=== PATIENT | male | born 1965 | race Caucasian/White ===

== ENCOUNTER 2021-06-05 11:56 | Outpatient (CLI) | payer MEDICARE, SELFPAY | END 2021-06-05 11:57 | disposition home or self-care (01) | PROVIDERS: PCP Family Medicine; Visit Provider Family Medicine | DX: R30.0 Dysuria (principal); Z93.59 Other cystostomy status; Z86.69 Personal history of other diseases of the nervous system and sense organs; Z87.828 Personal history of other (healed) physical injury and trauma; I10 Essential (primary) hypertension | CPT/HCPCS: 80053; 80061; 81003; 84443; 85025; 87077; 87086; 87184 ==

== ENCOUNTER 2021-07-23 09:00 | Outpatient (CLI) | payer MEDICARE, SELFPAY ==
--- NOTE | 2021-07-23 08:45 | US_ITS ---
WS: [id number] ULTRASOUND RENAL TECHNIQUE: Ultrasound examination of both kidneys. CLINICAL INFORMATION: NEUROGENIC BLADDER COMPARISON: None. FINDINGS: RIGHT: Right simple upper pole renal cyst measuring 4.3 x 3.9 x 2.7 cm. Nonobstructing right mid jze l parenchymal calculus measuring 11 mm. Tiny right inferior pole renal cyst measuring 9 x 8 mm Right kidney is normal in size and appearance. Echogenicity: Normal. Cortical thickness: 0.8 cm; Normal. Hydronephrosis: None. Perinephric fluid: None. Right kidney measures: 13.0 cm x 5.2 cm x 5.0 cm. LEFT: Left kidney is normal in size and appearance. Echogenicity: Normal. Cortical thickness: 0.8 cm; Normal. Hydronephrosis: None. Perinephric fluid: None. Left kidney measures: 10.8 cm x 6.2 cm x 5.7 cm. Normal visualized aorta. Dejesus catheter. US/US renal BI* [id number] IMPRESSION: 1. No hydronephrosis in either kidney. 2. Dejesus catheter. 3. Right renal cysts described above. 4. Nonobstructing 11 mm right renal parenchymal calculus
--- NOTE | 2021-07-23 09:30 | XR_ITS ---
WS: [id number] KUB, AP view, 07/23/2021 Clinical Data: HISTORY OF KIDNEY STONES Comparison: None. Findings: No abnormal intraabdominal masses or calcifications are seen. There is no dilatated small bowel or ev idence of obstruction. The colon shows moderate fecal material and central dilatation There is a vena caval filter in good position. There are clips in the right upper quadrant from a cho lecystectomy. There is osteoarthritic change of the lumbar spine. There is a density overlying the le ft lateral ilium which may be an artifact. There is osteoarthritic change of both hips. XR/XR KUB [id number] Impression: Moderate colonic ileus.
== END 2021-07-23 09:01 | disposition home or self-care (01) ==
LOC: RAD 09:03
PROVIDERS: PCP Family Medicine; Visit Provider Nurse Practitioner Family
DX: Z87.442 Personal history of urinary calculi (principal); N31.9 Neuromuscular dysfunction of bladder, unspecified; Q61.02 Congenital multiple renal cysts; N20.0 Calculus of kidney
CPT/HCPCS: 74018; 76770

== ENCOUNTER 2021-09-18 09:13 | Outpatient (CLI) | payer MEDICARE, SELFPAY | END 2021-09-18 09:14 | disposition home or self-care (01) | LOC: WOUND 09:15 | PROVIDERS: PCP Family Medicine; Visit Provider Thoracic Surgery (Cardiothoracic Vascular Surgery) | DX: I96 Gangrene, not elsewhere classified (principal); L97.522 Non-pressure chronic ulcer of other part of left foot with fat layer exposed; L89.622 Pressure ulcer of left heel, stage 2 | CPT/HCPCS: 11042; 87070; 87176; 87205; 99212 ==

== ENCOUNTER 2021-09-25 09:36 | Outpatient (CLI) | payer MEDICARE, SELFPAY | END 2021-09-25 09:37 | disposition home or self-care (01) | LOC: WOUND 09:37 | PROVIDERS: PCP Family Medicine; Visit Provider Thoracic Surgery (Cardiothoracic Vascular Surgery) | DX: I96 Gangrene, not elsewhere classified (principal); S91.312A Laceration without foreign body, left foot, initial encounter; W45.8XXA Other foreign body or object entering through skin, initial encounter; W22.03XA Walked into furniture, initial encounter; L89.622 Pressure ulcer of left heel, stage 2 | CPT/HCPCS: 97597 ==

== ENCOUNTER 2021-10-02 09:23 | Outpatient (CLI) | payer MEDICARE, SELFPAY | END 2021-10-02 09:24 | disposition home or self-care (01) | LOC: WOUND 09:24 | PROVIDERS: PCP Family Medicine; Visit Provider Emergency Medicine | DX: L89.892 Pressure ulcer of other site, stage 2 (principal); L89.622 Pressure ulcer of left heel, stage 2 | CPT/HCPCS: 11042 ==

== ENCOUNTER 2021-10-08 11:18 | Outpatient (CLI) | payer MEDICARE, SELFPAY ==
--- NOTE | 2021-10-08 11:39 | USCV_ITS ---
Gian Silva Age: 56 Gender: M : 1965 Exam Date: 10/08/2021 11:53 Ordering Phys: Jailene Jordan DO Technologist: Maci Mendoza Exam Location: [facility] [place] Indication: HISTORY: Non healing wounds heals PROCEDURES: The venous duplex Doppler examination of both lower extremities was performed in the standard fashion. The following venous structures were evaluated: common femoral vein, superficial femoral vein, and the popliteal vein and the ptvs. Bilateral duplex Venous Insufficiency study of the Deep and Superficial systems was carried out according to normal protocol with the patient in supine positon for deep system and dependent position for the superficial system. FINDINGS: No evidence of DVT seen in any vessel visualized at this time. Examination was technically limited due to pt condition NO SIGNIFICANT REFLUX SEEN The veins were found to be easily compressible with spontaneous blood flow. Non pulsatile flow pattern. CONCLUSIONS No evidence of DVT in the above-mentioned identifiable veins. No significant venous reflux in the above-mentioned vein Dr Toro Douglas MD [facility] (Electronically Signed) Final Date: 12 October 2021 10:05 S
== END 2021-10-08 11:19 | disposition home or self-care (01) ==
PROVIDERS: PCP Family Medicine; Visit Provider Emergency Medicine
DX: L89.622 Pressure ulcer of left heel, stage 2 (principal)
CPT/HCPCS: 93970

== ENCOUNTER 2021-10-09 09:00 | Outpatient (CLI) | payer MEDICARE, SELFPAY | END 2021-10-09 09:01 | disposition home or self-care (01) | LOC: WOUND 11:51 | PROVIDERS: PCP Family Medicine; Visit Provider Emergency Medicine | DX: I96 Gangrene, not elsewhere classified (principal); L89.892 Pressure ulcer of other site, stage 2; L89.622 Pressure ulcer of left heel, stage 2; T23.252A Burn of second degree of left palm, initial encounter; X08.8XXA Exposure to other specified smoke, fire and flames, initial encounter | CPT/HCPCS: 16020; 11042; A6446 ==

== ENCOUNTER 2021-10-12 11:26 | Outpatient (CLI) | payer MEDICARE, SELFPAY ==
--- NOTE | 2021-10-12 11:44 | USCV_ITS ---
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
== END 2021-10-12 11:27 | disposition home or self-care (01) ==
LOC: RAD 11:28
PROVIDERS: PCP Family Medicine; Visit Provider Emergency Medicine
DX: L89.622 Pressure ulcer of left heel, stage 2 (principal)
CPT/HCPCS: 93923

== ENCOUNTER → 2021-10-30 10:25 | Outpatient (BNVA) | payer MEDICARE, SELFPAY | PROVIDERS: PCP Family Medicine; Visit Provider Emergency Medicine | DX: L98.491 Non-pressure chronic ulcer of skin of other sites limited to breakdown of skin (principal) | CPT/HCPCS: 16020; 97597 ==

== ENCOUNTER 2021-11-16 11:21 | Outpatient (CLI) | payer MEDICARE, SELFPAY ==
[2021-11-16 11:59] LABS: Urine Appearance Hazy (CLEAR); Urine Color Straw (Yellow); pH Urine 5 (5-7)
[2021-11-16 12:00] LABS: Protein Urine Neg (Negative)
[2021-11-16 12:01] LABS: Bilirubin Urine Neg (Negative); Blood Urine 3+ (Negative); Glucose Urine UA Norm (Normal); Ketones Urine Negative (Negative); Nitrate Urine Negative (Negative)
[2021-11-16 12:02] LABS: Add Urine Microscopic? YES; Leukocyte Esterase Urine 2+ (Negative); Urobilinogen Urine Norm (Negative)
[2021-11-16 12:23] LABS: Add Urine Culture? No; Amorphous Sediment Urine 2+ /hpf; Bacteria Urine 1+ /hpf; RBC Urine 0-4 /hpf (0-2); Squamous Epithelial Cell Urine 0-4 /hpf (0-5); WBC Urine 55-80 /hpf (0-5)
== END 2021-11-16 11:22 | disposition home or self-care (01) ==
LOC: LAB 11:24
PROVIDERS: PCP Family Medicine; Visit Provider Urology
DX: R82.90 Unspecified abnormal findings in urine (principal)
CPT/HCPCS: 81001; 87077; 87086; 87186

== ENCOUNTER 2022-01-22 10:18 | Emergency (ER) | payer MEDICARE, SELFPAY ==
[2022-01-22 10:40] VITALS: BP 99/66; PULSE 87; RESP 14; TEMP 36.5; O2SAT 99; BMI 24.4
--- NOTE | 2022-01-22 11:24 | CT_ITS ---
WS: [id number] CT ABDOMEN AND PELVIS WITH CONTRAST HISTORY: abd pain, suprapubic pain. TECHNIQUE: Imaging performed of the abdomen and pelvis with IV contrast. Single phase imaging of the abdomen. Coronal and sagittal reformats are submitted. All CT scans at [facility] use at [address] one of these dose optimization techniques: automated exposure control; mA and/or kV adjustment per patient size (includes targeted exams where dose is matched to clinical indication); or iterative re construction. IV CONTRAST: Omnipaque 300; 70 mL IV. Oral contrast: No DLP: 1700.7 mGy.cm COMPARISON: None available. Lower thorax: Mild dependent changes at the lung bases. Heart is normal size. Small hiatal hernia. Liver/biliary system: Mild hepatic steatosis. No mass or bile duct dilatation. Gallbladder: Status post cholecystectomy. Pancreas: Normal size pancreas and pancreatic duct. No adjacent inflammation. Spleen: Normal size spleen. No mass or infarct. Adrenal glands: Normal. Right kidney: Multiple renal cysts with the largest in the superior pole measuring 4.1 x 3.4 cm. Clus tered calcifications in the mid kidney with a maximum diameter 1.1 cm. Left kidney: Normal. Aorta: Mild atherosclerosis with no aneurysm. IVC filter. Lymphadenopathy: None. Free fluid: None. GI tract: Normally distended stomach. No small bowel obstruction. Small amount of increased fluid in the cecum. LEFT lower quadrant colostomy. There is increased density within the distal colon which ma y be the distal. Developing calcification in the distal colon at the rectum is not excluded. Abdominal wall: Unremarkable abdominal wall. No hernia. Pelvis: Suprapubic catheter present in the urinary bladder. No free fluid or adenopathy. No abscess i dentified. Bones: Degenerative joint space disease at the hips. Lumbar spondylosis. CT/CT abdomen pelvis w con* [id number] IMPRESSION: 1. No acute abdominal or pelvic abnormalities identified. 2. LEFT lower quadrant colostomy with no obstruction. 3. Suprapubic catheter. 4. High density material in the distal colon towards the rectum. May be medici nal or developing calcification from disuse. 5. IVC filter. 6. RIGHT renal cysts and RIGHT renal calcifications. 7. Prior cholecystectomy.
--- NOTE | 2022-01-22 11:25 | ED_ITS ---
HPI - Male Genitourinary General: Chief complaint: Urogenital-Male Stated complaint: UTI Time Seen by Provider: 01/22/22 11:18 History of Present Illness: 56-year-old who is quadriplegic and has a suprapubic catheter and ileostomy presents due to concern for dysuria lower abdominal pain and midline and foul-smelling urine. He also states he had a fever to 101 at home. Recently states he was treated for UTI and is concerned it has recurred. Was seen by primary care earlier today and sent to the ER due to concern for sepsis. Denies any nausea or vomiting. Reports normal stool output from ileostomy. Denies back pain. Review of Systems Narrative: - CONSTITUTIONAL: Denies weight loss, fever and chills. - HEENT: Denies changes in vision and hearing. - RESPIRATORY: Denies SOB and cough. - CV: Denies palpitations and CP. - GI: As above - : As above - MSK: Denies myalgia and joint pain. - SKIN: Denies rash and pruritus. - NEUROLOGICAL: Denies headache, weakness, numbness and syncope. - PSYCHIATRIC: Denies suicidal ideation [facility] ED PFSH: Medical History H/O spinal cord injury History of femur fracture History of kidney stones Neurogenic bladder Quadriplegia Recurrent UTI Suprapubic catheter Surgical History History of ankle surgery LEFT History of cholecystectomy History of fusion of cervical spine C4-6 Family History Father Healthy adult Mother Healthy adult Social History Smoking and tobacco status: never smoked Alcohol intake: current Alcohol intake frequency: few times a month Marital status: Current occupational status: disabled History of recent travel: No Physical Exam Narrative: EXAM NARRATIVE: - GENERAL: Alert and oriented x 3. No acute distress. Well-nourished. Sitting in wheelchair. - EYES: EOMI. Anicteric. - HENT: Atraumatic, no C-spine tenderness. Moist mucous membranes. No scleral icterus. No cervical lymphadenopathy. - LUNGS: Clear to auscultation bilaterally. No accessory muscle use. Equal lung sounds bilaterally. No respiratory distress. - CARDIOVASCULAR: Regular rate and rhythm. No murmur. No JVD. - ABDOMEN: Soft, mild suprapubic tenderness. Non-distended. Negative CVA tenderness bilaterally, no rebound or guarding, negative Gann sign. No palpable masses. There is ileostomy without hernia or tenderness around ileostomy site. There is also a suprapubic catheter without purulent drainage around catheter insertion site. No tenderness over catheter insertion site itself. - EXTREMITIES: No edema. Non-tender. - SKIN: No rashes or lesions. Warm. - NEUROLOGIC: Patient is quadriplegic, otherwise no meningismus or focal neurological deficits. CN II-XII grossly intact. - PSYCHIATRIC: Cooperative. Appropriate mood and affect. Course Vital Signs: Vital signs: Vital Signs Temperature 97.7 F 01/22/22 10:40 Pulse Rate 86 01/22/22 14:30 Respiratory Rate 16 01/22/22 14:30 Blood Pressure 128/85 01/22/22 14:30 Pulse Oximetry 97 01/22/22 14:30 MDM - Male Medical Decision Making 56-year-old presents with lower abdominal pain and fever. He does have an ind welling suprapubic catheter. Urinalysis concerning for UTI. Otherwise patient is hemodynamically stable afebrile in the emergency department and nontoxic- appearing. Patient states that his blood pressure normally runs borderline low in his current blood pressure readings over his baseline. Does have a white count of 16 however otherwise there are no other signs of sepsis. CT scan does reveal any other acute abnormality. Consulted with hospitalist, Dr. Walls, who came to the bedside and evaluated the patient and recommends home exchange of his suprapubic catheter which she knows how to do. She also reviewed previous cultures and sensitivities and recommends oral Bactrim and discharge and follow- up with urology. This was also reviewed with Dr. White with urology who concurs. At this time I believe patient would be safe for discharge and outpatient follow-up. Return precautions provided. Plan was reviewed with the patient who expressed understanding. Questions answered. Patient will follow up with urology and PCP. Patient discharged in stable condition. Lab Data : 01/22/22 11:45 01/22/22 11:45 Radiology Impressions Abdomen/Pelvis CT 01/22/22 11:24 IMPRESSION: 1. No acute abdominal or pelvic abnormalities identified. 2. LEFT lower quadrant colostomy with no obstruction. 3. Suprapubic catheter. 4. High density material in the distal colon towards the rectum. May be medicinal or developing calcification from disuse. 5. IVC filter. 6. RIGHT renal cysts and RIGHT renal calcifications. 7. Prior cholecystectomy. Laboratory Results WBC 16.0 10^3/uL (4.0-10.0) H 01/22/22 11:45 RBC 4.73 10^6/uL (4.1-5.3) 01/22/22 11:45 Hgb 13.4 g/dL (11.7-16.6) 01/22/22 11:45 Hct 39.6 % (42.0-52.0) L 01/22/22 11:45 MCV 83.7 fl (80-94) 01/22/22 11:45 MCH 28.3 pg (28.0-34.0) 01/22/22 11:45 MCHC 33.8 g/dL (30.0-36.0) 01/22/22 11:45 RDW 14.7 % (12.1-15.1) 01/22/22 11:45 Plt Count 255 10^3/cmm (130-400) 01/22/22 11:45 MPV 10.6 fL (7.4-10.4) H 01/22/22 11:45 Neut % (Auto) 75.5 % 01/22/22 11:45 Lymph % (Auto) 17.5 % 01/22/22 11:45 Eddy % (Auto) 5.3 % 01/22/22 11:45 Eos % (Auto) 1.0 % 01/22/22 11:45 Baso % (Auto) 0.3 % 01/22/22 11:45 Neut # (Auto) 12.05 10^3/uL (1.8-7.7) H 01/22/22 11:45 Lymph # (Auto) 2.8 10^3/uL (0.8-4.8) 01/22/22 11:45 Eddy # (Auto) 0.8 10^3/uL (0.2-0.9) 01/22/22 11:45 Eos # (Auto) 0.2 10^3/uL (0.0-0.8) 01/22/22 11:45 Baso # (Auto) 0.1 10^3/uL (0.0-0.1) 01/22/22 11:45 Nucleated RBC % (auto) 0 % 01/22/22 11:45 Nucleated RBCs # 0.0 /100WBC 01/22/22 11:45 Sodium 132 mmol/L (136-145) L 01/22/22 11:45 Potassium 3.6 mmol/L (3.5-5.1) 01/22/22 11:45 Chloride 96 mmol/L (98-107) L 01/22/22 11:45 Carbon Dioxide 24 mmol/L (22-29) 01/22/22 11:45 Anion Gap 15.6 (5-19) 01/22/22 11:45 BUN 9 mg/dL (6-20) 01/22/22 11:45 Creatinine 0.3 mg/dL (0.7-1.2) L 01/22/22 11:45 GFR Calculation 309.0 mL/min (90-130) H 01/22/22 11:45 Glucose 146 mg/dL (65-115) H 01/22/22 11:45 Calculated Osmolality 275 mOsm/kg (285-295) L 01/22/22 11:45 Lactate 1.8 mmol/L (0.5-2.2) 01/22/22 11:45 Calcium 8.4 mg/dL (8.5-10.5) L 01/22/22 11:45 Total Bilirubin 0.6 mg/dL (0.15-1.2) 01/22/22 11:45 AST 14 U/L (0-40) 01/22/22 11:45 ALT 17 U/L (0-41) 01/22/22 11:45 Alkaline Phosphatase 109 IU/L (40-130) 01/22/22 11:45 Total Protein 7.1 g/dL (6.6-8.7) 01/22/22 11:45 Albumin 3.8 g/dL (3.5-5.2) 01/22/22 11:45 Globulin 3.3 g/dL (1.3-4.6) 01/22/22 11:45 Lipase 21 U/L (13-60) 01/22/22 11:45 Urine Color Yellow (Yellow) 01/22/22 12:04 Urine Appearance Cloudy (CLEAR) 01/22/22 12:04 Urine pH 6.5 (5-7) 01/22/22 12:04 Ur Specific [place] 1.020 (1.005-1.030) 01/22/22 12:04 Urine Protein 1+ (Negative) H 01/22/22 12:04 Urine Glucose (UA) Norm (Normal) 01/22/22 12:04 Urine Ketones Negative (Negative) 01/22/22 12:04 Urine Blood 2+ (Negative) H 01/22/22 12:04 Urine Nitrate Positive (Negative) H 01/22/22 12:04 Urine Bilirubin Neg (Negative) 01/22/22 12:04 Urine Urobilinogen Norm mg/dL (Negative) 01/22/22 12:04 Ur Leukocyte Esterase 2+ (Negative) H 01/22/22 12:04 Urine RBC 0-4 /hpf (0-2) H 01/22/22 12:04 Urine WBC Too numerous to cnt /hpf (0-5) H 01/22/22 12:04 Ur Squamous Epith Cells 5-10 /hpf (0-5) H 01/22/22 12:04 Amorphous Sediment 3+ /hpf 01/22/22 12:04 Urine Bacteria 1+ /hpf (NONE) H 01/22/22 12:04 Discharge Plan Discharge Condition: Stable Prescriptions: No Action All Day Allergy (cetirizine) 10 mg capsule 10 mg PO DAILY PRN (Reason: Allergy Symptoms) 0RF cholecalciferol (vitamin D3) 125 mcg (5,000 unit) capsule 125 mcg PO DAILY 0RF zinc 50 mg tablet 50 mg PO DAILY 0RF multivitamin Tablet 1 tab PO DAILY 0RF ascorbic acid (vitamin C) 1,000 mg tablet 1 g PO BID 0RF Linzess 145 mcg capsule 145 mcg PO DAILY Qty: 90 1RF hydrochlorothiazide 12.5 mg tablet 12.5 mg PO DAILY Qty: 90 1RF midodrine 5 mg tablet 5 mg PO BID Qty: 180 2RF Rx Instructions: do not give last dose of day after 6PM or within 4 hrs of bedtime oxybutynin chloride 5 mg tablet 5 mg PO TID PRN (Reason: bladder spasms) Qty: 90 2RF metaxalone 800 mg tablet 800 mg PO TID Qty: 90 2RF baclofen 20 mg tablet 20 mg PO BID Qty: 180 2RF methenamine hippurate 1 gram tablet 1 g PO BID Qty: 180 3RF Rx Instructions: Take 1000 mg of vitamin C with each dose of methenamine Referrals: Sly Montejo DO [Primary Care Provider] - Coding Level of Care Code ED 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
[2022-01-22] MEDS: sodium chloride 0.9% 1,000 ML 999 ML IV (11:50)
[2022-01-22] MEDS: morphine 4 mg/mL SDV 1 mL IVP (11:50)
[2022-01-22] MEDS: ondansetron 2 mg/ML SDV 2 mL 4 MG IVP (11:50)
[2022-01-22 11:52] LABS: Basophils # 0.1 10^3/uL (0.0-0.1); Basophils % 0.3 %; Eosinophils # 0.2 10^3/uL (0.0-0.8); Hematocrit 39.6 % (42.0-52.0); Hemoglobin 13.4 g/dL (11.7-16.6); Lymphocytes # 2.8 10^3/uL (0.8-4.8); Lymphocytes % 17.5 %; Mean Corpuscular HGB Conc 33.8 g/dL (30.0-36.0); Mean Corpuscular Hemoglobin 28.3 pg (28.0-34.0); Mean Corpuscular Volume 83.7 fl (80-94); Mean Platelet Volume 10.6 fL (7.4-10.4); Monocytes # 0.8 10^3/uL (0.2-0.9); Monocytes % 5.3 %; Neutrophils # 12.05 10^3/uL (1.8-7.7); Neutrophils % 75.5 %; Nucleated Red Blood Cells % 0 %; Platelet Count 255 10^3/cmm (130-400); Red Blood Count 4.73 10^6/uL (4.1-5.3); Red Cell Distribution Width 14.7 % (12.1-15.1)
[2022-01-22 12:00] VITALS: BP 101/76; PULSE 88; RESP 16; O2SAT 99
[2022-01-22 12:17] LABS: Alanine Aminotransferase 17 U/L (0-41); Albumin Level 3.8 g/dL (3.5-5.2); Alkaline Phosphatase 109 IU/L (40-130); Blood Urea Nitrogen 9 mg/dL (6-20); Calcium 8.4 mg/dL (8.5-10.5); Carbon Dioxide 24 mmol/L (22-29); Chloride 96 mmol/L (98-107); Globulin 3.3 g/dL (1.3-4.6); Glucose 146 mg/dL (65-115); Lactate (Lactic Acid level) 1.8 mmol/L (0.5-2.2); Lipase 21 U/L (13-60); Osmolality Calculated 275 mOsm/kg (285-295); Sodium 132 mmol/L (136-145); Total Bilirubin 0.6 mg/dL (0.15-1.2); Total Protein 7.1 g/dL (6.6-8.7)
[2022-01-22 12:19] LABS: Anion Gap 15.6 (5-19); Potassium 3.6 mmol/L (3.5-5.1)
[2022-01-22 12:20] LABS: Aspartate Amino Transferase 14 U/L (0-40)
[2022-01-22 12:22] LABS: Bilirubin Urine Neg (Negative); Blood Urine 2+ (Negative); Glucose Urine UA Norm (Normal); Ketones Urine Negative (Negative); Leukocyte Esterase Urine 2+ (Negative); Nitrate Urine Positive (Negative); Protein Urine 1+ (Negative); RBC Urine 0-4 /hpf (0-2); Urine Appearance Cloudy (CLEAR); Urine Color Yellow (Yellow); Urobilinogen Urine Norm (Negative); pH Urine 6.5 (5-7)
[2022-01-22 12:23] LABS: Add Urine Culture? Yes; Amorphous Sediment Urine 3+ /hpf; Bacteria Urine 1+ /hpf; WBC Urine TOO NUMEROUS TO CNT /hpf (0-5)
[2022-01-22] MEDS: iohexol 300 mg/mL 100 mL Btl IV (12:58)
[2022-01-22] MEDS: cefTRIAXone 2,000 MG in sodium chloride 0.9% (plus) 50 ML 100 MG IV (14:26)
[2022-01-22 14:30] VITALS: BP 128/85; PULSE 86; RESP 16; O2SAT 97
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
[2022-01-22 18:04] LABS: Estmated Average Glucose 114; Hemoglobin A1C 5.6 % (4.0-6.0)
== END 2022-01-22 15:41 | disposition home or self-care (01) ==
PROVIDERS: Hospitalist; Emergency Provider Emergency Medicine; PCP Family Medicine
DX: R30.0 Dysuria (principal); G82.50 Quadriplegia, unspecified
CPT/HCPCS: 36415; 74177; 80053; 81001; 81003; 83036; 83605; 83690; 85025; 87040; 87077; 87086; 87186; 96365; 96375; 99284; J0696; J2270; J2405; J7030; Q9967

== ENCOUNTER → 2022-02-06 15:33 | Outpatient (BNVA) | payer MEDICARE, SELFPAY | PROVIDERS: PCP Family Medicine; Visit Provider Nurse Practitioner Family | DX: N31.9 Neuromuscular dysfunction of bladder, unspecified (principal); Z93.59 Other cystostomy status | CPT/HCPCS: 87077; 87086; 87186; 99213 ==

== ENCOUNTER → 2022-05-14 16:28 | Outpatient (BNVA) | payer MEDICARE, SELFPAY | PROVIDERS: PCP Family Medicine; Visit Provider Urology | DX: N31.9 Neuromuscular dysfunction of bladder, unspecified (principal); N39.0 Urinary tract infection, site not specified; Z93.59 Other cystostomy status | CPT/HCPCS: 99213 ==

== ENCOUNTER → 2022-05-28 11:39 | Outpatient (BNVA) | payer MEDICARE, SELFPAY | PROVIDERS: PCP Family Medicine; Visit Provider Family Medicine | DX: K58.9 Irritable bowel syndrome, unspecified (principal); G82.50 Quadriplegia, unspecified; I10 Essential (primary) hypertension; N31.9 Neuromuscular dysfunction of bladder, unspecified | CPT/HCPCS: 80053; 80061; 84443; 85025 ==

== ENCOUNTER → 2022-08-20 16:55 | Outpatient (BNVA) | payer MEDICARE, SELFPAY | PROVIDERS: PCP Family Medicine; Visit Provider Nurse Practitioner Family | DX: N39.0 Urinary tract infection, site not specified (principal); T83.510A Infection and inflammatory reaction due to cystostomy catheter, initial encounter; Y84.6 Urinary catheterization as the cause of abnormal reaction of the patient, or of later complication, without mention of misadventure at the time of the procedure | CPT/HCPCS: 87077; 87086; 87184 ==

== ENCOUNTER 2022-11-12 01:48 | Emergency (ER) | payer MEDICARE, SELFPAY ==
[2022-11-12 01:59] VITALS: BP 103/71; PULSE 120; RESP 18; O2SAT 94; BMI 25.1
[2022-11-12] MEDS: HYDROcodone-acetaminophen 5-325 mg Tablet 1 TAB PO (02:16)
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
--- NOTE | 2022-11-12 02:45 | CTR_ITS ---
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 BP 200 systolic on monitor. TECHNIQUE: Imaging protocol: Computed tomography of the head without contrast. Radiation optimization: All CT scans at this facility use at least one of these dose optimization techniques: automated exposure control; mA and/or kV adjustment per patient size (includes targeted exams where dose is matched to clinical indication); or iterative reconstruction. REPORTING DATA: Count of CT and Cardiac NM exams in prior 12 months: This patient has received [address] and 0 known cardiac nuclear medicine studies in the 12 months prior to the current study. COMPARISON: No relevant prior studies available. RADIATION DOSE METRICS: Total DLP (mGy-cm): 1145.08 FINDINGS: Brain: There is mild parenchymal atrophy and chronic small vessel disease. No cerebral/cerebellar infarct. No brain parenchymal or extra-axial hemorrhage. Cerebral ventricles: No ventriculomegaly. Paranasal sinuses: Paranasal sinuses are clear. No air-fluid level. Mastoid air cells: Visualized mastoid air cells are clear. Bones/joints: Unremarkable. No acute fracture. Soft tissues: Unremarkable. CT/CT head wo con* [id number] IMPRESSION: 1. No acute infarct or hemorrhage. 2. Mild parenchymal atrophy and chronic small vessel disease.
[2022-11-12 04:14] VITALS: BP 91/60; PULSE 94; RESP 16; O2SAT 94
== END 2022-11-12 04:15 | disposition home or self-care (01) ==
PROVIDERS: Emergency Provider Emergency Medicine; PCP Family Medicine
DX: R51.9 Headache, unspecified (principal); T83.098A Other mechanical complication of other urinary catheter, initial encounter; Y73.8 Miscellaneous gastroenterology and urology devices associated with adverse incidents, not elsewhere classified; I10 Essential (primary) hypertension; G82.50 Quadriplegia, unspecified
CPT/HCPCS: 51702; 70450; 99284

== ENCOUNTER 2022-11-19 13:46 | Outpatient (CLI) | payer MEDICARE, SELFPAY ==
--- NOTE | 2022-11-19 14:04 | XR_ITS ---
WS: [id number] Exam: XR KUB [id number] Date/Time of Exam: 11/19/2022 2:10 PM Reason For Exam: HISTORY OF KIDNEY STONES Comparison 07/23/2021. 12 mm calcification superimposes right kidney and may represent a renal stone. No bowel obstruction o r free air. Signs of prior cholecystectomy. IVC filter in place. No sign of organ enlargement. Advanc ed degenerative changes of the hips. Moderate DJD of the lower lumbar spine. Colostomy stoma in the l eft lower quadrant of the abdomen. XR/XR KUB [id number] IMPRESSION: 1. 12 mm calcification superimposes the right kidney and might represent a jez l stone or gallstone. 2. No acute abdominal process. Additional nonacute findings.
== END 2022-11-19 13:47 | disposition home or self-care (01) ==
PROVIDERS: PCP Family Medicine; Visit Provider Urology
DX: Z87.442 Personal history of urinary calculi (principal); Z87.440 Personal history of urinary (tract) infections; N20.0 Calculus of kidney
CPT/HCPCS: 74018

== ENCOUNTER → 2022-12-10 11:01 | Outpatient (BNVA) | payer MEDICARE, SELFPAY | PROVIDERS: PCP Family Medicine; Visit Provider Family Medicine | DX: G82.50 Quadriplegia, unspecified (principal); I10 Essential (primary) hypertension; K58.9 Irritable bowel syndrome, unspecified; Z12.5 Encounter for screening for malignant neoplasm of prostate; K58.2 Mixed irritable bowel syndrome; R73.9 Hyperglycemia, unspecified | CPT/HCPCS: 80053; 80061; 83036; 84443; 85025; G0103 ==

== ENCOUNTER → 2022-12-11 13:30 | Outpatient (BNVA) | payer MEDICARE, SELFPAY | PROVIDERS: PCP Family Medicine; Visit Provider Dermatology | DX: D22.5 Melanocytic nevi of trunk (principal); Z85.828 Personal history of other malignant neoplasm of skin; Z87.891 Personal history of nicotine dependence; L21.8 Other seborrheic dermatitis; L85.3 Xerosis cutis; D22.4 Melanocytic nevi of scalp and neck | CPT/HCPCS: 99214 ==

== ENCOUNTER → 2022-12-22 16:13 | Outpatient (BNVA) | payer MEDICARE, SELFPAY | PROVIDERS: PCP Family Medicine; Visit Provider Family Medicine | DX: R39.9 Unspecified symptoms and signs involving the genitourinary system (principal); N39.0 Urinary tract infection, site not specified; T83.510A Infection and inflammatory reaction due to cystostomy catheter, initial encounter | CPT/HCPCS: 81000; 87077; 87086; 87184 ==

== ENCOUNTER → 2023-02-07 16:55 | Outpatient (BNVA) | payer MEDICARE, SELFPAY | PROVIDERS: PCP Family Medicine; Visit Provider Nurse Practitioner Family | DX: R31.9 Hematuria, unspecified (principal); N39.0 Urinary tract infection, site not specified; T83.511A Infection and inflammatory reaction due to indwelling urethral catheter, initial encounter; Y99.9 Unspecified external cause status | CPT/HCPCS: 81000; 87077; 87086; 87184 ==

== ENCOUNTER → 2023-05-26 14:54 | Outpatient (BNVA) | payer MEDICARE, SELFPAY | PROVIDERS: PCP Family Medicine; Visit Provider Otolaryngology | DX: H65.33 Chronic mucoid otitis media, bilateral (principal); H69.93 Unspecified Eustachian tube disorder, bilateral | CPT/HCPCS: 99213 ==

== ENCOUNTER 2023-06-20 16:38 | Emergency (ER) | payer MEDICARE, SELFPAY ==
[2023-06-20 16:51] VITALS: BP 58/37; PULSE 75; RESP 18; TEMP 36.5; O2SAT 97
--- NOTE | 2023-06-20 17:19 | XRR_ITS ---
PROCEDURE INFORMATION: Exam: XR Chest Exam date and time: 06/20/2023 5:31 PM Age: 58 years old Clinical indication: Fever and other: Hypotension; Patient HX: Hypotension; Fever TECHNIQUE: Imaging protocol: Radiologic exam of the chest. Views: 1 view. COMPARISON: CR XR KUB [id number] 11/19/2022 2:32 PM FINDINGS: Lungs: Unremarkable. No consolidation. Pleural spaces: Unremarkable. No pleural effusion. No pneumothorax. Heart/Mediastinum: There appears to be mild nonspecific indeterminate mediastinal widening. Bones/joints: Unremarkable. XR/XR chest 1V portable [id number] IMPRESSION: There appears to be mild nonspecific indeterminate mediastinal widening. Clinical correlation is needed. Consider CT for further evaluation if clinically warranted. The chest x-ray is otherwise unremarkable.
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
[2023-06-20 17:38] LABS: Basophils % 0.2 %; Hematocrit 45.9 % (37-53); Lymphocytes # 1.1 10^3/uL (0.8-4.8); Lymphocytes % 16.6 %; Mean Corpuscular HGB Conc 32.7 g/dL (30-55); Mean Corpuscular Hemoglobin 28.1 pg (27-33); Mean Corpuscular Volume 86.1 fl (82-101); Mean Platelet Volume 10.8 fL (7.4-10.4); Monocytes # 1.1 10^3/uL (0.2-0.9); Monocytes % 16.5 %; Neutrophils # 4.18 10^3/uL (1.8-7.7); Neutrophils % 65.4 %; Nucleated Red Blood Cells % 0 %; Platelet Count 197 10^3/cmm (157-399); Red Blood Count 5.33 10^6/uL (3.85-5.65); Red Cell Distribution Width 15.7 % (12.1-15.1); White Blood Count 6.38 10^3/uL (3.29-11.43)
[2023-06-20] MEDS: sodium chloride 0.9% 1,000 ML 999 ML IV ×2 (17:38→18:56)
--- NOTE | 2023-06-20 17:44 | ECG_ITS ---
[facility] Test Date: 2023-06-20 Pat Name: Gian Silva Department: Room: Gender: Male Insurance Counselor: : 1965 Requested By: Tyshawn Harkins Order Number: [id number] Abe MD: Leila Galdamez M.D. Measurements Intervals [place] Rate: 54 P: 79 SD: 149 QRS: 57 QRSD: 85 T: 61 QT: 432 QTc: 410 Interpretive Statements SINUS BRADYCARDIA WITH SINUS ARRHYTHMIA Incomplete right bundle branch block Otherwise normal No previous EKG for comparison Electronically Signed On 06-21-2023 13:53:30 FLEET DISPATCH MANAGER by Leila Galdamez M.D. [id number]
[2023-06-20 17:51] LABS: Alanine Aminotransferase 44 U/L (0-41); Alkaline Phosphatase 134 U/L (40-130); Anion Gap 17.4 (5-19); Aspartate Amino Transferase 35 U/L (0-40); Blood Urea Nitrogen 26 mg/dL (6-20); Calcium 8.2 mg/dL (8.5-10.5); Carbon Dioxide 18 mmol/L (22-29); Chloride 97 mmol/L (98-107); Globulin 3.2 g/dL (1.3-4.6); Glucose 92 mg/dL (65-115); Osmolality Calculated 272 mOsm/kg (285-295); Potassium 3.4 mmol/L (3.5-5.1); Sodium 129 mmol/L (136-145); Total Bilirubin 0.3 mg/dL (0.15-1.2); Total Protein 7.2 g/dL (6.6-8.7)
[2023-06-20 17:52] LABS: Lactic Sepsis W/Reflex 1.3 mmol/L (0.5-2.2)
[2023-06-20 17:54] LABS: Troponin(5th) Baseline 39 ng/L (0-15)
--- NOTE | 2023-06-20 18:03 | CTR_ITS ---
PROCEDURE INFORMATION: Exam: CTA Chest With Contrast Exam date and time: 06/20/2023 6:09 PM Age: 58 years old Clinical indication: Fever; Abdominal pain; Generalized; Chest pressure; Prior surgery; Surgery date: 6+ months; Surgery type: Cervical fusion. Ileostomy. Ivc filter. Suprapubic cath. Patient HX: Cough with chest and abd pain. Hypotensive. ; Additional info: Cp/abd pain TECHNIQUE: Imaging protocol: Computed tomographic angiography of the chest with contrast. Exam focused on the arteries. 3D rendering (Not supervised by radiologist): MIP and/or 3D reconstructed images were created by the technologist. Radiation optimization: All CT scans at this facility use at least one of these dose optimization techniques: automated exposure control; mA and/or kV adjustment per patient size (includes targeted exams where dose is matched to clinical indication); or iterative reconstruction. Contrast material: OMNI 350; Contrast volume: 100 ml; Contrast route: INTRAVENOUS (IV); REPORTING DATA: Count of CT and Cardiac NM exams in prior 12 months: This patient has received [address] and 0 known cardiac nuclear medicine studies in the 12 months prior to the current study. COMPARISON: CR (CHEST, ) 06/20/2023 5:31 PM RADIATION DOSE METRICS: Total DLP (mGy-cm): 1384.53 FINDINGS: Pulmonary arteries: Few small bubbles in the main pulmonary artery. Correlation with recent vascular intervention. Aorta: Unremarkable. No aortic aneurysm. No aortic dissection. Lungs: Mild atelectasis at bilateral lung bases. Pleural spaces: Unremarkable. No pneumothorax. No pleural effusion. Heart: Unremarkable. No cardiomegaly. No pericardial effusion. Lymph nodes: Unremarkable. No enlarged lymph nodes. Bones/joints: Unremarkable. No acute fracture. Soft tissues: Unremarkable. PROCEDURE INFORMATION: Exam: CT Abdomen And Pelvis With Contrast Exam date and time: 06/20/2023 6:09 PM Age: 58 years old Clinical indication: Fever; Abdominal pain; Generalized; Chest pressure; Prior surgery; Surgery date: 6+ months; Surgery type: Cervical fusion. Ileostomy. Ivc filter. Suprapubic cath. Patient HX: Cough with chest and abd pain. Hypotensive. ; Additional info: Cp/abd pain TECHNIQUE: Imaging protocol: Computed tomography of the abdomen and pelvis with contrast. Radiation optimization: All CT scans at this facility use at least one of these dose optimization techniques: automated exposure control; mA and/or kV adjustment per patient size (includes targeted exams where dose is matched to clinical indication); or iterative reconstruction. Contrast material: OMNI 350; Contrast volume: 100 ml; Contrast route: INTRAVENOUS (IV); REPORTING DATA: Count of CT and Cardiac NM exams in prior 12 months: This patient has received [address] and 0 known cardiac nuclear medicine studies in the 12 months prior to the current study. COMPARISON: CT abdomen pelvis w con* [id number] 01/22/2022 12:57 PM RADIATION DOSE METRICS: Total DLP (mGy-cm): 1384.53 FINDINGS: Tubes, catheters and devices: Dejesus's catheter in the bladder. Liver: Liver is enlarged measuring 21 cm. Gallbladder and bile ducts: Normal. No calcified stones. No ductal dilation. Pancreas: Normal. No ductal dilation. Spleen: Normal. No splenomegaly. Adrenal glands: Normal. No mass. Kidneys and ureters: Multiple nonobstructing calculi in the right kidney with the largest measuring 1.3 cm in the midpole region. Multiple cysts in the right kidney with the largest measuring 4.6 cm in the upper pole. Infrarenal IVC filter. Stomach and bowel: Left lower abdominal ostomy. Appendix: No evidence of appendicitis. Intraperitoneal space: Unremarkable. No free air. No significant fluid collection. Vasculature: See Kidneys and ureters finding. Lymph nodes: Unremarkable. No enlarged lymph nodes. Urinary bladder: Unremarkable as visualized. Reproductive: Unremarkable as visualized. Bones/joints: Degenerative changes of the spine. Diffuse demineralization of the bones. Soft tissues: Unremarkable. CT/CT angio chest w abd pel w con IMPRESSION: 1. No pulmonary embolism. 2. Few small bubbles in the main pulmonary artery. Correlation with recent vascular intervention. 3. Mild atelectasis at bilateral lung bases. IMPRESSION: No acute abdominal or pelvic abnormality. COMMENTS: 1. For patients with an IVC filter, recommend assessment for a management plan for the patient's IVC filter. If there is no established management plan, recommend referral to an interventional clinician on a nonemergent basis for evaluation. 2. Consistent with the [employer]'s Incidental Findings Committee white paper (J Am Vincent Radiol 2018): Any incidental renal lesion less than 1 cm or classified as too small to characterize, or any incidental cystic renal lesion characterized as simple-appearing, is likely benign. No follow-up imaging is recommended for these lesions per consensus recommendations based on imaging criteria.
[2023-06-20] MEDS: iohexol 350 mg/mL 500 mL Btl (per mL) IV (18:18)
[2023-06-20 18:27] LABS: Influenza A by IFA negative (Negative); Influenza B by IFA negative (Negative)
[2023-06-20 19:01] LABS: Add Urine Microscopic? YES; Bilirubin Urine Neg (Negative); Blood Urine 3+ (Negative); Glucose Urine UA Norm (Normal); Ketones Urine Negative (Negative); Leukocyte Esterase Urine 2+ (Negative); Nitrate Urine Positive (Negative); Protein Urine 1+ (Negative); Urine Appearance Cloudy (CLEAR); Urine Color Yellow (Yellow); Urobilinogen Urine Neg (Negative); pH Urine 5 (5-7)
[2023-06-20 19:02] LABS: Add Urine Culture? Yes; Bacteria Urine 4+ /hpf; WBC Urine 55-80 /hpf (0-5)
[2023-06-20] MEDS: cefTRIAXone 1,000 MG in sodium chloride 0.9% (plus) 50 ML 100 MG IV (19:19)
[2023-06-20 19:28] VITALS: BP 90/62; PULSE 65; RESP 16; O2SAT 90
[2023-06-20 19:44] VITALS: BP 90/62; PULSE 65; RESP 16; TEMP 36.5; O2SAT 90
[2023-06-20 19:55] LABS: Adenovirus Not Detected (NOT DETECT); Chlamydia Pneumoniae Not Detected (NOT DETECT); Coronavirus 229E,HKU1,NL63,OC4 Not Detected (NOT DETECT); Human Metapneumovirus Not Detected (NOT DETECT); Human Rhinovirus/Enterovirus Not Detected (NOT DETECT); Influenza A Not Detected (NOT DETECT); Influenza A H1 Not Detected (NOT DETECT); Influenza A H1-2009 Not Detected (NOT DETECT); Influenza A H3 Not Detected (NOT DETECT); Influenza B Not Detected (NOT DETECT); Mycoplasma Pneumoniae Not Detected (NOT DETECT); Parainfluenza Virus Type 1 Not Detected (NOT DETECT); Parainfluenza Virus Type 2 Not Detected (NOT DETECT); Parainfluenza Virus Type 3 Not Detected (NOT DETECT); Parainfluenza Virus Type 4 Not Detected (NOT DETECT); Respiratory Syncytial Virus A Not Detected (NOT DETECT); Respiratory Syncytial Virus B Not Detected (NOT DETECT)
[2023-06-20 20:06] LABS: SARS-COV-2 Detected (NOT DETECT)
== END 2023-06-20 19:57 | disposition home or self-care (01) ==
PROVIDERS: Family Medicine; Emergency Provider Emergency Medicine; PCP Family Medicine
DX: N30.00 Acute cystitis without hematuria (principal); U07.1 COVID-19; I10 Essential (primary) hypertension; G82.50 Quadriplegia, unspecified
CPT/HCPCS: 71045; 71275; 74177; 80053; 81001; 83605; 84484; 85025; 87077; 87086; 87186; 87635; 87804; 93005; 93010; 96361; 96374; 99285; J0696; J7030; Q9967

== ENCOUNTER 2023-06-22 04:11 | Emergency (ER) | payer MEDICARE, SELFPAY ==
--- NOTE | 2023-06-22 04:12 | XRR_ITS ---
PROCEDURE INFORMATION: Exam: XR Chest Exam date and time: 06/22/2023 4:18 AM Age: 58 years old Clinical indication: Other: Weakness/hypotension; Prior surgery; Surgery date: 6+ months; Surgery type: Cervical fusion; Patient HX: Weakness with hypotension. Covid positive. TECHNIQUE: Imaging protocol: Radiologic exam of the chest. Views: 1 view. COMPARISON: CT angio chest w abd pel w con 06/20/2023 6:09 PM FINDINGS: Lungs: Unremarkable. No consolidation. Pleural spaces: Unremarkable. No pleural effusion. No pneumothorax. Heart/Mediastinum: Unremarkable. No cardiomegaly. Bones/joints: Unremarkable. XR/XR chest 1V portable [id number] IMPRESSION: No acute findings.
[2023-06-22 04:15] VITALS: BP 116/74; PULSE 66; RESP 18; TEMP 36.4; O2SAT 96
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
[2023-06-22] MEDS: sodium chloride 0.9% 1,000 ML 999 ML IV (04:53)
--- NOTE | 2023-06-22 04:55 | ECG_ITS ---
[facility] Test Date: 2023-06-22 Pat Name: Gian Silva Department: Room: Gender: Male Archeology Faculty Member: : 1965 Requested By: Gordon Zaldivar Order Number: [id number] Abe MD: Leila Galdamez M.D. Measurements Intervals [place] Rate: 68 P: 69 ID: [id number] QRS: 63 QRSD: 91 T: 36 QT: 404 QTc: 433 Interpretive Statements SINUS RHYTHM POSSIBLE LEFT ATRIAL ENLARGEMENT [-0.1mV P-WAVE IN V1/V2] MODERATE T-WAVE ABNORMALITY, CONSIDER ANTERIOR ISCHEMIA [-0.1+ mV T-WAVE IN V3/V4] Compared to ECG 06/20/2023 17:44:45 T-wave abnormality now present Electronically Signed On 06-22-2023 13:40:04 [employer] SALESPERSON by Leila Galdamez M.D. [id number]
[2023-06-22 04:59] LABS: Basophils % 0.3 %; Hematocrit 45.4 % (37-53); Mean Corpuscular Hemoglobin 28.2 pg (27-33); Mean Corpuscular Volume 85.5 fl (82-101); Mean Platelet Volume 10.8 fL (7.4-10.4); Monocytes # 0.8 10^3/uL (0.2-0.9); Monocytes % 11.1 %; Neutrophils # 4.19 10^3/uL (1.8-7.7); Neutrophils % 60.2 %; Nucleated Red Blood Cells % 0 %; Platelet Count 192 10^3/cmm (157-399); Red Blood Count 5.31 10^6/uL (3.85-5.65); Red Cell Distribution Width 15.5 % (12.1-15.1); White Blood Count 6.96 10^3/uL (3.29-11.43)
[2023-06-22 05:17] LABS: Lactic Sepsis W/Reflex 1.6 mmol/L (0.5-2.2)
[2023-06-22 05:27] LABS: Alanine Aminotransferase 48 U/L (0-41); Albumin Level 3.8 g/dL (3.5-5.2); Alkaline Phosphatase 139 U/L (40-130); Aspartate Amino Transferase 48 U/L (0-40); Blood Urea Nitrogen 13 mg/dL (6-20); Calcium 8.4 mg/dL (8.5-10.5); Carbon Dioxide 20 mmol/L (22-29); Chloride 96 mmol/L (98-107); Glomerular Filtration Rate 115.4 mL/min (90-130); Glucose 94 mg/dL (65-115); Osmolality Calculated 270 mOsm/kg (285-295); Sodium 130 mmol/L (136-145); Total Bilirubin 0.4 mg/dL (0.15-1.2); Total Protein 7.8 g/dL (6.6-8.7)
[2023-06-22 05:28] LABS: Anion Gap 17.2 (5-19); Potassium 3.2 mmol/L (3.5-5.1)
[2023-06-22] MEDS: lactated ringers 1,000 ML 999 ML IV (06:10)
[2023-06-22 06:58] VITALS: BP 92/62; PULSE 60; RESP 16; O2SAT 93
== END 2023-06-22 07:01 | disposition home or self-care (01) ==
PROVIDERS: Emergency Provider Emergency Medicine; PCP Family Medicine
DX: I95.9 Hypotension, unspecified (principal); I10 Essential (primary) hypertension; G82.50 Quadriplegia, unspecified
CPT/HCPCS: 71045; 80053; 83605; 85025; 93005; 93010; 96360; 96361; 99285; J7030; J7120

== ENCOUNTER 2023-06-25 06:26 | Emergency (ER) | payer MEDICARE, SELFPAY ==
[2023-06-25 06:30] VITALS: BP 92/60; PULSE 59; RESP 16; TEMP 36.1; O2SAT 95; BMI 24.4
--- NOTE | 2023-06-25 06:55 | XRR_ITS ---
PROCEDURE INFORMATION: Exam: XR Chest Exam date and time: 06/25/2023 6:58 AM Age: 58 years old Clinical indication: Cough and dyspnea; Prior surgery; Surgery date: 6+ months; Surgery type: C spine, ivc; Additional info: Dyspnea/cough TECHNIQUE: Imaging protocol: Radiologic exam of the chest. Views: 1 view. Total images: 1 COMPARISON: CR (CHEST, ) 06/22/2023 4:18 AM FINDINGS: Lungs: Left basilar opacity is again noted and appears unchanged from the prior exam. Pleural spaces: Unremarkable. No pleural effusion. No pneumothorax. Heart/Mediastinum: Unremarkable. No cardiomegaly. Bones/joints: Osseous structures are unchanged from the prior exam. XR/XR chest 1V portable [id number] IMPRESSION: Left basilar opacity is again noted and appears unchanged from the prior exam.
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
[2023-06-25] MEDS: sodium chloride 0.9% 500 ML 999 ML IV (07:24)
[2023-06-25 07:25] LABS: Basophils % 0.2 %; Hematocrit 41.4 % (37-53); Lymphocytes # 0.9 10^3/uL (0.8-4.8); Lymphocytes % 17.6 %; Mean Corpuscular HGB Conc 34.3 g/dL (30-55); Mean Corpuscular Hemoglobin 28.4 pg (27-33); Mean Corpuscular Volume 82.8 fl (82-101); Monocytes # 0.4 10^3/uL (0.2-0.9); Neutrophils # 3.94 10^3/uL (1.8-7.7); Neutrophils % 74.8 %; Nucleated Red Blood Cells % 0 %; Platelet Count 153 10^3/cmm (157-399); Red Cell Distribution Width 15.3 % (12.1-15.1); White Blood Count 5.27 10^3/uL (3.29-11.43)
[2023-06-25 07:32] VITALS: PULSE 68; RESP 18; O2SAT 94
--- NOTE | 2023-06-25 07:34 | PC.NURSE ---
THIS NURSE ASSUMED CARE AT 0700. PATIENT RESTING COMFORTABLY IN HIS CHAIR. PATIENT PLACED ON MONITORS AT BEDSIDE, NO FURTHER NEEDS AT THIS TIME.
[2023-06-25 07:42] LABS: Alanine Aminotransferase 39 U/L (0-41); Albumin Level 3.7 g/dL (3.5-5.2); Alkaline Phosphatase 106 U/L (40-130); Anion Gap 17.9 (5-19); Aspartate Amino Transferase 43 U/L (0-40); Blood Urea Nitrogen 12 mg/dL (6-20); Calcium 8.1 mg/dL (8.5-10.5); Carbon Dioxide 20 mmol/L (22-29); Chloride 92 mmol/L (98-107); Creatinine Clr Calc Pharmacy 144.2468; Globulin 3.3 g/dL (1.3-4.6); Glomerular Filtration Rate 137.9 mL/min (90-130); Glucose 134 mg/dL (65-115); Osmolality Calculated 266 mOsm/kg (285-295); Sodium 127 mmol/L (136-145); Total Bilirubin 0.5 mg/dL (0.15-1.2)
[2023-06-25 07:48] LABS: Potassium 2.9 mmol/L (3.5-5.1)
[2023-06-25] MEDS: potassium chloride oral liq 20 mEq/15 mL UDC 40 MEQ PO (08:15)
[2023-06-25 08:17] VITALS: BP 97/53; PULSE 64; RESP 18; O2SAT 93
[2023-06-25 09:43] LABS: Potassium 3.7 mmol/L (3.5-5.1)
[2023-06-25 09:48] VITALS: BP 106/74; PULSE 62; RESP 18; O2SAT 94
[2023-06-25 10:37] VITALS: BP 88/57; PULSE 58; RESP 18; O2SAT 94
== END 2023-06-25 10:40 | disposition home or self-care (01) ==
PROVIDERS: Emergency Provider Family Medicine; PCP Family Medicine
DX: I95.9 Hypotension, unspecified (principal); G82.50 Quadriplegia, unspecified; I10 Essential (primary) hypertension
CPT/HCPCS: 71045; 80053; 84132; 85025; 99284; J7040

== ENCOUNTER 2023-06-30 07:59 | Emergency (ER) | payer MEDICARE, SELFPAY ==
[2023-06-30 08:11] VITALS: BP 96/81; PULSE 76; RESP 18; TEMP 36.8; O2SAT 97; BMI 24.4
[2023-06-30 08:15] VITALS: BP 101/67; PULSE 65; O2SAT 97
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
[2023-06-30 08:27] LABS: Basophils % 0.1 %; Eosinophils % 0.6 %; Hematocrit 45.9 % (37-53); Lymphocytes # 1.5 10^3/uL (0.8-4.8); Mean Corpuscular HGB Conc 32.5 g/dL (30-55); Mean Corpuscular Hemoglobin 27.9 pg (27-33); Mean Platelet Volume 10.4 fL (7.4-10.4); Monocytes # 0.7 10^3/uL (0.2-0.9); Nucleated Red Blood Cells % 0 %; Platelet Count 218 10^3/cmm (157-399); Red Blood Count 5.34 10^6/uL (3.85-5.65); Red Cell Distribution Width 15.4 % (12.1-15.1); White Blood Count 7.01 10^3/uL (3.29-11.43)
[2023-06-30 08:43] LABS: Anion Gap 15.8 (5-19); Blood Urea Nitrogen 6 mg/dL (6-20); Calcium 8.8 mg/dL (8.5-10.5); Carbon Dioxide 20 mmol/L (22-29); Chloride 102 mmol/L (98-107); Glomerular Filtration Rate 170.2 mL/min (90-130); Glucose 112 mg/dL (65-115); Osmolality Calculated 278 mOsm/kg (285-295); Sodium 135 mmol/L (136-145)
[2023-06-30 08:46] LABS: Potassium 2.8 mmol/L (3.5-5.1)
[2023-06-30] MEDS: potassium chloride oral liq 20 mEq/15 mL UDC 40 MEQ PO (09:03)
[2023-06-30 09:05] LABS: Cortisol Random 23.47 ug/dL (2.47-19.5)
--- NOTE | 2023-06-30 09:36 | PC.PHAR ---
PT STATES HE TAKES CARE OF HIS OWN MEDICATIONS-PT STATES HE IS STILL TAKING METHENAMINE HIPPURATE 1G BID EXT SHOWS LAST FILLED 04/07/23 30D/S-PT STATES HE TAKES MIDODRINE 5MG BID AND TAKES ONE EXTRA TAB DAILY IF NEEDED-RX WRITTEN FOR 5MG TID ON 06/24/23-PT STATES THE HCTZ 12.5MG DAILY FILLED ON 04/07/23 90D/S WAS DCED
[2023-06-30 10:39] VITALS: BP 109/70; PULSE 63; O2SAT 98
== END 2023-06-30 10:30 | disposition home or self-care (01) ==
PROVIDERS: Emergency Provider Family Medicine; PCP Family Medicine
DX: I95.9 Hypotension, unspecified (principal); E87.6 Hypokalemia; G82.50 Quadriplegia, unspecified; I10 Essential (primary) hypertension
CPT/HCPCS: 36415; 80048; 82533; 85025; 99283

== ENCOUNTER → 2023-07-14 15:59 | Outpatient (BNVA) | payer MEDICARE, SELFPAY | PROVIDERS: PCP Family Medicine; Visit Provider Family Medicine | DX: N39.0 Urinary tract infection, site not specified (principal); E87.6 Hypokalemia | CPT/HCPCS: 80048; 81003; 83735; 87077; 87086; 87184 ==

== ENCOUNTER 2023-07-23 11:11 | Outpatient (CLI) | payer MEDICARE, SELFPAY ==
--- NOTE | 2023-07-23 11:16 | XR_ITS ---
WS: [id number] ANKLE RIGHT TECHNIQUE: 2 views of the right ankle CLINICAL INFORMATION: Right ankle swelling, injury COMPARISON: None. FINDINGS: Osteoporosis. Soft tissue edema about the ankle. Slightly displaced spiral type fracture involving th e mid to distal tibial shaft with widening measuring 5 mm. Slight posterior angulation of the fractur e apex. In addition spiral type fracture involving the fibula with posterior angulation of the proximal fragm ent. Fracture widening measures 3 mm. Normal medial and lateral malleolus. Ankle mortise appears intact. Advanced degenerative arthritis in volving the hindfoot. IMPRESSION: 1. Spiral type fractures of the mid tibial shaft and distal fibula with mild widening described abov e. 2. Osteoporosis. 3. Soft tissue edema about the lower leg and ankle. Notified Sly Montejo DO at 07/23/2023 11:50 AM. Arrangements are being made for orthopedic or ER consultation at this time. Patient instructed to rem ain on premises pending further instructions from Dr. Montejo's office
== END 2023-07-23 11:12 | disposition home or self-care (01) ==
LOC: RAD 11:13
PROVIDERS: PCP Family Medicine; Visit Provider Family Medicine
DX: S82.241A Displaced spiral fracture of shaft of right tibia, initial encounter for closed fracture (principal); S82.831A Other fracture of upper and lower end of right fibula, initial encounter for closed fracture; X58.XXXA Exposure to other specified factors, initial encounter; M25.471 Effusion, right ankle; M81.0 Age-related osteoporosis without current pathological fracture; R60.0 Localized edema
CPT/HCPCS: 73600

== ENCOUNTER 2023-07-23 12:05 | Observation (INO) | payer MEDICARE, SELFPAY ==
[2023-07-23] VITALS (15 sets, daily range): BP systolic 72–131; BP diastolic 47–93; PULSE 70–94; RESP 14–20; TEMP 36.1–36.8; O2SAT 93–98; BMI 24.4
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
[2023-07-23] MEDS: morphine 4 mg/mL SDV 1 mL IVP (12:58)
[2023-07-23] MEDS: sodium chloride 0.9% 1,000 ML 999 ML IV (12:58)
[2023-07-23] MEDS: ondansetron 2 mg/ML SDV 2 mL 4 MG IVP (12:58)
[2023-07-23 12:59] LABS: Basophils % 0.3 %; Eosinophils # 0.2 10^3/uL (0.0-0.8); Eosinophils % 2.1 %; Hematocrit 40.6 % (37-53); Lymphocytes # 1.8 10^3/uL (0.8-4.8); Lymphocytes % 23.9 %; Mean Corpuscular Hemoglobin 27.8 pg (27-33); Mean Corpuscular Volume 86.9 fl (82-101); Mean Platelet Volume 9.9 fL (7.4-10.4); Monocytes # 0.4 10^3/uL (0.2-0.9); Monocytes % 5.6 %; Neutrophils % 67.4 %; Nucleated Red Blood Cells % 0 %; Platelet Count 293 10^3/cmm (157-399); Red Blood Count 4.67 10^6/uL (3.85-5.65); Red Cell Distribution Width 15.5 % (12.1-15.1); White Blood Count 7.56 10^3/uL (3.29-11.43)
[2023-07-23] MEDS: midodrine 5 mg TABLET 10 MG PO (12:59)
[2023-07-23 13:20] LABS: Blood Urea Nitrogen 14 mg/dL (6-20); Calcium 8.9 mg/dL (8.5-10.5); Carbon Dioxide 20 mmol/L (22-29); Chloride 106 mmol/L (98-107); Glomerular Filtration Rate 220.2 mL/min (90-130); Glucose 120 mg/dL (65-115); Osmolality Calculated 286 mOsm/kg (285-295); Sodium 137 mmol/L (136-145)
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
--- NOTE | 2023-07-23 13:45 | ECG_ITS ---
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 Measurements Intervals [place] Rate: 54 P: 73 MD: 154 QRS: 55 QRSD: 82 T: 59 QT: 414 QTc: 395 Interpretive Statements SINUS BRADYCARDIA POSSIBLE LEFT ATRIAL ENLARGEMENT [-0.1mV P-WAVE IN V1/V2] Compared to ECG 06/22/2023 04:55:21 Sinus rhythm no longer present T-wave abnormality no longer present Possible ischemia no longer present Electronically Signed On 07-23-2023 13:56:49 PAINTER AND DECORATOR APPRENTICE by Kyle Messer M.D. [email or web address]
[2023-07-23 14:09] LABS: INR 0.99 (0.8-1.2)
[2023-07-23 14:10] LABS: Partial Thromboplastin Time 43.7 SECONDS (23.9-36.7)
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
[2023-07-23 14:43] LABS: Iron 67 ug/dL (59-158); Percent Saturation 27.8 % (20-50); Total Iron Binding Capacity 241 mcg/dl; Unsaturated Iron Binding 174 ug/dL (112-347)
[2023-07-23 14:59] LABS: Vitamin B12 288 pg/mL (232-1245)
[2023-07-23] MEDS: sodium chloride 0.9% 1,000 ML 30 ML IV (15:45)
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
[2023-07-23] MEDS: CELEcoxib 200 mg Capsule 400 MG PO (17:38)
[2023-07-23] MEDS: acetaminophen 1,000 MG/100 ML PIGGYBACK 400 MG IV (17:38)
[2023-07-23] MEDS: ceFAZolin 2,000 MG in sodium chloride 0.9% (plus) 50 ML 100 MG IV (17:52)
[2023-07-23] MEDS: BUPivacaine 0.5% INJ 30 mL XX (18:39)
[2023-07-23] MEDS: ceFAZolin 1,000 mg SDV 1000 MG IRRIGATION (18:39)
--- NOTE | 2023-07-23 20:14 | XRR_ITS ---
PROCEDURE INFORMATION: Exam: XR Right Tibia and Fibula Exam date and time: 07/23/2023 9:27 PM Age: 58 years old Clinical indication: Device placement; Other: RT tib fib nail; Additional info: Post nail insertion TECHNIQUE: Imaging protocol: Radiologic exam of the right tibia and fibula. Views: 2 views. COMPARISON: No relevant prior studies available. FINDINGS: Bones/joints: Post intramedullary nail insertion of the tibia traversing a spiral fracture of the distal tibia. Spiral fracture of the distal fibula noted. Soft tissues: Surgical summer and air noted around the knee consistent with recent surgical procedure. XR/XR tibia fibula RT 2V [id number] IMPRESSION: 1. Post intramedullary nail insertion of the tibia. 2. Spiral fractures of the distal tibia and fibula noted.
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
--- NOTE | 2023-07-23 20:45 | ANE.PACU2 ---
Inpatient post-anesthesia follow up: Airway intact: Yes Vital signs: Temperature 97.5 F Pulse Rate 92 Respiratory Rate 20 Blood Pressure 101/62 Pulse Oximetry 96 Oxygen Delivery Me thod Room Air Oxygen Flow Rate 6 Fraction of Inspir ed Oxygen Hydration adequate: Yes Nausea and vomiting: No Pain level: 1 Mental status: Baseline
[2023-07-23] MEDS: oxymetazoline 0.05% Nasal Spray 15 mL 2 SPRAY NOSTRIL-B (22:25)
[2023-07-23] MEDS: D5-NS 0.45% + KCL 20 mEq 20 MEQ/1,000 ML BAG 100 MEQ IV (22:30)
[2023-07-24] VITALS (7 sets, daily range): BP systolic 101–132; BP diastolic 62–80; PULSE 79–93; RESP 18–20; TEMP 36.4–37.7; O2SAT 96–98
[2023-07-24 00:12] LABS: Glucose Point of Care 193 mg/dL (70-110)
[2023-07-24] MEDS: midodrine 5 mg TABLET 10 MG PO ×2 (01:50→08:33)
[2023-07-24] MEDS: baclofen 10 mg Tablet 20 MG PO ×2 (01:50→08:32)
[2023-07-24] MEDS: acetaminophen 1,000 MG/100 ML PIGGYBACK 400 MG IV ×2 (03:59→11:06)
[2023-07-24] MEDS: HYDROcodone-acetaminophen 5-325 mg Tablet 1 TAB PO ×2 (04:55→08:43)
[2023-07-24 05:26] LABS: Magnesium 1.8 mg/dL (1.7-2.3); Phosphorus 1.6 mg/dL (2.5-4.5)
[2023-07-24 05:42] LABS: Folate Level 2.5 ng/mL (4.5-32.2)
--- NOTE | 2023-07-24 06:00 | XRR_ITS ---
PROCEDURE INFORMATION: Exam: XR Chest Exam date and time: 07/24/2023 8:34 AM Age: 58 years old Clinical indication: Pre-operative exam; Cardiovascular screening and respiratory screening exam; Additional info: Pre op TECHNIQUE: Imaging protocol: Radiologic exam of the chest. Views: 1 view. COMPARISON: CR XR chest 1V portable [id number] 06/25/2023 6:58 AM FINDINGS: Lungs: Unremarkable. No consolidation. Pleural spaces: Unremarkable. No pleural effusion. No pneumothorax. Heart/Mediastinum: Unremarkable. No cardiomegaly. Bones/joints: There is a levoconvex curvature of the thoracic spine. XR/XR chest 1V portable [id number] IMPRESSION: No acute cardiopulmonary disease.
[2023-07-24 08:06] LABS: Basophils % 0.1 %; Hematocrit 37.1 % (37-53); Lymphocytes # 0.7 10^3/uL (0.8-4.8); Lymphocytes % 7.4 %; Mean Corpuscular HGB Conc 32.1 g/dL (30-55); Mean Corpuscular Hemoglobin 28.4 pg (27-33); Mean Corpuscular Volume 88.5 fl (82-101); Mean Platelet Volume 10.3 fL (7.4-10.4); Monocytes # 0.3 10^3/uL (0.2-0.9); Monocytes % 3.2 %; Neutrophils # 7.76 10^3/uL (1.8-7.7); Neutrophils % 88.7 %; Nucleated Red Blood Cells % 0 %; Platelet Count 294 10^3/cmm (157-399); Red Blood Count 4.19 10^6/uL (3.85-5.65); Red Cell Distribution Width 15.4 % (12.1-15.1); White Blood Count 8.75 10^3/uL (3.29-11.43)
[2023-07-24 08:25] LABS: Alanine Aminotransferase 42 U/L (0-41); Albumin Level 3.4 g/dL (3.5-5.2); Alkaline Phosphatase 157 U/L (40-130); Anion Gap 18.5 (5-19); Aspartate Amino Transferase 33 U/L (0-40); Blood Urea Nitrogen 10 mg/dL (6-20); Calcium 8.1 mg/dL (8.5-10.5); Carbon Dioxide 18 mmol/L (22-29); Chloride 105 mmol/L (98-107); Globulin 2.5 g/dL (1.3-4.6); Glomerular Filtration Rate 170.2 mL/min (90-130); Glucose 196 mg/dL (65-115); Osmolality Calculated 288 mOsm/kg (285-295); Potassium 4.5 mmol/L (3.5-5.1); Sodium 137 mmol/L (136-145); Total Bilirubin 0.3 mg/dL (0.15-1.2); Total Protein 5.9 g/dL (6.6-8.7)
[2023-07-24] MEDS: ascorbic acid 500 mg Tablet PO (08:32)
[2023-07-24] MEDS: aspirin 325 mg EC Tablet PO (08:33)
[2023-07-24] MEDS: CELEcoxib 200 mg Capsule PO (08:33)
[2023-07-24] MEDS: potassium chloride ER 20 mEq Tablet PO (08:33)
[2023-07-24] MEDS: multivitamin therapeutic Tablet 1 TAB PO (08:33)
[2023-07-24] MEDS: zinc gluconate 50 mg Tablet PO (08:33)
[2023-07-24] MEDS: pantoprazole DR 40 mg Tablet PO (08:34)
[2023-07-24] MEDS: ceFAZolin 2,000 MG in sodium chloride 0.9% (plus) 50 ML 100 MG IV (08:35)
[2023-07-24] MEDS: D5-NS 0.45% + KCL 20 mEq 20 MEQ/1,000 ML BAG 100 MEQ IV (08:36)
[2023-07-24] MEDS: levoFLOXacin 500 mg Tablet PO (08:37)
[2023-07-24] MEDS: NON-FORMULARY MEDICATION (Linaclotide [Linzess] 145 MCG) 145 EACH PO (08:44)
--- NOTE | 2023-07-24 10:30 | PC.CHAP ---
Pastoral Care Encounter/Spiritual Assessment Type of Contact [] Declined frame expander visit [] Patient/Family/Request visit [] Outpatient visit [] Follow-up visit [] Physician referral [] Code/Alert [x] Routine visit [] Staff referral [] Actively dying [] Patient sleeping [] Family support [] [] Out of room [] Palliative care [] [x] Receiving care in room [] Pre-surgical visit [] Trauma [] Long length of stay [] ICU visit [] Other: Relational/Emotional Strength [x] Patient feels connected with others/family/visitors/staff [] Distress [] Loneliness/isolation [] Abandonment Spirituality of Patient [x] Person of [place] [] Attends Adventist of their [place] [x] Believes in Prayer [] Reads Bible or Mormon materials [] There are Spiritual issues to be addressed [employer]led [employer] Worker Interventions [x] Prayer [x] Active listening [x] Non-anxious presence [x] Spiritual/emotional support [] Crisis/trauma care [x] Spiritual counseling [] Bereavement support [] Provided bereavement packet [] Provided Bible/devotional materials [] Provided toy/stuffed animal, coloring book to patient or family member [] Provided Communion [] Anointing/[place] [] Salvation [x] Completed spiritual assessment [] Other: Impact on Illness or Injury [] Angry [] Fearful [] Anxious [] Often cries [] Exhaustion [] Unable to work [] Unable to attend shinto [] Unable to walk/stand [] Unable to read [] Unable to drive [] Unable to eat/drink [] Unable to sleep [] Unable to be with family [] Patient intubated [] Other: Summary surgery on knee in some pain well have rehab at home +1 has a good attitude Time spent with patient 10 mins
--- NOTE | 2023-07-24 11:43 | P.PN_ITS ---
Subjective 2 Subjective: No acute events overnight. Patient underwent ORIF yesterday. Tolerated procedure well. Patient has episodes of pain overnight. Today morning seen with spouse at bedside. Patient denies any nausea, pain, headache. Did have fever up to 19.9 earlier today morning. Patient himself denies any difficulty in breathing, cough. Vitals/I&O/Wt Last Vital Signs Temp 97.5 F L 07/24/23 11:18 Pulse 92 07/24/23 11:18 Resp 20 H 07/24/23 11:18 BP 101/62 07/24/23 11:18 Pulse Ox 96 07/24/23 11:18 O2 Del Method Room Air 07/24/23 07:30 O2 Flow Rate 6 07/23/23 20:13 07/23/23 07/24/23 07/24/23 22:59 06:59 14:59 Intake Total 2200 / 2200 1150 / 1150 Output Total 1320 / 1320 400 / 1720 Balance 880 / 880 -400 / 480 1150 / 1150 Weight last 48 hrs Weight 86.863 kg Weight 79.379 kg Weight 79.379 kg Weight 79.379 kg Physical Exam 2 Narrative: General: No acute distress, AO x3 HEENT: PERRLA, pupils bilaterally equal and reactive Chest: Normal vesicular breath sounds, no added sounds, equal good air entry bilaterally CVS: S1-S2 regular, no murmurs, no tachycardia, no gallops, no rubs Abdomen: Soft, nontender, no organomegaly, bowel sounds present, ileostomy and urostomy in place, skin around ostomy is healthy Neuro: No focal deficits, no facial deformity, AO x3, Data 07/24/23 04:43 07/24/23 04:43 Micro: Microbiology 07/24/23 10:48 Gram Stain - Final Buttock A&P Assessment and plan (1) Fracture tibia/fibula: Post-ORIF day 1. Patient tolerated procedure well. Hemoglobin stable postoperatively. Physical therapy, anticoagulation, perioperative antibiotics, pain medication as per primary team. Qualifiers: Encounter type: initial encounter Fracture type: closed Laterality: r ight Qualified Code(s): S82.201A - Unspecified fracture of shaft of right tibia, initial encounter for closed fracture; S82.401A - Unspecified fracture of shaft of right fibula, initial encounter for closed fracture (2) Hypotension: Chronic. Goal blood pressure less than 140/90 mmHg with mean over 65. Blood pressure is at baseline for now. Can be discharged on midodrine 10 mg twice daily. Blood pressure stable. Qualifiers: Hypotension type: hypotension due to drug Qualified Code(s): I95.2 - Hypotension due to drugs (3) Decubitus ulcer of left buttock: Wound culture sent. Continue outpatient wound care with Hydrofera Blue. Will arrange home health on discharge. Qualifiers: Pressure injury stage: stage 2 Qualified Code(s): L89.322 - Pressure ulcer of left buttock, stage 2 (4) Quadriplegia: (5) Neurogenic bladder: (6) Suprapubic catheter: Secondary to neurogenic bladder. History of recurrent UTIs with Pseudomonas and Staph aureus. Patient would benefit from ID referral as an outpatient for possible chronic suppression. Plan CODE STATUS: Discussed in detail with the patient. Full code. Regular diet Anticoagulation as per primary team Protonix for PUD prophylaxis. Patient can be discharged from medical standpoint on chronic oral medications. Patient would benefit with ID clinic follow-up for possible chronic suppression. He would benefit from home health for wound care of decub ulcers with Hydrofera Blue daily. Case management alerted for arranging home health. Medical reconciliation done from medical standpoint. Attestations 2 Medical Necessity Statement*: As per primary team. Diagnoses Closed fracture of right tibia and fibula, initial encounter S82.201A; S82.401A Encounter type: initial encounter Fracture type: closed Laterality: right Hypotension due to drugs I95.2 Hypotension type: hypotension due to drug Pressure injury of left buttock, stage 2 L89.322 Pressure injury stage: stage 2 Quadriplegia G82.50 Neurogenic bladder N31.9 Suprapubic catheter Z93.59
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
[2023-07-24 12:58] LABS: Adenovirus Not Detected (NOT DETECT); Chlamydia Pneumoniae Not Detected (NOT DETECT); Coronavirus 229E,HKU1,NL63,OC4 Not Detected (NOT DETECT); Human Metapneumovirus Not Detected (NOT DETECT); Human Rhinovirus/Enterovirus Not Detected (NOT DETECT); Influenza A Not Detected (NOT DETECT); Influenza A H1 Not Detected (NOT DETECT); Influenza A H1-2009 Not Detected (NOT DETECT); Influenza A H3 Not Detected (NOT DETECT); Influenza B Not Detected (NOT DETECT); Mycoplasma Pneumoniae Not Detected (NOT DETECT); Parainfluenza Virus Type 1 Not Detected (NOT DETECT); Parainfluenza Virus Type 2 Not Detected (NOT DETECT); Parainfluenza Virus Type 3 Not Detected (NOT DETECT); Parainfluenza Virus Type 4 Not Detected (NOT DETECT); Respiratory Syncytial Virus A Not Detected (NOT DETECT); Respiratory Syncytial Virus B Not Detected (NOT DETECT); SARS-COV-2 Not Detected (NOT DETECT)
--- NOTE | 2023-07-24 13:05 | PC.OT ---
OT orders received and chart reviewed. Patient is set to discharge with discharge packet and summary updated in EMR. OT discussed with PT about patient status. No OT indicated at this time per chart review and impending discharge. Baron Riggs, OTR/L
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
== END 2023-07-24 13:35 | disposition home health service (06) ==
LOC: ER 14:04 → OR 15:05 → MEDSURG 20:02
PROVIDERS: Student in an Organized Health Care Education/Training Program; Admitting Provider Specialist; Emergency Provider Family Medicine; PCP Family Medicine; Visit Provider Specialist
PROC: (CPT 27759; principal; 2023-07-23 17:10)
DX: S82.241A Displaced spiral fracture of shaft of right tibia, initial encounter for closed fracture (principal); S82.401A Unspecified fracture of shaft of right fibula, initial encounter for closed fracture; X50.1XXA Overexertion from prolonged static or awkward postures, initial encounter; I95.2 Hypotension due to drugs; L89.322 Pressure ulcer of left buttock, stage 2; S82.201A Unspecified fracture of shaft of right tibia, initial encounter for closed fracture; G82.50 Quadriplegia, unspecified; N31.9 Neuromuscular dysfunction of bladder, unspecified; Z93.59 Other cystostomy status; Z99.3 Dependence on wheelchair; Z86.16 Personal history of COVID-19; Z87.440 Personal history of urinary (tract) infections; I10 Essential (primary) hypertension; S82.831A Other fracture of upper and lower end of right fibula, initial encounter for closed fracture; X58.XXXA Exposure to other specified factors, initial encounter; M25.471 Effusion, right ankle; M81.0 Age-related osteoporosis without current pathological fracture; R60.0 Localized edema
CPT/HCPCS: 27759; 29505; 36415; 36416; 71045; 73590; 73600; 76000; 80048; 80053; 82607; 82746; 82962; 83540; 83550; 83735; 84100; 85025; 85610; 85730; 87070; 87075; 87205; 87486; 87581; 87633; 93005; 96374; 96375; 97161; 97530; 99285; C1713; G0378; J0131; J0690; J1100; J2270; J2405; J2704; J3010; J3490; J7030

== ENCOUNTER → 2023-07-29 14:14 | Outpatient (BNVA) | payer MEDICARE, SELFPAY | PROVIDERS: PCP Family Medicine; Visit Provider Nurse Practitioner | DX: S82.201D Unspecified fracture of shaft of right tibia, subsequent encounter for closed fracture with routine healing; S82.401D Unspecified fracture of shaft of right fibula, subsequent encounter for closed fracture with routine healing; M25.471 Effusion, right ankle; Z98.890 Other specified postprocedural states; G82.50 Quadriplegia, unspecified; X58.XXXD Exposure to other specified factors, subsequent encounter | CPT/HCPCS: 73590; 99024 ==

== ENCOUNTER 2023-08-26 15:32 | Outpatient (CLI) | payer MEDICARE, SELFPAY ==
[2023-08-26 16:50] LABS: Basophils % 0.3 %; Eosinophils # 0.1 10^3/uL (0.0-0.8); Hematocrit 41.9 % (37-53); Lymphocytes # 2.2 10^3/uL (0.8-4.8); Mean Corpuscular HGB Conc 31.7 g/dL (30-55); Mean Corpuscular Hemoglobin 27.4 pg (27-33); Mean Corpuscular Volume 86.2 fl (82-101); Monocytes # 1.2 10^3/uL (0.2-0.9); Monocytes % 9.8 %; Neutrophils # 8.59 10^3/uL (1.8-7.7); Neutrophils % 70.5 %; Nucleated Red Blood Cells % 0 %; Platelet Count 306 10^3/cmm (157-399); Red Blood Count 4.86 10^6/uL (3.85-5.65); Red Cell Distribution Width 15.2 % (12.1-15.1); White Blood Count 12.19 10^3/uL (3.29-11.43)
[2023-08-26 17:13] LABS: Bilirubin Urine Neg (Negative); Blood Urine Neg (Negative); Glucose Urine UA Norm (Normal); Ketones Urine Negative (Negative); Leukocyte Esterase Urine 2+ (Negative); Nitrate Urine Positive (Negative); Protein Urine Neg (Negative); Urine Appearance Cloudy (CLEAR); Urine Color Yellow (Yellow); Urobilinogen Urine Norm (Negative); pH Urine 6 (5-7)
[2023-08-26 17:16] LABS: Add Urine Culture? Yes; Bacteria Urine 3+ /hpf; Mucus Urine 1+ /hpf; RBC Urine 0-4 /hpf (0-2); Squamous Epithelial Cell Urine 0-4 /hpf (0-5); WBC Urine 40-55 /hpf (0-5)
[2023-08-26 17:46] LABS: Alanine Aminotransferase 18 U/L (0-41); Albumin Level 3.8 g/dL (3.5-5.2); Alkaline Phosphatase 152 U/L (40-130); Anion Gap 17.1 (5-19); Aspartate Amino Transferase 14 U/L (0-40); Blood Urea Nitrogen 9 mg/dL (6-20); C Reactive Protein 62.8 mg/L (0.0-4.9); Calcium 8.8 mg/dL (8.5-10.5); Carbon Dioxide 20 mmol/L (22-29); Chloride 105 mmol/L (98-107); Globulin 3.8 g/dL (1.3-4.6); Glomerular Filtration Rate 220.2 mL/min (90-130); Glucose 105 mg/dL (65-115); Osmolality Calculated 285 mOsm/kg (285-295); Potassium 4.1 mmol/L (3.5-5.1); Sodium 138 mmol/L (136-145); Total Bilirubin 0.4 mg/dL (0.15-1.2); Total Protein 7.6 g/dL (6.6-8.7)
== END 2023-08-26 15:33 | disposition home or self-care (01) ==
LOC: LAB 15:33
PROVIDERS: PCP Family Medicine; Visit Provider Family Medicine
DX: I95.2 Hypotension due to drugs (principal); T50.905A Adverse effect of unspecified drugs, medicaments and biological substances, initial encounter; N39.0 Urinary tract infection, site not specified; I96 Gangrene, not elsewhere classified; L89.323 Pressure ulcer of left buttock, stage 3
CPT/HCPCS: 11044; 36415; 80053; 81001; 85025; 86140; 87077; 87086; 87186; 99213; A6446

== ENCOUNTER → 2023-09-01 12:58 | Outpatient (BNVA) | payer MEDICARE, SELFPAY | PROVIDERS: PCP Family Medicine; Visit Provider Nurse Practitioner Family | DX: I96 Gangrene, not elsewhere classified (principal); L89.324 Pressure ulcer of left buttock, stage 4 | CPT/HCPCS: 11044; 99212; A6446 ==

== ENCOUNTER 2023-09-04 16:39 | Outpatient (CLI) | payer MEDICARE, SELFPAY ==
--- NOTE | 2023-09-04 17:00 | CT_ITS ---
WS: [id number] CT ABDOMEN AND PELVIS WITH CONTRAST HISTORY: L89.324 - Pressure ulcer of left buttock, stage 4 TECHNIQUE: Imaging performed of the abdomen and pelvis with IV contrast. Single phase imaging of the abdomen. Coronal and sagittal reformats are submitted. All CT scans at [facility] use at [facility] one of these dose optimization techniques: automated exposure control; mA and/or kV adjustment per patient size (includes targeted exams where dose is matched to clinical indication); or iterative re construction. IV CONTRAST: Omnipaque 350; 100 mL IV. Oral contrast: Yes. DLP: 610.68 mGy.cm COMPARISON: 06/20/2023 Lower thorax: Dependent changes at the lung bases. No mass or pneumonia. Heart is normal size. No hia qu[place] hernia. Liver/biliary system: Normal size liver with mild diffuse hepatic steatosis. No mass or bile duct dil atation. Gallbladder: Status post cholecystectomy. Pancreas: Normal size pancreas and pancreatic duct. No adjacent inflammation. Spleen: Normal size spleen. No mass or infarct. Adrenal glands: Normal. Right kidney: Numerous acquired renal cyst. Nonobstructing calcifications in the central pelvis. The largest cluster of calcifications measures 11 mm. There is no obstruction. Left kidney: Normal size kidney with a few very small and too small to characterize hypodensities in the cortex. No obstruction. Aorta: Mild atherosclerosis with no aneurysm. IVC filter is reidentified at the level of the renal vein. Lymphadenopathy: None. Free fluid: None. GI tract: There is mild fluid distention of the GI tract but no obstruction. No colitis. LEFT lower a bdominal colostomy. Abdominal wall: LEFT lower quadrant colostomy site. No obstruction. Pelvis: Suprapubic catheter present in the urinary bladder. There is no free fluid in the pelvis. Toya ient has a known decubitus ulcer involving the posterior LEFT pelvis. Partially visualized ulcer is i dentified just to the LEFT of midline. There is a soft tissue track with peripheral enhancement and n umerous air pockets. The entire ulcerated tract is not included on this examination. The ulcer measur es 5.3 x 6.3 cm as identified and does extend towards the ischial tuberosity. There is destruction a nd loss of the normal cortex of the ischial tuberosity with adjacent air. There has been a progressio n in the soft tissue thickening and enhancement and air since 06/20/2023. There does also appear to b e loss of bone which has progressed. Bones: Osteomyelitis involving the LEFT ischial tuberosity has a progressed since the prior study of 06/20/2023. Minimal progression. IMPRESSION: 1. Moderate-sized decubitus ulcer in the soft tissues of the posterior LEFT pelvis with extension in to the ischial tuberosity. Soft tissue ulceration has progressed since the prior study of 06/20/2023. There is increasing air and enhancement and extension to the ischial tuberosity. Some of the changes may be related to a recent debridement if that is part of the history. Otherwise progression of the decubitus ulcer infection. 2. New, progression of osteolytic change in the LEFT issue tuberosity consistent with progression of osteomyelitis. 3. Prior cholecystectomy. 4. Hepatic steatosis. 5. LEFT lower quadrant colostomy. No obstruction.
[2023-09-04] MEDS: iohexol 350 mg/mL 500 mL Btl (per mL) IV (18:07)
== END 2023-09-04 16:40 | disposition home or self-care (01) ==
LOC: RAD 16:39
PROVIDERS: PCP Family Medicine; Visit Provider Nurse Practitioner Family
DX: L89.324 Pressure ulcer of left buttock, stage 4 (principal)
CPT/HCPCS: 74177; Q9967

== ENCOUNTER → 2023-09-08 12:48 | Outpatient (BNVA) | payer MEDICARE, SELFPAY | PROVIDERS: PCP Family Medicine; Visit Provider Nurse Practitioner Family | DX: I96 Gangrene, not elsewhere classified (principal); L89.324 Pressure ulcer of left buttock, stage 4; L97.521 Non-pressure chronic ulcer of other part of left foot limited to breakdown of skin | CPT/HCPCS: 11044; A6446 ==

== ENCOUNTER → 2023-09-09 11:03 | Outpatient (BNVA) | payer MEDICARE, SELFPAY | PROVIDERS: PCP Family Medicine; Visit Provider Student in an Organized Health Care Education/Training Program | DX: M86.68 Other chronic osteomyelitis, other site; N39.0 Urinary tract infection, site not specified | CPT/HCPCS: 87070; 87075; 87077; 87186; 87205; 99215 ==

== ENCOUNTER → 2023-09-10 12:51 | Day surgery (SDC) | payer MEDICARE, SELFPAY ==
--- NOTE | 2023-09-10 11:39 | XR_ITS ---
WS: [id number] Portable AP semiupright chest, 09/10/2023 Clinical Data: Post PICC insertion Comparison: Portable chest, 07/24/2023 Findings: The right PICC line appears to curl in the right subclavian vein. No pneumothorax is seen. Impression: Right PICC line curls in right subclavian vein.
[2023-09-10 13:00] VITALS: BP 116/84; PULSE 97; RESP 18; TEMP 36.7; O2SAT 98
[2023-09-10] MEDS: meropenem 1,000 MG in sodium chloride 0.9% (plus) 50 ML 100 MG IV (14:28)
--- NOTE | 2023-09-10 14:30 | PC.NURSE ---
Pt to OPS for PICC placement for IV antibiotics. Right arm assessed with right basilic vein measuring 3.9 mm, straight, and apparent best choice for placement. Risks and benefits discussed with patient and spouse and informed consent obtained from spouse. Using sterile technique and MST, right basilic vein accessed x 1 stick. Unable to pass catheter to SVC. CXR shows tip curling in right subclavian vein. Line cut at 15 cm and converted to midline. Secured with stat-lock. Insertion site covered with Biopatch and TSM. First dose of meropenem given as ordered without reaction. First dose of Vancomycin 2 gm infusing without difficulty. No reaction noted. Dr. Izquierdo notified of inability to place PICC and line converted to midline. Dr. Izquierdo stated to leave midline in place and will address after cultures return. Wound care nurse, Joya, updated as well. [facility] to visit home on Friday for midline dressing change. [facility] notified that first doses of antibiotics were given without reaction.
[2023-09-10 14:44] LABS: Blood Urea Nitrogen 10 mg/dL (6-20); Calcium 8.7 mg/dL (8.5-10.5); Carbon Dioxide 24 mmol/L (22-29); Chloride 99 mmol/L (98-107); Glomerular Filtration Rate 137.9 mL/min (90-130); Glucose 116 mg/dL (65-115); Osmolality Calculated 282 mOsm/kg (285-295); Sodium 136 mmol/L (136-145)
[2023-09-10] MEDS: vancomycin 2,000 MG/400 ML PIGGYBACK 200 MG IV (14:45)
[2023-09-10 14:50] LABS: Basophils # 0.1 10^3/uL (0.0-0.1); Basophils % 0.5 %; Eosinophils # 0.2 10^3/uL (0.0-0.8); Eosinophils % 1.6 %; Hematocrit 42.6 % (37-53); Lymphocytes % 26.8 %; Mean Corpuscular HGB Conc 31.9 g/dL (30-55); Mean Corpuscular Hemoglobin 26.8 pg (27-33); Mean Corpuscular Volume 83.9 fl (82-101); Monocytes # 0.9 10^3/uL (0.2-0.9); Monocytes % 7.7 %; Neutrophils # 7.09 10^3/uL (1.8-7.7); Neutrophils % 62.9 %; Nucleated Red Blood Cells % 0 %; Platelet Count 425 10^3/cmm (157-399); Red Blood Count 5.08 10^6/uL (3.85-5.65); Red Cell Distribution Width 14.5 % (12.1-15.1); White Blood Count 11.28 10^3/uL (3.29-11.43)
[2023-09-10 14:52] LABS: Anion Gap 17.1 (5-19); Potassium 4.1 mmol/L (3.5-5.1)
[2023-09-10 14:53] LABS: Erythrocyte Sedimentation Rate 60 mm/hr (0-10)
--- NOTE | 2023-09-10 15:35 | PC.NURSE ---
Pt c/o severe itching to top of head. Red rash noted at temples. Vancomycin stopped. Dr. Izquierdo notified. Orders received to give PO Benadryl 25 mg now and go to ER if symptoms persist or worsen. [facility] notified.
[2023-09-10] MEDS: diphenhydrAMINE 25 mg Capsule PO (15:44)
--- NOTE | 2023-09-10 16:00 | PC.NURSE ---
Pt states itching has subsided after stopping Vanc and PO Benadryl. Red rash at temples resolving. No shortness of breath or difficulty breathing noted. Pt off unit in wheelchair with spouse. Instructed pt to return to ER if symptoms return or worsen.
== END ==
LOC: GILAB 12:52
PROVIDERS: PCP Family Medicine; Visit Provider Nurse Practitioner Family
DX: S82.201D Unspecified fracture of shaft of right tibia, subsequent encounter for closed fracture with routine healing (principal); S82.401D Unspecified fracture of shaft of right fibula, subsequent encounter for closed fracture with routine healing; M25.471 Effusion, right ankle; Z98.890 Other specified postprocedural states; G82.50 Quadriplegia, unspecified; X58.XXXD Exposure to other specified factors, subsequent encounter; M86.9 Osteomyelitis, unspecified
CPT/HCPCS: 36573; 36592; 71045; 73590; 80048; 85025; 85651; 86140; 96365; 99024; J2185; J3372

== ENCOUNTER → 2023-09-15 14:21 | Day surgery (SDC) | payer MEDICARE, SELFPAY ==
[2023-09-15 14:30] VITALS: BP 119/87; PULSE 99; RESP 18; TEMP 36.3; O2SAT 95
--- NOTE | 2023-09-15 15:00 | PC.NURSE ---
Pt to vascular access nurse for midline dressing change and lab draw. Midline to right upper arm flushes without difficulty. Site clear. Unable to get blood return at this time. Labs drawn peripherally. Pt and family education given on how to administer home antibiotic. Medication infusing without difficulty. Pt states he can feel it in his armpit. Explained that the tip of the midline ends in the axilla. Dr. Izquierdo notified of inability to draw blood through midline. Offered to attempt PICC in left arm. Orders received to keep midline in place and continue to monitor.
[2023-09-15 15:21] LABS: Basophils % 0.3 %; Eosinophils # 0.2 10^3/uL (0.0-0.8); Eosinophils % 2.3 %; Hematocrit 44.1 % (37-53); Lymphocytes # 2.7 10^3/uL (0.8-4.8); Lymphocytes % 25.4 %; Mean Corpuscular Hemoglobin 26.9 pg (27-33); Mean Corpuscular Volume 84.2 fl (82-101); Mean Platelet Volume 9.6 fL (7.4-10.4); Monocytes # 0.9 10^3/uL (0.2-0.9); Monocytes % 8.3 %; Neutrophils # 6.63 10^3/uL (1.8-7.7); Neutrophils % 63.1 %; Nucleated Red Blood Cells % 0 %; Platelet Count 416 10^3/cmm (157-399); Red Blood Count 5.24 10^6/uL (3.85-5.65); Red Cell Distribution Width 14.7 % (12.1-15.1)
[2023-09-15 15:45] LABS: Alanine Aminotransferase 14 U/L (0-41); Albumin Level 3.9 g/dL (3.5-5.2); Alkaline Phosphatase 160 U/L (40-130); Aspartate Amino Transferase 16 U/L (0-40); C Reactive Protein 18.6 mg/L (0.0-4.9); Globulin 3.9 g/dL (1.3-4.6); Glomerular Filtration Rate 220.2 mL/min (90-130); Total Bilirubin 0.3 mg/dL (0.15-1.2); Total Protein 7.8 g/dL (6.6-8.7)
== END ==
LOC: GILAB 14:22
PROVIDERS: Student in an Organized Health Care Education/Training Program; PCP Family Medicine; Visit Provider Nurse Practitioner Family
DX: M86.68 Other chronic osteomyelitis, other site (principal); I96 Gangrene, not elsewhere classified; L89.324 Pressure ulcer of left buttock, stage 4; L97.522 Non-pressure chronic ulcer of other part of left foot with fat layer exposed
CPT/HCPCS: 11042; 36592; 80076; 82565; 85025; 86140; 97605; A6237; A6250

== ENCOUNTER → 2023-09-18 07:52 | Outpatient (BNVA) | payer MEDICARE, SELFPAY | PROVIDERS: PCP Family Medicine; Visit Provider Thoracic Surgery (Cardiothoracic Vascular Surgery) | DX: I96 Gangrene, not elsewhere classified (principal); L89.324 Pressure ulcer of left buttock, stage 4; L97.422 Non-pressure chronic ulcer of left heel and midfoot with fat layer exposed; G82.50 Quadriplegia, unspecified | CPT/HCPCS: 97605; A6237; A6250 ==

== ENCOUNTER 2023-09-22 14:23 | Oncology outpatient (recurring) (ONCR) | payer MEDICARE, SELFPAY ==
[2023-09-22 15:59] LABS: Basophils % 0.4 %; Eosinophils # 0.2 10^3/uL (0.0-0.8); Eosinophils % 2.5 %; Hematocrit 47.4 % (37-53); Lymphocytes # 2.8 10^3/uL (0.8-4.8); Lymphocytes % 29.1 %; Mean Corpuscular HGB Conc 32.3 g/dL (30-55); Mean Corpuscular Hemoglobin 26.7 pg (27-33); Mean Corpuscular Volume 82.9 fl (82-101); Mean Platelet Volume 9.8 fL (7.4-10.4); Monocytes # 0.9 10^3/uL (0.2-0.9); Monocytes % 8.9 %; Neutrophils % 58.9 %; Nucleated Red Blood Cells % 0 %; Platelet Count 355 10^3/cmm (157-399); Red Blood Count 5.72 10^6/uL (3.85-5.65); Red Cell Distribution Width 14.8 % (12.1-15.1); White Blood Count 9.52 10^3/uL (3.29-11.43)
[2023-09-22 16:17] LABS: Alanine Aminotransferase 28 U/L (0-41); Alkaline Phosphatase 158 U/L (40-130); Aspartate Amino Transferase 25 U/L (0-40); C Reactive Protein 5.8 mg/L (0.0-4.9); Globulin 3.9 g/dL (1.3-4.6); Glomerular Filtration Rate 220.2 mL/min (90-130); Total Bilirubin 0.3 mg/dL (0.15-1.2); Total Protein 7.9 g/dL (6.6-8.7)
== END 2023-09-25 23:59 | disposition home or self-care (01) ==
PROVIDERS: Student in an Organized Health Care Education/Training Program; PCP Family Medicine; Visit Provider Family Medicine
DX: L89.324 Pressure ulcer of left buttock, stage 4 (principal); S91.302A Unspecified open wound, left foot, initial encounter; X58.XXXA Exposure to other specified factors, initial encounter; Z98.890 Other specified postprocedural states; Z87.81 Personal history of (healed) traumatic fracture
CPT/HCPCS: 11044; 36415; 80076; 82565; 85025; 86140; 97597; A6219; A6237; A6250; J1642

== ENCOUNTER → 2023-09-25 15:28 | Outpatient (BNVA) | payer MEDICARE, SELFPAY | PROVIDERS: PCP Family Medicine; Visit Provider Thoracic Surgery (Cardiothoracic Vascular Surgery) | DX: L89.324 Pressure ulcer of left buttock, stage 4 (principal); G82.50 Quadriplegia, unspecified; M86.9 Osteomyelitis, unspecified | CPT/HCPCS: 97605; A6237; A6250 ==

== ENCOUNTER 2023-10-04 17:03 | Emergency (ER) | payer MEDICARE, SELFPAY ==
[2023-10-04 17:08] VITALS: BP 86/50; PULSE 87; RESP 17; TEMP 36.4; O2SAT 96
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
[2023-10-04 17:45] VITALS: BP 92/56; PULSE 86; RESP 17; O2SAT 97
[2023-10-04] MEDS: lidocaine 1% INJ 10 mL (per mL) 2 ML INJECTION (17:45)
== END 2023-10-04 17:54 | disposition home or self-care (01) ==
PROVIDERS: Emergency Provider Emergency Medicine; PCP Family Medicine
DX: T82.594A Other mechanical complication of infusion catheter, initial encounter (principal); Y71.1 Therapeutic (nonsurgical) and rehabilitative cardiovascular devices associated with adverse incidents; G82.50 Quadriplegia, unspecified; I10 Essential (primary) hypertension
CPT/HCPCS: 99283

== ENCOUNTER → 2023-10-08 10:04 | Outpatient (BNVA) | payer MEDICARE, SELFPAY | PROVIDERS: PCP Family Medicine; Visit Provider Specialist | DX: S82.201D Unspecified fracture of shaft of right tibia, subsequent encounter for closed fracture with routine healing; S82.401D Unspecified fracture of shaft of right fibula, subsequent encounter for closed fracture with routine healing; X58.XXXD Exposure to other specified factors, subsequent encounter; Z98.890 Other specified postprocedural states | CPT/HCPCS: 73590; 99213 ==

== ENCOUNTER → 2023-10-13 12:56 | Outpatient (BNVA) | payer MEDICARE, SELFPAY | PROVIDERS: PCP Family Medicine; Visit Provider Nurse Practitioner Family | DX: L89.324 Pressure ulcer of left buttock, stage 4 (principal); I96 Gangrene, not elsewhere classified; L97.522 Non-pressure chronic ulcer of other part of left foot with fat layer exposed | CPT/HCPCS: 11042; A6237; A6250 ==

== ENCOUNTER → 2023-10-20 13:07 | Outpatient (BNVA) | payer MEDICARE, SELFPAY | PROVIDERS: PCP Family Medicine; Visit Provider Nurse Practitioner Family | DX: I96 Gangrene, not elsewhere classified (principal); L97.521 Non-pressure chronic ulcer of other part of left foot limited to breakdown of skin; L89.324 Pressure ulcer of left buttock, stage 4 | CPT/HCPCS: 11042; 97597; A6237; A6250 ==

== ENCOUNTER 2023-10-20 14:45 | Oncology outpatient (recurring) (ONCR) | payer MEDICARE, SELFPAY ==
[2023-09-29 15:10] LABS: Basophils % 0.3 %; Eosinophils # 0.2 10^3/uL (0.0-0.8); Eosinophils % 1.8 %; Hematocrit 44.7 % (37-53); Lymphocytes # 2.2 10^3/uL (0.8-4.8); Lymphocytes % 25.2 %; Mean Corpuscular Hemoglobin 26.8 pg (27-33); Mean Corpuscular Volume 83.7 fl (82-101); Mean Platelet Volume 10.3 fL (7.4-10.4); Monocytes # 0.7 10^3/uL (0.2-0.9); Neutrophils # 5.66 10^3/uL (1.8-7.7); Neutrophils % 64.5 %; Nucleated Red Blood Cells % 0 %; Platelet Count 280 10^3/cmm (157-399); Red Blood Count 5.34 10^6/uL (3.85-5.65); Red Cell Distribution Width 14.7 % (12.1-15.1); White Blood Count 8.78 10^3/uL (3.29-11.43)
[2023-09-29 15:33] LABS: Albumin Level 3.9 g/dL (3.5-5.2)
[2023-09-29 15:53] LABS: Alanine Aminotransferase 21 U/L (0-41); Alkaline Phosphatase 144 U/L (40-130); Aspartate Amino Transferase 18 U/L (0-40); C Reactive Protein 17.1 mg/L (0.0-4.9); Globulin 3.7 g/dL (1.3-4.6); Total Bilirubin 0.5 mg/dL (0.15-1.2); Total Protein 7.5 g/dL (6.6-8.7)
[2023-09-29 16:26] LABS: Glomerular Filtration Rate 220.2 mL/min (90-130)
[2023-10-06 15:57] LABS: Basophils # 0.1 10^3/uL (0.0-0.1); Basophils % 0.6 %; Eosinophils # 0.2 10^3/uL (0.0-0.8); Eosinophils % 2.2 %; Lymphocytes # 2.4 10^3/uL (0.8-4.8); Lymphocytes % 28.8 %; Mean Corpuscular Hemoglobin 26.7 pg (27-33); Mean Corpuscular Volume 83.5 fl (82-101); Mean Platelet Volume 10.3 fL (7.4-10.4); Monocytes # 0.5 10^3/uL (0.2-0.9); Monocytes % 6.5 %; Neutrophils # 5.16 10^3/uL (1.8-7.7); Neutrophils % 61.8 %; Nucleated Red Blood Cells % 0 %; Platelet Count 280 10^3/cmm (157-399); Red Blood Count 5.39 10^6/uL (3.85-5.65); Red Cell Distribution Width 14.6 % (12.1-15.1); White Blood Count 8.34 10^3/uL (3.29-11.43)
[2023-10-06 16:30] LABS: Alanine Aminotransferase 24 U/L (0-41); Albumin Level 3.8 g/dL (3.5-5.2); Alkaline Phosphatase 146 U/L (40-130); Aspartate Amino Transferase 20 U/L (0-40); C Reactive Protein 11.9 mg/L (0.0-4.9); Globulin 3.7 g/dL (1.3-4.6); Glomerular Filtration Rate 220.2 mL/min (90-130); Total Bilirubin 0.4 mg/dL (0.15-1.2); Total Protein 7.5 g/dL (6.6-8.7)
== END 2023-10-26 23:59 | disposition home or self-care (01) ==
PROVIDERS: Student in an Organized Health Care Education/Training Program; PCP Family Medicine; Visit Provider Family Medicine
DX: Z53.9 Procedure and treatment not carried out, unspecified reason
CPT/HCPCS: 11042; 11044; 36415; 80076; 82565; 85025; 86140; A6237; A6250

== ENCOUNTER → 2023-11-03 08:19 | Outpatient (BNVA) | payer MEDICARE, SELFPAY | PROVIDERS: PCP Family Medicine; Visit Provider Nurse Practitioner Family | DX: I96 Gangrene, not elsewhere classified (principal); L89.324 Pressure ulcer of left buttock, stage 4; L97.522 Non-pressure chronic ulcer of other part of left foot with fat layer exposed | CPT/HCPCS: 11042; 97605; A6237; A6250 ==

== ENCOUNTER → 2023-11-10 11:00 | Outpatient (BNVA) | payer MEDICARE, SELFPAY | PROVIDERS: PCP Family Medicine; Visit Provider Nurse Practitioner Family | DX: I96 Gangrene, not elsewhere classified (principal); L89.324 Pressure ulcer of left buttock, stage 4; L97.521 Non-pressure chronic ulcer of other part of left foot limited to breakdown of skin; S60.522A Blister (nonthermal) of left hand, initial encounter; X58.XXXA Exposure to other specified factors, initial encounter | CPT/HCPCS: 11042; 97597; 97605; A6237; A6250 ==

== ENCOUNTER → 2023-11-17 10:48 | Outpatient (BNVA) | payer MEDICARE, SELFPAY | PROVIDERS: PCP Family Medicine; Visit Provider Nurse Practitioner Family | DX: L89.324 Pressure ulcer of left buttock, stage 4 (principal); L97.521 Non-pressure chronic ulcer of other part of left foot limited to breakdown of skin; Z09 Encounter for follow-up examination after completed treatment for conditions other than malignant neoplasm | CPT/HCPCS: 11042; 97597; A6237; A6250 ==

== ENCOUNTER → 2023-11-24 15:26 | Outpatient (BNVA) | payer MEDICARE, SELFPAY | PROVIDERS: PCP Family Medicine; Visit Provider Nurse Practitioner Family | DX: L89.324 Pressure ulcer of left buttock, stage 4 (principal); L97.522 Non-pressure chronic ulcer of other part of left foot with fat layer exposed | CPT/HCPCS: 11042; 97597; 97605; A6237; A6250 ==

== ENCOUNTER → 2023-12-01 15:26 | Outpatient (BNVA) | payer MEDICARE, SELFPAY | PROVIDERS: PCP Family Medicine; Visit Provider Nurse Practitioner Family | DX: I96 Gangrene, not elsewhere classified (principal); L89.324 Pressure ulcer of left buttock, stage 4; L97.521 Non-pressure chronic ulcer of other part of left foot limited to breakdown of skin | CPT/HCPCS: 11042; 97597; A6237; A6250 ==

== ENCOUNTER → 2023-12-08 14:58 | Outpatient (BNVA) | payer MEDICARE, SELFPAY | PROVIDERS: PCP Family Medicine; Visit Provider Nurse Practitioner Family | DX: I96 Gangrene, not elsewhere classified (principal); L89.324 Pressure ulcer of left buttock, stage 4; L97.521 Non-pressure chronic ulcer of other part of left foot limited to breakdown of skin | CPT/HCPCS: 11042; 97597; 97605; A6237; A6250 ==

== ENCOUNTER → 2023-12-15 15:19 | Outpatient (BNVA) | payer MEDICARE, SELFPAY | PROVIDERS: PCP Family Medicine; Visit Provider Nurse Practitioner Family | DX: I96 Gangrene, not elsewhere classified (principal); L89.324 Pressure ulcer of left buttock, stage 4; L97.521 Non-pressure chronic ulcer of other part of left foot limited to breakdown of skin | CPT/HCPCS: 11042; 97597; 97605; A6212; A6237; A6250 ==

== ENCOUNTER 2023-12-24 10:58 | Emergency (ER) | payer MEDICARE, SELFPAY ==
[2023-12-24 11:20] VITALS: BP 138/91; PULSE 78; RESP 18; TEMP 36.4; O2SAT 99
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
[2023-12-24 12:32] LABS: Basophils # 0.1 10^3/uL (0.0-0.1); Basophils % 0.5 %; Eosinophils # 0.1 10^3/uL (0.0-0.8); Eosinophils % 1.4 %; Hematocrit 48.1 % (37-53); Lymphocytes # 2.4 10^3/uL (0.8-4.8); Lymphocytes % 25.1 %; Mean Corpuscular HGB Conc 29.5 g/dL (30-55); Mean Corpuscular Hemoglobin 26.3 pg (27-33); Mean Corpuscular Volume 89.2 fl (82-101); Mean Platelet Volume 10.2 fL (7.4-10.4); Monocytes # 0.6 10^3/uL (0.2-0.9); Monocytes % 6.6 %; Neutrophils # 6.31 10^3/uL (1.8-7.7); Neutrophils % 66.1 %; Nucleated Red Blood Cells % 0 %; Platelet Count 394 10^3/cmm (157-399); Red Blood Count 5.39 10^6/uL (3.85-5.65); Red Cell Distribution Width 15.8 % (12.1-15.1); White Blood Count 9.55 10^3/uL (3.29-11.43)
[2023-12-24 13:07] LABS: Alanine Aminotransferase 14 U/L (0-41); Albumin Level 3.8 g/dL (3.5-5.2); Alkaline Phosphatase 117 U/L (40-130); Aspartate Amino Transferase 14 U/L (0-40); Blood Urea Nitrogen 12 mg/dL (6-20); Calcium 8.8 mg/dL (8.5-10.5); Carbon Dioxide 22 mmol/L (22-29); Chloride 103 mmol/L (98-107); Globulin 4.7 g/dL (1.3-4.6); Glomerular Filtration Rate 220.2 mL/min (90-130); Glucose 124 mg/dL (65-115); Osmolality Calculated 287 mOsm/kg (285-295); Sodium 138 mmol/L (136-145); Thyroid Stimulating Hormone 0.99 uIU/mL (0.27-4.20); Total Bilirubin 0.4 mg/dL (0.15-1.2); Total Protein 8.5 g/dL (6.6-8.7)
[2023-12-24 13:10] LABS: Anion Gap 16.7 (5-19); Potassium 3.7 mmol/L (3.5-5.1)
--- NOTE | 2023-12-24 13:28 | PC.PHAR ---
TONY AGUIRRE FAXING MED LIST
[2023-12-24 14:20] VITALS: RESP 15
[2023-12-24 14:26] VITALS: RESP 15
== END 2023-12-24 14:47 | disposition home or self-care (01) ==
PROVIDERS: Emergency Provider Emergency Medicine; PCP Family Medicine
DX: R61 Generalized hyperhidrosis (principal); G82.50 Quadriplegia, unspecified; I10 Essential (primary) hypertension
CPT/HCPCS: 36415; 80053; 84443; 85025; 99283

== ENCOUNTER → 2023-12-29 15:51 | Outpatient (BNVA) | payer MEDICARE, SELFPAY | PROVIDERS: PCP Family Medicine; Visit Provider Nurse Practitioner Family | DX: I96 Gangrene, not elsewhere classified (principal); L89.324 Pressure ulcer of left buttock, stage 4; L97.521 Non-pressure chronic ulcer of other part of left foot limited to breakdown of skin; G82.50 Quadriplegia, unspecified | CPT/HCPCS: 11042; 97597; 97605; A6237; A6250 ==

== ENCOUNTER 2023-12-30 11:47 | Outpatient (CLI) | payer MEDICARE, SELFPAY ==
[2023-12-30 13:33] LABS: Alanine Aminotransferase 13 U/L (0-41); Albumin Level 3.7 g/dL (3.5-5.2); Alkaline Phosphatase 109 U/L (40-130); Anion Gap 15.7 (5-19); Aspartate Amino Transferase 12 U/L (0-40); Blood Urea Nitrogen 11 mg/dL (6-20); Calcium 8.4 mg/dL (8.5-10.5); Carbon Dioxide 24 mmol/L (22-29); Chloride 103 mmol/L (98-107); Glomerular Filtration Rate 220.2 mL/min (90-130); Glucose 102 mg/dL (65-115); Osmolality Calculated 288 mOsm/kg (285-295); Potassium 3.7 mmol/L (3.5-5.1); Prealbumin 23.2 mg/dL (20-40); Sodium 139 mmol/L (136-145); Total Bilirubin 0.3 mg/dL (0.15-1.2); Total Protein 7.7 g/dL (6.6-8.7)
[2023-12-30 16:20] LABS: C Reactive Protein 25.3 mg/L (0.0-4.9)
== END 2023-12-30 11:48 | disposition home or self-care (01) ==
LOC: LAB 11:49
PROVIDERS: Student in an Organized Health Care Education/Training Program; PCP Family Medicine; Visit Provider Nurse Practitioner Family
DX: L89.314 Pressure ulcer of right buttock, stage 4 (principal)
CPT/HCPCS: 36415; 80053; 84134; 86140; 99213

== ENCOUNTER → 2024-01-06 15:40 | Outpatient (BNVA) | payer MEDICARE, SELFPAY | PROVIDERS: PCP Family Medicine; Visit Provider Nurse Practitioner Family | DX: R39.9 Unspecified symptoms and signs involving the genitourinary system (principal); N39.0 Urinary tract infection, site not specified | CPT/HCPCS: 81000; 87086 ==

== ENCOUNTER 2024-01-07 11:27 | Inpatient (IN) | payer MEDICARE, SELFPAY ==
[2024-01-07] VITALS (17 sets, daily range): BP systolic 64–132; BP diastolic 34–122; PULSE 71–93; RESP 17–18; TEMP 36.7–36.8; O2SAT 96–99; BMI 25.1
--- NOTE | 2024-01-07 12:54 | PC.NURSE ---
Charge nurse notified of pt's vital signs, pt taken to room 5 for evaluation.
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
[2024-01-07 13:59] LABS: Basophils % 0.3 %; Eosinophils # 0.1 10^3/uL (0.0-0.8); Eosinophils % 0.9 %; Hematocrit 42.7 % (37-53); Lymphocytes # 2.2 10^3/uL (0.8-4.8); Mean Corpuscular HGB Conc 31.1 g/dL (30-55); Mean Corpuscular Hemoglobin 26.1 pg (27-33); Mean Corpuscular Volume 83.9 fl (82-101); Mean Platelet Volume 9.5 fL (7.4-10.4); Monocytes # 0.8 10^3/uL (0.2-0.9); Monocytes % 6.9 %; Neutrophils # 8.95 10^3/uL (1.8-7.7); Neutrophils % 73.3 %; Nucleated Red Blood Cells % 0 %; Platelet Count 391 10^3/cmm (157-399); Red Blood Count 5.09 10^6/uL (3.85-5.65); Red Cell Distribution Width 14.7 % (12.1-15.1); White Blood Count 12.21 10^3/uL (3.29-11.43)
[2024-01-07] MEDS: sodium chloride 0.9% 1,000 ML 999 ML IV ×2 (14:14→18:39)
[2024-01-07 14:21] LABS: Alanine Aminotransferase 10 U/L (0-41); Albumin Level 3.4 g/dL (3.5-5.2); Alkaline Phosphatase 110 U/L (40-130); Anion Gap 20.5 (5-19); Aspartate Amino Transferase 10 U/L (0-40); Blood Urea Nitrogen 8 mg/dL (6-20); C Reactive Protein 75.4 mg/L (0.0-4.9); Calcium 9.1 mg/dL (8.5-10.5); Carbon Dioxide 21 mmol/L (22-29); Chloride 96 mmol/L (98-107); Creatinine Clr Calc Pharmacy 221.4731; Globulin 4.7 g/dL (1.3-4.6); Glomerular Filtration Rate 220.2 mL/min (90-130); Glucose 103 mg/dL (65-115); Osmolality Calculated 277 mOsm/kg (285-295); Potassium 3.5 mmol/L (3.5-5.1); Sodium 134 mmol/L (136-145); Total Bilirubin 0.4 mg/dL (0.15-1.2); Total Protein 8.1 g/dL (6.6-8.7)
[2024-01-07 14:22] LABS: Lactic Sepsis W/Reflex 1.1 mmol/L (0.5-2.2)
[2024-01-07] MEDS: sodium chloride 0.9% 500 ML 999 ML IV (14:36)
--- NOTE | 2024-01-07 14:38 | ECG_ITS ---
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 Measurements Intervals [place] Rate: 78 P: 75 NE: 150 QRS: 62 QRSD: 86 T: 54 QT: 397 QTc: 454 Interpretive Statements SINUS RHYTHM POSSIBLE LEFT ATRIAL ENLARGEMENT [-0.1mV P-WAVE IN V1/V2] MINIMAL ST DEPRESSION [0.025+ mV ST DEPRESSION] Compared to ECG 07/23/2023 13:52:42 ST (T wave) deviation now present Sinus bradycardia no longer present Electronically Signed On 01-07-2024 17:03:12 CDT by Kyle Messer M.D. [id number]
[2024-01-07 15:06] LABS: Protein Urine 2+ (Negative); Specific Gravity, Urine 1.015 (1.005-1.030); Urine Appearance Cloudy (CLEAR); Urine Color Yellow (Yellow); pH Urine 5 (5-7)
[2024-01-07 15:08] LABS: Bilirubin Urine Neg (Negative); Blood Urine 3+ (Negative); Glucose Urine UA Norm (Normal); Ketones Urine Negative (Negative); Leukocyte Esterase Urine 2+ (Negative); Nitrate Urine Positive (Negative); Urobilinogen Urine Norm (Negative); WBC Urine >100 /hpf (0-5)
[2024-01-07 15:09] LABS: Add Urine Culture? Yes; Bacteria Urine 3+ /hpf
[2024-01-07 15:24] LABS: Troponin(5th) Baseline 15 ng/L (0-15)
--- NOTE | 2024-01-07 15:31 | CTR_ITS ---
PROCEDURE INFORMATION: Exam: CT Abdomen And Pelvis With Contrast Exam date and time: 01/07/2024 4:00 PM Age: 58 years old Clinical indication: Abdominal pain; Generalized; Prior surgery; Surgery date: 6+ months; Surgery type: Gb, ileostomy, lithro, TECHNIQUE: Imaging protocol: Computed tomography of the abdomen and pelvis with contrast. Radiation optimization: All CT scans at this facility use at least one of these dose optimization techniques: automated exposure control; mA and/or kV adjustment per patient size (includes targeted exams where dose is matched to clinical indication); or iterative reconstruction. Contrast material: OMNI 350; Contrast volume: 100 ml; Contrast route: INTRAVENOUS (IV); COMPARISON: CT abdomen pelvis w con* [id number] 09/04/2023 5:32 PM RADIATION DOSE METRICS: Total DLP (mGy-cm): 827.78 FINDINGS: Tubes, catheters and devices: A suprapubic catheter is in good position within the bladder. Lungs: Linear scarring involves both lung bases. Liver: Normal. No mass. Gallbladder and bile ducts: The gallbladder has been resected. Pancreas: Normal. No ductal dilation. Spleen: Normal. No splenomegaly. Adrenal glands: Normal. No mass. Kidneys and ureters: A 4.6 cm simple cyst involves the right kidney. 1.5 cm right renal stone also noted. Stomach and bowel: A left-sided colostomy is noted. Appendix: No evidence of appendicitis. Intraperitoneal space: Unremarkable. No free air. No significant fluid collection. Vasculature: An IVC filter is noted in good position. Lymph nodes: Unremarkable. No enlarged lymph nodes. Urinary bladder: Unremarkable as visualized. Reproductive: Unremarkable as visualized. Bones/joints: See Soft tissues finding. Soft tissues: There is a large decubitus ulcer overlying the left ischium. There is prominent subcutaneous inflammation along with a small collection of fluid and air. There is bony erosion and bony sclerosis involving the left inferior pubic ramus posteriorly. CT/CT abdomen pelvis w con* [id number] IMPRESSION: 1. Decubitus ulcer with subcutaneous abscess and osteomyelitis involving the left pelvis. Findings have not changed over the past 4 months. 2. A benign renal cyst or cysts have been detected. No further follow-up imaging is required. 3. Suprapubic catheter in good position 4. Surgical changes noted COMMENTS: 1. For patients with an IVC filter, recommend assessment for a management plan for the patient's IVC filter. If there is no established management plan, recommend referral to an interventional clinician on a nonemergent basis for evaluation. 2. Consistent with the [place] [employer]'s Incidental Findings Committee white paper (J Am Vincent Radiol 2018): Any incidental renal lesion less than 1 cm or classified as too small to characterize, or any incidental cystic renal lesion characterized as simple-appearing, is likely benign. No follow-up imaging is recommended for these lesions per consensus recommendations based on imaging criteria.
[2024-01-07] MEDS: cefepime 2,000 MG in sodium chloride 0.9% (plus) 50 ML 100 MG IV (15:47)
[2024-01-07] MEDS: iohexol 350 mg/mL 500 mL Btl (per mL) IV (16:01)
[2024-01-07 16:10] LABS: Troponin 5 2HR 13.35 ng/L (0-15)
[2024-01-07 16:12] LABS: Troponin 5 2HR Delta -1.65 ABS# (0-10)
--- NOTE | 2024-01-07 16:36 | ECG_ITS ---
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 Measurements Intervals [place] Rate: 85 P: 80 DC: 153 QRS: 78 QRSD: 89 T: 81 QT: 406 QTc: 483 Interpretive Statements SINUS RHYTHM POSSIBLE RIGHT VENTRICULAR CONDUCTION DELAY [RSR (QR) IN V1/V2] MODERATE ST DEPRESSION [0.05+ mV ST DEPRESSION] Compared to ECG 01/07/2024 14:54:20 No significant changes Electronically Signed On 01-07-2024 17:06:24 CDT by Kyle Messer M.D. [id number]
[2024-01-07 18:05] LABS: Troponin 5 6HR 12.31 ng/L (0-15); Troponin 5 6HR Delta -2.69 ng/L (0-12)
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
[2024-01-07 18:54] LABS: Procalcitonin 0.12 ng/mL (0-0.5)
--- NOTE | 2024-01-07 19:33 | PC.NURSE ---
REPORT CALLED TO CHEN AT 1930.
--- NOTE | 2024-01-07 20:38 | ECG_ITS ---
[facility] Test Date: 2024-01-07 Pat Name: Gian Silva Department: Room: 104 Gender: Male Appraiser: : 1965 Requested By: Jaja Harkins Order Number: [id number] Fish MD: Kyle Messer M.D. Measurements Intervals [place] Rate: 82 P: 76 MI: 157 QRS: 49 QRSD: 83 T: 47 QT: 389 QTc: 455 Interpretive Statements SINUS RHYTHM POSSIBLE RIGHT VENTRICULAR CONDUCTION DELAY [RSR (QR) IN V1/V2] Compared to ECG 01/07/2024 16:36:58 ST (T wave) deviation no longer present Electronically Signed On 01-08-2024 0:04:44 CDT by Kyle Messer M.D. [email or web address]
[2024-01-07] MEDS: meropenem 500 MG in sodium chloride 0.9% (plus) 50 ML 100 MG IV (21:23)
[2024-01-07] MEDS: heparin 5,000 unit/mL INJ 1 mL 5000 UNIT SUBCUT (21:24)
[2024-01-07] MEDS: sodium chloride 0.9% 1,000 ML 75 ML IV (21:25)
[2024-01-07] MEDS: clindamycin 900 MG/50 ML PREMIX 100 MG IV (22:15)
[2024-01-07] MEDS: midodrine 5 mg TABLET 10 MG PO (22:38)
[2024-01-07] MEDS: baclofen 10 mg Tablet 20 MG PO (22:38)
[2024-01-08] VITALS (8 sets, daily range): BP systolic 97–134; BP diastolic 61–75; PULSE 69–90; RESP 16–22; TEMP 36.6–36.9; O2SAT 96–99; BMI 24.7
[2024-01-08 03:54] LABS: Basophils # 0.1 10^3/uL (0.0-0.1); Basophils % 0.4 %; Eosinophils # 0.2 10^3/uL (0.0-0.8); Eosinophils % 1.2 %; Hematocrit 38.9 % (37-53); Lymphocytes # 2.3 10^3/uL (0.8-4.8); Lymphocytes % 18.1 %; Mean Corpuscular HGB Conc 30.8 g/dL (30-55); Mean Corpuscular Hemoglobin 25.8 pg (27-33); Mean Corpuscular Volume 83.7 fl (82-101); Mean Platelet Volume 9.7 fL (7.4-10.4); Monocytes # 1.2 10^3/uL (0.2-0.9); Monocytes % 9.6 %; Neutrophils # 8.88 10^3/uL (1.8-7.7); Neutrophils % 70.3 %; Nucleated Red Blood Cells % 0 %; Platelet Count 399 10^3/cmm (157-399); Red Blood Count 4.65 10^6/uL (3.85-5.65); Red Cell Distribution Width 14.9 % (12.1-15.1); White Blood Count 12.63 10^3/uL (3.29-11.43)
[2024-01-08 04:17] LABS: Anion Gap 15.3 (5-19); Blood Urea Nitrogen 7 mg/dL (6-20); C Reactive Protein 62.3 mg/L (0.0-4.9); Calcium 8.4 mg/dL (8.5-10.5); Carbon Dioxide 21 mmol/L (22-29); Chloride 104 mmol/L (98-107); Glomerular Filtration Rate 220.2 mL/min (90-130); Glucose 126 mg/dL (65-115); Osmolality Calculated 284 mOsm/kg (285-295); Phosphorus 2.9 mg/dL (2.5-4.5); Potassium 3.3 mmol/L (3.5-5.1); Sodium 137 mmol/L (136-145)
[2024-01-08 04:18] LABS: Creatinine Clr Calc Pharmacy 218.9846
[2024-01-08] MEDS: meropenem 500 MG in sodium chloride 0.9% (plus) 50 ML 100 MG IV ×3 (04:40→20:19)
[2024-01-08] MEDS: clindamycin 900 MG/50 ML PREMIX 100 MG IV (05:15)
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
--- NOTE | 2024-01-08 09:33 | P.PN_ITS ---
Subjective 2 Subjective: Patient is doing well, asking for air mattress I have conveyed request to the nurse Will arrange air mattress today Leukocytosis has not worsened No fever Patient is stating that he had a peaceful night Suprapubic catheter draining urine No active complaints Vitals/I&O/Wt Last Vital Signs Temp 98.0 F 01/08/24 07:57 Pulse 76 01/08/24 07:57 Resp 22 H 01/08/24 07:57 BP 102/66 01/08/24 07:57 Pulse Ox 96 01/08/24 05:34 O2 Del Method Room Air 01/07/24 23:52 01/07/24 01/08/24 01/08/24 22:59 06:59 14:59 Intake Total 3200 / 3200 750 / 3950 Output Total 200 / 200 Balance 3000 / 3000 750 / 3750 Weight last 48 hrs Weight 80.541 kg Weight 81.703 kg Weight 83.915 kg Physical Exam 2 Narrative: Scapular area stage I superficial skin sloughing noted Stage IV sacral ulcer Suprapubic catheter in place Extremity contractures Patient is covered with multiple layers of blankets Awake and alert able to answer all my questions S1, S2 Currently he is on room air Data 01/08/24 03:19 01/08/24 03:19 Micro: Microbiology 01/07/24 14:37 Urine Culture - Preliminary Urine,Clean Catch Gram Negative Rods 01/07/24 13:51 Blood Culture - Preliminary Blood SPECIMEN COLLECTED 01/07/24 13:30 Blood Culture - Preliminary Blood SPECIMEN COLLECTED A&P Assessment and plan (1) Peripheral artery disease: (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: (3) IBS (irritable bowel syndrome): Qualifiers: Irritable bowel syndrome type: with both diarrhea and constipation Qualified Code(s): K58.2 - Mixed irritable bowel syndrome (4) Recurrent UTI: (5) Suprapubic catheter: (6) Hypokalemia: (7) Cellulitis: Qualifiers: Site of cellulitis: trunk Site of cellulitis of trunk: groin Qualified Code(s): L03.314 - Cellulitis of groin (8) Osteomyelitis: Qualifiers: Osteomyelitis type: other chronic Osteomyelitis location: other site Qualified Code(s): M86.68 - Other chronic osteomyelitis, other site (9) Quadriplegia: (10) H/O spinal cord injury: Plan Chronic osteomyelitis with underlying stage IV sacral ulcer Subcutaneous abscess Which has not progressed Wound VAC in place Stage I pressure ulcer on scapular area is noted as well OptiForm offloading and nursing care with frequent positioning Will request air mattress Appreciate ID recommendations of treating antibiotics We are continuing meropenem and linezolid at this point Cultures are pending Continue IV fluids DVT prophylaxis heparin Plan to discharge after reviewing culture report Will decide after urine culture report whether we need PICC line placement long- term antibiotic or chronic p.o. suppressive therapy Attestations 2 Medical Necessity Statement*: Continue medical management Diagnoses Peripheral artery disease I73.9 Presence of inferior vena cava filter Z95.828 Irritable bowel syndrome with both constipation and diarrhea K58.2 Irritable bowel syndrome type: with both diarrhea and constipation Recurrent UTI N39.0 Suprapubic catheter Z93.59 Hypokalemia E87.6 Cellulitis of groin L03.314 Site of cellulitis: trunk Site of cellulitis of trunk: groin Other chronic osteomyelitis, other site M86.68 Osteomyelitis type: other chronic Osteomyelitis location: other site Quadriplegia G82.50 H/O spinal cord injury Z87.828
[2024-01-08] MEDS: heparin 5,000 unit/mL INJ 1 mL 5000 UNIT SUBCUT ×2 (09:58→20:20)
[2024-01-08] MEDS: linezolid 600 mg Tablet PO (09:59)
[2024-01-08] MEDS: sennosides-docusate Tablet 1 TAB PO (09:59)
[2024-01-08] MEDS: baclofen 10 mg Tablet 20 MG PO ×2 (10:04→21:52)
[2024-01-08] MEDS: midodrine 5 mg TABLET 10 MG PO ×2 (10:04→21:52)
[2024-01-08 10:10] LABS: Erythrocyte Sedimentation Rate 76 mm/hr (0-10)
[2024-01-08] MEDS: sodium chloride 0.9% 1,000 ML 75 ML IV (10:58)
--- NOTE | 2024-01-08 11:03 | PC.NURSE ---
Addendum entered by Kwan Lee RN 01/08/24 11:42: Informed by the Director that the pt's does not wish to have me as their nurse. Report given to Divina Leone RN Process Checker and she will assume care of the pt. Pt apologized to me about his 's behavior and I told him that I understood her concerns but that my hands are tied and that we are in a waiting mode for things to happen that the doctor should come see you again and has been notified and that we are still waiting on an ICU air bed and that when it arrives that we will place him on it. Original Note: Pt is becoming very demanding and wants to see the doctor and stated that she has a right to see the doctor as she is his . We had already voalted a message Dr. Dodge about 10 minutes earlier that they wanted to see him again and we are still waiting for him to come. I informed them that the doctor has been notified but for some reason that was not good enough to the and now she is demanding to see the phosphoric acid supervisor. They also requested earlier an air mattress and I was informed that the phosphoric acid supervisor has been notified of the request and that we still do not have the bed here. I informed them that we are still waiting and that one should be coming. Will call my Director and notify her of the issue.
--- NOTE | 2024-01-08 16:24 | PC.NURSE ---
Myself and critical transition of care specialist Patricia changed patient's wound vac. We followed the instructions listed by wound care to change white and black foam. Patient's also assisted us in changing the wound vac dressing the way she was taught to change it. The depth of the wound was 4cm. With tunneling at 2, 7, and 9 oclock. The depth of the 9 oclock tunneling was 1.5 cm. There was undermining at 7oclock and tunneling at 2oclock wss 6cm deep. Canister replaced on wound vac device. Optifoam pads were changed on patient bilateral scalpula. There is also a wound on the patient's left foot which was rederessed with hydrofera blue and optifoam.
[2024-01-08] MEDS: HYDROcodone-acetaminophen 5-325 mg Tablet 1 TAB PO (16:55)
[2024-01-08] MEDS: morphine IR 15 mg Tablet PO (21:56)
[2024-01-09] VITALS (10 sets, daily range): BP systolic 86–150; BP diastolic 65–86; PULSE 74–95; RESP 16–21; TEMP 36.7; O2SAT 96–98
[2024-01-09] MEDS: HYDROcodone-acetaminophen 5-325 mg Tablet 1 TAB PO ×3 (00:24→19:56)
[2024-01-09] MEDS: sodium chloride 0.9% 1,000 ML 75 ML IV (00:32)
[2024-01-09] MEDS: meropenem 500 MG in sodium chloride 0.9% (plus) 50 ML 100 MG IV ×3 (04:23→20:19)
[2024-01-09 04:28] LABS: C.Diff PCR (Lab) NEGATIVE (Negative)
[2024-01-09 05:07] LABS: Basophils % 0.2 %; Eosinophils # 0.3 10^3/uL (0.0-0.8); Eosinophils % 2.7 %; Hematocrit 38.2 % (37-53); Lymphocytes # 1.7 10^3/uL (0.8-4.8); Lymphocytes % 14.6 %; Mean Corpuscular HGB Conc 31.2 g/dL (30-55); Mean Corpuscular Hemoglobin 25.9 pg (27-33); Mean Corpuscular Volume 83.2 fl (82-101); Mean Platelet Volume 9.5 fL (7.4-10.4); Monocytes % 8.7 %; Neutrophils # 8.39 10^3/uL (1.8-7.7); Neutrophils % 73.2 %; Nucleated Red Blood Cells % 0 %; Platelet Count 356 10^3/cmm (157-399); Red Blood Count 4.59 10^6/uL (3.85-5.65); Red Cell Distribution Width 14.9 % (12.1-15.1); White Blood Count 11.47 10^3/uL (3.29-11.43)
[2024-01-09 05:23] LABS: Blood Urea Nitrogen 5 mg/dL (6-20); C Reactive Protein 51.8 mg/L (0.0-4.9); Calcium 7.9 mg/dL (8.5-10.5); Carbon Dioxide 21 mmol/L (22-29); Chloride 107 mmol/L (98-107); Glomerular Filtration Rate 306.9 mL/min (90-130); Glucose 96 mg/dL (65-115); Osmolality Calculated 285 mOsm/kg (285-295); Sodium 139 mmol/L (136-145)
[2024-01-09 05:31] LABS: Creatinine Clr Calc Pharmacy 290.2365
[2024-01-09] MEDS: linezolid 600 mg Tablet PO (06:15)
--- NOTE | 2024-01-09 08:38 | PC.SOCIAL ---
IMM Update Pg. 2 of IMM updated and reviewed with patient, who verbalized understanding. Copy provided.
--- NOTE | 2024-01-09 08:51 | PC.CHAP ---
Pastoral Care Encounter/Spiritual Assessment Type of Contact [] Declined manager regional visit [] Patient/Family/Request visit [] Outpatient visit [] Follow-up visit [] Physician referral [] Code/Alert [x] Routine visit [] Staff referral [] Actively dying [] Patient sleeping [] Family support [] [] Out of room [] Palliative care [] [] Receiving care in room [] Pre-surgical visit [] Trauma [] Long length of stay [] ICU visit [] Other: Relational/Emotional Strength [x] Patient feels connected with others/family/visitors/staff [] Distress [] Loneliness/isolation [] Abandonment Spirituality of Patient [] Person of Patrica [] Attends Buddhist of their Patrica [x] Believes in Prayer [] Reads Bible or Orthodox materials [] There are Spiritual issues to be addressed Pier Worker Interventions [x] Prayer [x] Active listening [] Non-anxious presence [x] Spiritual/emotional support [] Crisis/trauma care [] Spiritual counseling [] Bereavement support [] Provided bereavement packet [] Provided Bible/devotional materials [] Provided toy/stuffed animal, coloring book to patient or family member [] Provided Communion [] Anointing/[place] [] Salvation [x] Completed spiritual assessment [] Other: Impact on Illness or Injury [] Angry [] Fearful [] Anxious [] Often cries [] Exhaustion [] Unable to work [] Unable to attend catholic [] Unable to walk/stand [] Unable to read [] Unable to drive [] Unable to eat/drink [] Unable to sleep [] Unable to be with family [] Patient intubated [] Other: Summary Time spent with patient 5 min
--- NOTE | 2024-01-09 08:56 | PC.CHAP ---
Pastoral Care Encounter/Spiritual Assessment Type of Contact [] Declined crude tester visit [] Patient/Family/Request visit [] Outpatient visit [] Follow-up visit [] Physician referral [] Code/Alert [] Routine visit [] Staff referral [] Actively dying [x] Patient sleeping [] Family support [] [] Out of room [] Palliative care [] [] Receiving care in room [] Pre-surgical visit [] Trauma [] Long length of stay [] ICU visit [] Other: Relational/Emotional Strength [] Patient feels connected with others/family/visitors/staff [] Distress [] Loneliness/isolation [] Abandonment Spirituality of Patient [] Person of Patrica [] Attends Moravian of their Patrica [] Believes in Prayer [] Reads Bible or Denominational materials [] There are Spiritual issues to be addressed [facility] Teacher Interventions [] Prayer [] Active listening [] Non-anxious presence [] Spiritual/emotional support [] Crisis/trauma care [] Spiritual counseling [] Bereavement support [] Provided bereavement packet [] Provided Bible/devotional materials [] Provided toy/stuffed animal, coloring book to patient or family member [] Provided Communion [] Anointing/Harmony [] Salvation [] Completed spiritual assessment [] Other: Impact on Illness or Injury [] Angry [] Fearful [] Anxious [] Often cries [] Exhaustion [] Unable to work [] Unable to attend church [] Unable to walk/stand [] Unable to read [] Unable to drive [] Unable to eat/drink [] Unable to sleep [] Unable to be with family [] Patient intubated [] Other: Summary Time spent with patient
[2024-01-09] MEDS: heparin 5,000 unit/mL INJ 1 mL 5000 UNIT SUBCUT ×2 (10:03→20:19)
[2024-01-09] MEDS: midodrine 5 mg TABLET 10 MG PO ×3 (10:48→19:57)
[2024-01-09] MEDS: baclofen 10 mg Tablet 20 MG PO ×2 (10:48→22:41)
--- NOTE | 2024-01-09 10:51 | P.PN_ITS ---
Subjective 2 Subjective: Leukocytosis improving No fever Patient stays covered with multiple layers No active need for surgical debridement of wound Appreciate ID recommendations We are waiting on final blood and urine culture report Urine culture showing gram-negative heather previous urine culture had showed Pseudomonas Serratia Staph aureus Patient was told that he will stay until we know final results to learn more about gram-negative heather culture and sensitivity report He may be able to go home over the weekend if oral antibiotics would cover microorganisms He is okay with the plan and very receptive of the information Vitals/I&O/Wt Last Vital Signs Temp 98.0 F 01/09/24 08:00 Pulse 83 01/09/24 08:20 Resp 16 01/09/24 08:20 BP 86/65 01/09/24 08:00 Pulse Ox 97 01/09/24 08:20 O2 Del Method Room Air 01/09/24 08:20 01/08/24 01/09/24 01/09/24 22:59 06:59 14:59 Intake Total 1072 / 2722 3050 / 5772 Output Total 200 / 750 400 / 1150 Balance 872 / 1972 2650 / 4622 Weight last 48 hrs Weight 80.541 kg Weight 80.541 kg Weight 81.703 kg Weight 83.915 kg Physical Exam 2 Narrative: Patient is laying supine with multiple layers Wound VAC dressing has been changed Superficial stage I scapular area ulcer Good granulation tissue noted on sacral area and buttocks Patient is quadriplegic Pleasant and cooperative Covered with multiple layers S1, S2 Hemodynamic stable Currently on room air Data 01/09/24 04:39 01/09/24 04:39 Micro: Microbiology 01/07/24 13:51 Blood Culture - Preliminary Blood NEGATIVE TO DATE 01/07/24 13:30 Blood Culture - Preliminary Blood NEGATIVE TO DATE 01/07/24 14:37 Urine Culture - Preliminary Urine,Clean Catch Gram Negative Rods A&P Assessment and plan (1) Hypotension: Qualifiers: Hypotension type: hypotension due to drug Qualified Code(s): I95.2 - Hypotension due to drugs (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: (3) IBS (irritable bowel syndrome): Qualifiers: Irritable bowel syndrome type: with both diarrhea and constipation Qualified Code(s): K58.2 - Mixed irritable bowel syndrome (4) History of kidney stones: (5) Neurogenic bladder: (6) Suprapubic catheter: (7) Catheter-associated urinary tract infection: Qualifiers: Encounter type: initial encounter Indwelling urinary catheter type: c ystostomy catheter Qualified Code(s): T83.510A - Infection and inflammatory reaction due to cystostomy catheter, initial encounter; N39.0 - Urinary tract infection, site not specified (8) Recurrent UTI: (9) Cellulitis: Qualifiers: Site of cellulitis: trunk Site of cellulitis of trunk: groin Qualified Code(s): L03.314 - Cellulitis of groin (10) Osteomyelitis: Qualifiers: Osteomyelitis type: other chronic Osteomyelitis location: other site Qualified Code(s): M86.68 - Other chronic osteomyelitis, other site (11) Quadriplegia: (12) H/O spinal cord injury: Plan Chronic osteomyelitis stage IV sacral ulcer Stage I pressure ulcer around scapular area Offloading dressing with Optifoam daily dressing change Topical bacitracin application Patient has a wound VAC around sacral ulcer which is showing good granulation tissue no active need for debridement Chronic subcutaneous abscess which is being drained with wound VAC No fever, leukocytosis trending down Blood cultures negative Frequent change of position every 3 hours by nursing staff Patient follows up with drawer hardware worker Jazmine MAC Suprapubic catheter has been exchanged by his in the ER History shivering and rigors seems related to dysregulated autonomic system UTI showing gram-negative heather on culture report, wait until we see final sensitivity and culture report If he is only needing oral antibiotics we will be able to discharge him over the weekend Appreciate ID recommendations Dr. Izquierdo following along: Appreciate recommendations Rigors and chills: Patient is stating that his autonomic system is dysregulated which she is well aware of and takes Dilaudid before any procedure but this time he was not able to do so because his blood pressure was low Hypotension: Supine: Increase midodrine dose to 3 times a day Patient has received IV fluids for last 3 days, Please note patient is stating that his blood pressure drops with use of Dilaudid Will use 1 bag of albumin Full code Cardiac diet is very involved with his care Suprapubic catheter gets exchanged every 3 weeks by the Patient follows up with urology at [facility] Dr. Matthews Position: Home if urine culture sensitivity comes back to oral antibiotics over the weekend Attestations 2 Medical Necessity Statement*: Continue medical management Diagnoses Hypotension due to drugs I95.2 Hypotension type: hypotension due to drug Presence of inferior vena cava filter Z95.828 Irritable bowel syndrome with both constipation and diarrhea K58.2 Irritable bowel syndrome type: with both diarrhea and constipation History of kidney stones Z87.442 Neurogenic bladder N31.9 Suprapubic catheter Z93.59 Urinary tract infection associated with cystostomy catheter, initial encounter T83.510A; N39.0 Encounter type: initial encounter Indwelling urinary catheter type: cystostomy catheter Recurrent UTI N39.0 Cellulitis of groin L03.314 Site of cellulitis: trunk Site of cellulitis of trunk: groin Other chronic osteomyelitis, other site M86.68 Osteomyelitis type: other chronic Osteomyelitis location: other site Quadriplegia G82.50 H/O spinal cord injury Z87.828
[2024-01-09] MEDS: morphine IR 15 mg Tablet PO (22:41)
[2024-01-09] MEDS: ondansetron 2 mg/ML SDV 2 mL 4 MG IVP (23:26)
[2024-01-10] VITALS (13 sets, daily range): BP systolic 94–138; BP diastolic 51–102; PULSE 73–96; RESP 18–27; TEMP 36.5–36.8; O2SAT 92–99
[2024-01-10 04:44] LABS: Basophils % 0.3 %; Eosinophils # 0.5 10^3/uL (0.0-0.8); Eosinophils % 4.3 %; Hematocrit 39.2 % (37-53); Lymphocytes # 2.6 10^3/uL (0.8-4.8); Lymphocytes % 24.1 %; Mean Corpuscular HGB Conc 31.6 g/dL (30-55); Mean Corpuscular Hemoglobin 26.3 pg (27-33); Mean Corpuscular Volume 83.2 fl (82-101); Mean Platelet Volume 9.4 fL (7.4-10.4); Monocytes # 0.9 10^3/uL (0.2-0.9); Monocytes % 8.2 %; Neutrophils # 6.68 10^3/uL (1.8-7.7); Neutrophils % 62.6 %; Nucleated Red Blood Cells % 0 %; Platelet Count 360 10^3/cmm (157-399); Red Blood Count 4.71 10^6/uL (3.85-5.65); Red Cell Distribution Width 14.9 % (12.1-15.1); White Blood Count 10.66 10^3/uL (3.29-11.43)
[2024-01-10] MEDS: meropenem 500 MG in sodium chloride 0.9% (plus) 50 ML 100 MG IV (04:45)
[2024-01-10 05:08] LABS: Anion Gap 11.2 (5-19); Blood Urea Nitrogen 5 mg/dL (6-20); Calcium 8.2 mg/dL (8.5-10.5); Carbon Dioxide 25 mmol/L (22-29); Chloride 108 mmol/L (98-107); Creatinine Clr Calc Pharmacy 290.2365; Glomerular Filtration Rate 306.9 mL/min (90-130); Glucose 132 mg/dL (65-115); Osmolality Calculated 291 mOsm/kg (285-295); Potassium 3.2 mmol/L (3.5-5.1); Sodium 141 mmol/L (136-145)
--- NOTE | 2024-01-10 05:11 | P.PN_ITS ---
Subjective 2 Subjective: Infectious disease progress note. No new complaints. continues to have intermittent chills diaphoresis. Prefers to be wrapped up in several blankets. Urine culture was showing and gram- negative rods now identified as E. coli. Medications: Reviewed: Yes Vitals/I&O/Wt Last Vital Signs Temp 98.0 F 01/09/24 16:00 Pulse 73 01/10/24 04:00 Resp 18 01/10/24 04:00 BP 94/51 01/10/24 04:00 Pulse Ox 93 01/10/24 04:00 O2 Del Method Room Air 01/10/24 04:00 01/09/24 01/09/24 01/10/24 14:59 22:59 06:59 Intake Total 1356.25 / 1356.25 50 / 1406.25 Output Total 450 / 450 450 / 900 Balance 906.25 / 906.25 -400 / 506.25 Weight last 48 hrs Weight 80.541 kg Weight 80.541 kg Physical Exam 2 Narrative: General: No acute distress, AO x3 HEENT: PERRLA, pupils bilaterally equal and reactive, pallors not present Chest: Normal vesicular breath sounds, no added sounds, equal good air entry bilaterally CVS: S1-S2 regular, no murmurs, no tachycardia, no gallops, no rubs Abdomen: Soft, nontender, no organomegaly, bowel sounds present Neuro: Quadriplegia at baseline Extremities: Wound VAC in place over left upper thigh and buttocks. No puslike discharge noted in the vac collection chamber. Data 01/10/24 04:25 01/10/24 04:25 Micro: Microbiology 01/07/24 14:37 Urine Culture - Preliminary Urine,Clean Catch Escherichia coli NAME: Gian Silva LOC: [facility] U #: [id number] AGE/SX: 58/M ROOM: 104 R E01/07/[address]: Seamus Dodge MD : 1965 BED: 1 D IS: FAX #: STATUS: ADM IN TLOC: Spec #: [id number] Vincent: 01/07/24-1437 Status: RES Req #: [id number] Recd: 01/07/24-[address]: Jaja Winslow MD Src: Urine CC SpDesc: Ordered: UC Procedure Result Verified Site Urine Culture Preliminary 01/09/24-1534 Organism 1 Escherichia coli Butler Count >100,000 CFU/ml DAY 2 E coli M.I.C. RX --------- ------ * Amikacin <=16 S * Amoxicillin/Clavulanate 16/8 I * Ampicillin >16 R * Ampicillin/Sulbactam >16/8 R * Aztreonam <=4 S * Cefepime <=8 S * Ceftriaxone <=1 S * Cefuroxime 8 S * Ciprofloxacin >2 R * Gentamicin >8 R * Imipenem <=1 S * Levofloxacin >4 R * Nitrofurantoin <=32 S * Tetracycline >8 R * Tobramycin 8 I * Trimethoprim/Sulfamethoxazole >2/38 R * Piperacillin/Tazobactam <=16 S Urine Culture Preliminary (changed) 01/08/24-0857 Organism 1 Gram Negative Rods Butler Count >100,000 CFU/ml DAY 1, RESULTS TO FOLLOW NOTICE OF CONFIDENTIALITY The recipient of this confidential patient information is prohibited from disclosing the information to any other alliance party and is required to destroy the information after the stated need has been fulfilled. Anyone receiving this data in error should notify the [facility] immediately by telephone: . Thank you for your cooperation. END OF REPORT A&P Assessment and plan (1) Osteomyelitis: Chronic sacral osteomyelitis. No recent changes or regression in wound. CT of the abdomen and pelvis shows decubitus ulcer with subcutaneous abscess and osteomyelitis involving the left pelvis. Findings are unchanged over the past 4 months. Per recent discussion with wound care clinic and review of their notes, his hip wound has shown signs of improvement. no signs of cellulitis surrounding wound VAC insertion site. CRP uptrending, however cannot necessarily attribute to worsening osteomyelitis in the presence of another current source of infection. Status post treatment with IV meropenem earlier this year for this above problem. The treatment of osteomyelitis in patients with stage IV sacral pressure ulcers is controversial. Many patients with chronically exposed bone do not have evidence of osteomyelitis when biopsied, and CT or MR imaging may not accurately distinguish osteomyelitis from bone remodeling. The goal of therapy should be local wound care and assessment for the potential of wound closure. There is insufficient data to support antibiotic durations of >6 weeks in this setting. If the wound will not be closed, there is no clear evidence supporting a role for prolonged antibiotic therapy. (Osteomyelitis Complicating Sacral Pressure Ulcers: Whether or Not to Treat With Antibiotic Therapy. Clinical Infectious Diseases, Volume 68, Issue 2, 11 August 2018) No indication for prolonged antibiotics with regards to osteomyelitis currently. Qualifiers: Osteomyelitis type: other chronic Osteomyelitis location: other site Qualified Code(s): M86.68 - Other chronic osteomyelitis, other site (2) Recurrent UTI: Recurrent UTI which she is on chronic methenamine suppression. Follows with urology in [place]. He usually has suprapubic Dejesus catheter that is changed every 3 weeks. There is noted to be some excoriation around the suprapubic site, patient states that recently his suprapubic site was soiled with fecal contents due to an ilL fitting ileostomy bag. He has been applying antibiotic ointment prescribed by primary care physician around the catheter insertion site and feels that this has helped tremendously. Urine culture showing E. coli, susceptible to ceftriaxone. Discontinue meropenem and linezolid. Changed to ceftriaxone 1 g IV daily. Currently patient is on day 4 of therapy with antibiotics. Can transition to oral cefuroxime at discharge to complete total 7 days of treatment. In reviewing past cultures patient's previous UTIs have involved Pseudomonas aeruginosa, Serratia marcescens, Staph aureus and E. coli. Variable susceptibilities to past isolates. Would be difficult to come up with an antibiotic agent for chronic suppression Cover all potential culprits. Additionally patient is likely to have long-term chronic suprapubic catheter which puts him at anatomical risk to get recurrent UTIs.. Potentially fosfomycin could be considered if continues to have more than 2-3 severe urinary infections over the course of next year. However we will be unable to obtain susceptibilities to fosfomycin due to lack of capability at the micro lab. Previous attempts to send this to reference lab has been unsuccessful. (3) Diaphoresis: Overall this appears to be a nonspecific symptom. Suspect this may be more likely related to patient's known autonomic neuropathy. He has noticed a trigger for the symptoms during wound care debridement, suspect may be his pain response. Overall symptom is very nonspecific and may not necessarily be associated with underlying infection. (4) Chills (without fever): (5) Catheter-associated urinary tract infection: Qualifiers: Encounter type: initial encounter Indwelling urinary catheter type: c ystostomy catheter Qualified Code(s): T83.510A - Infection and inflammatory reaction due to cystostomy catheter, initial encounter; N39.0 - Urinary tract infection, site not specified (6) Neurogenic bladder: Follows with urology at [facility] Thank you for this consult. Please call with any further questions or concerns. Attestations 2 Medical Necessity Statement*: Per admitting attending Coding Level of Care Code Acute Code for Chg Fwd High MDM includes number and complexity of problems actively addressed during encounter, amount and/or complexity of data reviewed/ordered and described risk of complication, morbidity or mortality of management as documented Diagnoses Other chronic osteomyelitis, other site M86.68 Osteomyelitis type: other chronic Osteomyelitis location: other site Recurrent UTI N39.0 Diaphoresis R61 Chills (without fever) R68.83 Urinary tract infection associated with cystostomy catheter, initial encounter T83.510A; N39.0 Encounter type: initial encounter Indwelling urinary catheter type: cystostomy catheter Neurogenic bladder N31.9
[2024-01-10] MEDS: sennosides-docusate Tablet 1 TAB PO (08:38)
[2024-01-10] MEDS: midodrine 5 mg TABLET 10 MG PO ×3 (08:38→20:35)
[2024-01-10] MEDS: polyethylene glycol 3350 Pkt 17 gm PO (08:39)
[2024-01-10] MEDS: heparin 5,000 unit/mL INJ 1 mL 5000 UNIT SUBCUT ×2 (08:39→20:35)
[2024-01-10] MEDS: morphine IR 15 mg Tablet PO ×3 (08:39→23:16)
[2024-01-10] MEDS: cefTRIAXone 1,000 MG in sodium chloride 0.9% (plus) 50 ML 100 MG IV (08:47)
[2024-01-10] MEDS: mupirocin oint 22 gm 1 APPLIC TOPICAL ×2 (08:47→17:58)
[2024-01-10] MEDS: ondansetron 2 mg/ML SDV 2 mL 4 MG IVP ×2 (09:56→17:58)
[2024-01-10] MEDS: baclofen 10 mg Tablet 20 MG PO ×2 (09:56→23:16)
[2024-01-10] MEDS: potassium chloride ER 20 mEq Tablet 40 MEQ PO (12:47)
--- NOTE | 2024-01-10 13:03 | PC.OT ---
Pt is requesting tenodesis splint; none are available in inpatient closet. Referred pt to discussing hand OT referral with rick Carrera and have alerted hand OT to pt's request.
--- NOTE | 2024-01-10 15:53 | PC.NURSE ---
Pt is complaining of blacking out . All vitals are WNL and patient never looses consciousness. Dr. garg.
--- NOTE | 2024-01-10 16:25 | P.PN_ITS ---
Subjective 2 Subjective: Patient reports chills. Discussed his urine culture results revealing E. coli. He expresses frustration with recurrent bowel contents getting close to his suprapubic site which she attributes to his recurrent UTIs. We did discuss that a trial of a larger ostomy bag may help improve this. He is also to follow-up with usual urologist regarding further preventative actions. Patient endorses constipation. Request Dulcolax. Spouse present later during the evaluation. She reports have a hospital bed but the offloading mattress is no longer working. She also reports that she has not seen case management or Friday. She states her needing extra help in the home. The current home health they have is not enough. She also complains that she did not get a phone call when the patient was in the emergency department. Patient is unable to call himself. Medications: Reviewed: Yes Vitals/I&O/Wt Last Vital Signs Temp 97.7 F 01/10/24 15:56 Pulse 91 01/10/24 15:56 Resp 27 H 01/10/24 15:56 BP 104/71 01/10/24 15:56 Pulse Ox 98 01/10/24 15:56 O2 Del Method Room Air 01/10/24 15:56 01/10/24 01/10/24 01/10/24 06:59 14:59 22:59 Intake Total 50 / 1456.25 120 / 120 Output Total 400 / 1300 Balance -350 / 156.25 120 / 120 Weight last 48 hrs Weight 80.541 kg Physical Exam 2 Narrative: General: Patient is awake and alert. Head: Normocephalic. Atraumatic. EOM intact. Neck: No JVD. Cardiovascular: RRR. No gallops. No murmurs. Lungs: Clear to auscultation, no use of accessory muscles, no crackles or wheezes. Skin: Wound VAC in place. Abdomen: Normal bowel sounds, abdomen soft and nontender. Genito Urinary: Suprapubic catheter. Extremities: No cyanosis or clubbing. Neurological: Quadriplegic. Data 01/10/24 04:25 01/10/24 04:25 Micro: Microbiology 01/07/24 14:37 Urine Culture - Preliminary Urine,Clean Catch Escherichia coli A&P Assessment and plan (1) Recurrent UTI: Suprapubic catheter exchanged in the emergency department Infectious disease as evaluated Patient is transition to ceftriaxone based on urine culture results, he can rotate to oral third-generation cephalosporin at discharge to complete 7 days He needs to follow-up with his outpatient urologist (2) Osteomyelitis: Chronic stage IV sacral osteomyelitis Infectious disease following Continue wound VAC Spouse reporting home offloading mattress has malfunction, may benefit from an additional 1 No case management/social work present this weekend, will plan to discuss what needs to be done on Friday Qualifiers: Osteomyelitis type: other chronic Osteomyelitis location: other site Qualified Code(s): M86.68 - Other chronic osteomyelitis, other site (3) Hypotension: Continue home midodrine He also has hydrochlorothiazide 1.25 mg on his home list -this dosing is likely wrong, also unclear why he would be on thiazide rather than the loop diuretic Qualifiers: Hypotension type: hypotension due to drug Qualified Code(s): I95.2 - Hypotension due to drugs (4) Chills (without fever): Likely multifactorial including infection autonomic dysfunction (5) Catheter-associated urinary tract infection: As above Qualifiers: Encounter type: initial encounter Indwelling urinary catheter type: c ystostomy catheter Qualified Code(s): T83.510A - Infection and inflammatory reaction due to cystostomy catheter, initial encounter; N39.0 - Urinary tract infection, site not specified (6) Neurogenic bladder: Continue oxybutynin (7) Quadriplegia: Continue home muscle relaxers (8) IBS (irritable bowel syndrome): Continue bowel regiment Dulcolax times once Qualifiers: Irritable bowel syndrome type: with both diarrhea and constipation Qualified Code(s): K58.2 - Mixed irritable bowel syndrome Plan DVT prophylaxis: Heparin CODE STATUS: Full code Attestations 2 Medical Necessity Statement*: Patient requires ongoing hospitalization for IV antibiotics, case management evaluation, and supportive care. Coding Level of Care Code Acute Code for Chg Fwd Diagnoses Recurrent UTI N39.0 Other chronic osteomyelitis, other site M86.68 Osteomyelitis type: other chronic Osteomyelitis location: other site Hypotension due to drugs I95.2 Hypotension type: hypotension due to drug Chills (without fever) R68.83 Urinary tract infection associated with cystostomy catheter, initial encounter T83.510A; N39.0 Encounter type: initial encounter Indwelling urinary catheter type: cystostomy catheter Neurogenic bladder N31.9 Quadriplegia G82.50 Irritable bowel syndrome with both constipation and diarrhea K58.2 Irritable bowel syndrome type: with both diarrhea and constipation
[2024-01-10 19:59] LABS: Potassium 4.1 mmol/L (3.5-5.1)
[2024-01-10] MEDS: magnesium hydroxide 30 mL UDC PO (20:35)
[2024-01-10] MEDS: HYDROcodone-acetaminophen 5-325 mg Tablet 1 TAB PO (21:37)
[2024-01-11] VITALS (12 sets, daily range): BP systolic 80–159; BP diastolic 52–99; PULSE 62–107; RESP 16–23; TEMP 36.5–36.8; O2SAT 94–100
[2024-01-11] MEDS: morphine IR 15 mg Tablet PO ×2 (05:46→15:10)
[2024-01-11] MEDS: heparin 5,000 unit/mL INJ 1 mL 5000 UNIT SUBCUT ×2 (07:54→20:22)
[2024-01-11] MEDS: polyethylene glycol 3350 Pkt 17 gm PO (07:54)
[2024-01-11] MEDS: cefTRIAXone 1,000 MG in sodium chloride 0.9% (plus) 50 ML 100 MG IV (09:04)
[2024-01-11] MEDS: baclofen 10 mg Tablet 20 MG PO ×2 (09:05→22:05)
[2024-01-11] MEDS: sennosides-docusate Tablet 1 TAB PO (09:05)
[2024-01-11] MEDS: mupirocin oint 22 gm 1 APPLIC TOPICAL (09:05)
[2024-01-11] MEDS: hydroCHLOROthiazide 25 mg Tablet 12.5 MG PO (09:05)
[2024-01-11] MEDS: midodrine 5 mg TABLET 10 MG PO ×3 (09:05→20:20)
[2024-01-11] MEDS: potassium chloride ER 20 mEq Tablet PO ×2 (09:05→20:21)
[2024-01-11 11:47] LABS: Albumin Level 3.1 g/dL (3.5-5.2); Anion Gap 15.9 (5-19); Blood Urea Nitrogen 6 mg/dL (6-20); Calcium 8.5 mg/dL (8.5-10.5); Carbon Dioxide 26 mmol/L (22-29); Chloride 99 mmol/L (98-107); Creatinine Clr Calc Pharmacy 290.2365; Glomerular Filtration Rate 306.9 mL/min (90-130); Glucose 148 mg/dL (65-115); Phosphorus 2.4 mg/dL (2.5-4.5); Potassium 3.9 mmol/L (3.5-5.1); Sodium 137 mmol/L (136-145)
--- NOTE | 2024-01-11 13:12 | PC.NURSE ---
Patient states he is passing out. His blood pressure when taken while sitting up in his bed was 106/64. Patient reports his heart feels like it stops and starts again when this happens. Telemetry does not capture any arrythmias this shift so far. Patient currently sinus tach HR of 103. Afebrile and oxygen saturation of 98% on RA. Patients catheter inspected to be kink free and draining appropriately. Patient states his potassium is getting low and he had a bowel movement in his colostomy so the potassium must have been excreted. Educated patient that his potassium was 4.1 yesterday and 3.9 today remaining WNL. The potassium here was dissolvable and would have been absorbed by the body before being excreted. Physician notified.
--- NOTE | 2024-01-11 13:20 | PC.NURSE ---
came to the desk after getting off the elevator and demanded to know why her had to call her in the middle of sabianist to tell her he was not getting his medications and that he was passing out. Informed that all prescribed medications were administered as well as physician notified of all symptoms. She demanded to talk to the charge nurse and physician as soon as possible.
--- NOTE | 2024-01-11 16:42 | P.PN_ITS ---
Subjective 2 Subjective: She reports patient was having recurrent syncopal episodes. His telemetry was reviewed. There were no significant ventricular arrhythmias noted explain his symptomatology. There was further concern about potassium this morning which labs revealed a normal potassium level. He reports he only takes potassium once daily at night due to prior problems with absorption. On evaluation, he describes the syncopal episodes as brief transient loss of consciousness. He says he had multiple of them. He reports he is gotten similar symptoms before when his potassium was low. We discussed potassium is currently normal. Blood pressure is normal as well. I did describe that this may be associated with autonomic dysfunction. He does take midodrine. He is also on hydrochlorothiazide. I discussed my recommendation that I would advise him to discuss this midodrine/hydrochlorothiazide combination with his primary care provider. It seems he is on the hydrochlorothiazide for peripheral edema; I advised that a loop diuretic would likely be better. Given this is a chronic issue, I will defer to his PCP at follow-up to determine appropriate long-term diuretic therapy. He denies any seizure history. No inpatient neurology available today. Will see if the teleneurology service will help us evaluate patient for further workup. Patient had developed some constipation yesterday. States that this is now improved. The volume of bowel movements seems to be close to baseline however the color still off. Spouse is bedside. Medications: Reviewed: Yes Vitals/I&O/Wt Last Vital Signs Temp 97.8 F 01/11/24 16:07 Pulse 101 H 01/11/24 16:07 Resp 18 01/11/24 16:07 BP 113/83 01/11/24 16:07 Pulse Ox 94 01/11/24 16:07 O2 Del Method Room Air 01/11/24 16:07 01/11/24 01/11/24 01/11/24 06:59 14:59 22:59 Intake Total 200 / 1320 1060 / 1060 Output Total 350 / 1200 Balance -150 / 120 1060 / 1060 Physical Exam 2 Narrative: General: Patient is awake and alert. In bed. Head: Normocephalic. Atraumatic. EOM intact. Neck: No JVD. Cardiovascular: RRR. No gallops. Faint systolic murmur. Lungs: Clear to auscultation, no use of accessory muscles, no crackles or wheezes. Skin: Wound VAC in place. Abdomen: Normal bowel sounds, abdomen soft and nontender. Ostomy. Genito Urinary: Suprapubic catheter. Extremities: No cyanosis or clubbing. Neurological: Quadriplegic. Data 01/10/24 04:25 01/11/24 11:11 A&P Assessment and plan (1) Recurrent UTI: Suprapubic catheter exchanged in the emergency department Infectious disease has evaluated Continue Rocephin, plan to rotate to oral third-generation cephalosporin at discharge to complete 7 days He needs to follow-up with his outpatient urologist (2) Syncope: Patient describes recurrent syncopal episodes today and yesterday He initially attributed to low potassium, however potassium is normal, continue to monitor potassium level He reports taking potassium only in the evening, his home med list is twice daily which apparently was an error Will adjust medications to nighttime dosing Telemetry reviewed, there is no ventricular arrhythmias that would explain his symptoms Blood pressure is normal and he is nonambulatory Symptoms may be neurogenic in nature, high suspicion of possible autonomic dysfunction Patient neurology currently available for consult, will see if telemetry services available (3) Osteomyelitis: Chronic stage IV sacral osteomyelitis Continue wound VAC Spouse reporting home offloading mattress has malfunction, may benefit from an additional mattress No case management/social work present this , will plan to discuss what needs to be done on Friday Spouse reports her needing additional help in the home to take care of him, would like to discuss with social work case management on Friday with her options may be Hopefully if outpatient services can be established, he can discharge on Friday Qualifiers: Osteomyelitis type: other chronic Osteomyelitis location: other site Qualified Code(s): M86.68 - Other chronic osteomyelitis, other site (4) Hypotension: Continue home midodrine He is also chronically on hydrochlorothiazide for management of peripheral edema, my recommendation would be to rotate to the loop diuretic Given has been on these medications for years through his PCP, I will defer to them to make this determination Qualifiers: Hypotension type: hypotension due to drug Qualified Code(s): I95.2 - Hypotension due to drugs (5) Chills (without fever): No complaints today (6) Catheter-associated urinary tract infection: As above Qualifiers: Encounter type: initial encounter Indwelling urinary catheter type: c ystostomy catheter Qualified Code(s): T83.510A - Infection and inflammatory reaction due to cystostomy catheter, initial encounter; N39.0 - Urinary tract infection, site not specified (7) Neurogenic bladder: Continue oxybutynin (8) Quadriplegia: Continue home muscle relaxers (9) IBS (irritable bowel syndrome): His Linzess if NF Continue bowel regiment Qualifiers: Irritable bowel syndrome type: with both diarrhea and constipation Qualified Code(s): K58.2 - Mixed irritable bowel syndrome Plan DVT prophylaxis: Heparin CODE STATUS: Full code Attestations 2 Medical Necessity Statement*: Patient requires ongoing hospitalization for IV antibiotics, case management evaluation, and supportive care. Coding Level of Care Code Acute Code for g Fwd Diagnoses Recurrent UTI N39.0 Syncope R55 Other chronic osteomyelitis, other site M86.68 Osteomyelitis type: other chronic Osteomyelitis location: other site Hypotension due to drugs I95.2 Hypotension type: hypotension due to drug Chills (without fever) R68.83 Urinary tract infection associated with cystostomy catheter, initial encounter T83.510A; N39.0 Encounter type: initial encounter Indwelling urinary catheter type: cystostomy catheter Neurogenic bladder N31.9 Quadriplegia G82.50 Irritable bowel syndrome with both constipation and diarrhea K58.2 Irritable bowel syndrome type: with both diarrhea and constipation
[2024-01-11] MEDS: HYDROcodone-acetaminophen 5-325 mg Tablet 1 TAB PO (19:39)
[2024-01-12] VITALS (11 sets, daily range): BP systolic 80–148; BP diastolic 52–89; PULSE 64–99; RESP 16–18; TEMP 36.3–36.7; O2SAT 96–99
[2024-01-12] MEDS: morphine IR 15 mg Tablet PO ×2 (00:03→08:24)
[2024-01-12 03:49] LABS: Basophils % 0.3 %; Eosinophils # 0.5 10^3/uL (0.0-0.8); Eosinophils % 4.7 %; Hematocrit 38.8 % (37-53); Lymphocytes # 2.8 10^3/uL (0.8-4.8); Lymphocytes % 26.8 %; Mean Corpuscular HGB Conc 30.9 g/dL (30-55); Mean Corpuscular Hemoglobin 25.7 pg (27-33); Mean Corpuscular Volume 83.1 fl (82-101); Mean Platelet Volume 9.8 fL (7.4-10.4); Monocytes # 0.9 10^3/uL (0.2-0.9); Monocytes % 8.3 %; Neutrophils # 6.15 10^3/uL (1.8-7.7); Neutrophils % 59.4 %; Nucleated Red Blood Cells % 0 %; Platelet Count 406 10^3/cmm (157-399); Red Blood Count 4.67 10^6/uL (3.85-5.65); Red Cell Distribution Width 15.2 % (12.1-15.1); White Blood Count 10.35 10^3/uL (3.29-11.43)
[2024-01-12 04:42] LABS: Albumin Level 3.3 g/dL (3.5-5.2); Anion Gap 14.3 (5-19); Blood Urea Nitrogen 11 mg/dL (6-20); Calcium 8.7 mg/dL (8.5-10.5); Carbon Dioxide 26 mmol/L (22-29); Chloride 106 mmol/L (98-107); Creatinine Clr Calc Pharmacy 217.6774; Glomerular Filtration Rate 220.2 mL/min (90-130); Glucose 143 mg/dL (65-115); Magnesium 2.2 mg/dL (1.7-2.3); Phosphorus 3.9 mg/dL (2.5-4.5); Potassium 4.3 mmol/L (3.5-5.1); Sodium 142 mmol/L (136-145)
[2024-01-12] MEDS: polyethylene glycol 3350 Pkt 17 gm PO (08:01)
[2024-01-12] MEDS: cefTRIAXone 1,000 MG in sodium chloride 0.9% (plus) 50 ML 100 MG IV (08:01)
[2024-01-12] MEDS: midodrine 5 mg TABLET 10 MG PO (08:02)
[2024-01-12] MEDS: hydroCHLOROthiazide 25 mg Tablet 12.5 MG PO (08:02)
[2024-01-12] MEDS: sennosides-docusate Tablet 1 TAB PO (08:02)
[2024-01-12] MEDS: heparin 5,000 unit/mL INJ 1 mL 5000 UNIT SUBCUT (08:02)
[2024-01-12] MEDS: mupirocin oint 22 gm 1 APPLIC TOPICAL (08:03)
[2024-01-12] MEDS: NON-FORMULARY MEDICATION (Linaclotide [Linzess] 145 mcg capsule) 145 EACH PO (08:14)
[2024-01-12] MEDS: HYDROcodone-acetaminophen 5-325 mg Tablet 1 TAB PO (09:16)
[2024-01-12] MEDS: baclofen 10 mg Tablet 20 MG PO (11:02)
--- NOTE | 2024-01-12 11:56 | PC.SOCIAL ---
IMM Update pg 2 of IMM updated and reviewed w/ patient. Copy provided and copy dated, initialed and placed in chart.
--- NOTE | 2024-01-12 12:54 | PM.DCS ---
Discharge Providers Date of Admission: 01/07/24 18:33 Date of Discharge: January 12, 2024 Attending Provider at Admission: Seamus Dodge MD Attending Provider at Discharge: Seamus Dodge MD Primary Care Provider: Sly Montejo DO Diagnoses at Discharge Discharge Diagnosis (1) Recurrent UTI: Status: Chronic Permanent problem details: (2) Syncope: Status: Acute (3) Osteomyelitis: Status: Acute Qualifiers: Osteomyelitis location: other site Osteomyelitis type: other chronic Qualified Code(s): M86.68 - Other chronic osteomyelitis, other site (4) Hypotension: Status: Chronic Qualifiers: Hypotension type: hypotension due to drug Qualified Code(s): I95.2 - Hypotension due to drugs (5) Chills (without fever): Status: Acute (6) Catheter-associated urinary tract infection: Status: Resolved Qualifiers: Encounter type: initial encounter Indwelling urinary catheter type: cystostomy catheter Qualified Code(s): T83.510A - Infection and inflammatory reaction due to cystostomy catheter, initial encounter; N39.0 - Urinary tract infection, site not specified (7) Neurogenic bladder: Status: Chronic (8) Quadriplegia: Status: Chronic (9) IBS (irritable bowel syndrome): Status: Acute Qualifiers: Irritable bowel syndrome type: with both diarrhea and constipation Qualified Code(s): K58.2 - Mixed irritable bowel syndrome Reason for Visit Reason for Visit: sweating, pain around ileostomy Hospital Course Hospital Course 58-year male who is quadriplegic, uses electric scooter, lives with his , has chronic indwelling catheter for neurogenic bladder, gets exchanged every 3 weeks, is well trying to change his suprapubic catheter, follows up with Dr. Matthews at [facility], has chronic osteomyelitis stage IV ulcer with subcutaneous abscess, it has a wound VAC in place, has home health as well, it has been treated with IV antibiotics in the past, followed with Dr. Izquierdo, presented to the hospital for rigors and chills. He was diagnosed with CAUTI, suprapubic catheter was exchanged in the ER by the , he did not spike fever, remain hemodynamically stable, no significant leukocytosis, white count of 12,000 on admission which improved with IV fluid hydration. patient was kept on IV antibiotics broad-spectrum until we saw urine culture which were pansensitive, E. coli at the time of discharge she will get p.o. antibiotics for 7 days in the hospital he received 5 days of IV antibiotics meropenem and linezolid that was changed to ceftriaxone after reviewing urine cultures. Patient has long-term chronic suprapubic catheter which puts him at high medical risk to get more UTIs potentially patient may benefit from fosfomycin please review ID note for further details. His diaphoresis rigors and chills all like related to autonomic dysregulation. There was some concern for syncope however it was unwitnessed telemetry did not show any changes, electrolytes were normal echo unremarkable no changes on EKG. Patient is full code At the time of discharge patient was admitted to hospital bed, application for Medicaid, he is also requesting a splint for his contracture of left wrist however Dr. Koenig is not on-call and we do not have a hand surgeon occupation therapist recommended talking with a hand surgeon Physical Exam Narrative: Quadriplegic Contracture of extremities Wound VAC in place dysuria with good granulation tissue no active drainage Suprapubic catheter in place Pleasant cooperative He covers himself with multiple layers Discharge Data Studies Completed and Pending Completed Studies During Hospitalization Category Date Time Status CT abdomen pelvis w con* [id number] Stat Cat Scan 01/07/24 15:31 Completed Pending at discharge Category Date Time Status Blood Culture Stat Lab 01/07/24 13:51 Results Urine Culture Stat Lab 01/07/24 14:37 Results Radiology Impressions Abdomen/Pelvis CT 01/07/24 15:31 IMPRESSION: 1. Decubitus ulcer with subcutaneous abscess and osteomyelitis involving the left pelvis. Findings have not changed over the past 4 months. 2. A benign renal cyst or cysts have been detected. No further follow-up imaging is required. 3. Suprapubic catheter in good position 4. Surgical changes noted COMMENTS: 1. For patients with an IVC filter, recommend assessment for a management plan for the patient's IVC filter. If there is no established management plan, recommend referral to an interventional clinician on a nonemergent basis for evaluation. 2. Consistent with the [place] [employer]'s Incidental Findings Committee white paper (J Am Vincent Radiol 2018): Any incidental renal lesion less than 1 cm or classified as too small to characterize, or any incidental cystic renal lesion characterized as simple-appearing, is likely benign. No follow-up imaging is recommended for these lesions per consensus recommendations based on imaging criteria. Laboratory Results WBC 10.35 10^3/uL (3.29-11.43) 01/12/24 03:19 RBC 4.67 10^6/uL (3.85-5.65) 01/12/24 03:19 Hgb 12.00 g/dL (11.27-16.99) 01/12/24 03:19 Hct 38.8 % (37-53) 01/12/24 03:19 MCV 83.1 fl (82-101) 01/12/24 03:19 MCH 25.7 pg (27-33) L 01/12/24 03:19 MCHC 30.9 g/dL (30-55) 01/12/24 03:19 RDW 15.2 % (12.1-15.1) H 01/12/24 03:19 Plt Count 406 10^3/cmm (157-399) H 01/12/24 03:19 MPV 9.8 fL (7.4-10.4) 01/12/24 03:19 Neut % (Auto) 59.4 % 01/12/24 03:19 Lymph % (Auto) 26.8 % 01/12/24 03:19 [place] % (Auto) 8.3 % 01/12/24 03:19 Eos % (Auto) 4.7 % 01/12/24 03:19 Baso % (Auto) 0.3 % 01/12/24 03:19 Neut # (Auto) 6.15 10^3/uL (1.8-7.7) 01/12/24 03:19 Lymph # (Auto) 2.8 10^3/uL (0.8-4.8) 01/12/24 03:19 [place] # (Auto) 0.9 10^3/uL (0.2-0.9) 01/12/24 03:19 Eos # (Auto) 0.5 10^3/uL (0.0-0.8) 01/12/24 03:19 Baso # (Auto) 0.0 10^3/uL (0.0-0.1) 01/12/24 03:19 Nucleated RBC % (auto) 0 % 01/12/24 03:19 Nucleated RBCs # 0.0 /100WBC 01/12/24 03:19 ESR 76 mm/hr (0-10) H 01/08/24 03:19 Sodium 142 mmol/L (136-145) 01/12/24 03:19 Potassium 4.3 mmol/L (3.5-5.1) 01/12/24 03:19 Chloride 106 mmol/L (98-107) 01/12/24 03:19 Carbon Dioxide 26 mmol/L (22-29) 01/12/24 03:19 Anion Gap 14.3 (5-19) 01/12/24 03:19 BUN 11 mg/dL (6-20) 01/12/24 03:19 Creatinine 0.4 mg/dL (0.7-1.2) L 01/12/24 03:19 GFR Calculation 220.2 mL/min (90-130) H 01/12/24 03:19 Glucose 143 mg/dL (65-115) H 01/12/24 03:19 Calculated Osmolality 291 mOsm/kg (285-295) 01/10/24 04:25 Lactic Acid 1.1 mmol/L (0.5-2.2) 01/07/24 13:51 Calcium 8.7 mg/dL (8.5-10.5) 01/12/24 03:19 Phosphorus 3.9 mg/dL (2.5-4.5) D 01/12/24 03:19 Magnesium 2.2 mg/dL (1.7-2.3) 01/12/24 03:19 Total Bilirubin 0.4 mg/dL (0.15-1.2) 01/07/24 13:51 AST 10 U/L (0-40) 01/07/24 13:51 ALT 10 U/L (0-41) 01/07/24 13:51 Alkaline Phosphatase 110 U/L (40-130) 01/07/24 13:51 Troponin T Baseline 15 ng/L (0-15) 01/07/24 13:57 Troponin T 120 Minute 13.35 ng/L (0-15) 01/07/24 15:45 Delta Troponin T -1.65 ABS# (0-10) L 01/07/24 15:45 Troponin T Hi Sens 6Hr 12.31 ng/L (0-15) 01/07/24 17:36 Troponin T Hi Sens 6Hr Delta -2.69 ng/L (0-12) L 01/07/24 17:36 C-Reactive Protein 55.0 mg/L (0.0-4.9) H 01/10/24 04:25 Total Protein 8.1 g/dL (6.6-8.7) 01/07/24 13:51 Albumin 3.3 g/dL (3.5-5.2) L 01/12/24 03:19 Globulin 4.7 g/dL (1.3-4.6) H 01/07/24 13:51 Procalcitonin 0.12 ng/mL (0-0.5) 01/07/24 17:36 Urine Color Yellow (Yellow) 01/07/24 14:37 Urine Appearance Cloudy (CLEAR) A 01/07/24 14:37 Urine pH 5 (5-7) 01/07/24 14:37 Ur Specific [place] 1.015 (1.005-1.030) 01/07/24 14:37 Urine Protein 2+ (Negative) H 01/07/24 14:37 Urine Glucose (UA) Norm (Normal) 01/07/24 14:37 Urine Ketones Negative (Negative) 01/07/24 14:37 Urine Blood 3+ (Negative) H 01/07/24 14:37 Urine Nitrate Positive (Negative) H 01/07/24 14:37 Urine Bilirubin Neg (Negative) 01/07/24 14:37 Urine Urobilinogen Norm mg/dL (Negative) 01/07/24 14:37 Ur Leukocyte Esterase 2+ (Negative) H 01/07/24 14:37 Urine RBC 10-15 /hpf (0-2) H 01/07/24 14:37 Urine WBC >100 /hpf (0-5) H 01/07/24 14:37 Ur Squamous Epith Cells 10-15 /hpf (0-5) H 01/07/24 14:37 Amorphous Sediment Not Reportable 01/07/24 14:37 Urine Bacteria 3+ /hpf (NONE) H 01/07/24 14:37 C. difficile (PCR) Negative (Negative) 01/09/24 03:06 Vitals Last Vital Signs Temp 97.8 F 01/12/24 11:35 Pulse 73 01/12/24 11:35 Resp 16 01/12/24 11:35 BP 90/78 01/12/24 12:39 Pulse Ox 99 01/12/24 11:35 O2 Del Method Room Air 01/12/24 11:35 Discharge Plan Discharge Patient Disposition: Home Health Service Condition: Stable Prescriptions: New cefuroxime axetil 500 mg tablet 500 mg PO BID 7 Days Qty: 14 0RF Continued cholecalciferol (vitamin D3) 125 mcg (5,000 unit) capsule 125 mcg PO QAM potassium chloride 20 mEq tablet extended release 20 meq PO BID Qty: 60 5RF ascorbic acid (vitamin C) 1,000 mg tablet 1 g PO BID baclofen 20 mg tablet 20 mg PO BID Qty: 180 2RF ibuprofen 800 mg tablet 800 mg PO BID PRN (Reason: pain) Qty: 60 2RF sodium chloride 0.9 % solution 1 irrig irrigation DAILY Qty: 500 2RF Rx Instructions: dampen gauze twice daily for wet to dry dressing changes. Linzess 145 mcg capsule 145 mcg PO QAM Qty: 90 0RF hydrocodone-acetaminophen 5-325 mg tablet 1 tab PO Q8H PRN (Reason: pain) 30 Days Qty: 60 0RF oxybutynin chloride 5 mg tablet 5 mg PO TID PRN (Reason: bladder spasms) Qty: 90 2RF cetirizine [Zyrtec] 10 mg Tablet 10 mg PO DAILY PRN (Reason: Allergy Symptoms) oxymetazoline [Afrin (oxymetazoline)] 0.05 % [place],Non-Aerosol 2 spray INTRANASAL Q12H PRN (Reason: Nasal Congestion) diphenhydramine HCl [Benadryl] 25 mg Capsule 25 mg PO TID PRN (Reason: Allergy Symptoms) metaxalone 800 mg tablet 800 mg PO TID midodrine 10 mg tablet 10 mg PO BID Discontinued levofloxacin 500 mg tablet 500 mg PO DAILY 10 Days Qty: 10 0RF hydrochlorothiazide 12.5 mg tablet 1.25 mg PO DAILY Discharge Orders: Discharge Order (Routine); Ordered 01/12/24 Ordered By: Seamus Dodge Referrals: [facility] ([facility]) [Outside] ([facility] will be notified when you are discharged from the Hospital so they can begin your home care as soon as possible. Thank you.) Letty Muñoz MD [Physician] - 02/12/24 10:00 am Sly Montejo DO [Primary Care Provider] - (Please call Dr. Montejo's Office on Friday at [phone] to schedule a follow up appointment. Thank you.) Chay Crews MD [Referring] - 2 weeks Patient Instructions: Osteomyelitis (DC), Catheter-associated Urinary Tract Infection (DC), Opioid Safety Discharge Attestations Time Spent in Discharge Care*: greater than 30 min Quality Metrics Clinical Quality Measures [ No reported AMI, CVA or VTE this stay] Coding Level of Care Code Acute Code for Chg Fwd Diagnoses Recurrent UTI N39.0 Syncope R55 Other chronic osteomyelitis, other site M86.68 Osteomyelitis location: other site Osteomyelitis type: other chronic Hypotension due to drugs I95.2 Hypotension type: hypotension due to drug Chills (without fever) R68.83 Urinary tract infection associated with cystostomy catheter, initial encounter T83.510A; N39.0 Encounter type: initial encounter Indwelling urinary catheter type: cystostomy catheter Neurogenic bladder N31.9 Quadriplegia G82.50 Irritable bowel syndrome with both constipation and diarrhea K58.2 Irritable bowel syndrome type: with both diarrhea and constipation
== END 2024-01-12 15:18 | disposition home health service (06) | DRG 698 ==
LOC: ER 16:57 → ER IP 18:34 → CSU 18:45 → MEDSURG 01-11 08:27
PROVIDERS: Internal Medicine; Student in an Organized Health Care Education/Training Program; Admitting Provider Internal Medicine; Emergency Provider Emergency Medicine; PCP Family Medicine; Visit Provider Internal Medicine
DX: T83.518A Infection and inflammatory reaction due to other urinary catheter, initial encounter (principal); G82.50 Quadriplegia, unspecified; L89.154 Pressure ulcer of sacral region, stage 4; M86.68 Other chronic osteomyelitis, other site; N39.0 Urinary tract infection, site not specified; B96.20 Unspecified Escherichia coli [E. coli] as the cause of diseases classified elsewhere; Y99.9 Unspecified external cause status; Z96.0 Presence of urogenital implants; Z95.828 Presence of other vascular implants and grafts; Z93.2 Ileostomy status; N31.9 Neuromuscular dysfunction of bladder, unspecified; I95.2 Hypotension due to drugs; S14.104S Unspecified injury at C4 level of cervical spinal cord, sequela; V86.95XS Unspecified occupant of 3- or 4- wheeled all-terrain vehicle (ATV) injured in nontraffic accident, sequela; K58.9 Irritable bowel syndrome, unspecified; K59.00 Constipation, unspecified; M24.532 Contracture, left wrist; L89.121 Pressure ulcer of left upper back, stage 1; L89.111 Pressure ulcer of right upper back, stage 1; G90.4 Autonomic dysreflexia
CPT/HCPCS: 36415; 74177; 80048; 80053; 80069; 81000; 81001; 81015; 83605; 83735; 84100; 84132; 84145; 84484; 85025; 85651; 86140; 87040; 87077; 87086; 87184; 87186; 87493; 93005; 96365; 96372; 96376; 99285; J0692; J0696; J1644; J2185; J2405; J3490; J7030; J7040; Q9967

== ENCOUNTER → 2024-01-20 07:48 | Outpatient (BNVA) | payer MEDICARE, SELFPAY | PROVIDERS: PCP Family Medicine; Visit Provider Thoracic Surgery (Cardiothoracic Vascular Surgery) | DX: I96 Gangrene, not elsewhere classified (principal); L89.324 Pressure ulcer of left buttock, stage 4; L89.152 Pressure ulcer of sacral region, stage 2; L89.102 Pressure ulcer of unspecified part of back, stage 2; L97.521 Non-pressure chronic ulcer of other part of left foot limited to breakdown of skin | CPT/HCPCS: 97597; A6237; A6250 ==

== ENCOUNTER → 2024-01-26 14:43 | Outpatient (BNVA) | payer MEDICARE, SELFPAY | PROVIDERS: PCP Family Medicine; Visit Provider Thoracic Surgery (Cardiothoracic Vascular Surgery) | DX: I96 Gangrene, not elsewhere classified (principal); L97.521 Non-pressure chronic ulcer of other part of left foot limited to breakdown of skin; L89.324 Pressure ulcer of left buttock, stage 4; L89.892 Pressure ulcer of other site, stage 2; L89.102 Pressure ulcer of unspecified part of back, stage 2 | CPT/HCPCS: 97597 ==

== ENCOUNTER → 2024-02-02 15:28 | Outpatient (BNVA) | payer MEDICARE, SELFPAY | PROVIDERS: PCP Family Medicine; Visit Provider Nurse Practitioner Family | DX: I96 Gangrene, not elsewhere classified (principal); L89.892 Pressure ulcer of other site, stage 2; L89.102 Pressure ulcer of unspecified part of back, stage 2; L89.324 Pressure ulcer of left buttock, stage 4; L97.521 Non-pressure chronic ulcer of other part of left foot limited to breakdown of skin | CPT/HCPCS: 11042; 11044; 97597; A6446 ==

== ENCOUNTER 2024-02-05 06:00 | Outpatient (RCR) | payer MEDICARE, SELFPAY | END 2024-02-25 23:59 | disposition home or self-care (01) | LOC: SOT 06:00 | PROVIDERS: PCP Family Medicine; Visit Provider Family Medicine | DX: Z47.89 Encounter for other orthopedic aftercare (principal) | CPT/HCPCS: 97167 ==

== ENCOUNTER 2024-02-11 18:17 | Emergency (ER) | payer MEDICARE, SELFPAY ==
[2024-02-11 18:26] VITALS: BP 118/68; PULSE 102; RESP 18; TEMP 36.8; O2SAT 98
[2024-02-11 18:54] LABS: Basophils % 0.3 %; Eosinophils # 0.2 10^3/uL (0.0-0.8); Eosinophils % 1.3 %; Lymphocytes # 1.9 10^3/uL (0.8-4.8); Lymphocytes % 16.5 %; Mean Corpuscular HGB Conc 31.5 g/dL (30-55); Mean Corpuscular Hemoglobin 25.4 pg (27-33); Mean Corpuscular Volume 80.4 fl (82-101); Mean Platelet Volume 9.4 fL (7.4-10.4); Monocytes # 0.8 10^3/uL (0.2-0.9); Monocytes % 6.7 %; Neutrophils # 8.62 10^3/uL (1.8-7.7); Neutrophils % 74.9 %; Nucleated Red Blood Cells % 0 %; Platelet Count 411 10^3/cmm (157-399); Red Blood Count 4.85 10^6/uL (3.85-5.65); Red Cell Distribution Width 15.2 % (12.1-15.1); White Blood Count 11.51 10^3/uL (3.29-11.43)
[2024-02-11 19:24] LABS: Alanine Aminotransferase 14 U/L (0-41); Albumin Level 3.3 g/dL (3.5-5.2); Alkaline Phosphatase 89 U/L (40-130); Anion Gap 16.3 (5-19); Aspartate Amino Transferase 14 U/L (0-40); Blood Urea Nitrogen 16 mg/dL (6-20); C Reactive Protein 78.1 mg/L (0.0-4.9); Calcium 8.6 mg/dL (8.5-10.5); Carbon Dioxide 19 mmol/L (22-29); Chloride 102 mmol/L (98-107); Creatinine Clr Calc Pharmacy 291.8955; Globulin 4.8 g/dL (1.3-4.6); Glomerular Filtration Rate 306.9 mL/min (90-130); Glucose 121 mg/dL (65-115); Lipase 47 U/L (13-60); Osmolality Calculated 278 mOsm/kg (285-295); Potassium 4.3 mmol/L (3.5-5.1); Sodium 133 mmol/L (136-145); Total Bilirubin 0.2 mg/dL (0.15-1.2); Total Protein 8.1 g/dL (6.6-8.7)
[2024-02-11 19:50] LABS: Erythrocyte Sedimentation Rate 102 mm/hr (0-10)
--- NOTE | 2024-02-11 20:24 | XRR_ITS ---
PROCEDURE INFORMATION: Exam: XR Right Tibia and Fibula Exam date and time: 02/11/2024 8:36 PM Age: 58 years old Clinical indication: Injury or trauma; Other: Infection; Wound; Lower leg; Right; Foreign body involvement not specified; Prior surgery; Surgery date: 6+ months; Surgery type: Tib-fib; Additional info: Trauma, prior surgery TECHNIQUE: Imaging protocol: Radiologic exam of the right tibia and fibula. Views: 2 views. COMPARISON: CR XR tibia fibula RT 2V [id number] 10/08/2023 10:10 AM FINDINGS: Bones/joints: Post intramedullary heather fixation of the tibia with 2 interlocking screws. Healed fracture deformity of the mid tibia with mature callus formation. Healed fracture deformity of the distal fibular shaft. No evidence of hardware complication. No acute fracture or malalignment. Soft tissues: Mild ankle soft tissue swelling.. XR/XR tibia fibula RT 2V [id number] IMPRESSION: 1. Healed fracture deformities of the distal tibia and fibula post tibial ORIF. No evidence of hardware complication. 2. No osteolytic change or suspicious periosteal reaction suggest acute osteomyelitis.
[2024-02-11 21:17] VITALS: BP 133/102; PULSE 90; O2SAT 96
[2024-02-11 21:39] LABS: Bilirubin Urine Neg (Negative); Blood Urine 2+ (Negative); Glucose Urine UA Norm (Normal); Ketones Urine Negative (Negative); Protein Urine Neg (Negative); Specific Gravity, Urine 1.015 (1.005-1.030); Urine Appearance Slightly Cloudy (CLEAR); Urine Color Yellow (Yellow); Urobilinogen Urine Norm (Negative); pH Urine 5 (5-7)
[2024-02-11 21:40] LABS: Add Urine Microscopic? YES; Bacteria Urine 3+ /hpf; Leukocyte Esterase Urine 2+ (Negative); Nitrate Urine Positive (Negative); WBC Urine 55-80 /hpf (0-5)
[2024-02-11 21:41] LABS: Mucus Urine 1+ /hpf
[2024-02-11 21:42] LABS: Add Urine Culture? Yes
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
[2024-02-11 22:06] VITALS: BP 113/76; PULSE 71; O2SAT 96
[2024-02-11] MEDS: nitrofurantoin SR (BID) 100 mg Capsule PO (22:24)
== END 2024-02-11 22:11 | disposition home or self-care (01) ==
PROVIDERS: Emergency Medicine; Emergency Provider Emergency Medicine; PCP Family Medicine
DX: T83.510A Infection and inflammatory reaction due to cystostomy catheter, initial encounter (principal); L89.129 Pressure ulcer of left upper back, unspecified stage; L89.119 Pressure ulcer of right upper back, unspecified stage; L89.329 Pressure ulcer of left buttock, unspecified stage; L89.891 Pressure ulcer of other site, stage 1; I10 Essential (primary) hypertension; Z79.899 Other long term (current) drug therapy; Z86.16 Personal history of COVID-19; Y84.6 Urinary catheterization as the cause of abnormal reaction of the patient, or of later complication, without mention of misadventure at the time of the procedure
CPT/HCPCS: 36415; 73590; 80053; 81001; 83690; 85025; 85651; 86140; 87077; 87086; 87186; 99284

== ENCOUNTER → 2024-02-16 15:11 | Outpatient (BNVA) | payer MEDICARE, SELFPAY | PROVIDERS: PCP Family Medicine; Visit Provider Thoracic Surgery (Cardiothoracic Vascular Surgery) | DX: L89.314 Pressure ulcer of right buttock, stage 4 (principal); I96 Gangrene, not elsewhere classified; L89.892 Pressure ulcer of other site, stage 2; L89.102 Pressure ulcer of unspecified part of back, stage 2; L97.521 Non-pressure chronic ulcer of other part of left foot limited to breakdown of skin | CPT/HCPCS: 97597; A6248 ==

== ENCOUNTER 2024-02-20 19:51 | Inpatient (IN) | payer MEDICARE, SELFPAY ==
[2024-02-20 19:57] VITALS: BP 153/81; PULSE 65; RESP 18; TEMP 36.4; O2SAT 98; BMI 25.1
[2024-02-20 20:31] VITALS: BP 153/81; PULSE 80; O2SAT 99
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
[2024-02-20 20:37] LABS: Basophils # 0.1 10^3/uL (0.0-0.1); Basophils % 0.3 %; Eosinophils # 0.1 10^3/uL (0.0-0.8); Eosinophils % 0.9 %; Hematocrit 41.1 % (37-53); Lymphocytes % 20.9 %; Mean Corpuscular HGB Conc 31.4 g/dL (30-55); Mean Corpuscular Volume 79.8 fl (82-101); Mean Platelet Volume 9.3 fL (7.4-10.4); Monocytes # 1.1 10^3/uL (0.2-0.9); Monocytes % 7.9 %; Neutrophils # 10.01 10^3/uL (1.8-7.7); Neutrophils % 69.5 %; Nucleated Red Blood Cells % 0 %; Platelet Count 482 10^3/cmm (157-399); Red Blood Count 5.15 10^6/uL (3.85-5.65); Red Cell Distribution Width 15.7 % (12.1-15.1); White Blood Count 14.42 10^3/uL (3.29-11.43)
[2024-02-20 20:48] LABS: Erythrocyte Sedimentation Rate 15 mm/hr (0-10)
[2024-02-20 20:55] LABS: Alanine Aminotransferase 14 U/L (0-41); Albumin Level 3.7 g/dL (3.5-5.2); Alkaline Phosphatase 99 U/L (40-130); Anion Gap 19.3 (5-19); Aspartate Amino Transferase 14 U/L (0-40); Blood Urea Nitrogen 16 mg/dL (6-20); C Reactive Protein 63.7 mg/L (0.0-4.9); Calcium 8.9 mg/dL (8.5-10.5); Carbon Dioxide 22 mmol/L (22-29); Chloride 100 mmol/L (98-107); Creatinine Clr Calc Pharmacy 218.9216; Globulin 5.4 g/dL (1.3-4.6); Glomerular Filtration Rate 220.2 mL/min (90-130); Glucose 97 mg/dL (65-115); Osmolality Calculated 285 mOsm/kg (285-295); Potassium 4.3 mmol/L (3.5-5.1); Sodium 137 mmol/L (136-145); Total Bilirubin 0.4 mg/dL (0.15-1.2); Total Protein 9.1 g/dL (6.6-8.7)
[2024-02-20 21:02] LABS: Procalcitonin 0.13 ng/mL (0-0.5)
--- NOTE | 2024-02-20 21:12 | CTR_ITS ---
PROCEDURE INFORMATION: Exam: CT Abdomen And Pelvis With Contrast Exam date and time: 02/20/2024 9:25 PM Age: 58 years old Clinical indication: Prior surgery; Surgery date: 6+ months; Surgery type: Gb. Suprapubic cath. Left femur. Patient HX: Deep ulceration to left buttocks. ; Additional info: Left buttocks wound TECHNIQUE: Imaging protocol: Computed tomography of the abdomen and pelvis with contrast. Radiation optimization: All CT scans at this facility use at least one of these dose optimization techniques: automated exposure control; mA and/or kV adjustment per patient size (includes targeted exams where dose is matched to clinical indication); or iterative reconstruction. Contrast material: OMNI 350; Contrast volume: 100 ml; Contrast route: INTRAVENOUS (IV); COMPARISON: CT abdomen pelvis w con* [id number] 01/07/2024 4:00 PM RADIATION DOSE METRICS: Total DLP (mGy-cm): 1474.41 FINDINGS: Tubes, catheters and devices: Suprapubic catheter in place. Lungs: Linear atelectasis versus scarring of the lung bases. Liver: Hepatomegaly measuring up to 20 cm. Gallbladder and biliary ducts: Status post cholecystectomy. Pancreas: Normal. No ductal dilation. Spleen: Normal. No splenomegaly. Adrenal glands: Normal. No mass. Kidneys and ureters: Simple cysts in the bilateral kidneys, no follow-up needed. There is an group of small nonobstructing calculi within the upper pole of the left kidney. Stomach and bowel: Left lower quadrant ostomy. Appendix: No evidence of appendicitis. Intraperitoneal space: Unremarkable. No free air. No significant fluid collection. Vasculature: IVC filter in place. Mild atherosclerotic calcifications. Lymph nodes: Unremarkable. No enlarged lymph nodes. Urinary bladder: Unremarkable as visualized. Reproductive: Unremarkable as visualized. Bones/joints: Partially visualized hardware within the left femur. Soft tissues: Largely decubitus ulcer overlying the left ischium with prominent subcutaneous inflammation. There is a 2 cm peripherally enhancing collection inferiorly adjacent to the ulcer which may represent a small abscess. There is bony erosion and sclerosis involving the left ischial tuberosity concerning for osteomyelitis. CT/CT abdomen pelvis w con* [id number] IMPRESSION: 1. Largely decubitus ulcer overlying the left ischium with prominent subcutaneous inflammation. There is a 2 cm peripherally enhancing collection inferiorly adjacent to the ulcer which may represent a small abscess. There is bony erosion and sclerosis involving the left ischial tuberosity concerning for osteomyelitis. 2. There is an group of small nonobstructing calculi within the upper pole of the left kidney. 3. Suprapubic catheter in place. COMMENTS: 1. For patients with an IVC filter, recommend assessment for a management plan for the patient's IVC filter. If there is no established management plan, recommend referral to an interventional clinician on a nonemergent basis for evaluation. 2. Consistent with the [employer]'s Incidental Findings Committee white paper (J Am Vincent Radiol 2018): Any incidental renal lesion less than 1 cm or classified as too small to characterize, or any incidental cystic renal lesion characterized as simple-appearing, is likely benign. No follow-up imaging is recommended for these lesions per consensus recommendations based on imaging criteria.
[2024-02-20] MEDS: iohexol 350 mg/mL 500 mL Btl (per mL) IV (21:27)
[2024-02-20] MEDS: cefepime 2,000 MG in sodium chloride 0.9% (plus) 50 ML 100 MG IV (21:47)
[2024-02-20 21:48] VITALS: BP 102/66; PULSE 96; RESP 16; O2SAT 96
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
[2024-02-20] MEDS: linezolid premix 600 MG/300 ML PREMIX 300 MG IV (22:18)
[2024-02-20 22:30] VITALS: BP 126/89; PULSE 58; RESP 16; O2SAT 98
[2024-02-20 23:01] VITALS: BP 168/93; PULSE 58; RESP 16; O2SAT 97
[2024-02-21] VITALS (18 sets, daily range): BP systolic 91–133; BP diastolic 62–84; PULSE 59–95; RESP 15–18; TEMP 36.1–37; O2SAT 95–100; BMI 22.8
[2024-02-21] MEDS: sodium chloride 0.9% 1,000 ML 75 ML IV ×2 (00:47→12:56)
[2024-02-21] MEDS: piperacillin-tazobactam 3.375 GM in sodium chloride 0.9% (plus) 50 ML IV ×3 (00:47→17:22)
[2024-02-21] MEDS: fludrocortisone 0.1 mg Tablet PO ×2 (01:01→12:51)
[2024-02-21] MEDS: midodrine 5 mg TABLET 10 MG PO ×3 (01:01→17:24)
[2024-02-21] MEDS: HYDROcodone-acetaminophen 5-325 mg Tablet 1 TAB PO ×3 (04:44→23:59)
[2024-02-21 05:23] LABS: Basophils % 0.3 %; Eosinophils # 0.1 10^3/uL (0.0-0.8); Eosinophils % 1.2 %; Hematocrit 40.8 % (37-53); Lymphocytes # 2.7 10^3/uL (0.8-4.8); Lymphocytes % 22.7 %; Mean Corpuscular HGB Conc 30.6 g/dL (30-55); Mean Corpuscular Hemoglobin 24.8 pg (27-33); Mean Corpuscular Volume 80.8 fl (82-101); Mean Platelet Volume 9.9 fL (7.4-10.4); Monocytes # 0.9 10^3/uL (0.2-0.9); Monocytes % 7.5 %; Neutrophils # 8.11 10^3/uL (1.8-7.7); Neutrophils % 67.9 %; Nucleated Red Blood Cells % 0 %; Platelet Count 485 10^3/cmm (157-399); Red Blood Count 5.05 10^6/uL (3.85-5.65); Red Cell Distribution Width 15.7 % (12.1-15.1); White Blood Count 11.96 10^3/uL (3.29-11.43)
[2024-02-21 05:46] LABS: Blood Urea Nitrogen 13 mg/dL (6-20); Carbon Dioxide 22 mmol/L (22-29); Chloride 100 mmol/L (98-107); Creatinine Clr Calc Pharmacy 210.8205; Glomerular Filtration Rate 220.2 mL/min (90-130); Glucose 110 mg/dL (65-115); Magnesium 2.4 mg/dL (1.7-2.3); Osmolality Calculated 281 mOsm/kg (285-295); Sodium 135 mmol/L (136-145)
[2024-02-21] MEDS: sodium chloride 0.9% 1,000 ML 30 ML IV (09:00)
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
--- NOTE | 2024-02-21 11:12 | PM.OP ---
Operative Report Date of procedure: February 21, 2024 Pre-op diagnosis: Stage IV left ischial decubitus ulcer Post-op diagnosis: same Procedure done: Sharp excisional debridement of stage IV left ischial decubitus ulcer Ischial bone biopsy Implants: Half-inch iodoform packing gauze Specimens removed/disposition: Ischial bone biopsy Surgeon: Andriy Monroy DO Anesthesia: General Estimated blood loss (mL): 5 Complications: None apparent Brief History: This is a very pleasant 58-year-old gentleman who is a quadriplegic and has a known stage IV left ischial decubitus ulcer. He had some worsening, with increased inflammation, of the ulcer and presented to the hospital. Sharp excisional debridement with bone biopsy was indicated. The risk and benefits were explained and documented. Procedure: Patient was wheeled operative room placed on the OR table in the supine position. General endotracheal ovation was achieved by department anesthesia. Patient was then put into the sloppy right lateral decubitus position. Left buttock was inspected prepped and draped in usual sterile fashion. A timeout was performed. All present were in agreement. There was relatively small opening for the ulcer but it tunneled back 10 cm in multiple directions. I made the decision to open up the wound a distance of 5 cm cephalad. Ulcer went down to fascia and bone. There was minimal to purulent tissue. The entire wound was debrided sharply with curettes. There was a small area of ischium exposed with overlying bruising. I used a rongeur is to take a bone biopsy. Some was sent for culture and some was sent for permanents. Debridement was performed down to healthy bleeding tissue. Electrocautery was used for hemostasis. Final wound measured 7 cm x 4 cm x 10 cm deep. Half-inch iodoform packing gauze was packed into the wound sterile gauze and ABD were placed over the wound and taped in place. Patient tolerated procedure well.
--- NOTE | 2024-02-21 11:55 | ANE.PACU2 ---
Inpatient post-anesthesia follow up: Airway intact: Yes Vital signs: Temperature 97.3 F Pulse Rate 74 Respiratory Rate 18 Blood Pressure 115/76 Pulse Oximetry 97 Oxygen Delivery Me thod Room Air Oxygen Flow Rate 6 Fraction of Inspir ed Oxygen Hydration adequate: Yes Nausea and vomiting: No Pain level: 1 Mental status: Baseline
[2024-02-21] MEDS: baclofen 10 mg Tablet 20 MG PO ×2 (12:52→17:24)
[2024-02-21] MEDS: linezolid premix 600 MG/300 ML PREMIX 300 MG IV ×2 (12:52→23:30)
[2024-02-21] MEDS: bisacodyl 5 mg Tablet 10 MG PO (14:51)
--- NOTE | 2024-02-21 16:07 | P.PN_ITS ---
Subjective 2 Subjective: Patient was seen this morning, patient's is at bedside, he is alert to person, to place, not to time, he has returned from surgery, has no complaints, no fevers, no chills, Vitals/I&O/Wt Last Vital Signs Temp 97.3 F L 02/21/24 12:10 Pulse 83 02/21/24 13:10 Resp 18 02/21/24 12:10 BP 100/65 02/21/24 13:10 Pulse Ox 98 02/21/24 13:10 O2 Del Method Room Air 02/21/24 13:10 O2 Flow Rate 6 02/21/24 11:27 02/21/24 02/21/24 02/21/24 06:59 14:59 22:59 Intake Total 350 / 400 1011.25 / 1011.25 Output Total 450 / 450 2 / 2 Balance -100 / -50 1009.25 / 1009.25 Weight last 48 hrs Weight 74.446 kg Weight 74.389 kg Weight 81.647 kg Physical Exam 2 Const: COMMON NORMALS: no acute distress ORIENTATION/CONSCIOUSNESS: Yes awake, Yes oriented to person and Yes oriented to place Resp: COMMON NORMALS: normal respiratory effort, No retractions, No use of accessory muscles and clear to auscultation bilaterally AUSCULTATION: clear to auscultation bilaterally Cardio: COMMON NORMALS: regular rate, regular rhythm, S1 normal heart sound present and S2 normal heart sound present RATE: regular rate RHYTHM: r egular rhythm HEART SOUNDS: S1 normal heart sound present and S2 normal heart sound present GI: COMMON NORMALS: Normal to inspection, nondistended, normoactive bowel sounds present and non-tender Extremity: COMMON NORMALS: no pedal edema Neuro: SENSORIUM/ORIENTATION: Yes oriented to person and Yes oriented to place Psych: COMMON NORMALS: mental status grossly normal Data 02/21/24 04:47 02/21/24 04:47 Micro: Microbiology 02/21/24 11:06 Gram Stain - Final Bone 02/20/24 20:50 Blood Culture - Preliminary Blood SPECIMEN COLLECTED 02/20/24 20:40 Blood Culture - Preliminary Blood SPECIMEN COLLECTED A&P Assessment and plan (1) Pressure ulcer of scapular region: (2) Decubitus ulcer: (3) Spastic quadriplegia: (4) Quadriplegia: (5) 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 Monroy consulted for I&D which is evident on CT abdomen pelvis Wound care clinic has removed his wound VAC Patient does not mount fever has autonomic dysfunction gets rigors chills and multiple syncopal events Patient requires multiple doses of opioids, Suprapubic catheter gets exchanged every month by his Patient has not noticed increased output from his colostomy bag Continue antispasmodic, muscle relaxant and opioids Continue broad-spectrum antibiotics At baseline patient remains hypotensive and requires midodrine secondary to autonomic dysfunction Full code N.p.o. after midnight DVT prophylaxis on SCDs, start Lovenox for DVT prophylaxis Patient has an IVC filter, Resume patient's home Linzess, will discuss with infectious disease, will likely need IV antibiotics Attestations 2 Medical Necessity Statement*: Patient requires hospitalization for osteomyelitis, requiring IV antibiotics Diagnoses Pressure ulcer of scapular region L89.109 Decubitus ulcer L89.90 Spastic quadriplegia G82.50 Quadriplegia G82.50 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
[2024-02-21] MEDS: enoxaparin 40 mg/0.4 mL Syringe SUBCUT (17:23)
[2024-02-22] VITALS (8 sets, daily range): BP systolic 82–140; BP diastolic 56–79; PULSE 60–85; RESP 16–19; TEMP 36.4–37; O2SAT 97–99
[2024-02-22] MEDS: piperacillin-tazobactam 3.375 GM in sodium chloride 0.9% (plus) 50 ML IV ×3 (00:29→17:00)
[2024-02-22 03:59] LABS: Basophils % 0.1 %; Hematocrit 39.2 % (37-53); Lymphocytes # 1.8 10^3/uL (0.8-4.8); Lymphocytes % 13.5 %; Mean Corpuscular HGB Conc 30.6 g/dL (30-55); Mean Corpuscular Hemoglobin 24.9 pg (27-33); Mean Corpuscular Volume 81.3 fl (82-101); Mean Platelet Volume 10.1 fL (7.4-10.4); Monocytes # 0.9 10^3/uL (0.2-0.9); Monocytes % 6.9 %; Neutrophils # 10.55 10^3/uL (1.8-7.7); Neutrophils % 79.1 %; Nucleated Red Blood Cells % 0 %; Platelet Count 477 10^3/cmm (157-399); Red Blood Count 4.82 10^6/uL (3.85-5.65); Red Cell Distribution Width 15.5 % (12.1-15.1); White Blood Count 13.35 10^3/uL (3.29-11.43)
[2024-02-22 04:24] LABS: Procalcitonin 0.14 ng/mL (0-0.5)
[2024-02-22 04:25] LABS: Anion Gap 16.9 (5-19); Blood Urea Nitrogen 10 mg/dL (6-20); C Reactive Protein 32.1 mg/L (0.0-4.9); Calcium 8.3 mg/dL (8.5-10.5); Carbon Dioxide 21 mmol/L (22-29); Chloride 104 mmol/L (98-107); Creatinine Clr Calc Pharmacy 210.8205; Glomerular Filtration Rate 220.2 mL/min (90-130); Glucose 81 mg/dL (65-115); Osmolality Calculated 284 mOsm/kg (285-295); Potassium 3.9 mmol/L (3.5-5.1); Sodium 138 mmol/L (136-145)
[2024-02-22] MEDS: NON-FORMULARY MEDICATION (Linaclotide [Linzess] 145 mcg capsule) 145 EACH PO (07:07)
[2024-02-22] MEDS: polyethylene glycol 3350 Pkt 17 gm PO (07:07)
[2024-02-22] MEDS: midodrine 5 mg TABLET 10 MG PO ×2 (08:14→18:42)
[2024-02-22] MEDS: fludrocortisone 0.1 mg Tablet PO (08:14)
[2024-02-22] MEDS: baclofen 10 mg Tablet 20 MG PO ×2 (08:15→18:42)
[2024-02-22] MEDS: morphine IR 15 mg Tablet PO (09:33)
[2024-02-22] MEDS: linezolid premix 600 MG/300 ML PREMIX 300 MG IV ×2 (09:36→23:33)
[2024-02-22] MEDS: sodium hypochlorite 0.25% Btl 473 mL 1 APPLIC TOPICAL ×2 (15:19→22:41)
--- NOTE | 2024-02-22 15:28 | PC.NURSE ---
Notified Dr. Monroy about patients dressing change. Dr. Monroy gave orders to go ahead and change it. He will be in later to see patient. Wound dressing will be changed to 2000 this evening. Once per shift.
--- NOTE | 2024-02-22 15:30 | P.PN_ITS ---
Subjective 2 Subjective: Patient was seen this morning, no acute events overnight, denies any fevers, no chills, Vitals/I&O/Wt Last Vital Signs Temp 97.7 F 02/22/24 11:38 Pulse 60 02/22/24 11:38 Resp 16 02/22/24 11:38 BP 104/63 02/22/24 11:38 Pulse Ox 98 02/22/24 11:38 O2 Del Method Room Air 02/22/24 07:43 O2 Flow Rate 6 02/21/24 11:27 02/22/24 02/22/24 02/22/24 06:59 14:59 22:59 Intake Total 950 / 2431.25 600 / 600 Output Total 1100 / 1752 Balance -150 / 679.25 600 / 600 Weight last 48 hrs Weight 74.446 kg Weight 74.446 kg Weight 74.389 kg Weight 81.647 kg Physical Exam 2 Const: COMMON NORMALS: no acute distress and patient oriented x3 Resp: COMMON NORMALS: normal respiratory effort, No retractions, No use of accessory muscles and clear to auscultation bilaterally AUSCULTATION: clear to auscultation bilaterally Cardio: COMMON NORMALS: regular rate, regular rhythm, S1 normal heart sound present and S2 normal heart sound present RATE: regular rate RHYTHM: r egular rhythm HEART SOUNDS: S1 normal heart sound present and S2 normal heart sound present GI: COMMON NORMALS: Normal to inspection, nondistended, normoactive bowel sounds present and non-tender Extremity: COMMON NORMALS: no pedal edema Neuro: COMMON NORMALS: patient oriented x3 Psych: COMMON NORMALS: mental status grossly normal Data 02/22/24 02:46 02/22/24 02:46 Micro: Microbiology 02/22/24 13:46 Blood Culture - Preliminary Blood SPECIMEN COLLECTED 02/22/24 13:45 Blood Culture - Preliminary Blood SPECIMEN COLLECTED 02/20/24 20:40 Blood Culture - Preliminary Blood Staphylococcus epidermidis 02/20/24 20:50 Blood Culture - Preliminary Blood NEGATIVE TO DATE 02/21/24 11:06 Gram Stain - Final Bone A&P Assessment and plan (1) Pressure ulcer of scapular region: (2) Decubitus ulcer: (3) Spastic quadriplegia: (4) Quadriplegia: (5) 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 Monroy consulted for I&D which is evident on CT abdomen pelvis, status post Sharp excisional debridement of stage IV left ischial decubitus ulcer Ischial bone biopsy Will follow biopsy results Continue Zyvox, continue meropenem Patient does not mount fever has autonomic dysfunction gets rigors chills and multiple syncopal events Patient requires multiple doses of opioids, Suprapubic catheter gets exchanged every month by his Patient has not noticed increased output from his colostomy bag Continue antispasmodic, muscle relaxant and opioids Continue broad-spectrum antibiotics At baseline patient remains hypotensive and requires midodrine secondary to autonomic dysfunction Full code N.p.o. 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
[2024-02-22] MEDS: enoxaparin 40 mg/0.4 mL Syringe SUBCUT (17:00)
[2024-02-22] MEDS: sodium chloride 0.9% 1,000 ML 999 ML IV (17:01)
--- NOTE | 2024-02-22 17:02 | P.PN_ITS ---
Subjective 2 Subjective: Patient seen and examined. Blood pressure is currently low. Last reading 70/50. Dressing was changed and there is healthy granulation tissue at the base of the wound Vitals/I&O/Wt Last Vital Signs Temp 97.7 F 02/22/24 11:38 Pulse 60 02/22/24 11:38 Resp 16 02/22/24 11:38 BP 82/56 02/22/24 16:53 Pulse Ox 98 02/22/24 11:38 O2 Del Method Room Air 02/22/24 07:43 O2 Flow Rate 6 02/21/24 11:27 02/22/24 02/22/24 02/22/24 06:59 14:59 22:59 Intake Total 950 / 2431.25 600 / 600 Output Total 1100 / 1752 Balance -150 / 679.25 600 / 600 Weight last 48 hrs Weight 164 lb 2 oz Weight 164 lb 2 oz Weight 164 lb Weight 180 lb Physical Exam 2 Narrative: General: No acute distress, awake alert and oriented x 3 Skin: Stage IV left ischial decubitus ulcer without exudate and minimal erythema Data 02/22/24 02:46 02/22/24 02:46 Micro: Microbiology 02/21/24 11:06 Gram Stain - Final Bone Tissue Culture - Preliminary Coag positive Staphylococcus 02/22/24 13:46 Blood Culture - Preliminary Blood SPECIMEN COLLECTED 02/22/24 13:45 Blood Culture - Preliminary Blood SPECIMEN COLLECTED 02/20/24 20:40 Blood Culture - Preliminary Blood Staphylococcus epidermidis 02/20/24 20:50 Blood Culture - Preliminary Blood NEGATIVE TO DATE A&P Assessment and plan (1) Decubitus ulcer of ischial area, stage 4: Plan Postoperative day #1 status post Sharp excisional debridement of left ischial decubitus ulcer with bone biopsy Bolus 1 L normal saline for hypotension Await bone biopsy results Plan to place wound VAC tomorrow Medical management per hospitalist Attestations 2 Medical Necessity Statement*: Per primary Coding Level of Care Code 78908 Diagnoses Decubitus ulcer of ischial area, stage 4 L89.304
[2024-02-22] MEDS: HYDROcodone-acetaminophen 5-325 mg Tablet 1 TAB PO (23:37)
[2024-02-23] VITALS (9 sets, daily range): BP systolic 91–153; BP diastolic 55–95; PULSE 55–80; RESP 16–17; TEMP 36.4–37.3; O2SAT 95–99
[2024-02-23] MEDS: piperacillin-tazobactam 3.375 GM in sodium chloride 0.9% (plus) 50 ML IV ×3 (00:45→16:42)
[2024-02-23] MEDS: midodrine 5 mg TABLET 10 MG PO ×3 (00:45→17:37)
[2024-02-23 05:12] LABS: Basophils % 0.3 %; Eosinophils # 0.2 10^3/uL (0.0-0.8); Eosinophils % 1.3 %; Hematocrit 35.6 % (37-53); Lymphocytes # 2.8 10^3/uL (0.8-4.8); Lymphocytes % 25.4 %; Mean Corpuscular HGB Conc 30.3 g/dL (30-55); Mean Corpuscular Hemoglobin 24.7 pg (27-33); Mean Corpuscular Volume 81.3 fl (82-101); Mean Platelet Volume 9.6 fL (7.4-10.4); Monocytes # 0.8 10^3/uL (0.2-0.9); Monocytes % 7.1 %; Neutrophils # 7.28 10^3/uL (1.8-7.7); Neutrophils % 65.5 %; Nucleated Red Blood Cells % 0 %; Platelet Count 404 10^3/cmm (157-399); Red Blood Count 4.38 10^6/uL (3.85-5.65); Red Cell Distribution Width 15.8 % (12.1-15.1); White Blood Count 11.12 10^3/uL (3.29-11.43)
[2024-02-23 05:39] LABS: Anion Gap 13.8 (5-19); Blood Urea Nitrogen 7 mg/dL (6-20); C Reactive Protein 31.3 mg/L (0.0-4.9); Calcium 8.1 mg/dL (8.5-10.5); Carbon Dioxide 22 mmol/L (22-29); Chloride 105 mmol/L (98-107); Creatinine Clr Calc Pharmacy 168.6564; Glomerular Filtration Rate 170.2 mL/min (90-130); Glucose 79 mg/dL (65-115); Osmolality Calculated 281 mOsm/kg (285-295); Potassium 3.8 mmol/L (3.5-5.1); Sodium 137 mmol/L (136-145)
[2024-02-23 05:43] LABS: Procalcitonin 0.45 ng/mL (0-0.5)
[2024-02-23] MEDS: polyethylene glycol 3350 Pkt 17 gm PO (07:00)
[2024-02-23] MEDS: NON-FORMULARY MEDICATION (Linaclotide [Linzess] 145 mcg capsule) 145 EACH PO (07:01)
[2024-02-23] MEDS: baclofen 10 mg Tablet 20 MG PO ×2 (09:09→17:37)
[2024-02-23] MEDS: fludrocortisone 0.1 mg Tablet PO (09:14)
[2024-02-23] MEDS: sodium hypochlorite 0.25% Btl 473 mL 1 APPLIC TOPICAL (11:00)
[2024-02-23] MEDS: linezolid premix 600 MG/300 ML PREMIX 300 MG IV ×2 (12:44→23:43)
--- NOTE | 2024-02-23 13:42 | P.PN_ITS ---
Subjective 2 Subjective: Patient was seen this morning, afebrile overnight, did have episodes of hypotension, likely autonomic dysfunction is on room air, Vitals/I&O/Wt Last Vital Signs Temp 97.9 F 02/23/24 12:00 Pulse 56 L 02/23/24 12:00 Resp 17 02/23/24 12:00 BP 153/95 02/23/24 12:00 Pulse Ox 98 02/23/24 12:00 O2 Del Method Room Air 02/23/24 08:54 O2 Flow Rate 6 02/21/24 11:27 02/22/24 02/23/24 02/23/24 22:59 06:59 14:59 Intake Total 1350 / 2000 350 / 2350 360 / 360 Output Total 650 / 650 650 / 1300 Balance 700 / 1350 -300 / 1050 360 / 360 Weight last 48 hrs Weight 74.588 kg Weight 74.446 kg Physical Exam 2 Const: COMMON NORMALS: no acute distress and patient oriented x3 Resp: COMMON NORMALS: normal respiratory effort, No retractions, No use of accessory muscles and clear to auscultation bilaterally AUSCULTATION: clear to auscultation bilaterally Cardio: COMMON NORMALS: regular rate, regular rhythm, S1 normal heart sound present and S2 normal heart sound present RATE: regular rate RHYTHM: r egular rhythm HEART SOUNDS: S1 normal heart sound present and S2 normal heart sound present GI: COMMON NORMALS: Normal to inspection, nondistended, normoactive bowel sounds present and non-tender Extremity: COMMON NORMALS: no pedal edema Neuro: COMMON NORMALS: patient oriented x3 Psych: COMMON NORMALS: mental status grossly normal Data 02/23/24 05:01 02/23/24 05:01 Micro: Microbiology 02/21/24 11:06 Gram Stain - Final Bone Tissue Culture - Preliminary Coag positive Staphylococcus 02/22/24 13:46 Blood Culture - Preliminary Blood SPECIMEN COLLECTED 02/22/24 13:45 Blood Culture - Preliminary Blood SPECIMEN COLLECTED 02/20/24 20:40 Blood Culture - Preliminary Blood Staphylococcus epidermidis A&P Assessment and plan (1) Pressure ulcer of scapular region: (2) Decubitus ulcer: (3) Spastic quadriplegia: (4) Quadriplegia: (5) 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 Monroy consulted for I&D which is evident on CT abdomen pelvis, status post Sharp excisional debridement of stage IV left ischial decubitus ulcer, Ischial bone biopsy Will follow biopsy results Continue Zyvox, continue meropenem, Has chronic osteomyelitis, will likely only need p.o. antibiotics on discharge, pending blood culture results 1/2 blood cultures positive for Staph epidermidis likely contamination repeat blood cultures Staph epidermidis bacteremia 1 out of 2 blood cultures positive, likely contamination nonetheless Continue IV antibiotics ?repeat blood cultures, if negative, will likely not require IV antibiotics on discharge Shoulder wound, chronic, DTI, continue wound care Chronic pain, continue opioids Suprapubic catheter gets exchanged every month by his Colostomy bag in place Autonomic dysfunction, with episodes of hypotension, continue midodrine Continue antispasmodic, muscle relaxant and opioids Constipation continue Linzess, Regular diet Full code DVT prophylaxis on SCDs, Lovenox for DVT prophylaxis Patient has an IVC filter, Attestations 2 Medical Necessity Statement*: Patient requires hospitalization, for sacral wound, requiring wound VAC, IV antibiotics, Staph epidermidis bacteremia requiring IV antibiotics Diagnoses Pressure ulcer of scapular region L89.109 Decubitus ulcer L89.90 Spastic quadriplegia G82.50 Quadriplegia G82.50 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
[2024-02-23] MEDS: HYDROcodone-acetaminophen 5-325 mg Tablet 1 TAB PO (14:12)
[2024-02-23] MEDS: enoxaparin 40 mg/0.4 mL Syringe SUBCUT (16:42)
--- NOTE | 2024-02-23 17:12 | P.PN_ITS ---
Subjective 2 Subjective: Patient seen and examined. No acute events. We do not have the wound VAC yet Vitals/I&O/Wt Last Vital Signs Temp 97.5 F L 02/23/24 16:00 Pulse 73 02/23/24 16:00 Resp 17 02/23/24 16:00 BP 102/61 02/23/24 16:00 Pulse Ox 95 02/23/24 16:00 O2 Del Method Room Air 02/23/24 08:54 O2 Flow Rate 6 02/21/24 11:27 02/23/24 02/23/24 02/23/24 06:59 14:59 22:59 Intake Total 350 / 2350 950 / 950 Output Total 650 / 1300 850 / 850 Balance -300 / 1050 100 / 100 Weight last 48 hrs Weight 164 lb 7 oz Weight 164 lb 2 oz Physical Exam 2 Narrative: General: No acute distress, awake alert and oriented x 3 Skin: Stage IV left ischial decubitus ulcer without exudate and minimal erythema Data 02/23/24 05:01 02/23/24 05:01 Micro: Microbiology 02/21/24 11:06 Gram Stain - Final Bone Tissue Culture - Final Methicillin Resis Staph Aureus 02/22/24 13:45 Blood Culture - Preliminary Blood NEGATIVE TO DATE 02/22/24 13:46 Blood Culture - Preliminary Blood NEGATIVE TO DATE 02/20/24 20:40 Blood Culture - Preliminary Blood Staphylococcus epidermidis A&P Assessment and plan (1) Decubitus ulcer of ischial area, stage 4: (2) Osteomyelitis: Qualifiers: Osteomyelitis type: other chronic Osteomyelitis location: other site Qualified Code(s): M86.68 - Other chronic osteomyelitis, other site Plan Postoperative day #2 status post Sharp excisional debridement of left ischial decubitus ulcer with bone biopsy Bone biopsy is growing MRSA Daily dressing changes Medical management per hospitalist Attestations 2 Medical Necessity Statement*: Per primary Coding Level of Care Code 61628 Diagnoses Decubitus ulcer of ischial area, stage 4 L89.304 Other chronic osteomyelitis, other site M86.68 Osteomyelitis type: other chronic Osteomyelitis location: other site
[2024-02-23] MEDS: morphine IR 15 mg Tablet PO (22:03)
[2024-02-24] VITALS (7 sets, daily range): BP systolic 126–153; BP diastolic 80–86; PULSE 51–82; RESP 16–18; TEMP 36.3–36.9; O2SAT 98–100
[2024-02-24] MEDS: piperacillin-tazobactam 3.375 GM in sodium chloride 0.9% (plus) 50 ML IV ×3 (00:50→15:36)
[2024-02-24] MEDS: midodrine 5 mg TABLET 10 MG PO ×3 (00:51→17:08)
[2024-02-24] MEDS: HYDROcodone-acetaminophen 5-325 mg Tablet 1 TAB PO ×2 (01:57→17:08)
[2024-02-24 04:55] LABS: Basophils % 0.3 %; Eosinophils # 0.2 10^3/uL (0.0-0.8); Eosinophils % 1.9 %; Hematocrit 35.8 % (37-53); Lymphocytes # 3.9 10^3/uL (0.8-4.8); Lymphocytes % 36.4 %; Mean Corpuscular HGB Conc 31.3 g/dL (30-55); Mean Corpuscular Hemoglobin 25.1 pg (27-33); Mean Corpuscular Volume 80.1 fl (82-101); Monocytes # 0.9 10^3/uL (0.2-0.9); Monocytes % 8.4 %; Neutrophils # 5.69 10^3/uL (1.8-7.7); Neutrophils % 52.7 %; Nucleated Red Blood Cells % 0 %; Platelet Count 344 10^3/cmm (157-399); Red Blood Count 4.47 10^6/uL (3.85-5.65); Red Cell Distribution Width 15.9 % (12.1-15.1)
[2024-02-24 05:15] LABS: Anion Gap 15.6 (5-19); Blood Urea Nitrogen 10 mg/dL (6-20); C Reactive Protein 29.3 mg/L (0.0-4.9); Carbon Dioxide 22 mmol/L (22-29); Chloride 104 mmol/L (98-107); Creatinine Clr Calc Pharmacy 211.3628; Glomerular Filtration Rate 220.2 mL/min (90-130); Glucose 92 mg/dL (65-115); Osmolality Calculated 285 mOsm/kg (285-295); Potassium 3.6 mmol/L (3.5-5.1); Sodium 138 mmol/L (136-145)
[2024-02-24 05:24] LABS: Procalcitonin 0.25 ng/mL (0-0.5)
[2024-02-24] MEDS: polyethylene glycol 3350 Pkt 17 gm PO (07:24)
[2024-02-24] MEDS: NON-FORMULARY MEDICATION (Linaclotide [Linzess] 145 mcg capsule) 145 EACH PO (07:24)
[2024-02-24] MEDS: morphine IR 15 mg Tablet PO ×2 (09:20→21:32)
[2024-02-24] MEDS: baclofen 10 mg Tablet 20 MG PO ×2 (09:20→17:07)
[2024-02-24] MEDS: fludrocortisone 0.1 mg Tablet PO (09:36)
[2024-02-24] MEDS: sodium hypochlorite 0.25% Btl 473 mL 1 APPLIC TOPICAL (09:37)
--- NOTE | 2024-02-24 13:49 | P.PN_ITS ---
Subjective 2 Subjective: Patient was seen this morning, he is alert to person, to place, not to time he follows commands, no fevers, no chills, no cough, we discussed his MRSA positive bone biopsy cultures, will discuss with infectious disease Vitals/I&O/Wt Last Vital Signs Temp 97.4 F L 02/24/24 11:56 Pulse 52 L 02/24/24 11:56 Resp 17 02/24/24 11:56 BP 132/85 02/24/24 11:56 Pulse Ox 100 02/24/24 11:56 O2 Del Method Room Air 02/24/24 11:56 O2 Flow Rate 6 02/21/24 11:27 02/23/24 02/24/24 02/24/24 22:59 06:59 14:59 Intake Total 936 / 1886 1150 / 3036 530 / 530 Output Total 1000 / 1850 650 / 2500 Balance -64 / 36 500 / 536 530 / 530 Weight last 48 hrs Weight 74.928 kg Weight 74.588 kg Physical Exam 2 Const: COMMON NORMALS: no acute distress HENMT: COMMON NORMALS: normocephalic HEAD & SCALP: normocephalic Resp: COMMON NORMALS: normal respiratory effort, No retractions, No use of accessory muscles and clear to auscultation bilaterally AUSCULTATION: clear to auscultation bilaterally Cardio: COMMON NORMALS: regular rate, regular rhythm, S1 normal heart sound present and S2 normal heart sound present RATE: regular rate RHYTHM: r egular rhythm HEART SOUNDS: S1 normal heart sound present and S2 normal heart sound present GI: COMMON NORMALS: Normal to inspection, nondistended, normoactive bowel sounds present Extremity: COMMON NORMALS: no pedal edema Data 02/24/24 04:15 02/24/24 04:15 Micro: Microbiology 02/21/24 11:06 Gram Stain - Final Bone Tissue Culture - Final Methicillin Resis Staph Aureus 02/22/24 13:45 Blood Culture - Preliminary Blood NEGATIVE TO DATE 02/22/24 13:46 Blood Culture - Preliminary Blood NEGATIVE TO DATE A&P Assessment and plan (1) Pressure ulcer of scapular region: (2) Decubitus ulcer: (3) Spastic quadriplegia: (4) Quadriplegia: (5) 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 Monroy consulted for I&D which is evident on CT abdomen pelvis, status post Sharp excisional debridement of stage IV left ischial decubitus ulcer, Ischial bone biopsy Bone biopsy results showing MRSA Continue Zyvox, continue meropenem, Has chronic osteomyelitis, will discuss with infectious disease about IV versus p.o. antibiotics, likely discharge on p.o. Zyvox but will discuss and consult infectious disease 1/2 blood cultures positive for Staph epidermidis likely contamination repeat blood cultures so far negative Staph epidermidis bacteremia 1 out of 2 blood cultures positive, likely contamination nonetheless Continue IV antibiotics ?repeat blood cultures, if negative, will likely not require IV antibiotics on discharge Shoulder wound, chronic, DTI, continue wound care Chronic pain, continue opioids Suprapubic catheter gets exchanged every month by his Colostomy bag in place Autonomic dysfunction, with episodes of hypotension, continue midodrine Continue antispasmodic, muscle relaxant and opioids Constipation continue Linzess, Regular diet Full code DVT prophylaxis on SCDs, Lovenox for DVT prophylaxis Patient has an IVC filter, Attestations 2 Medical Necessity Statement*: Patient requires hospitalization for MRSA positive bone biopsy, osteomyelitis, staph epidermis bacteremia Diagnoses Pressure ulcer of scapular region L89.109 Decubitus ulcer L89.90 Spastic quadriplegia G82.50 Quadriplegia G82.50 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
[2024-02-24] MEDS: linezolid premix 600 MG/300 ML PREMIX 300 MG IV (14:01)
[2024-02-24] MEDS: enoxaparin 40 mg/0.4 mL Syringe SUBCUT (15:36)
--- NOTE | 2024-02-24 15:49 | PC.NURSE ---
pts visitor was pushing iv pump buttons, educ pt and visitor of risks involved in them pushing the iv pump buttons. they agreed to refrain.
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
--- NOTE | 2024-02-24 16:58 | P.PN_ITS ---
Subjective 2 Subjective: Patient seen and examined. Denies any pain or other symptoms. Vitals/I&O/Wt Last Vital Signs Temp 97.2 F L 02/25/24 16:00 Pulse 62 02/25/24 16:00 Resp 16 02/25/24 16:00 BP 124/76 02/25/24 16:00 Pulse Ox 98 02/25/24 16:00 O2 Del Method Room Air 02/25/24 16:00 O2 Flow Rate 6 02/21/24 11:27 02/25/24 02/25/24 02/25/24 06:59 14:59 22:59 Intake Total 500 / 1880 530 / 530 300 / 830 Output Total 650 / 2850 300 / 300 600 / 900 Balance -150 / -970 230 / 230 -300 / -70 Weight last 48 hrs Weight 165 lb 4.8 oz Weight 165 lb 3 oz Physical Exam 2 Narrative: General: No acute distress, awake alert and oriented x 3 Skin: Stage IV left ischial decubitus ulcer without exudate and minimal erythema Data 02/25/24 05:13 02/25/24 05:13 A&P Assessment and plan (1) Decubitus ulcer of ischial area, stage 4: (2) Osteomyelitis: Qualifiers: Osteomyelitis type: other chronic Osteomyelitis location: other site Qualified Code(s): M86.68 - Other chronic osteomyelitis, other site Plan Postoperative day #3 status post Sharp excisional debridement of left ischial decubitus ulcer with bone biopsy Bone biopsy is growing MRSA Wound VAC applied today Medical management per hospitalist Attestations 2 Medical Necessity Statement*: Per primary Coding Level of Care Code 50187 Diagnoses Decubitus ulcer of ischial area, stage 4 L89.304 Other chronic osteomyelitis, other site M86.68 Osteomyelitis type: other chronic Osteomyelitis location: other site
--- NOTE | 2024-02-24 17:00 | PM.ACPR ---
Procedure/Consent Procedure Narrative: Preoperative diagnosis: Stage IV left ischial decubitus ulcer Postoperative diagnosis: Same Procedure performed: Wound VAC applied to stage IV left ischial decubitus ulcer measuring 7 cm x 4 cm x 10 cm deep Details of procedure: Dressing was removed. There is good granulation tissue at the base without any evidence of exudate or overt infection. Wound measured 7 cm x 4 cm x 10 cm deep. Black foam placed into the wound and then bridged up to left hip. Suction applied to 125 mmHg. No air leak
--- NOTE | 2024-02-24 19:56 | PC.NURSE ---
This nurse walked into the patient's room to check on the patient. Upon entry, the pt's was in the process of changing the pt's suprapubic catheter. When this nurse asked why it was being changed, the pt stated his dad emptied his colostomy earlier today and the stool got into the catheter. Pt's stated it gets changed every 3 weeks. This nurse offered to take over, but the pt and his both refused and stated the knows what she's doing.
[2024-02-25] VITALS (9 sets, daily range): BP systolic 109–148; BP diastolic 76–95; PULSE 57–80; RESP 16–20; TEMP 36.2–36.7; O2SAT 96–99
[2024-02-25] MEDS: linezolid premix 600 MG/300 ML PREMIX 300 MG IV ×2 (00:38→14:18)
[2024-02-25] MEDS: piperacillin-tazobactam 3.375 GM in sodium chloride 0.9% (plus) 50 ML IV ×3 (00:38→17:33)
[2024-02-25] MEDS: midodrine 5 mg TABLET 10 MG PO ×3 (00:39→17:32)
[2024-02-25 05:21] LABS: Basophils % 0.4 %; Eosinophils # 0.2 10^3/uL (0.0-0.8); Eosinophils % 2.2 %; Hematocrit 41.9 % (37-53); Lymphocytes # 3.4 10^3/uL (0.8-4.8); Lymphocytes % 34.2 %; Mean Corpuscular HGB Conc 28.4 g/dL (30-55); Mean Corpuscular Hemoglobin 25.1 pg (27-33); Mean Corpuscular Volume 88.2 fl (82-101); Mean Platelet Volume 9.9 fL (7.4-10.4); Monocytes # 0.6 10^3/uL (0.2-0.9); Monocytes % 6.5 %; Neutrophils # 5.53 10^3/uL (1.8-7.7); Neutrophils % 56.4 %; Nucleated Red Blood Cells % 0 %; Platelet Count 289 10^3/cmm (157-399); Red Blood Count 4.75 10^6/uL (3.85-5.65); Red Cell Distribution Width 16.1 % (12.1-15.1); White Blood Count 9.82 10^3/uL (3.29-11.43)
[2024-02-25 05:48] LABS: Blood Urea Nitrogen 7 mg/dL (6-20); Calcium 8.3 mg/dL (8.5-10.5); Carbon Dioxide 19 mmol/L (22-29); Chloride 106 mmol/L (98-107); Creatinine Clr Calc Pharmacy 211.4201; Glomerular Filtration Rate 220.2 mL/min (90-130); Glucose 88 mg/dL (65-115); Osmolality Calculated 283 mOsm/kg (285-295); Sodium 138 mmol/L (136-145)
[2024-02-25 06:03] LABS: Anion Gap 16.5 (5-19); Potassium 3.5 mmol/L (3.5-5.1)
[2024-02-25] MEDS: NON-FORMULARY MEDICATION (Linaclotide [Linzess] 145 mcg capsule) 145 EACH PO (06:46)
[2024-02-25] MEDS: polyethylene glycol 3350 Pkt 17 gm PO (06:46)
[2024-02-25] MEDS: baclofen 10 mg Tablet 20 MG PO ×2 (08:29→17:32)
[2024-02-25] MEDS: HYDROcodone-acetaminophen 5-325 mg Tablet 1 TAB PO ×2 (08:29→17:42)
[2024-02-25] MEDS: fludrocortisone 0.1 mg Tablet PO (08:40)
--- NOTE | 2024-02-25 14:19 | P.PN_ITS ---
Subjective 2 Subjective: Patient was seen this morning, alert oriented x 3, following all commands, has no complaints Vitals/I&O/Wt Last Vital Signs Temp 97.5 F L 02/25/24 11:18 Pulse 78 02/25/24 11:18 Resp 18 02/25/24 07:50 BP 137/93 02/25/24 11:18 Pulse Ox 99 02/25/24 11:18 O2 Del Method Room Air 02/25/24 11:18 O2 Flow Rate 6 02/21/24 11:27 02/24/24 02/25/24 02/25/24 22:59 06:59 14:59 Intake Total 850 / 1380 500 / 1880 410 / 410 Output Total 2200 / 2200 650 / 2850 Balance -1350 / -820 -150 / -970 410 / 410 Weight last 48 hrs Weight 74.979 kg Weight 74.928 kg Physical Exam 2 Const: COMMON NORMALS: no acute distress and patient oriented x3 Resp: COMMON NORMALS: normal respiratory effort, No retractions, No use of accessory muscles and clear to auscultation bilaterally AUSCULTATION: clear to auscultation bilaterally Cardio: COMMON NORMALS: regular rate, regular rhythm, S1 normal heart sound present and S2 normal heart sound present RATE: regular rate RHYTHM: r egular rhythm HEART SOUNDS: S1 normal heart sound present and S2 normal heart sound present GI: COMMON NORMALS: Normal to inspection, nondistended, normoactive bowel sounds present and non-tender Extremity: COMMON NORMALS: no pedal edema Neuro: COMMON NORMALS: patient oriented x3 Psych: COMMON NORMALS: mental status grossly normal Data 02/25/24 05:13 02/25/24 05:13 A&P Assessment and plan (1) Pressure ulcer of scapular region: (2) Decubitus ulcer: (3) Spastic quadriplegia: (4) Quadriplegia: (5) 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 Monroy consulted for I&D which is evident on CT abdomen pelvis, status post Sharp excisional debridement of stage IV left ischial decubitus ulcer, Ischial bone biopsy Bone biopsy results showing MRSA Continue Zyvox, continue meropenem, Has chronic osteomyelitis, discharged on p.o. Zyvox for 4 weeks 1/2 blood cultures positive for Staph epidermidis likely contamination repeat blood cultures so far negative Staph epidermidis bacteremia 1 out of 2 blood cultures positive, likely contamination nonetheless Continue IV antibiotics ?repeat blood cultures, negative so far, will discharge on p.o. Zyvox for 4 weeks Shoulder wound, chronic, DTI, continue wound care Chronic pain, continue opioids Suprapubic catheter gets exchanged every month by his Colostomy bag in place Autonomic dysfunction, with episodes of hypotension, continue midodrine Continue antispasmodic, muscle relaxant and opioids Constipation continue Linzess, Regular diet Full code DVT prophylaxis on SCDs, Lovenox for DVT prophylaxis Patient has an IVC filter, Attestations 2 Medical Necessity Statement*: Patient requires hospitalization for osteomyelitis of sacrum, requiring inpatient monitoring Diagnoses Pressure ulcer of scapular region L89.109 Decubitus ulcer L89.90 Spastic quadriplegia G82.50 Quadriplegia G82.50 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
--- NOTE | 2024-02-25 16:59 | P.PN_ITS ---
Subjective 2 Subjective: Patient seen and examined. Denies any complaints. Wound VAC held suction overnight Vitals/I&O/Wt Last Vital Signs Temp 97.2 F L 02/25/24 16:00 Pulse 62 02/25/24 16:00 Resp 16 02/25/24 16:00 BP 124/76 02/25/24 16:00 Pulse Ox 98 02/25/24 16:00 O2 Del Method Room Air 02/25/24 16:00 O2 Flow Rate 6 02/21/24 11:27 02/25/24 02/25/24 02/25/24 06:59 14:59 22:59 Intake Total 500 / 1880 530 / 530 300 / 830 Output Total 650 / 2850 300 / 300 600 / 900 Balance -150 / -970 230 / 230 -300 / -70 Weight last 48 hrs Weight 165 lb 4.8 oz Weight 165 lb 3 oz Physical Exam 2 Narrative: General: No acute distress, awake alert and oriented x 3 Skin: Stage IV left ischial decubitus ulcer with wound VAC in place on suction Data 02/25/24 05:13 02/25/24 05:13 A&P Assessment and plan (1) Decubitus ulcer of ischial area, stage 4: (2) Osteomyelitis: Qualifiers: Osteomyelitis type: other chronic Osteomyelitis location: other site Qualified Code(s): M86.68 - Other chronic osteomyelitis, other site Plan Postoperative day #4 status post Sharp excisional debridement of left ischial decubitus ulcer with bone biopsy Bone biopsy is growing MRSA Wound VAC on suction Medical management per hospitalist Attestations 2 Medical Necessity Statement*: Per primary Coding Level of Care Code 58334 Diagnoses Decubitus ulcer of ischial area, stage 4 L89.304 Other chronic osteomyelitis, other site M86.68 Osteomyelitis type: other chronic Osteomyelitis location: other site
[2024-02-25] MEDS: enoxaparin 40 mg/0.4 mL Syringe SUBCUT (17:33)
[2024-02-25] MEDS: morphine IR 15 mg Tablet PO (22:21)
[2024-02-26] VITALS (8 sets, daily range): BP systolic 137–151; BP diastolic 82–99; PULSE 57–80; RESP 16–20; TEMP 36.4–36.8; O2SAT 96–98
[2024-02-26] MEDS: piperacillin-tazobactam 3.375 GM in sodium chloride 0.9% (plus) 50 ML IV ×2 (00:58→08:59)
[2024-02-26] MEDS: midodrine 5 mg TABLET 10 MG PO ×3 (00:58→16:55)
[2024-02-26] MEDS: linezolid premix 600 MG/300 ML PREMIX 300 MG IV ×2 (00:58→13:27)
[2024-02-26 06:40] LABS: Basophils % 0.4 %; Eosinophils # 0.3 10^3/uL (0.0-0.8); Eosinophils % 3.4 %; Hematocrit 38.8 % (37-53); Lymphocytes # 3.8 10^3/uL (0.8-4.8); Lymphocytes % 38.3 %; Mean Corpuscular HGB Conc 30.7 g/dL (30-55); Mean Corpuscular Hemoglobin 24.7 pg (27-33); Mean Corpuscular Volume 80.7 fl (82-101); Mean Platelet Volume 9.6 fL (7.4-10.4); Monocytes # 0.6 10^3/uL (0.2-0.9); Monocytes % 5.6 %; Neutrophils # 5.17 10^3/uL (1.8-7.7); Neutrophils % 52.1 %; Nucleated Red Blood Cells % 0 %; Platelet Count 389 10^3/cmm (157-399); Red Blood Count 4.81 10^6/uL (3.85-5.65); Red Cell Distribution Width 16.1 % (12.1-15.1); White Blood Count 9.93 10^3/uL (3.29-11.43)
[2024-02-26 06:59] LABS: Anion Gap 13.6 (5-19); Blood Urea Nitrogen 9 mg/dL (6-20); Calcium 8.3 mg/dL (8.5-10.5); Carbon Dioxide 23 mmol/L (22-29); Chloride 106 mmol/L (98-107); Creatinine Clr Calc Pharmacy 170.0748; Glomerular Filtration Rate 170.2 mL/min (90-130); Glucose 83 mg/dL (65-115); Osmolality Calculated 286 mOsm/kg (285-295); Potassium 3.6 mmol/L (3.5-5.1); Sodium 139 mmol/L (136-145)
[2024-02-26] MEDS: NON-FORMULARY MEDICATION (Linaclotide [Linzess] 145 mcg capsule) 145 EACH PO (06:59)
[2024-02-26] MEDS: polyethylene glycol 3350 Pkt 17 gm PO (06:59)
[2024-02-26] MEDS: baclofen 10 mg Tablet 20 MG PO ×2 (09:01→16:55)
[2024-02-26] MEDS: fludrocortisone 0.1 mg Tablet PO (09:01)
[2024-02-26] MEDS: morphine IR 15 mg Tablet PO ×2 (10:47→22:15)
[2024-02-26] MEDS: oxymetazoline 0.05% Nasal Spray 15 mL 2 SPRAY NASAL (11:40)
--- NOTE | 2024-02-26 15:15 | P.PN_ITS ---
Subjective 2 Subjective: Patient was seen this morning, denies any fevers, chills, no cough, no weakness Vitals/I&O/Wt Last Vital Signs Temp 97.5 F L 02/26/24 11:19 Pulse 57 L 02/26/24 11:19 Resp 16 02/26/24 10:47 BP 145/88 02/26/24 11:19 Pulse Ox 98 02/26/24 11:19 O2 Del Method Room Air 02/26/24 11:19 O2 Flow Rate 6 02/21/24 11:27 02/26/24 02/26/24 02/26/24 06:59 14:59 22:59 Intake Total 350 / 1470 530 / 530 Output Total 450 / 1400 Balance -100 / 70 530 / 530 Weight last 48 hrs Weight 76.022 kg Weight 74.979 kg Physical Exam 2 Const: COMMON NORMALS: no acute distress and patient oriented x3 Resp: COMMON NORMALS: normal respiratory effort, No retractions, No use of accessory muscles and clear to auscultation bilaterally AUSCULTATION: clear to auscultation bilaterally Cardio: COMMON NORMALS: regular rate, regular rhythm, S1 normal heart sound present and S2 normal heart sound present RATE: regular rate RHYTHM: r egular rhythm HEART SOUNDS: S1 normal heart sound present and S2 normal heart sound present GI: COMMON NORMALS: Normal to inspection, nondistended, normoactive bowel sounds present and non-tender Extremity: COMMON NORMALS: no pedal edema Neuro: COMMON NORMALS: patient oriented x3 Psych: COMMON NORMALS: mental status grossly normal Data 02/26/24 06:25 02/26/24 06:25 Micro: Microbiology 02/20/24 20:40 Blood Culture - Final Blood Staphylococcus epidermidis 02/20/24 20:50 Blood Culture - Final Blood NO GROWTH AFTER 5 DAYS A&P Assessment and plan (1) Pressure ulcer of scapular region: (2) Decubitus ulcer: (3) Spastic quadriplegia: (4) Quadriplegia: (5) 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 Monroy consulted for I&D which is evident on CT abdomen pelvis, status post Sharp excisional debridement of stage IV left ischial decubitus ulcer, Ischial bone biopsy Bone biopsy results showing MRSA Continue Zyvox, discontinue meropenem, Has chronic osteomyelitis, discharged on p.o. Zyvox for 4 weeks 1/2 blood cultures positive for Staph epidermidis likely contamination repeat blood cultures so far negative Staph epidermidis bacteremia 1 out of 2 blood cultures positive, likely contamination nonetheless Continue IV antibiotics ?repeat blood cultures, negative so far, will discharge on p.o. Zyvox for 4 weeks Shoulder wound, chronic, DTI, continue wound care Chronic pain, continue opioids Suprapubic catheter gets exchanged every month by his Colostomy bag in place Autonomic dysfunction, with episodes of hypotension, continue midodrine Continue antispasmodic, muscle relaxant and opioids Constipation continue Linzess, Regular diet Full code DVT prophylaxis on SCDs, Lovenox for DVT prophylaxis Patient has an IVC filter, Patient requires hospitalization for IV antibiotics, chronic osteomyelitis Attestations 2 Medical Necessity Statement*: Patient requires hospitalization for osteomyelitis, requiring IV antibiotics Diagnoses Pressure ulcer of scapular region L89.109 Decubitus ulcer L89.90 Spastic quadriplegia G82.50 Quadriplegia G82.50 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
[2024-02-26] MEDS: enoxaparin 40 mg/0.4 mL Syringe SUBCUT (16:55)
[2024-02-26] MEDS: HYDROcodone-acetaminophen 5-325 mg Tablet 1 TAB PO (16:56)
--- NOTE | 2024-02-26 19:56 | PC.NURSE ---
at bedside. Patient turned on his right side with day shift nurse, Luz Elena. Patient then asked to be put back on his back. Patient was repositioned back to how he was initially. placed what appears to be neck pillows under bilateral buttocks. Patient is currently in bed that belongs to the ICU department and bed has been tilted to attempt to get some pressure off of his side. Patient educated that laying on his back with the bed tilted will not help hea/prevent pressure injuries as well as turning completely on his side will. Patient verbalized understanding and states he cannot tolerate laying completely on his side like we had him because it hurts his shoulders. Approximately 30 minutes was spent in patient's room adjusting and repositioning pillows per patient's request.
--- NOTE | 2024-02-26 22:21 | PC.NURSE ---
Patient refusing SCDs. Patient educated on what they are for. Patient states I can't stand those things.
[2024-02-27] VITALS (8 sets, daily range): BP systolic 119–171; BP diastolic 78–96; PULSE 62–84; RESP 16–19; TEMP 36.3–36.8; O2SAT 95–99
[2024-02-27] MEDS: linezolid premix 600 MG/300 ML PREMIX 300 MG IV (00:39)
[2024-02-27] MEDS: midodrine 5 mg TABLET 10 MG PO ×3 (00:39→18:18)
[2024-02-27 05:14] LABS: Basophils % 0.4 %; Eosinophils # 0.3 10^3/uL (0.0-0.8); Eosinophils % 3.7 %; Hematocrit 39.8 % (37-53); Lymphocytes # 3.6 10^3/uL (0.8-4.8); Lymphocytes % 40.6 %; Mean Corpuscular HGB Conc 30.7 g/dL (30-55); Mean Corpuscular Hemoglobin 25.2 pg (27-33); Mean Corpuscular Volume 82.2 fl (82-101); Mean Platelet Volume 9.3 fL (7.4-10.4); Monocytes # 0.7 10^3/uL (0.2-0.9); Neutrophils # 4.19 10^3/uL (1.8-7.7); Neutrophils % 47.1 %; Nucleated Red Blood Cells % 0 %; Platelet Count 360 10^3/cmm (157-399); Red Blood Count 4.84 10^6/uL (3.85-5.65); Red Cell Distribution Width 16.4 % (12.1-15.1); White Blood Count 8.91 10^3/uL (3.29-11.43)
[2024-02-27 05:36] LABS: Anion Gap 16.4 (5-19); Blood Urea Nitrogen 7 mg/dL (6-20); Calcium 8.7 mg/dL (8.5-10.5); Carbon Dioxide 20 mmol/L (22-29); Chloride 106 mmol/L (98-107); Creatinine Clr Calc Pharmacy 212.5935; Glomerular Filtration Rate 220.2 mL/min (90-130); Glucose 77 mg/dL (65-115); Osmolality Calculated 285 mOsm/kg (285-295); Potassium 3.4 mmol/L (3.5-5.1); Sodium 139 mmol/L (136-145)
[2024-02-27] MEDS: baclofen 10 mg Tablet 20 MG PO ×2 (10:14→18:18)
[2024-02-27] MEDS: fludrocortisone 0.1 mg Tablet PO (10:14)
[2024-02-27] MEDS: polyethylene glycol 3350 Pkt 17 gm PO (10:14)
[2024-02-27] MEDS: NON-FORMULARY MEDICATION (Linaclotide [Linzess] 145 mcg capsule) 145 EACH PO (10:15)
[2024-02-27] MEDS: HYDROcodone-acetaminophen 5-325 mg Tablet 1 TAB PO ×2 (10:23→18:20)
[2024-02-27] MEDS: linezolid 600 mg Tablet PO (12:57)
[2024-02-27] MEDS: hydrocortisone 1% cream 28 gm 1 APPLIC TOPICAL ×2 (12:58→18:23)
[2024-02-27] MEDS: morphine IR 15 mg Tablet PO (13:05)
--- NOTE | 2024-02-27 15:35 | P.PN_ITS ---
Subjective 2 Subjective: Patient was seen this morning, denies any fevers, no chills, no cough, he has developed a rash are along the right wrist area, where he had a dressing on, it is nearing his IV site, we recommended taking out his IV, replacing it due to concerns for spreading infection, and looks like contact dermatitis, will try topical steroids Vitals/I&O/Wt Last Vital Signs Temp 97.5 F L 02/27/24 12:00 Pulse 75 02/27/24 12:00 Resp 16 02/27/24 13:05 BP 171/96 02/27/24 12:00 Pulse Ox 99 02/27/24 12:00 O2 Del Method Room Air 02/27/24 12:00 O2 Flow Rate 6 02/21/24 11:27 02/27/24 02/27/24 02/27/24 06:59 14:59 22:59 Intake Total 420 / 2090 240 / 240 Output Total 1500 / 2800 Balance -1080 / -710 240 / 240 Weight last 48 hrs Weight 75.977 kg Weight 76.022 kg Physical Exam 2 Const: COMMON NORMALS: no acute distress and patient oriented x3 Resp: COMMON NORMALS: normal respiratory effort, No retractions, No use of accessory muscles and clear to auscultation bilaterally AUSCULTATION: clear to auscultation bilaterally Cardio: COMMON NORMALS: regular rate, regular rhythm, S1 normal heart sound present and S2 normal heart sound present RATE: regular rate RHYTHM: r egular rhythm HEART SOUNDS: S1 normal heart sound present and S2 normal heart sound present GI: COMMON NORMALS: Normal to inspection, nondistended, normoactive bowel sounds present and non-tender Extremity: COMMON NORMALS: no pedal edema Neuro: COMMON NORMALS: patient oriented x3 Psych: COMMON NORMALS: mental status grossly normal Data 02/27/24 05:06 02/27/24 05:06 Micro: Microbiology 02/22/24 13:46 Blood Culture - Final Blood NO GROWTH AFTER 5 DAYS 02/22/24 13:45 Blood Culture - Final Blood NO GROWTH AFTER 5 DAYS 02/20/24 20:40 Blood Culture - Final Blood Staphylococcus epidermidis A&P Assessment and plan (1) Pressure ulcer of scapular region: (2) Decubitus ulcer: (3) Spastic quadriplegia: (4) Quadriplegia: (5) 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 Monroy consulted for I&D which is evident on CT abdomen pelvis, status post Sharp excisional debridement of stage IV left ischial decubitus ulcer, Ischial bone biopsy Bone biopsy results showing MRSA Continue Zyvox, Wound VAC in place Has chronic osteomyelitis, discharged on p.o. Zyvox for 4 weeks 1/2 blood cultures positive for Staph epidermidis likely contamination repeat blood cultures so far negative Staph epidermidis bacteremia 1 out of 2 blood cultures positive, likely contamination nonetheless Continue IV antibiotics ?repeat blood cultures, negative so far, will discharge on p.o. Zyvox for 4 weeks Contact dermatitis, right wrist, topical steroids Shoulder wound, chronic, DTI, continue wound care Chronic pain, continue opioids Suprapubic catheter gets exchanged every month by his Colostomy bag in place Autonomic dysfunction, with episodes of hypotension, continue midodrine Continue antispasmodic, muscle relaxant and opioids Constipation continue Linzess, Regular diet Full code DVT prophylaxis on SCDs, Lovenox for DVT prophylaxis Patient has an IVC filter, Attestations 2 Medical Necessity Statement*: Patient requires hospitalization for chronic nonhealing wound of the sacrum, chronic osteo-, requiring wound VAC, Diagnoses Pressure ulcer of scapular region L89.109 Decubitus ulcer L89.90 Spastic quadriplegia G82.50 Quadriplegia G82.50 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
--- NOTE | 2024-02-27 15:38 | P.PN_ITS ---
Subjective 2 Subjective: No complaints Vitals/I&O/Wt Last Vital Signs Temp 98.2 F 02/27/24 15:36 Pulse 84 02/27/24 15:36 Resp 18 02/27/24 15:36 BP 120/78 02/27/24 15:36 Pulse Ox 97 02/27/24 15:36 O2 Del Method Room Air 02/27/24 15:36 O2 Flow Rate 6 02/21/24 11:27 02/27/24 02/27/24 02/27/24 06:59 14:59 22:59 Intake Total 420 / 2090 240 / 240 Output Total 1500 / 2800 600 / 600 Balance -1080 / -710 240 / 240 -600 / -360 Weight last 48 hrs Weight 167 lb 8 oz Weight 167 lb 9.6 oz Physical Exam 2 Narrative: Patient is a well developed well nourished and in NAD and is afebrile with vitals stable and is answering questions appropriately with a normal affect and is alert and oriented x3 HEENT: normocephalic with normal external ears and nonicteric, oral mucosa moist and dentition normal for age, trachea midline with no large masses visualized Heart: RRR, no gallops murmurs or rubs, normal PMI with no thrills Lungs: normal excursions, no loud audible wheezing, no subcutaneous emphysema Abdomen: nondistended, no gross hepatosplenomegaly, no masses, no rigidity or rebound, no loud borborygmi Neuro: quadriplegic Musculoskeletal: spastic tone and atrophy extremities Skin: pink warm and dry with no rashes or ecchymosis Vascular: good radial pulses, no ulceration, less than 2 second capillary refill in hand : deferred left ischial tuberositiy pressure sore 5cm x3cm by 3 cm deep. Data 02/27/24 05:06 02/27/24 05:06 Micro: Microbiology 02/22/24 13:46 Blood Culture - Final Blood NO GROWTH AFTER 5 DAYS 02/22/24 13:45 Blood Culture - Final Blood NO GROWTH AFTER 5 DAYS 02/20/24 20:40 Blood Culture - Final Blood Staphylococcus epidermidis A&P Assessment and plan (1) Decubitus ulcer of ischial area, stage 4: Plan Patient had wound vac changed with good granulation tissue noted. He has been having changes every 3 day. Attestations 2 Medical Necessity Statement*: See attending note by hospitalist. He is getting wound care and wound vac changes. Coding Level of Care Code 46547 Diagnoses Decubitus ulcer of ischial area, stage 4 L89.304
[2024-02-27] MEDS: enoxaparin 40 mg/0.4 mL Syringe SUBCUT (18:17)
[2024-02-27] MEDS: ibuprofen 800 mg tablet PO (22:56)
[2024-02-28] VITALS (8 sets, daily range): BP systolic 110–171; BP diastolic 74–95; PULSE 59–90; RESP 16–18; TEMP 36.3–36.5; O2SAT 94–99
[2024-02-28] MEDS: HYDROcodone-acetaminophen 5-325 mg Tablet 1 TAB PO ×3 (00:40→23:45)
[2024-02-28] MEDS: midodrine 5 mg TABLET 10 MG PO ×4 (00:40→23:45)
[2024-02-28] MEDS: linezolid 600 mg Tablet PO ×3 (00:40→23:45)
[2024-02-28] MEDS: hydrocortisone 1% cream 28 gm 1 APPLIC TOPICAL ×5 (00:41→20:39)
[2024-02-28] MEDS: NON-FORMULARY MEDICATION (Linaclotide [Linzess] 145 mcg capsule) 145 EACH PO (06:12)
[2024-02-28] MEDS: polyethylene glycol 3350 Pkt 17 gm PO (08:57)
[2024-02-28] MEDS: baclofen 10 mg Tablet 20 MG PO ×2 (08:57→18:09)
[2024-02-28] MEDS: fludrocortisone 0.1 mg Tablet PO (08:57)
--- NOTE | 2024-02-28 13:59 | P.PN_ITS ---
Subjective 2 Subjective: Patient was seen this morning, denies any fevers, no chills, no cough Vitals/I&O/Wt Last Vital Signs Temp 97.4 F L 02/28/24 08:00 Pulse 71 02/28/24 08:00 Resp 17 02/28/24 08:00 BP 117/78 02/28/24 08:00 Pulse Ox 94 02/28/24 08:00 O2 Del Method Room Air 02/28/24 08:00 O2 Flow Rate 6 02/21/24 11:27 02/27/24 02/28/24 02/28/24 22:59 06:59 14:59 Intake Total 590 / 830 900 / 1730 360 / 360 Output Total 1100 / 1100 450 / 1550 Balance -510 / -270 450 / 180 360 / 360 Weight last 48 hrs Weight 74.979 kg Weight 75.977 kg Physical Exam 2 Const: COMMON NORMALS: no acute distress and patient oriented x3 Resp: COMMON NORMALS: normal respiratory effort, No retractions, No use of accessory muscles and clear to auscultation bilaterally AUSCULTATION: clear to auscultation bilaterally Cardio: COMMON NORMALS: regular rate, regular rhythm, S1 normal heart sound present and S2 normal heart sound present RATE: regular rate RHYTHM: r egular rhythm HEART SOUNDS: S1 normal heart sound present and S2 normal heart sound present GI: COMMON NORMALS: Normal to inspection, nondistended, normoactive bowel sounds present and non-tender Extremity: COMMON NORMALS: no pedal edema Neuro: COMMON NORMALS: patient oriented x3 Psych: COMMON NORMALS: mental status grossly normal Skin: NARRATIVE SKIN EXAM: Wound VAC in place Data 02/27/24 05:06 02/27/24 05:06 Micro: Microbiology 02/22/24 13:46 Blood Culture - Final Blood NO GROWTH AFTER 5 DAYS 02/22/24 13:45 Blood Culture - Final Blood NO GROWTH AFTER 5 DAYS A&P Assessment and plan (1) Pressure ulcer of scapular region: (2) Decubitus ulcer: (3) Spastic quadriplegia: (4) Quadriplegia: (5) 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 Monroy consulted for I&D which is evident on CT abdomen pelvis, status post Sharp excisional debridement of stage IV left ischial decubitus ulcer, Ischial bone biopsy Bone biopsy results showing MRSA Continue Zyvox, Wound VAC in place Has chronic osteomyelitis, discharged on p.o. Zyvox for 4 weeks 1/2 blood cultures positive for Staph epidermidis likely contamination repeat blood cultures so far negative Staph epidermidis bacteremia 1 out of 2 blood cultures positive, likely contamination Repeat blood cultures negative ? will discharge on p.o. Zyvox for 4 weeks Contact dermatitis, right wrist, topical steroids Shoulder wound, chronic, DTI, continue wound care Chronic pain, continue opioids Suprapubic catheter gets exchanged every month by his Colostomy bag in place Autonomic dysfunction, with episodes of hypotension, continue midodrine Continue antispasmodic, muscle relaxant and opioids Constipation continue Linzess, Regular diet Full code DVT prophylaxis on SCDs, Lovenox for DVT prophylaxis Patient has an IVC filter, Attestations 2 Medical Necessity Statement*: Patient requires hospitalization for sacral wound Diagnoses Pressure ulcer of scapular region L89.109 Decubitus ulcer L89.90 Spastic quadriplegia G82.50 Quadriplegia G82.50 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
[2024-02-28] MEDS: enoxaparin 40 mg/0.4 mL Syringe SUBCUT (18:10)
[2024-02-28] MEDS: morphine IR 15 mg Tablet PO (18:27)
--- NOTE | 2024-02-28 19:26 | PC.NURSE ---
Dr. Mott stated patient could have 10 mg dulcolax PRN daily
--- NOTE | 2024-02-28 20:11 | P.PN_ITS ---
Subjective 2 Subjective: No complaints Vitals/I&O/Wt Last Vital Signs Temp 97.4 F L 02/28/24 16:00 Pulse 79 02/28/24 16:00 Resp 17 02/28/24 18:27 BP 110/74 02/28/24 16:00 Pulse Ox 96 02/28/24 18:27 O2 Del Method Room Air 02/28/24 16:00 O2 Flow Rate 6 02/21/24 11:27 02/28/24 02/28/24 02/28/24 06:59 14:59 22:59 Intake Total 900 / 1730 720 / 720 240 / 960 Output Total 450 / 1550 750 / 750 Balance 450 / 180 720 / 720 -510 / 210 Weight last 48 hrs Weight 165 lb 4.8 oz Weight 167 lb 8 oz Physical Exam 2 Narrative: Patient is a well developed well nourished and in NAD and is afebrile with vitals stable and is answering questions appropriately with a normal affect and is alert and oriented x3 HEENT: normocephalic with normal external ears and nonicteric, oral mucosa moist and dentition normal for age, trachea midline with no large masses visualized Heart: RRR, no gallops murmurs or rubs, normal PMI with no thrills Lungs: normal excursions, no loud audible wheezing, no subcutaneous emphysema Abdomen: nondistended, no gross hepatosplenomegaly, no masses, no rigidity or rebound, no loud borborygmi Neuro: quadriplegic Musculoskeletal: spastic tone and atrophy extremities Skin: pink warm and dry with no rashes or ecchymosis Vascular: good radial pulses, no ulceration, less than 2 second capillary refill in hand : deferred left ischial tuberositiy pressure sore 5cm x3cm by 3 cm deep. Data 02/27/24 05:06 02/27/24 05:06 A&P Assessment and plan (1) Decubitus ulcer of ischial area, stage 4: Plan Patient had wound vac changed with good granulation tissue noted. He has been having changes every 3 day. Attestations 2 Medical Necessity Statement*: See attendings note Coding Level of Care Code 90747 Diagnoses Decubitus ulcer of ischial area, stage 4 L89.304
[2024-02-28] MEDS: bisacodyl 5 mg Tablet 10 MG PO (21:47)
[2024-02-28] MEDS: ondansetron 4 MG Tablet PO (23:45)
[2024-02-29] VITALS: BP 103/70; PULSE 58; RESP 20; TEMP 36.7; O2SAT 99
--- NOTE | 2024-02-29 00:56 | PC.NURSE ---
Patient's states that she does not want the patient to go to the residential. She states she wants the patient to go home on discharge.
[2024-02-29 04:00] VITALS: BP 127/89; PULSE 89; RESP 20; TEMP 36.7; O2SAT 97
[2024-02-29] MEDS: polyethylene glycol 3350 Pkt 17 gm PO (06:03)
[2024-02-29] MEDS: NON-FORMULARY MEDICATION (Linaclotide [Linzess] 145 mcg capsule) 145 EACH PO (06:03)
--- NOTE | 2024-02-29 07:10 | PC.NURSE ---
Dressing removed from right wrist at approximately 0000 per patient request.
[2024-02-29 08:00] VITALS: BP 108/79; PULSE 91; RESP 17; TEMP 36.7; O2SAT 97
[2024-02-29 08:30] VITALS: PULSE 83; RESP 16; O2SAT 98
[2024-02-29] MEDS: hydrocortisone 1% cream 28 gm 1 APPLIC TOPICAL ×4 (09:27→19:49)
[2024-02-29] MEDS: midodrine 5 mg TABLET 10 MG PO ×2 (09:27→18:33)
[2024-02-29] MEDS: baclofen 10 mg Tablet 20 MG PO ×2 (09:27→18:33)
[2024-02-29] MEDS: fludrocortisone 0.1 mg Tablet PO (09:29)
[2024-02-29] MEDS: linezolid 600 mg Tablet PO (12:49)
--- NOTE | 2024-02-29 14:39 | PM.PN ---
Subjective Subjective: Patient was seen this morning, denies any fevers, no chills, no cough, no nausea, no vomiting, Vitals/I&O/Wt Last Vital Signs Temp 98.1 F 02/29/24 08:00 Pulse 83 02/29/24 08:30 Resp 16 02/29/24 08:30 BP 108/79 02/29/24 08:00 Pulse Ox 98 02/29/24 08:30 O2 Del Method Room Air 02/29/24 08:30 O2 Flow Rate 6 02/21/24 11:27 02/28/24 02/29/24 02/29/24 22:59 06:59 14:59 Intake Total 240 / 960 240 / 240 Output Total 1150 / 1150 400 / 1550 Balance -910 / -190 -400 / -590 240 / 240 Weight last 48 hrs Weight 74.48 kg Weight 74.979 kg Physical Exam Const: COMMON NORMALS: no acute distress and patient oriented x3 Resp: COMMON NORMALS: normal respiratory effort, No retractions, No use of accessory muscles and clear to auscultation bilaterally AUSCULTATION: clear to auscultation bilaterally Cardio: COMMON NORMALS: regular rate, regular rhythm, S1 normal heart sound present and S2 normal heart sound present RATE: regular rate RHYTHM: regular rhythm HEART SOUNDS: S1 normal heart sound present and S2 normal heart sound present GI: COMMON NORMALS: Normal to inspection, nondistended, normoactive bowel sounds present and non-tender Extremity: COMMON NORMALS: no pedal edema Neuro: COMMON NORMALS: patient oriented x3 Psych: COMMON NORMALS: mental status grossly normal Data 02/27/24 05:06 02/27/24 05:06 A&P Assessment and plan (1) Pressure ulcer of scapular region: (2) Decubitus ulcer: (3) Spastic quadriplegia: (4) Quadriplegia: (5) 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 Monroy consulted for I&D which is evident on CT abdomen pelvis, status post Sharp excisional debridement of stage IV left ischial decubitus ulcer, Ischial bone biopsy Bone biopsy results showing MRSA Continue Zyvox, Wound VAC in place Has chronic osteomyelitis, discharged on p.o. Zyvox for 4 weeks 1/2 blood cultures positive for Staph epidermidis likely contamination repeat blood cultures so far negative Staph epidermidis bacteremia 1 out of 2 blood cultures positive, likely contamination Repeat blood cultures negative ? will discharge on p.o. Zyvox for 4 weeks Contact dermatitis, right wrist, topical steroids Shoulder wound, chronic, DTI, continue wound care Chronic pain, continue opioids Suprapubic catheter gets exchanged every month by his Colostomy bag in place Autonomic dysfunction, with episodes of hypotension, continue midodrine Continue antispasmodic, muscle relaxant and opioids Constipation continue Linzess, Regular diet Full code DVT prophylaxis on SCDs, Lovenox for DVT prophylaxis Patient has an IVC filter, Attestations Medical Necessity Statement*: Patient requires hospitalization for sacral DTI Diagnoses Pressure ulcer of scapular region L89.109 Decubitus ulcer L89.90 Spastic quadriplegia G82.50 Quadriplegia G82.50 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
[2024-02-29 15:31] VITALS: BP 129/82; PULSE 66; TEMP 36.6; O2SAT 98
[2024-02-29] MEDS: enoxaparin 40 mg/0.4 mL Syringe SUBCUT (16:39)
--- NOTE | 2024-02-29 17:01 | P.PN_ITS ---
Subjective 2 Subjective: No complaints Vitals/I&O/Wt Last Vital Signs Temp 97.9 F 02/29/24 15:31 Pulse 66 02/29/24 15:31 Resp 16 02/29/24 08:30 BP 129/82 02/29/24 15:31 Pulse Ox 98 02/29/24 15:31 O2 Del Method Room Air 02/29/24 15:31 O2 Flow Rate 6 02/21/24 11:27 02/29/24 02/29/24 02/29/24 06:59 14:59 22:59 Intake Total 480 / 480 Output Total 400 / 1550 Balance -400 / -590 480 / 480 Weight last 48 hrs Weight 164 lb 3.2 oz Weight 165 lb 4.8 oz Physical Exam 2 Narrative: Patient is a well developed well nourished and in NAD and is afebrile with vitals stable and is answering questions appropriately with a normal affect and is alert and oriented x3 HEENT: normocephalic with normal external ears and nonicteric, oral mucosa moist and dentition normal for age, trachea midline with no large masses visualized Heart: RRR, no gallops murmurs or rubs, normal PMI with no thrills Lungs: normal excursions, no loud audible wheezing, no subcutaneous emphysema Abdomen: nondistended, no gross hepatosplenomegaly, no masses, no rigidity or rebound, no loud borborygmi Neuro: quadriplegic Musculoskeletal: spastic tone and atrophy extremities Skin: pink warm and dry with no rashes or ecchymosis Vascular: good radial pulses, no ulceration, less than 2 second capillary refill in hand : deferred left ischial tuberositiy pressure sore 5cm x3cm by 3 cm deep. Data 02/27/24 05:06 02/27/24 05:06 A&P Assessment and plan (1) Decubitus ulcer of ischial area, stage 4: Plan Nurse called to state that bridging foam was irritating skin so I asked her to place new wound vac dressing on. He had planned wound vac dressing change tomorrow on Friday so this will not be done if the wound vac was changed Friday today Attestations 2 Medical Necessity Statement*: see attending's note Coding Level of Care Code 18455 Diagnoses Decubitus ulcer of ischial area, stage 4 L89.304
[2024-02-29 20:00] VITALS: BP 165/98; PULSE 74; RESP 17; TEMP 36.7; O2SAT 94
[2024-03-01] VITALS: BP 152/90; PULSE 76; RESP 16; TEMP 36.4; O2SAT 100
[2024-03-01] MEDS: HYDROcodone-acetaminophen 5-325 mg Tablet 1 TAB PO ×2 (00:09→08:58)
[2024-03-01] MEDS: linezolid 600 mg Tablet PO ×2 (00:09→13:08)
[2024-03-01] MEDS: midodrine 5 mg TABLET 10 MG PO ×2 (00:09→08:57)
--- NOTE | 2024-03-01 01:00 | PC.NURSE ---
Patient asking for his Miralax dose to be doubled, 2 Claritin pills every morning, and 2 Benadryl pills every night. Patient states he does all of these things at home. Patient educated to bring these concerns/requests up with the primary physician when they round in the morning.
[2024-03-01 04:00] VITALS: BP 150/99; PULSE 64; RESP 18; TEMP 36.5; O2SAT 95
[2024-03-01] MEDS: NON-FORMULARY MEDICATION (Linaclotide [Linzess] 145 mcg capsule) 145 EACH PO (06:16)
[2024-03-01] MEDS: polyethylene glycol 3350 Pkt 17 gm PO (06:16)
[2024-03-01 08:00] VITALS: BP 130/77; PULSE 84; O2SAT 97
[2024-03-01 08:03] VITALS: PULSE 84; RESP 18; O2SAT 97
[2024-03-01] MEDS: baclofen 10 mg Tablet 20 MG PO (08:57)
[2024-03-01] MEDS: fludrocortisone 0.1 mg Tablet PO (08:58)
[2024-03-01] MEDS: hydrocortisone 1% cream 28 gm 1 APPLIC TOPICAL (08:59)
[2024-03-01 11:20] VITALS: BP 101/75; PULSE 85; RESP 17; TEMP 36.3; O2SAT 98
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
--- NOTE | 2024-03-01 11:36 | PC.SOCIAL ---
IMM Updated Updated pt on IMM. No questions voiced. Provided pt a copy. Initialed, dated, & timed copy in chart.
--- NOTE | 2024-03-01 13:31 | PM.PN ---
Subjective Subjective: Is a 58-year-old male who is status post debridement of left ischial decubitus ulcer. Currently has a wound VAC in place. No clinical complaints. Vitals/I&O/Wt Last Vital Signs Temp 97.3 F L 03/01/24 11:20 Pulse 85 03/01/24 11:20 Resp 17 03/01/24 11:20 BP 101/75 03/01/24 11:20 Pulse Ox 98 03/01/24 11:20 O2 Del Method Room Air 03/01/24 08:03 O2 Flow Rate 6 02/21/24 11:27 02/29/24 03/01/24 03/01/24 22:59 06:59 14:59 Intake Total 480 / 480 Output Total 300 / 300 100 / 400 Balance -300 / 180 -100 / 80 480 / 480 Weight last 48 hrs Weight 165 lb 3 oz Weight 164 lb 3.2 oz Physical Exam Extremity: NARRATIVE EXTREMITY EXAM: On the left hip there is a wound VAC in place, wound VAC effluent appears to be serosanguineous. Data 02/27/24 05:06 02/27/24 05:06 A&P Assessment and plan (1) Decubitus ulcer of left buttock: Qualifiers: Pressure injury stage: stage 2 Qualified Code(s): L89.322 - Pressure ulcer of left buttock, stage 2 Plan I will be evaluating this patient starting today; Dr. Rhodes has leave [facility]. Patient is status post debridement of the left ischial decubitus ulcer, wound VAC is in place and patient is doing well no significant issues. Patient wants to go home and is only waiting for wound VAC authorization in order to transition out of the hospital. From the surgical standpoint once wound VAC is ready and can be replaced and patient can be discharged no additional intervention is indicated. Attestations Medical Necessity Statement*: Per medical team Coding Level of Care Code Acute Code for [facility] Fwd Diagnoses Pressure injury of left buttock, stage 2 L89.322 Pressure injury stage: stage 2
[2024-03-01] MEDS: acetaminophen 500 mg Tablet PO (15:33)
[2024-03-01] MEDS: ibuprofen 800 mg tablet PO (15:33)
== END 2024-03-01 15:45 | disposition home health service (06) | DRG 987 ==
LOC: ER 22:03 → MEDSURG 22:07
PROVIDERS: Surgery; Admitting Provider Internal Medicine; Emergency Provider Emergency Medicine; PCP Family Medicine; Visit Provider Family Medicine
PROC: 0QB30ZX Excision of Left Pelvic Bone, Open Approach, Diagnostic (ICD-10-PCS; principal; 2024-02-21 09:40)
DX: L89.224 Pressure ulcer of left hip, stage 4 (principal); G82.50 Quadriplegia, unspecified; L02.31 Cutaneous abscess of buttock; M86.652 Other chronic osteomyelitis, left thigh; R78.81 Bacteremia; L89.899 Pressure ulcer of other site, unspecified stage; B95.62 Methicillin resistant Staphylococcus aureus infection as the cause of diseases classified elsewhere; N31.9 Neuromuscular dysfunction of bladder, unspecified; G90.9 Disorder of the autonomic nervous system, unspecified; I95.89 Other hypotension; B95.8 Unspecified staphylococcus as the cause of diseases classified elsewhere; G89.29 Other chronic pain; L89.129 Pressure ulcer of left upper back, unspecified stage; K58.2 Mixed irritable bowel syndrome; L25.9 Unspecified contact dermatitis, unspecified cause; Z96.0 Presence of urogenital implants; S14.104S Unspecified injury at C4 level of cervical spinal cord, sequela; Z87.440 Personal history of urinary (tract) infections; Z93.3 Colostomy status; Z95.828 Presence of other vascular implants and grafts; Z87.891 Personal history of nicotine dependence; V86.95XS Unspecified occupant of 3- or 4- wheeled all-terrain vehicle (ATV) injured in nontraffic accident, sequela
CPT/HCPCS: 36415; 74177; 80048; 80053; 83605; 83735; 84145; 85025; 85651; 86140; 87040; 87070; 87077; 87150; 87176; 87186; 87205; 88307; 88311; 96365; 96367; 96372; 99285; J0692; J1100; J1650; J2020; J2405; J2543; J2704; J3010; J7030; Q0162; Q9967

== ENCOUNTER → 2024-03-04 15:17 | Outpatient (BNVA) | payer MEDICARE, SELFPAY | PROVIDERS: PCP Family Medicine; Visit Provider Thoracic Surgery (Cardiothoracic Vascular Surgery) | DX: I96 Gangrene, not elsewhere classified (principal); L89.324 Pressure ulcer of left buttock, stage 4; L89.892 Pressure ulcer of other site, stage 2; L89.102 Pressure ulcer of unspecified part of back, stage 2; L97.521 Non-pressure chronic ulcer of other part of left foot limited to breakdown of skin | CPT/HCPCS: 97597; 97605; A6237 ==

== ENCOUNTER → 2024-03-08 15:24 | Outpatient (BNVA) | payer MEDICARE, SELFPAY | PROVIDERS: PCP Family Medicine; Visit Provider Thoracic Surgery (Cardiothoracic Vascular Surgery) | DX: I96 Gangrene, not elsewhere classified (principal); L89.324 Pressure ulcer of left buttock, stage 4; L89.892 Pressure ulcer of other site, stage 2; L89.102 Pressure ulcer of unspecified part of back, stage 2; L97.521 Non-pressure chronic ulcer of other part of left foot limited to breakdown of skin | CPT/HCPCS: 81000; 87086; 97597; 97605; A6212; A6237; A6250 ==

== ENCOUNTER → 2024-03-09 12:00 | Outpatient (BNVA) | payer MEDICARE, SELFPAY | PROVIDERS: PCP Family Medicine; Visit Provider Student in an Organized Health Care Education/Training Program | DX: M86.68 Other chronic osteomyelitis, other site (principal); N39.0 Urinary tract infection, site not specified | CPT/HCPCS: 99214 ==

== ENCOUNTER → 2024-03-15 15:06 | Outpatient (BNVA) | payer MEDICARE, SELFPAY | PROVIDERS: PCP Family Medicine; Visit Provider Thoracic Surgery (Cardiothoracic Vascular Surgery) | DX: L89.892 Pressure ulcer of other site, stage 2 (principal); L89.322 Pressure ulcer of left buttock, stage 2; L89.102 Pressure ulcer of unspecified part of back, stage 2; L97.521 Non-pressure chronic ulcer of other part of left foot limited to breakdown of skin | CPT/HCPCS: 97597; A6237; A6250 ==

== ENCOUNTER → 2024-03-22 14:07 | Outpatient (BNVA) | payer MEDICARE, SELFPAY | PROVIDERS: PCP Family Medicine; Visit Provider Thoracic Surgery (Cardiothoracic Vascular Surgery) | DX: I96 Gangrene, not elsewhere classified (principal); L89.324 Pressure ulcer of left buttock, stage 4; L89.892 Pressure ulcer of other site, stage 2; L89.102 Pressure ulcer of unspecified part of back, stage 2; G82.50 Quadriplegia, unspecified; Z09 Encounter for follow-up examination after completed treatment for conditions other than malignant neoplasm | CPT/HCPCS: 97597; 97605; A6212; A6237; A6250 ==

== ENCOUNTER → 2024-03-26 11:02 | Outpatient (BNVA) | payer MEDICARE, SELFPAY | PROVIDERS: PCP Family Medicine; Visit Provider Surgery | DX: L89.324 Pressure ulcer of left buttock, stage 4 (principal) | CPT/HCPCS: 99204 ==

== ENCOUNTER → 2024-04-05 13:58 | Outpatient (BNVA) | payer MEDICARE, SELFPAY | PROVIDERS: PCP Family Medicine; Visit Provider Thoracic Surgery (Cardiothoracic Vascular Surgery) | DX: I96 Gangrene, not elsewhere classified (principal); L89.324 Pressure ulcer of left buttock, stage 4; L89.892 Pressure ulcer of other site, stage 2; L89.102 Pressure ulcer of unspecified part of back, stage 2; Z09 Encounter for follow-up examination after completed treatment for conditions other than malignant neoplasm | CPT/HCPCS: 97597; A6212; A6237; A6250 ==

== ENCOUNTER → 2024-04-12 12:56 | Outpatient (BNVA) | payer MEDICARE, SELFPAY | PROVIDERS: PCP Family Medicine; Visit Provider Thoracic Surgery (Cardiothoracic Vascular Surgery) | DX: I96 Gangrene, not elsewhere classified (principal); L89.324 Pressure ulcer of left buttock, stage 4; L89.892 Pressure ulcer of other site, stage 2; L89.102 Pressure ulcer of unspecified part of back, stage 2 | CPT/HCPCS: 97597; A6237; A6250 ==

== ENCOUNTER → 2024-04-26 14:33 | Outpatient (BNVA) | payer MEDICARE, SELFPAY | PROVIDERS: PCP Family Medicine; Visit Provider Thoracic Surgery (Cardiothoracic Vascular Surgery) | DX: I96 Gangrene, not elsewhere classified (principal); L89.324 Pressure ulcer of left buttock, stage 4; L89.893 Pressure ulcer of other site, stage 3; L89.892 Pressure ulcer of other site, stage 2; L89.102 Pressure ulcer of unspecified part of back, stage 2 | CPT/HCPCS: 97597; A6237; A6250 ==

== ENCOUNTER → 2024-04-28 14:44 | Outpatient (BNVA) | payer MEDICARE, SELFPAY | PROVIDERS: PCP Family Medicine; Visit Provider Registered Nurse Neonatal Intensive Care | DX: T83.510A Infection and inflammatory reaction due to cystostomy catheter, initial encounter (principal); N39.0 Urinary tract infection, site not specified | CPT/HCPCS: 81000; 87086 ==

== ENCOUNTER → 2024-05-03 15:01 | Outpatient (BNVA) | payer MEDICARE, SELFPAY | PROVIDERS: PCP Family Medicine; Visit Provider Thoracic Surgery (Cardiothoracic Vascular Surgery) | DX: I96 Gangrene, not elsewhere classified (principal); L89.324 Pressure ulcer of left buttock, stage 4; L89.893 Pressure ulcer of other site, stage 3; L89.102 Pressure ulcer of unspecified part of back, stage 2; L89.892 Pressure ulcer of other site, stage 2 | CPT/HCPCS: 97597; A6237; A6250 ==

== ENCOUNTER → 2024-05-10 13:43 | Outpatient (BNVA) | payer MEDICARE, SELFPAY | PROVIDERS: PCP Family Medicine; Visit Provider Thoracic Surgery (Cardiothoracic Vascular Surgery) | DX: I96 Gangrene, not elsewhere classified (principal); L89.324 Pressure ulcer of left buttock, stage 4; L89.892 Pressure ulcer of other site, stage 2; L89.102 Pressure ulcer of unspecified part of back, stage 2 | CPT/HCPCS: 97597; 97605; A6237; A6250 ==

== ENCOUNTER → 2024-05-17 14:31 | Outpatient (BNVA) | payer MEDICARE, SELFPAY | PROVIDERS: PCP Family Medicine; Visit Provider Thoracic Surgery (Cardiothoracic Vascular Surgery) | DX: I96 Gangrene, not elsewhere classified (principal); L89.324 Pressure ulcer of left buttock, stage 4; L89.102 Pressure ulcer of unspecified part of back, stage 2; L89.892 Pressure ulcer of other site, stage 2 | CPT/HCPCS: 87086; 97597; 97605; A6237; A6250 ==

== ENCOUNTER → 2024-05-24 14:32 | Outpatient (BNVA) | payer MEDICARE, SELFPAY | PROVIDERS: PCP Family Medicine; Visit Provider Thoracic Surgery (Cardiothoracic Vascular Surgery) | DX: I96 Gangrene, not elsewhere classified (principal); L89.324 Pressure ulcer of left buttock, stage 4; L89.102 Pressure ulcer of unspecified part of back, stage 2; Z09 Encounter for follow-up examination after completed treatment for conditions other than malignant neoplasm | CPT/HCPCS: 97597; 97605; A6237 ==

== ENCOUNTER → 2024-05-27 14:53 | Outpatient (BNVA) | payer MEDICARE, SELFPAY | PROVIDERS: PCP Family Medicine | DX: R39.9 Unspecified symptoms and signs involving the genitourinary system (principal) | CPT/HCPCS: 81000; 87077; 87086; 87184 ==

== ENCOUNTER → 2024-05-31 14:37 | Outpatient (BNVA) | payer MEDICARE, SELFPAY | PROVIDERS: PCP Family Medicine; Visit Provider Thoracic Surgery (Cardiothoracic Vascular Surgery) | DX: I96 Gangrene, not elsewhere classified (principal); L89.324 Pressure ulcer of left buttock, stage 4; Z09 Encounter for follow-up examination after completed treatment for conditions other than malignant neoplasm | CPT/HCPCS: 97597; 97605; A6237; A6250 ==

== ENCOUNTER → 2024-06-07 14:57 | Outpatient (BNVA) | payer MEDICARE, SELFPAY | PROVIDERS: PCP Family Medicine; Visit Provider Thoracic Surgery (Cardiothoracic Vascular Surgery) | DX: I96 Gangrene, not elsewhere classified (principal); L89.324 Pressure ulcer of left buttock, stage 4 | CPT/HCPCS: 97597; 97605; A6237; A6250 ==

== ENCOUNTER → 2024-06-14 14:58 | Outpatient (BNVA) | payer MEDICARE, OTHER, SELFPAY | PROVIDERS: PCP Family Medicine; Visit Provider Thoracic Surgery (Cardiothoracic Vascular Surgery) | DX: I96 Gangrene, not elsewhere classified (principal); L89.324 Pressure ulcer of left buttock, stage 4 | CPT/HCPCS: 97597; 97605; A6237; A6250 ==

== ENCOUNTER → 2024-06-21 14:08 | Outpatient (BNVA) | payer MEDICARE, OTHER, SELFPAY | PROVIDERS: PCP Family Medicine; Visit Provider Thoracic Surgery (Cardiothoracic Vascular Surgery) | DX: L89.324 Pressure ulcer of left buttock, stage 4 (principal) | CPT/HCPCS: 97597; 97605; A6237; A6250 ==

== ENCOUNTER → 2024-06-28 15:03 | Outpatient (BNVA) | payer MEDICARE, SELFPAY | PROVIDERS: PCP Family Medicine; Visit Provider Thoracic Surgery (Cardiothoracic Vascular Surgery) | DX: I96 Gangrene, not elsewhere classified (principal); L89.324 Pressure ulcer of left buttock, stage 4 | CPT/HCPCS: 97597; 97605; A6237; A6250 ==

== ENCOUNTER → 2024-07-05 14:30 | Outpatient (BNVA) | payer MEDICARE, SELFPAY | PROVIDERS: PCP Family Medicine; Visit Provider Thoracic Surgery (Cardiothoracic Vascular Surgery) | DX: L89.154 Pressure ulcer of sacral region, stage 4 (principal) | CPT/HCPCS: 11042; 97605; A6237; A6250 ==

== ENCOUNTER → 2024-07-12 14:37 | Outpatient (BNVA) | payer MEDICARE, SELFPAY | PROVIDERS: PCP Family Medicine; Visit Provider Thoracic Surgery (Cardiothoracic Vascular Surgery) | DX: L89.324 Pressure ulcer of left buttock, stage 4 (principal) | CPT/HCPCS: 97597 ==

== ENCOUNTER → 2024-07-19 14:41 | Outpatient (BNVA) | payer MEDICARE, SELFPAY | PROVIDERS: PCP Family Medicine; Visit Provider Thoracic Surgery (Cardiothoracic Vascular Surgery) | DX: I96 Gangrene, not elsewhere classified (principal); L89.324 Pressure ulcer of left buttock, stage 4; L89.311 Pressure ulcer of right buttock, stage 1 | CPT/HCPCS: 11042 ==

== ENCOUNTER → 2024-07-26 14:36 | Outpatient (BNVA) | payer MEDICARE, SELFPAY | PROVIDERS: PCP Family Medicine; Visit Provider Thoracic Surgery (Cardiothoracic Vascular Surgery) | DX: L89.324 Pressure ulcer of left buttock, stage 4 (principal) | CPT/HCPCS: 97597; A6210 ==

== ENCOUNTER → 2024-07-30 18:30 | Outpatient (BNVA) | payer MEDICARE, SELFPAY | PROVIDERS: PCP Family Medicine; Visit Provider Nurse Practitioner Family | DX: N30.01 Acute cystitis with hematuria (principal) | CPT/HCPCS: 81000 ==

== ENCOUNTER → 2024-08-02 14:46 | Outpatient (BNVA) | payer MEDICARE, SELFPAY | PROVIDERS: PCP Family Medicine; Visit Provider Thoracic Surgery (Cardiothoracic Vascular Surgery) | DX: L89.324 Pressure ulcer of left buttock, stage 4 (principal); S70.322D Blister (nonthermal), left thigh, subsequent encounter; X58.XXXD Exposure to other specified factors, subsequent encounter; Z09 Encounter for follow-up examination after completed treatment for conditions other than malignant neoplasm | CPT/HCPCS: 97597; A6212 ==

== ENCOUNTER → 2024-08-09 14:15 | Outpatient (BNVA) | payer MEDICARE, SELFPAY | PROVIDERS: PCP Family Medicine; Visit Provider Thoracic Surgery (Cardiothoracic Vascular Surgery) | DX: I96 Gangrene, not elsewhere classified (principal); L89.324 Pressure ulcer of left buttock, stage 4; S70.322D Blister (nonthermal), left thigh, subsequent encounter; X58.XXXD Exposure to other specified factors, subsequent encounter | CPT/HCPCS: 11042; 97597; A6210; A6219 ==

== ENCOUNTER → 2024-08-12 16:50 | Outpatient (BNVA) | payer MEDICARE, SELFPAY | PROVIDERS: PCP Family Medicine; Visit Provider Registered Nurse Neonatal Intensive Care | DX: R39.9 Unspecified symptoms and signs involving the genitourinary system (principal) | CPT/HCPCS: 81000; 87077; 87086; 87184 ==

== ENCOUNTER → 2024-08-16 14:32 | Outpatient (BNVA) | payer MEDICARE, SELFPAY | PROVIDERS: PCP Family Medicine; Visit Provider Thoracic Surgery (Cardiothoracic Vascular Surgery) | DX: I96 Gangrene, not elsewhere classified (principal); L89.324 Pressure ulcer of left buttock, stage 4; S70.322D Blister (nonthermal), left thigh, subsequent encounter; X58.XXXD Exposure to other specified factors, subsequent encounter; T23.121D Burn of first degree of single right finger (nail) except thumb, subsequent encounter; X10.1XXD Contact with hot food, subsequent encounter | CPT/HCPCS: 97597; A6210 ==

== ENCOUNTER → 2024-08-23 14:56 | Outpatient (BNVA) | payer MEDICARE, SELFPAY | PROVIDERS: PCP Family Medicine; Visit Provider Thoracic Surgery (Cardiothoracic Vascular Surgery) | DX: I96 Gangrene, not elsewhere classified (principal); L89.324 Pressure ulcer of left buttock, stage 4; S70.322D Blister (nonthermal), left thigh, subsequent encounter; X58.XXXD Exposure to other specified factors, subsequent encounter; T23.121D Burn of first degree of single right finger (nail) except thumb, subsequent encounter; X10.1XXD Contact with hot food, subsequent encounter | CPT/HCPCS: 11042; 97597; A6219 ==

== ENCOUNTER → 2024-08-24 14:30 | Outpatient (BNVA) | payer MEDICARE, SELFPAY | PROVIDERS: PCP Family Medicine; Visit Provider Student in an Organized Health Care Education/Training Program | DX: M86.68 Other chronic osteomyelitis, other site (principal); N39.0 Urinary tract infection, site not specified | CPT/HCPCS: 99213 ==

== ENCOUNTER → 2024-09-13 15:04 | Outpatient (BNVA) | payer MEDICARE, SELFPAY | PROVIDERS: PCP Family Medicine; Visit Provider Thoracic Surgery (Cardiothoracic Vascular Surgery) | DX: I96 Gangrene, not elsewhere classified (principal); L89.622 Pressure ulcer of left heel, stage 2; L89.893 Pressure ulcer of other site, stage 3; Z09 Encounter for follow-up examination after completed treatment for conditions other than malignant neoplasm | CPT/HCPCS: 97597 ==

== ENCOUNTER → 2024-09-24 11:00 | Outpatient (BNVA) | payer MEDICARE, SELFPAY | PROVIDERS: PCP Family Medicine; Visit Provider Thoracic Surgery (Cardiothoracic Vascular Surgery) | DX: I96 Gangrene, not elsewhere classified (principal); L89.893 Pressure ulcer of other site, stage 3; L89.622 Pressure ulcer of left heel, stage 2 | CPT/HCPCS: 97597; A6220 ==

== ENCOUNTER 2024-09-26 12:07 | Emergency (ER) | payer MEDICARE, OTHER, SELFPAY ==
[2024-09-26 12:20] VITALS: BP 110/65; PULSE 70; RESP 18; TEMP 36.8; O2SAT 95
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
[2024-09-26] MEDS: HYDROcodone-acetaminophen 7.5-325 mg Tablet 1 TAB PO (12:40)
[2024-09-26 12:50] VITALS: BP 110/63; PULSE 82; O2SAT 96
--- NOTE | 2024-09-29 16:39 | DCPLANNER ---
faxed referral packet to dr alves
== END 2024-09-26 12:50 | disposition home or self-care (01) ==
PROVIDERS: Emergency Provider Emergency Medicine; PCP Family Medicine
DX: K13.0 Diseases of lips (principal); Z87.891 Personal history of nicotine dependence
CPT/HCPCS: 10060; 99283

== ENCOUNTER 2024-09-27 05:36 | Observation (INO) | payer MEDICARE, OTHER, SELFPAY ==
[2024-09-27] VITALS (12 sets, daily range): BP systolic 76–154; BP diastolic 44–89; PULSE 60–88; RESP 16–20; TEMP 36.4–37.1; O2SAT 91–97; BMI 27.8
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
[2024-09-27] MEDS: sodium chloride 0.9% 1,000 ML 999 ML IV (06:17)
[2024-09-27 06:38] LABS: Basophils % 0.2 %; Eosinophils # 0.2 10^3/uL (0.0-0.8); Eosinophils % 1.3 %; Hematocrit 38.2 % (37-53); Lymphocytes # 2.2 10^3/uL (0.8-4.8); Lymphocytes % 13.4 %; Mean Corpuscular HGB Conc 31.7 g/dL (30-55); Mean Corpuscular Hemoglobin 26.4 pg (27-33); Mean Corpuscular Volume 83.4 fl (82-101); Mean Platelet Volume 10.4 fL (7.4-10.4); Monocytes # 1.3 10^3/uL (0.2-0.9); Monocytes % 8.1 %; Neutrophils % 76.6 %; Nucleated Red Blood Cells % 0 %; Platelet Count 232 10^3/cmm (157-399); Red Blood Count 4.58 10^6/uL (3.85-5.65); Red Cell Distribution Width 16.9 % (12.1-15.1); White Blood Count 16.47 10^3/uL (3.29-11.43)
[2024-09-27 06:40] LABS: Bilirubin Urine Negative (Negative); Blood Urine Negative (Negative); Glucose Urine UA Negative (Normal); Ketones Urine Trace (Negative); Leukocyte Esterase Urine 2+ (Negative); Nitrate Urine Positive (Negative); Protein Urine Negative (Negative); Specific Gravity, Urine 1.015 (1.005-1.030); Urine Appearance Clear (CLEAR); Urine Color Yellow (Yellow); Urobilinogen Urine 0.2 mg/dL (Negative); pH Urine 5.5 (5-7)
[2024-09-27 06:58] LABS: UA Manual Slide Review YES
[2024-09-27 06:59] LABS: Add Urine Microscopic? YES; Bacteria Urine 2+ /hpf; RBC Urine 0-4 /hpf (0-2); Squamous Epithelial Cell Urine 0-4 /hpf (0-5); WBC Urine 40-55 /hpf (0-5)
[2024-09-27 07:00] LABS: Alanine Aminotransferase 18 U/L (0-41); Albumin Level 3.5 g/dL (3.5-5.2); Alkaline Phosphatase 123 U/L (40-130); Anion Gap 13.2 (5-19); Aspartate Amino Transferase 12 U/L (0-40); Blood Urea Nitrogen 15 mg/dL (8-23); C Reactive Protein 101.6 mg/L (0.0-4.9); Calcium 8.5 mg/dL (8.5-10.5); Carbon Dioxide 22 mmol/L (22-29); Chloride 101 mmol/L (98-107); Creatinine Clr Calc Pharmacy 181.0382; Globulin 3.1 g/dL (1.3-4.6); Glomerular Filtration Rate 169.6 mL/min (90-130); Glucose 100 mg/dL (65-115); Lactic Sepsis W/Reflex 1.3 mmol/L (0.5-2.2); Mucus Urine TRACE /hpf; Osmolality Calculated 275 mOsm/kg (285-295); Potassium 4.2 mmol/L (3.5-5.1); Sodium 132 mmol/L (136-145); Total Bilirubin 0.4 mg/dL (0.15-1.2); Total Protein 6.6 g/dL (6.6-8.7)
[2024-09-27 07:01] LABS: Add Urine Culture? Yes; Coarse Granular Casts Urine 0-4 /lpf; Fine Granular Casts Urine 0-4 /lpf; Other Casts Urine WBC CAST /lpf
--- NOTE | 2024-09-27 07:16 | CT_ITS ---
WS: [id number] CT ABDOMEN AND PELVIS NONCONTRAST HISTORY: flank pain TECHNIQUE: Imaging performed through the abdomen and pelvis. Coronal and sagittal reformats are submitted. All CT scans at [facility] use at least one of these dose optimization techniques: automated exposure control; mA and/or kV adjustment per patient size (includes targeted exams where dose is matched to clinical indication); or iterative reconstruction. DLP: 767.17 mGy.cm COMPARISON: 02/20/2024 Lower thorax: Dependent changes at the lung bases with motion artifact. No pneumonia. Normal size heart with a small hiatal hernia. Liver: Normal size liver. No mass or bile duct dilatation. Gallbladder: Prior cholecystectomy. Pancreas: Normal size and attenuation. Normal pancreatic duct. No pancreatitis or mass. Spleen: Normal. Adrenal glands: Normal. No mass. Right kidney: Renal cysts have been previously described. There are multiple low-attenuation masses. Central nonobstructing 8 mm calcification. No ureteral dilatation. Left kidney: No obstruction. No renal or ureteral calcifications. Aorta: Mild atherosclerosis abdominal aorta with no aneurysm. No free fluid, intraperitoneal air or significant lymphadenopathy. GI tract: No GI tract obstruction. High density material in the stomach may be medicinal. There is no small bowel obstruction. The appendix is normal. There is a small amount of mesenteric stranding within the abdomen extending into the RIGHT lower quadrant but it is not focal to the appendix. LEFT lower quadrant ostomy site. Abdominal wall: Thinning of the abdominal wall musculature. LEFT lower quadrant ostomy. Pelvis: Suprapubic Dejesus catheter. Urinary bladder is minimally distended. Reidentified is the LEFT decubitus ulcer extending to the ischial tuberosity. The ulcer appears improved since 02/20/2024. The tract is smaller with less air. No focal fluid collection or abscess identified on this unenhanced exam. There is less and soft tissue inflammation. Deformity of the LEFT issue tuberosity from prior infection. No obvious lytic area or bone destruction. Most likely healed osteomyelitis. CT/CT kidney stone [id number] IMPRESSION: 1. No renal obstruction. Nonobstructing calcification RIGHT kidney. 2. Prior cholecystectomy. 3. IVC filter in good position. 4. Normal appendix. There is a small amount of mesenteric stranding in the RIG HT lower quadrant but not focal to the appendix and the appendix is normal size . 5. Improved LEFT pelvis decubitus ulcer extending to the LEFT ischial tuberosi ty. Significant improvement since 02/20/2024. There is a soft tissue tract but n o definite abscess. The subcutaneous inflammatory process described on 4 has markedly improved. Chronic changes of osteomyelitis at the LEFT ischial t uberosity. 6. LEFT lower quadrant ostomy.
[2024-09-27] MEDS: piperacillin-tazobactam 3.375 GM in sodium chloride 0.9% (plus) 50 ML IV ×3 (08:00→22:10)
--- NOTE | 2024-09-27 08:58 | US_ITS ---
WS: [id number] ULTRASOUND SOFT TISSUES LEFT lower lip HISTORY: Lower lip COMPARISON: None available. TECHNIQUE: 2-D and color Doppler imaging is submitted. Inflammatory collection centered in the lower LEFT lip. There is a complex collection with edema. The entire collection measures 3.8 x 2.3 cm. There is an central area of complex cystic echogenicity which is probably a phlegmon and early developing abscess. This focal central collection measures 0.9 x 0.6 cm. US/US soft tissue head neck [id number] IMPRESSION: 1. Predominately phlegmonous collection involving the LEFT lower lip. Central developing abscess is likely measuring 0.9 x 0.6 cm.
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
[2024-09-27 11:32] LABS: Influenza A NEGATIVE (Negative); Influenza B NEGATIVE (Negative); Respiratory Syncytial Virus Ce NEGATIVE (Negative); SARS-CoV-2 PCR NEGATIVE (Negative)
[2024-09-27] MEDS: morphine IR 15 mg Tablet PO (13:02)
[2024-09-27] MEDS: enoxaparin 40 mg/0.4 mL Syringe SUBCUT (13:03)
[2024-09-27] MEDS: ibuprofen 800 mg tablet PO ×2 (14:11→22:16)
[2024-09-27] MEDS: midodrine 5 mg TABLET 10 MG PO ×2 (14:14→19:34)
[2024-09-27] MEDS: SODIUM CHLORIDE 0.9% IV (14:48)
[2024-09-27] MEDS: DAPTOMYCIN IV (14:48)
[2024-09-27] MEDS: NON-FORMULARY MEDICATION (Linaclotide [Linzess] 145 mcg capsule) 145 EACH PO (16:15)
[2024-09-27] MEDS: baclofen 10 mg Tablet 20 MG PO (17:43)
[2024-09-27] MEDS: potassium chloride ER 20 mEq Tablet PO (19:34)
[2024-09-27 20:31] LABS: MRSA PCR OZH (swab) MRSA Detected (Negative)
[2024-09-27] MEDS: diphenhydrAMINE 50 mg Capsule PO (22:50)
[2024-09-27] MEDS: oxybutynin 5 mg Tablet PO (22:50)
[2024-09-28] VITALS (9 sets, daily range): BP systolic 91–152; BP diastolic 60–85; PULSE 61–86; RESP 16–18; TEMP 36.6–36.9; O2SAT 95–98
[2024-09-28] MEDS: acetaminophen 325 mg Tablet 650 MG PO (02:30)
--- NOTE | 2024-09-28 03:16 | PC.NURSE ---
Unable to give PRN Morphine due to patient having low blood pressures. PRN Tylenol and Ibuprofen being utilized instead.
[2024-09-28] MEDS: midodrine 5 mg TABLET 10 MG PO ×3 (06:14→20:08)
[2024-09-28] MEDS: piperacillin-tazobactam 3.375 GM in sodium chloride 0.9% (plus) 50 ML IV ×3 (06:14→22:48)
[2024-09-28 06:26] LABS: Basophils % 0.3 %; Eosinophils # 0.1 10^3/uL (0.0-0.8); Eosinophils % 1.1 %; Hematocrit 39.2 % (37-53); Lymphocytes # 2.7 10^3/uL (0.8-4.8); Lymphocytes % 24.7 %; Mean Corpuscular HGB Conc 30.9 g/dL (30-55); Mean Corpuscular Hemoglobin 26.1 pg (27-33); Mean Corpuscular Volume 84.7 fl (82-101); Mean Platelet Volume 11.1 fL (7.4-10.4); Neutrophils # 7.02 10^3/uL (1.8-7.7); Neutrophils % 64.6 %; Nucleated Red Blood Cells % 0 %; Platelet Count 244 10^3/cmm (157-399); Red Blood Count 4.63 10^6/uL (3.85-5.65); Red Cell Distribution Width 16.8 % (12.1-15.1); White Blood Count 10.87 10^3/uL (3.29-11.43)
[2024-09-28 06:52] LABS: Anion Gap 14.6 (5-19); Blood Urea Nitrogen 12 mg/dL (8-23); Calcium 8.6 mg/dL (8.5-10.5); Carbon Dioxide 21 mmol/L (22-29); Chloride 102 mmol/L (98-107); Creatinine Clr Calc Pharmacy 212.2878; Glomerular Filtration Rate 219.4 mL/min (90-130); Glucose 93 mg/dL (65-115); Osmolality Calculated 275 mOsm/kg (285-295); Potassium 4.6 mmol/L (3.5-5.1); Sodium 133 mmol/L (136-145)
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
--- NOTE | 2024-09-28 08:50 | PM.PN ---
Subjective Subjective: He is overall doing better. There is some reduction in output from his colostomy today. Vitals/I&O/Wt Last Vital Signs Temp 98.3 F 09/28/24 07:55 Pulse 86 09/28/24 07:55 Resp 16 09/28/24 07:55 BP 116/71 09/28/24 07:55 Pulse Ox 98 09/28/24 07:55 O2 Del Method Room Air 09/28/24 07:55 09/27/24 09/28/24 09/28/24 22:59 06:59 14:59 Intake Total 1480 / 2530 550 / 3080 Output Total 700 / 700 Balance 1480 / 2530 -150 / 2380 Weight last 48 hrs Weight 78.109 kg Weight 78.925 kg Weight 90.718 kg Physical Exam Const: COMMON NORMALS: patient oriented x3 and alert GENERAL APPEARANCE: cooperative ORIENTATION/CONSCIOUSNESS: Yes awake HENMT: COMMON NORMALS: oropharynx normal OTHER: Swelling, mild erythema of the lower lip. Wound after I&D to the left of the midline with small amount of serosanguineous discharge. No purulence noted at this time. Neck/C-Spine: COMMON NORMALS: no JVD Resp: COMMON NORMALS: normal respiratory effort and clear to auscultation bilaterally AUSCULTATION: clear to auscultation bilaterally Cardio: COMMON NORMALS: no JVD, regular rhythm, S1 normal heart sound present, S2 normal heart sound present and No murmurs present (Cardio) RHYTHM: regular rhythm HEART SOUNDS: S1 normal heart sound present and S2 normal heart sound present GI: COMMON NORMALS: Normal to inspection, nondistended, normoactive bowel sounds present, Soft to palpation and non-tender PALPATION: Yes Soft to palpation OTHER: Left lower quadrant ostomy. : OTHER: Suprapubic catheter without any surrounding erythema or swelling. Without any urine leakage noted. Extremity: COMMON NORMALS: no joint enlargement and no pedal edema NARRATIVE EXTREMITY EXAM: Left heel chronic pressure wound with small ulceration about 7 mm in size with tiny amount of slough on the dressing. Neuro: COMMON NORMALS: patient oriented x3 SENSORIUM/ORIENTATION: Yes alert Skin: COMMON NORMALS: no rashes or lesions noted GENERAL SKIN EXAM: no rashes or lesions noted Urinary Catheter Management: Suprapubic: Cath Placed During This Visit: yes Reason for Continuing Indwelling Catheter: Chronic Indwelling Urinary Catheter on Admission Urinary Catheter Date of Insertion: 09/27/24 Urinary Catheter Time of Insertion: 13:50 Data 09/28/24 05:36 09/28/24 05:36 Micro: Microbiology 09/27/24 07:20 Blood Culture - Preliminary Blood NEGATIVE TO DATE 09/27/24 07:16 Blood Culture - Preliminary Blood NEGATIVE TO DATE A&P Assessment and plan (1) Complicated UTI (urinary tract infection): Reviewed urine culture, so far pending, but is noted to be growing gram-negative rods. Follow-up ID and sensitivity. Continue empiric antibiotic coverage. Suprapubic catheter has been exchanged. Reviewed vitals, CBC, BMP. Continue IV antibiotic coverage with Zosyn, daptomycin. Monitor for risk of C. difficile, cytopenia. Suspected complicated urinary tract infection and gentleman with quadriplegia with chronic indwelling suprapubic catheter with recurrent urinary tract infections in the past, including MDRO on review of prior culture results. Most recently E. coli with resistance to Unasyn, quinolones, gentamicin, tetracycline, Bactrim, although not ESBL. Number of cultures going back have been showing organisms sensitive to Zosyn. He has received the first dose Zosyn in ER will continue at this time. Follow-up urine culture. Reviewed vitals, CBC, CMP, UA, CT abdomen pelvis, ER provider note, discussed with ER provider. No sign of obstructive uropathy on CT at current time. At this time no sign of presence of nephrolithiasis. Noted with leukocytosis 16.5, will repeat CBC. Monitor vitals for any signs of change/progression to sepsis. Consider follow-up with infectious disease after discharge. Reviewed infectious disease note regarding recurrent urinary tract infections, unfortunately breakthrough breakthrough UTIs despite methenamine suppression. Appears may have contamination occurring from intermittent leakage of colostomy. Recommendation was to continue methenamine, as well as trial Macrobid 100 mg twice daily for UTI prevention to be started on the day of fecal soiling regardless of symptoms and continue for 3 days, in case of becoming symptomatic still needing urine culture and direct antibiotics. (2) Cellulitis of lip: Reviewed vitals, CBC, head and neck soft tissue ultrasound. Discussed with the surgeon, appreciate consultation with consideration of abscess. Appreciate consultation. Continue IV antibiotics. Mupirocin. Reviewed MRSA PCR, positive. Continue daptomycin, monitor for risk of rhabdomyolysis. Check CK. Swelling of the lower lip status post I&D on 09/26, with persistent swelling/worsening, although currently without purulent discharge, some diffuse swelling of the lower lip, possible cellulitis versus purulent cellulitis. Does have history of soft tissue staphylococcal infection, I do not see history of MRSA. I do not see tissue culture from 09/26, blood culture has been obtained, follow-up. For now empiric coverage including Zosyn as above. As well as will give MRSA coverage, obtain MRSA PCR. Follow-up CBC reassess leukocytosis. Monitor vitals for any signs symptom of development of SIRS/sepsis. Monitor for any progression to more complicated local infection. At this time without signs of more proximal infection, without any chin swelling tenderness, erythema, no difficulty swallowing or other complaints. Plan Pressure ulcers: Add protein shakes to diet. Chronic sacral pressure ulcer stage IV, as well as chronic osteomyelitis, although the wound has been improving. Reviewed infectious disease note regarding osteomyelitis of ischial tuberosity, also noted improvement, he is not on chronic antibiotics. Continue wound care, frequent repositioning. Continue follow-up with wound care clinic, infectious disease. Constipation: Some decrease in output of colostomy. He takes MiraLAX at home which is being prepared for him by his . Additionally as per discussion he requested a dose of Dulcolax. PAD IVC filter Other medical problems Discussed with him and his at bedside. 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 PDMP PDMP Reviewed: Not Reviewed Attestations Medical Necessity Statement*: Continue hospitalization for assessment management of complicated urinary tract infection as well as purulent cellulitis, phlegmon, lower lip abscess. and High MDM includes amount and/or complexity of data reviewed/ordered [ previous or external records, resulted lab(s)/test(s), ordered lab(s)/test(s) and other healthcare professional discussion] and described risk of complication, morbidity or mortality of management as documented Diagnoses Complicated UTI (urinary tract infection) N39.0 Cellulitis of lip K13.0
[2024-09-28] MEDS: baclofen 10 mg Tablet 20 MG PO ×2 (09:41→17:09)
[2024-09-28] MEDS: mupirocin oint 22 gm 1 APPLIC TOPICAL ×3 (09:42→20:08)
[2024-09-28] MEDS: potassium chloride ER 20 mEq Tablet 10 MEQ PO (09:42)
--- NOTE | 2024-09-28 09:55 | PC.CHAP ---
Pastoral Care Encounter/Spiritual Assessment Type of Contact [] Declined technical communicator visit [] Patient/Family/Request visit [] Outpatient visit [] Follow-up visit [] Physician referral [] Code/Alert [] Routine visit [] Staff referral [] Actively dying [] Patient sleeping [] Family support [] [] Out of room [] Palliative care [] [] Receiving care in room [] Pre-surgical visit [] Trauma [] Long length of stay [] ICU visit [x] Other:Contact precautions. No visit. Relational/Emotional Strength [] Patient feels connected with others/family/visitors/staff [] Distress [] Loneliness/isolation [] Abandonment Spirituality of Patient [] Person of Patrica [] Attends Uatsdin of their Patrica [] Believes in Prayer [] Reads Bible or Cheondoism materials [] There are Spiritual issues to be addressed Senior Functional Analyst Interventions [] Prayer [] Active listening [] Non-anxious presence [] Spiritual/emotional support [] Crisis/trauma care [] Spiritual counseling [] Bereavement support [] Provided bereavement packet [] Provided Bible/devotional materials [] Provided toy/stuffed animal, coloring book to patient or family member [] Provided Communion [] Anointing/[place] [] Salvation [] Completed spiritual assessment [] Other: Impact on Illness or Injury [] Angry [] Fearful [] Anxious [] Often cries [] Exhaustion [] Unable to work [] Unable to attend hinduism [] Unable to walk/stand [] Unable to read [] Unable to drive [] Unable to eat/drink [] Unable to sleep [] Unable to be with family [] Patient intubated [] Other: Summary Time spent with patient
[2024-09-28] MEDS: enoxaparin 40 mg/0.4 mL Syringe SUBCUT (12:01)
[2024-09-28] MEDS: NON-FORMULARY MEDICATION (Linaclotide [Linzess] 145 mcg capsule) 145 EACH PO (12:03)
[2024-09-28] MEDS: ibuprofen 800 mg tablet PO ×2 (13:17→21:21)
[2024-09-28] MEDS: bisacodyl 5 mg Tablet 10 MG PO (14:52)
[2024-09-28] MEDS: SODIUM CHLORIDE 0.9% IV (17:01)
[2024-09-28] MEDS: DAPTOMYCIN IV (17:01)
[2024-09-28] MEDS: oxybutynin 5 mg Tablet PO (20:08)
[2024-09-29 03:42] VITALS: BP 124/78; PULSE 62; RESP 16; TEMP 36.7; O2SAT 96
[2024-09-29 06:05] LABS: Basophils % 0.4 %; Eosinophils # 0.3 10^3/uL (0.0-0.8); Eosinophils % 2.7 %; Hematocrit 39.1 % (37-53); Lymphocytes # 2.8 10^3/uL (0.8-4.8); Lymphocytes % 29.6 %; Mean Corpuscular HGB Conc 31.2 g/dL (30-55); Mean Corpuscular Hemoglobin 26.6 pg (27-33); Mean Corpuscular Volume 85.2 fl (82-101); Mean Platelet Volume 10.4 fL (7.4-10.4); Monocytes # 0.8 10^3/uL (0.2-0.9); Monocytes % 7.9 %; Neutrophils # 5.62 10^3/uL (1.8-7.7); Neutrophils % 59.2 %; Nucleated Red Blood Cells % 0 %; Platelet Count 252 10^3/cmm (157-399); Red Blood Count 4.59 10^6/uL (3.85-5.65); Red Cell Distribution Width 16.5 % (12.1-15.1)
[2024-09-29 06:30] LABS: Blood Urea Nitrogen 12 mg/dL (8-23); Calcium 8.5 mg/dL (8.5-10.5); Carbon Dioxide 20 mmol/L (22-29); Chloride 105 mmol/L (98-107); Creatinine Clr Calc Pharmacy 212.4889; Glomerular Filtration Rate 219.4 mL/min (90-130); Glucose 126 mg/dL (65-115); Osmolality Calculated 287 mOsm/kg (285-295); Sodium 138 mmol/L (136-145)
[2024-09-29 06:47] LABS: Creatine Phosphokinase 80 U/L (39-308)
[2024-09-29] MEDS: piperacillin-tazobactam 3.375 GM in sodium chloride 0.9% (plus) 50 ML IV ×2 (06:58→16:19)
[2024-09-29 07:51] VITALS: BP 116/82; PULSE 64; RESP 18; TEMP 36.6; O2SAT 96
[2024-09-29] MEDS: mupirocin oint 22 gm 1 APPLIC TOPICAL ×2 (08:46→16:18)
[2024-09-29] MEDS: baclofen 10 mg Tablet 20 MG PO (08:46)
[2024-09-29] MEDS: potassium chloride ER 20 mEq Tablet 10 MEQ PO (08:46)
[2024-09-29] MEDS: midodrine 5 mg TABLET 10 MG PO ×2 (08:46→16:18)
[2024-09-29 12:03] VITALS: BP 142/88; PULSE 59; RESP 18; TEMP 36.1; O2SAT 97
[2024-09-29] MEDS: enoxaparin 40 mg/0.4 mL Syringe SUBCUT (12:42)
[2024-09-29] MEDS: ibuprofen 800 mg tablet PO (12:45)
[2024-09-29] MEDS: DAPTOMYCIN IV (15:10)
[2024-09-29] MEDS: SODIUM CHLORIDE 0.9% IV (15:10)
[2024-09-29 15:57] VITALS: BP 149/99; PULSE 59; RESP 16; TEMP 36.7; O2SAT 98
[2024-09-29 18:06] VITALS: BP 149/99; PULSE 59; RESP 16; TEMP 36.7; O2SAT 98
--- NOTE | 2024-09-29 18:29 | PM.DCS ---
Discharge Providers Date of Admission: 09/27/24 11:57 Date of Discharge: September 29, 2024 Attending Provider at Admission: Yaniv Harkins Attending Provider at Discharge: Yaniv Harkins Primary Care Provider: Preeti Barksdale MD Diagnoses at Discharge Discharge Diagnosis (1) Complicated UTI (urinary tract infection): Status: Resolved (2) Cellulitis of lip: Status: Acute Reason for Visit Reason for Visit: HYPERTENSION Brief History: Pleasant 59-year-old gentleman with history of spastic quadriplegia, urinary retention, status post suprapubic catheter, history of recurrent urinary tract infection with multidrug-resistant organisms, history of nephrolithiasis, PAD, IVC filter, complicated pressure wound of sacrum which recently has been healed up, chronic wound of the left heel which also has been improving with wound care, following at the wound care clinic. He was in the ER on 09/26 with lower lip swelling, pain, redness, underwent I&D of lower lip abscess, given prescription for Bactrim. He returns to the hospital generally weak, had an episode of nausea and vomiting and route to the hospital. Swelling persists with some worsening in the lower lip. Denies any worsening of sacral or left heel wounds. In ER with finding of leukocytosis 16.5, afebrile, with urinalysis with 40-55 WBC, 0-4 RBC, positive nitrate, 2+ bacteria, fine granular casts, coarse current. WBC casts, urine mucus. CT abdomen pelvis was obtained which showed no renal obstruction, IVC filter in good position, normal appendix. Incidentally noted to small-moderate mesenteric stranding in the right lower quadrant but not focal to the appendix. Improved left pelvis decubitus ulcer extending to the left ischial tuberosity. Significant purulent compared to January 2024. Soft tissue tract is present without definite abscess. Additionally subcutaneous inflammatory process described in January 2024 has shown marked improvement. Chronic changes of osteomyelitis at the left ischial tuberosity. Left lower quadrant ostomy. Hospital Course Hospital Course He was admitted and started on treatment for complicated urinary tract infection, with multidrug-resistant organisms in the past empirically covered with Zosyn. Additionally assessed with regards to purulent cellulitis, status post drainage of abscess of lower lip, soft tissue ultrasound was obtained, with finding of phlegmon, and appearance of possible additional residual abscess 0.9 x 0.6 cm. Surgery consultation was obtained, surgery additionally probed the wound, with further recommendation for additional 48 hours of IV antibiotics prior to discharge which he received as well as referral for follow-up with ENT which is requested. MRSA PCR was obtained, and he is found to be colonized with MRSA. Coverage continues with inclusion of MRSA. His suprapubic catheter was replaced while in the hospital. Urine cultures are showing gram-negative rods 40/50,000, appears to have 2 separate organisms. Culture still pending, however, he request to return home today. Understands as discussed with him potential resistant organism, potential need for PICC line and IV antibiotics with risk of failure of treatment in case of resistant organism. He still requested return home, and although there is difficulty, states will return to get a PICC line and start IV antibiotics in case of need based on final culture results. He is for now discharging empirically with cefdinir based on prior sensitivities of urine culture, as well as continued Bactrim to complete the course for MRSA coverage for lower purulent cellulitis. During his position had slowdown of output from colostomy, but did produce stool with continued bowel regimen. Please reassess. Continue to minimize contamination of suprapubic catheter from colostomy. Physical Exam Const: COMMON NORMALS: patient oriented x3 and alert GENERAL APPEARANCE: cooperative ORIENTATION/CONSCIOUSNESS: Yes awake HENMT: COMMON NORMALS: oropharynx normal OTHER: Swelling, mild erythema of the lower lip. Wound after I&D to the left of the midline with small amount of serosanguineous discharge. No purulence noted at this time. Neck/C-Spine: COMMON NORMALS: no JVD Resp: COMMON NORMALS: normal respiratory effort and clear to auscultation bilaterally AUSCULTATION: clear to auscultation bilaterally Cardio: COMMON NORMALS: no JVD, regular rhythm, S1 normal heart sound present, S2 normal heart sound present and No murmurs present (Cardio) RHYTHM: regular rhythm HEART SOUNDS: S1 normal heart sound present and S2 normal heart sound present GI: COMMON NORMALS: Normal to inspection, nondistended, normoactive bowel sounds present, Soft to palpation and non-tender PALPATION: Yes Soft to palpation OTHER: Left lower quadrant ostomy. : OTHER: Suprapubic catheter without any surrounding erythema or swelling. Without any urine leakage noted. Extremity: COMMON NORMALS: no joint enlargement and no pedal edema NARRATIVE EXTREMITY EXAM: Left heel chronic pressure wound with small ulceration about 7 mm in size with tiny amount of slough on the dressing. Neuro: COMMON NORMALS: patient oriented x3 SENSORIUM/ORIENTATION: Yes alert Skin: COMMON NORMALS: no rashes or lesions noted GENERAL SKIN EXAM: no rashes or lesions noted Urinary Catheter Management: Suprapubic: Cath Placed During This Visit: no Discharge Data Studies Completed and Pending Completed Studies During Hospitalization Category Date Time Status CT kidney stone [id number] Stat Cat Scan 09/27/24 07:16 Completed US soft tissue head neck [id number] Stat Ultrasound 09/27/24 08:58 Completed Pending at discharge Category Date Time Status Blood Culture Stat Lab 09/27/24 07:20 Results Urine Culture Stat Lab 09/27/24 06:25 Results Radiology Impressions Abdomen/Pelvis CT 09/27/24 07:16 IMPRESSION: 1. No renal obstruction. Nonobstructing calcification RIGHT kidney. 2. Prior cholecystectomy. 3. IVC filter in good position. 4. Normal appendix. There is a small amount of mesenteric stranding in the RIGHT lower quadrant but not focal to the appendix and the appendix is normal size. 5. Improved LEFT pelvis decubitus ulcer extending to the LEFT ischial tuberosity. Significant improvement since 02/20/2024. There is a soft tissue tract but no definite abscess. The subcutaneous inflammatory process described on 02/20/2024 has markedly improved. Chronic changes of osteomyelitis at the LEFT ischial tuberosity. 6. LEFT lower quadrant ostomy. Head/Neck Ultrasound 09/27/24 08:58 IMPRESSION: 1. Predominately phlegmonous collection involving the LEFT lower lip. Central developing abscess is likely measuring 0.9 x 0.6 cm. Laboratory Results WBC 9.50 10^3/uL (3.29-11.43) 09/29/24 05:45 RBC 4.59 10^6/uL (3.85-5.65) 09/29/24 05:45 Hgb 12.20 g/dL (11.27-16.99) 09/29/24 05:45 Hct 39.1 % (37-53) 09/29/24 05:45 MCV 85.2 fl (82-101) 09/29/24 05:45 MCH 26.6 pg (27-33) L 09/29/24 05:45 MCHC 31.2 g/dL (30-55) 09/29/24 05:45 RDW 16.5 % (12.1-15.1) H 09/29/24 05:45 Plt Count 252 10^3/cmm (157-399) 09/29/24 05:45 MPV 10.4 fL (7.4-10.4) 09/29/24 05:45 Neut % (Auto) 59.2 % 09/29/24 05:45 Lymph % (Auto) 29.6 % 09/29/24 05:45 [place] % (Auto) 7.9 % 09/29/24 05:45 Eos % (Auto) 2.7 % 09/29/24 05:45 Baso % (Auto) 0.4 % 09/29/24 05:45 Neut # (Auto) 5.62 10^3/uL (1.8-7.7) 09/29/24 05:45 Lymph # (Auto) 2.8 10^3/uL (0.8-4.8) 09/29/24 05:45 [place] # (Auto) 0.8 10^3/uL (0.2-0.9) 09/29/24 05:45 Eos # (Auto) 0.3 10^3/uL (0.0-0.8) 09/29/24 05:45 Baso # (Auto) 0.0 10^3/uL (0.0-0.1) 09/29/24 05:45 Nucleated RBC % (auto) 0 % 09/29/24 05:45 Nucleated RBCs # 0.0 /100WBC 09/29/24 05:45 Sodium 138 mmol/L (136-145) 09/29/24 05:45 Potassium 4.0 mmol/L (3.5-5.1) 09/29/24 05:45 Chloride 105 mmol/L (98-107) 09/29/24 05:45 Carbon Dioxide 20 mmol/L (22-29) L 09/29/24 05:45 Anion Gap 17.0 (5-19) 09/29/24 05:45 BUN 12 mg/dL (8-23) 09/29/24 05:45 Creatinine 0.4 mg/dL (0.7-1.2) L 09/29/24 05:45 GFR Calculation 219.4 mL/min (90-130) H 09/29/24 05:45 Glucose 126 mg/dL (65-115) H 09/29/24 05:45 Calculated Osmolality 287 mOsm/kg (285-295) 09/29/24 05:45 Lactic Acid 1.3 mmol/L (0.5-2.2) 09/27/24 06:25 Calcium 8.5 mg/dL (8.5-10.5) 09/29/24 05:45 Magnesium 2.0 mg/dL (1.7-2.3) 09/27/24 06:25 Total Bilirubin 0.4 mg/dL (0.15-1.2) 09/27/24 06:25 AST 12 U/L (0-40) 09/27/24 06:25 ALT 18 U/L (0-41) 09/27/24 06:25 Alkaline Phosphatase 123 U/L (40-130) 09/27/24 06:25 Creatine Kinase 80 U/L (39-308) 09/29/24 05:45 C-Reactive Protein 101.6 mg/L (0.0-4.9) H 09/27/24 06:25 Total Protein 6.6 g/dL (6.6-8.7) 09/27/24 06:25 Albumin 3.5 g/dL (3.5-5.2) 09/27/24 06:25 Globulin 3.1 g/dL (1.3-4.6) 09/27/24 06:25 Urine Color Yellow (Yellow) 09/27/24 06:25 Urine Appearance Clear (CLEAR) 09/27/24 06:25 Urine pH 5.5 (5-7) 09/27/24 06:25 Ur Specific [place] 1.015 (1.005-1.030) 09/27/24 06:25 Urine Protein Negative (Negative) 09/27/24 06:25 Urine Glucose (UA) Negative (Normal) 09/27/24 06:25 Urine Ketones Trace (Negative) 09/27/24 06:25 Urine Blood Negative (Negative) 09/27/24 06:25 Urine Nitrate Positive (Negative) A 09/27/24 06:25 Urine Bilirubin Negative (Negative) 09/27/24 06:25 Urine Urobilinogen 0.2 mg/dL (Negative) 09/27/24 06:25 Ur Leukocyte Esterase 2+ (Negative) A 09/27/24 06:25 Urine RBC 0-4 /hpf (0-2) H 09/27/24 06:25 Urine WBC 40-55 /hpf (0-5) H 09/27/24 06:25 Ur Squamous Epith Cells 0-4 /hpf (0-5) H 09/27/24 06:25 Amorphous Sediment Not Reportable 09/27/24 06:25 Urine Bacteria 2+ /hpf (NONE) H 09/27/24 06:25 Fine Granular Casts 0-4 /lpf H 09/27/24 06:25 Coarse Granular Casts 0-4 /lpf H 09/27/24 06:25 Other Casts Wbc cast /lpf 09/27/24 06:25 Urine Mucus Trace /hpf 09/27/24 06:25 Nasal MRSA (PCR) Mrsa detected (Negative) A 09/27/24 18:35 Influenza A (PCR) Negative (Negative) 09/27/24 09:23 Influenza Type B (PCR) Negative (Negative) 09/27/24 09:23 RSV (PCR) Negative (Negative) 09/27/24 09:23 SARS-CoV-2 (PCR) Negative (Negative) 09/27/24 09:23 Vitals Last Vital Signs Temp 98.1 F 09/29/24 18:06 Pulse 59 L 09/29/24 18:06 Resp 16 09/29/24 18:06 BP 149/99 09/29/24 18:06 Pulse Ox 98 09/29/24 18:06 O2 Del Method Room Air 09/29/24 15:57 Discharge Plan Discharge Patient Disposition: Home Health Service Condition: Stable Prescriptions: New cefdinir 300 mg capsule 300 mg PO BID 7 Days Qty: 14 0RF Continued sulfamethoxazole-trimethoprim [Bactrim DS] 800-160 mg tablet 1 tab PO BID 7 Days Qty: 14 0RF midodrine 10 mg tablet 10 mg PO TID Qty: 90 6RF morphine 15 mg tablet 15 mg PO BID PRN (Reason: pain) 30 Days Qty: 60 0RF Linzess 145 mcg capsule 145 mcg PO QAM Qty: 90 3RF ibuprofen 800 mg tablet 800 mg PO BID PRN (Reason: pain) Qty: 60 3RF baclofen 20 mg tablet 20 mg PO BID metaxalone 800 mg tablet 800 mg PO DAILY PRN (Reason: Muscle Spasm) potassium chloride 20 mEq tablet extended release 20 meq PO DAILY PRN (Reason: Edema) oxybutynin chloride 5 mg tablet 5 mg PO TID PRN (Reason: Bladder Spasms) diphenhydramine HCl [Benadryl Allergy] 25 mg Tablet See Rx Instructions .ROUTE .COMPLEX Rx Instructions: patient states he takes four over the counter tablets at bedtime. He was unsure if the tablets were 25 mg or 50 mg. He states they are the equate brand Discharge Orders: Discharge Order (Routine); Ordered 09/29/24 Ordered By: Yaniv Harkins Referrals: [facility] [Outside] Cali Prasad MD [Physician] - 09/30/24 1:30 pm (lower lip phlegmon, abscess) Preeti Barksdale MD [Primary Care Provider] - 10/25/24 10:00 am Discharge Diet: Usual diet Discharge Activity: Resume usual activity Patient Instructions: Cefdinir (By mouth), Urinary Tract Infection in Men (GEN), Opioid Safety Activity Restrictions/Additional Instructions: Continue to protect suprapubic urinary catheter whenever possible from any leakage from colostomy bag. Continue antibiotic course for now with cefdinir, but please remember as discussed the final culture results are not yet available, and there may be an organism resistant to the current antibiotic which may require a change of antibiotic and/or change to IV antibiotic with PICC line placement. In addition to cefdinir continue Bactrim as well as previously prescribed for the lower lip cellulitis and abscess with finding of colonization with MRSA. Please follow-up with ear nose throat doctor for reassessment and consideration of any additional drainage as per recommendation by surgery. Continue usual diet and bowel regimen, seek medical attention in case of stoppage of output from colostomy. Seek medical attention in case of any worsening or new concerning symptoms Discharge Attestations Time Spent in Discharge Care*: greater than 30 min Quality Metrics Clinical Quality Measures [ No reported AMI, CVA or VTE this stay] Coding Level of Care Code 02115 Total time (in minutes) for Discharge: 50 Diagnoses Complicated UTI (urinary tract infection) N39.0 Cellulitis of lip K13.0
== END 2024-09-29 17:30 | disposition home health service (06) ==
LOC: ER 10:01 → MEDSURG 11:57
PROVIDERS: Emergency Medicine; Admitting Provider Internal Medicine; Emergency Provider Family Medicine; PCP Family Medicine; Visit Provider Internal Medicine
DX: N39.0 Urinary tract infection, site not specified (principal); G82.50 Quadriplegia, unspecified; N31.9 Neuromuscular dysfunction of bladder, unspecified; I73.9 Peripheral vascular disease, unspecified; S14.104S Unspecified injury at C4 level of cervical spinal cord, sequela; Z90.49 Acquired absence of other specified parts of digestive tract; K13.0 Diseases of lips; L89.154 Pressure ulcer of sacral region, stage 4; M86.68 Other chronic osteomyelitis, other site; Z98.1 Arthrodesis status; K94.00 Colostomy complication, unspecified; Z22.322 Carrier or suspected carrier of Methicillin resistant Staphylococcus aureus; B96.89 Other specified bacterial agents as the cause of diseases classified elsewhere; Z11.52 Encounter for screening for COVID-19; Z79.899 Other long term (current) drug therapy; Z88.0 Allergy status to penicillin; Z91.09 Other allergy status, other than to drugs and biological substances; Z87.440 Personal history of urinary (tract) infections; Z86.16 Personal history of COVID-19; Z85.820 Personal history of malignant melanoma of skin; Z87.442 Personal history of urinary calculi; Z87.891 Personal history of nicotine dependence
CPT/HCPCS: 36415; 51702; 74176; 76536; 80048; 80053; 81001; 82550; 83605; 83735; 85025; 86140; 87040; 87077; 87086; 87186; 87637; 96365; 96367; 96372; 99285; G0378; J0878; J1650; J2543; J7030; Q0163

== ENCOUNTER → 2024-10-01 11:03 | Outpatient (BNVA) | payer MEDICARE, OTHER, SELFPAY | PROVIDERS: PCP Family Medicine; Visit Provider Thoracic Surgery (Cardiothoracic Vascular Surgery) | DX: I96 Gangrene, not elsewhere classified (principal); L89.622 Pressure ulcer of left heel, stage 2; L89.893 Pressure ulcer of other site, stage 3 | CPT/HCPCS: 97597; A6210; A6220 ==

== ENCOUNTER → 2024-10-15 11:06 | Outpatient (BNVA) | payer MEDICARE, OTHER, SELFPAY | PROVIDERS: PCP Family Medicine; Visit Provider Thoracic Surgery (Cardiothoracic Vascular Surgery) | DX: I96 Gangrene, not elsewhere classified (principal); L89.893 Pressure ulcer of other site, stage 3; L89.622 Pressure ulcer of left heel, stage 2 | CPT/HCPCS: 97597; A6021 ==

== ENCOUNTER 2024-10-27 10:08 | Inpatient (IN) | payer OTHER, MEDICARE, SELFPAY ==
[2024-10-27] VITALS (59 sets, daily range): BP systolic 76–168; BP diastolic 54–94; PULSE 52–126; RESP 14–18; TEMP 36.4–36.8; O2SAT 90–100; BMI 24.4
--- NOTE | 2024-10-27 11:15 | ECG_ITS ---
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 Measurements Intervals [place] Rate: 97 P: 79 ME: 140 QRS: 61 QRSD: 74 T: 72 QT: 316 QTc: 401 Interpretive Statements SINUS RHYTHM POSSIBLE RIGHT ATRIAL ENLARGEMENT [0.25mV P-WAVE] POSSIBLE LEFT ATRIAL ENLARGEMENT [-0.1mV P-WAVE IN V1/V2] MODERATE ST DEPRESSION [0.05+ mV ST DEPRESSION] Compared to ECG 01/07/2024 22:35:26 ST (T wave) deviation now present Electronically Signed On 10-30-2024 18:21:29 CDT by Kyle Messer M.D. [email or web address]
--- NOTE | 2024-10-27 11:25 | CT_ITS ---
WS: [id number] CT ABDOMEN AND PELVIS WITH CONTRAST HISTORY: Perirectal/scrotal abscess TECHNIQUE: Imaging performed of the abdomen and pelvis with IV contrast. Single phase imaging of the abdomen. Coronal and sagittal reformats are submitted. All CT scans at [facility] use at least one of these dose optimization techniques: automated exposure control; mA and/or kV adjustment per patient size (includes targeted exams where dose is matched to clinical indication); or iterative reconstruction. IV CONTRAST: Omnipaque 350; 100 mL IV. Oral contrast: No DLP: 738.83 mGy.cm COMPARISON: 09/27/2024 Lower thorax: Dependent changes at the lung bases. Normal size heart. Small hiatal hernia. Liver/biliary system: Normal liver. Small amount of perihepatic fluid. No intrahepatic duct dilatation. Gallbladder: Prior cholecystectomy. Pancreas: Normal size pancreas and pancreatic duct. No adjacent inflammation. Spleen: Normal size spleen. No mass or infarct. Adrenal glands: Normal. Right kidney: Renal cysts, nonobstructing calcifications. Left kidney: Renal cysts, no obstruction. Aorta: Mild atherosclerosis with no aneurysm. IVC filter. Lymphadenopathy: None. Free fluid: Small amount of fluid adjacent to the liver. GI tract: No obstructive pattern. LEFT lower quadrant ostomy. Abdominal wall: Ventral abdominal wall is intact. LEFT lower quadrant ostomy. Suprapubic catheter. Pelvis: No free fluid or adenopathy within the pelvis. Suprapubic catheter in the urinary bladder. Significant interval change in the previously described improving ischial tuberosity decubitus ulcer tract as seen on 09/27/2024. There is now an open tract containing air. There is soft tissue inflammation extending medially to involve the perineum and the posterior scrotal wall. Scrotal wall involvement measures at least 6.3 x 4.4 cm. Air infiltrating through the perineum with wall thickening. There is an additional open tract now extending along the posterior LEFT pelvis to the ischial tuberosity which had previously resolved. Prior healed osteomyelitis of the LEFT ischial tuberosity. Additional new inflammatory changes with a small focus of air extending along the medial LEFT groin. Bones: Prior osteomyelitis involving the LEFT ischium. No definite new lucency but there is new acute decubitus ulcer changes contacting the residual tuberosity. CT/CT abdomen pelvis w con* [id number] IMPRESSION: 1. Large area of new abscess involving the perineum and LEFT scrotum since 09/27. Abscess/necrotizing fasciitis measures 6.3 x 4.4 cm. 2. LEFT decubitus ulcer has reopened as compared to the prior study and there is now a large open air-containing tract with wall enhancement extending to the LEFT ischial tuberosity and into the medial LEFT groin. 3. LEFT lower quadrant ostomy. 4. IVC filter.
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
[2024-10-27 12:13] LABS: Basophils # 0.1 10^3/uL (0.0-0.1); Basophils % 0.4 %; Eosinophils # 0.3 10^3/uL (0.0-0.8); Eosinophils % 1.9 %; Hematocrit 47.8 % (37-53); Lymphocytes # 2.9 10^3/uL (0.8-4.8); Lymphocytes % 20.2 %; Mean Corpuscular HGB Conc 31.2 g/dL (30-55); Mean Corpuscular Hemoglobin 26.5 pg (27-33); Mean Corpuscular Volume 84.9 fl (82-101); Mean Platelet Volume 10.3 fL (7.4-10.4); Monocytes # 0.6 10^3/uL (0.2-0.9); Monocytes % 4.4 %; Neutrophils # 10.07 10^3/uL (1.8-7.7); Neutrophils % 71.3 %; Nucleated Red Blood Cells % 0 %; Platelet Count 393 10^3/cmm (157-399); Red Blood Count 5.63 10^6/uL (3.85-5.65); Red Cell Distribution Width 15.8 % (12.1-15.1); White Blood Count 14.14 10^3/uL (3.29-11.43)
[2024-10-27 12:30] LABS: Lactic Sepsis W/Reflex 1.9 mmol/L (0.5-2.2)
[2024-10-27 12:32] LABS: Alanine Aminotransferase 38 U/L (0-41); Albumin Level 3.3 g/dL (3.5-5.2); Alkaline Phosphatase 141 U/L (40-130); Anion Gap 18.4 (5-19); Aspartate Amino Transferase 26 U/L (0-40); Blood Urea Nitrogen 19 mg/dL (8-23); Calcium 8.9 mg/dL (8.5-10.5); Carbon Dioxide 22 mmol/L (22-29); Chloride 96 mmol/L (98-107); Creatinine Clr Calc Pharmacy 213.6989; Globulin 4.7 g/dL (1.3-4.6); Glomerular Filtration Rate 219.4 mL/min (90-130); Glucose 113 mg/dL (65-115); Magnesium 1.9 mg/dL (1.7-2.3); Osmolality Calculated 277 mOsm/kg (285-295); Potassium 4.4 mmol/L (3.5-5.1); Sodium 132 mmol/L (136-145); Total Bilirubin 0.5 mg/dL (0.15-1.2)
[2024-10-27 12:38] LABS: Procalcitonin 0.23 ng/mL (0-0.5)
[2024-10-27] MEDS: iohexol 350 mg/mL 500 mL Btl (per mL) IV (13:29)
[2024-10-27 15:40] LABS: C Reactive Protein 98.2 mg/L (0.0-4.9)
[2024-10-27] MEDS: clindamycin 600 MG/50 ML PREMIX 100 MG IV (15:47)
[2024-10-27] MEDS: sodium chloride 0.9% 1,000 ML 999 ML IV ×2 (15:56→19:21)
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
--- NOTE | 2024-10-27 17:23 | XRR_ITS ---
PROCEDURE INFORMATION: Exam: XR Chest Exam date and time: 10/27/2024 4:24 PM Age: 59 years old Clinical indication: Other vascular access device placement or adjustment; Central line, non-tunnelled; Additional info: Central line placement TECHNIQUE: Imaging protocol: Radiologic exam of the chest. Views: 1 view. COMPARISON: CR XR chest 1V portable [id number] 09/10/2023 1:46 PM FINDINGS: Tubes, catheters and devices: Endotracheal tube is present with its distal tip 5.5 cm from the paulette. Right-sided central venous catheter is present with its distal tip in the SVC. Lungs: Unremarkable. No consolidation. Pleural spaces: Unremarkable. No pleural effusion. No pneumothorax. Heart/Mediastinum: Unremarkable. No cardiomegaly. Bones/joints: Unremarkable. XR/XR chest 1V portable [id number] IMPRESSION: As above.
[2024-10-27] MEDS: piperacillin-tazobactam 3.375 GM in sodium chloride 0.9% (plus) 50 ML IV (17:42)
[2024-10-27] MEDS: linezolid premix 600 MG/300 ML PREMIX 300 MG IV (17:54)
--- NOTE | 2024-10-27 18:12 | PM.OP ---
Operative Report Date of procedure: October 27, 2024 Pre-op diagnosis: Ha's Gangrene Post-op diagnosis: Necrotizing soft tissue infection of the perineum and scrotum Post-op findings: There was significant induration and skin changes at the level of the scrotum especially on the left side and in the peritoneum. There was a previous surgical wound measuring about 1.5 to 2 cm. The wound tracked upwards up to the level of the scrotum but no exposed testicles, it drug deep into the perineum up to the level of the ischial tuberosity which was exposed. Procedure done: Excisional debridement of necrotizing soft tissue infection of the perineumTo the level of the bone Specimens removed/disposition: Skin and tissue for culture Surgeon: Chay Stinson MD Mobile Crane Operator: ALHAJI OR STaff Estimated blood loss: 10 Brief History: 59-year-old male quadriplegic with multiple medical comorbidities who presented with a possible perineal abscess to the wound care center, the abscess was drained he was transferred to the ER for further debridement. Imaging on the ER was concerning for the possibility of a necrotizing soft tissue infection of the perineum and possible ha's gangrene. Procedure: Patient was brought into the OR, placed in a supine position, general anesthesia was given. Central and arterial line was placed by anesthesia. The patient was switched to lithotomy position.The perineum and scrotum was prepped and draped in usual sterile fashion. There was a previous 1.5 cm surgical incision from which the abscess was drained in the wound care clinic. I proceeded to explore the wound with my finger finding and upper tracking of the wound into the scrotum superiorly for about 4 to 6 cm. The skin overlying the lower aspect of the scrotum appear edematous and erythematous with some areas of mottling, I decided to proceed with opening the wound In the direction of this superior tracking cavity, I did a 4 cm incision and then proceeded to excise the portion of the skin that appeared to be Unviable.Once the cavity was exposed I was able to verify that there was no deep involvement at the level of the scrotum, the scrotal sac appeared to be intact. I bluntly debrided the surrounding subcutaneous tissue where some devitalized fat was noted. No additional residual Abscess was able to be identified at this level.I did not explained or the perineal portion of this wound and notices it tracked down all the way down to the ischial tuberosity, which was exposed, Small amount of residual purulence was tracking down from this level but no drainable abscess noted.At this point I felt comfortable been that we have obtain adequate source control as the surrounding tissue well indurated did not appear to be necrotic or unhealthy. I washed out the wound with a liter of saline using a Pulsavac. Hemostasis was achieved and then the wound was packed with half-inch iodoform packing and a sterile dressing was applied. The patient tolerated well the procedure was hemodynamically stable but remained in a critical condition intubated, he was transferred to the ICU, Patient transportation to higher level of care has been coordinated by medical team and ER team.
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
--- NOTE | 2024-10-27 18:58 | XRR_ITS ---
PROCEDURE INFORMATION: Exam: XR Chest Exam date and time: 10/27/2024 6:25 PM Age: 59 years old Clinical indication: Device placement; Ett placement (vent status); Ett confirmation TECHNIQUE: Imaging protocol: Radiologic exam of the chest. Views: 1 view. COMPARISON: CR (CHEST, ) 10/27/2024 4:24 PM FINDINGS: Tubes, catheters and devices: Endotracheal tube is present with its distal tip 7.7 cm from the paulette. Right-sided central venous catheter with its distal tip in the superior vena cava. Lungs: Unremarkable. No consolidation. Pleural spaces: Unremarkable. No pleural effusion. No pneumothorax. Heart/Mediastinum: Unremarkable. No cardiomegaly. Bones/joints: Unremarkable. XR/XR chest 1V portable [id number] IMPRESSION: As above.
--- NOTE | 2024-10-27 19:04 | PC.NURSE ---
Addendum entered by Garland Coreas RN 10/27/24 19:12: Nurse called Lisa back with [email or web address]. [phone]. ADvised we have a bed. He gave me a 30 minute ete. Nurse alerted Security Original Note: Received call back from [email or web address]. They have accepted this flight request. Nurse provided additional patient information. They are on standby at this time until we are given a bed. Tessa with [facility] confirmed acceptance to SICU room 12- report #[phone]
[2024-10-27] MEDS: midazolam 1 mg/mL INJ 5 ML 5 MG (19:08)
[2024-10-27] MEDS: norepinephrine 4 MG/250 ML BAG 37.5 MG (19:08)
[2024-10-27] MEDS: fentaNYL 1,000 MCG/100 ML BAG 10 MCG IV (19:09)
[2024-10-27] MEDS: propofol 1,000 MG/100 ML INJ 19.05 MG IV (19:11)
--- NOTE | 2024-10-27 19:26 | PC.NURSE ---
NUrse attempted to called SICU nurse at [facility] for report. SPoke to Radha. THe nurse isnt available at this time. SHe took my number and will call back. Nurse alerted oncoming nurse the report has not yet been given. Patient has been accepted.
--- NOTE | 2024-10-27 19:56 | XRR_ITS ---
PROCEDURE INFORMATION: Exam: XR Chest Exam date and time: 10/27/2024 7:12 PM Age: 59 years old Clinical indication: Device placement; Ett placement (vent status); Ett adjustment TECHNIQUE: Imaging protocol: Radiologic exam of the chest. Views: 1 view. COMPARISON: CR (CHEST, ) 10/27/2024 6:25 PM FINDINGS: Tubes, catheters and devices: Endotracheal tube is present with its distal tip 2 cm from the paulette. Stable position of the right-sided central venous catheter. Lungs: Unremarkable. No consolidation. Pleural spaces: Unremarkable. No pleural effusion. No pneumothorax. Heart/Mediastinum: Unremarkable. No cardiomegaly. Bones/joints: Unremarkable. XR/XR chest 1V portable [id number] IMPRESSION: As above.
[2024-10-27] MEDS: enoxaparin 40 mg/0.4 mL Syringe SUBCUT (20:10)
[2024-10-27] MEDS: pantoprazole 40 mg SDV IVP (20:10)
--- NOTE | 2024-10-27 20:17 | PC.RESP ---
ET tube advance to 30cm. CXR done
[2024-10-27] MEDS: sodium chloride 0.9% 1,000 ML 150 ML IV (20:20)
[2024-10-27 21:31] LABS: Erythrocyte Sedimentation Rate 68 mm/hr (0-10)
[2024-10-27 21:45] LABS: INR 1.09 (0.8-1.2)
[2024-10-27 21:49] LABS: Lactic Sepsis W/Reflex 0.9 mmol/L (0.5-2.2)
[2024-10-27 21:59] LABS: Procalcitonin 0.19 ng/mL (0-0.5); Thyroid Stimulating Hormone 0.77 uIU/mL (0.27-4.20)
[2024-10-27 22:08] LABS: Estmated Average Glucose 103; Hemoglobin A1C 5.2 % (4.0-6.0)
[2024-10-27 22:10] LABS: Chol HDL Ratio 7.25 mg/dL (1.0-5.00); Cholesterol 116 mg/dL (0-200); Creatine Phosphokinase 56 U/L (39-308); HDL Cholesterol 16 mg/dL (60-100); LDL Cholesterol Calculated 70 mg/dL (50-129); LDL HDL Ratio 4.38 RATIO (0.00-3.22); Triglycerides 150 mg/dL (0-150)
[2024-10-27 22:10] LABS: ABG PCO2 31.9 mmHg (35-45); ABG PH Result 7.34 (7.35-7.45); Alveolar-Arterial Oxygen Gradi 15.6 mmHg (5-10); Arterial Blood Gas Hematocrit 39.3 % (42-52); Base Excess ABG -7.3 mmol/L (-2.0-2.0); Blood Gas Allen Test Pos; Blood Gas Operator Identificat SAM; Blood Gas Sample Site Radial, right; Blood Gas Sample Type Arterial; Carboxyhemoglobin 0.5 %THgb (0.4-20.1); HCO3 ABG 17.3 mmol/L (22-26); HGB O2 Sat 99.5 % (95-100); Ionized Calcium Level - ABG 1.1 mmol/L (1.1-1.4); Methemoglobin 0.4 % (0.4-1.5); Oxygen Device VENT; Oxygen Saturation ABG > 99.1; PO2 FiO2 Ratio Arterial Blood 532; Potassium Level - ABG 3.5 mmol/L (3.5-5.0); Total Hemoglobin 12.8 g/dL (14-18)
--- NOTE | 2024-10-27 23:20 | PC.NURSE ---
Pt arrived to ICU with no belongings.
--- NOTE | 2024-10-28 03:02 | PC.NURSE ---
Patient arrived to ICU at 1835 accompained by surgical staff. Upon arrival patient was awakening, biting ET tube, and moving arms. Sedation started, Dr. Mott at bedside and gave verbal orders for Versed push and sedation. Shortly therafter patient's blood pressure began to drop, Levophed started, Dr. Mott at bedside and order given for start rate. Spoke with Wesley Lawrence RN at and report given at 1930. Xray done to confirm ET tube placement. Showed ET tube 7.7 cm above paulette. Spoke with Dr. Amador who ordered tube be advanced 4 cm and repeat xray. Tube advanced by RT and xray repeated. Dr. Amador read xray at bedside and ordered tube be advanced 1 cm. Advanced by RT and follow up xray done. Dr. Amador read at bedside and approved placement. Received call from [facility] critical transport stating due to weather, helicopter had to turn around and ground and they would be sending critical care team to transport by ambulance instead. Critical care transport arrived at 2154 and left facility 2228. Contacted again and spoke with same nurse to update. Informed of ET tube advancement, change in transport and that pt had left this facility.
[2024-10-28 03:30] VITALS: BP 116/54; PULSE 64; RESP 15; O2SAT 100
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
== END 2024-10-27 22:29 | disposition short-term general hospital (02) | DRG 853 ==
LOC: ER 11:50 → OR 16:00 → ICU 18:16
PROVIDERS: Admitting Provider Family Medicine; Emergency Provider Emergency Medicine; PCP Family Medicine; Visit Provider Surgery
PROC: 0JBB0ZZ Excision of Perineum Subcutaneous Tissue and Fascia, Open Approach (ICD-10-PCS; principal; 2024-10-27 16:30)
DX: A41.9 Sepsis, unspecified organism (principal); G82.50 Quadriplegia, unspecified; M72.6 Necrotizing fasciitis; R65.21 Severe sepsis with septic shock; L02.215 Cutaneous abscess of perineum; R33.8 Other retention of urine; K58.9 Irritable bowel syndrome, unspecified; I73.9 Peripheral vascular disease, unspecified; N49.3 Fournier gangrene; N49.2 Inflammatory disorders of scrotum; Z79.899 Other long term (current) drug therapy; Z88.1 Allergy status to other antibiotic agents; Z91.048 Other nonmedicinal substance allergy status; Z93.2 Ileostomy status; Z85.820 Personal history of malignant melanoma of skin; Z87.891 Personal history of nicotine dependence; Z93.6 Other artificial openings of urinary tract status; Z87.440 Personal history of urinary (tract) infections; Z87.442 Personal history of urinary calculi; S14.104S Unspecified injury at C4 level of cervical spinal cord, sequela; V86.95XS Unspecified occupant of 3- or 4- wheeled all-terrain vehicle (ATV) injured in nontraffic accident, sequela; Z95.828 Presence of other vascular implants and grafts; Z98.890 Other specified postprocedural states; Z90.49 Acquired absence of other specified parts of digestive tract; Z98.1 Arthrodesis status; Z87.81 Personal history of (healed) traumatic fracture; Z82.3 Family history of stroke; Z82.49 Family history of ischemic heart disease and other diseases of the circulatory system; L89.229 Pressure ulcer of left hip, unspecified stage
CPT/HCPCS: 11042; 36415; 71045; 74177; 80051; 80053; 80061; 82330; 82550; 82805; 83036; 83605; 83735; 84145; 84443; 85025; 85610; 85651; 86140; 87040; 87070; 87077; 87176; 87186; 87205; 93005; 94002; 94799; 96365; 96367; 96372; 97597; 99285; A6446; J1650; J2020; J2250; J2371; J2470; J2543; J2704; J3010; J3490; J7030; J9999; P9045

== ENCOUNTER 2024-10-30 12:38 | Inpatient (IN) | payer OTHER, MEDICARE, SELFPAY ==
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
--- OUTSIDE RECORDS SUMMARY | 2024-10-30 12:44 | XMS_ITS | Patient Health Record ---
Author Organization [facility] Address [address] [place] [address] Care Team Providers Care Steam Power Plant Operator Name Role Phone Dr Sly Montejo DO Primary Care Provider Hailey Johnson Unavailable [phone] Fran White Unavailable Unavailable Allergies Allergen (clinical drug ingredient) Drug/Non Drug Allergy documented on EMR Reaction Allergy Type Onset Date Status metronidazole metroNIDAZOLE allergy Drug Allergy Active Reason For Referral No Information Medications Medication SIG (Take, Route, Frequency, Duration) Notes Start Date End Date Status Vitamin D3 Active hydroCHLOROthiazide 12.5 MG as directed Orally Once a day Active oxyBUTYnin Chloride 5 MG as directed Orally Active Baclofen Active Zinc Active Cetirizine HCl Activ e Metaxalone 800 MG 1 tablet Ac tive Linzess 145 MCG 1 capsule at least 3 0 minutes before the first meal of the day on an empty stomach Orally Once a day Active Multivitamin Active Vitamin C Active oxyBUTYnin Active Azithromycin 250 MG as directed Orally Active Methenamine Hippurate Active Midodrine HCl 5 MG 1 tablet Orally Active Social History Tobacco Use: Social History Observation Description Date Details (start date - stop date) Former Smoker NA - NA xTobacco Use/Smoking Question Answer Notes Are you a former smoker How long has it been since you last smoked? 1-5 years Alcohol Screen (Audit-C) Question Answer Notes Did you have a drink containing alcohol in the p ast year? No Points 0 Interpretation Negative Problems Problem Type SNOMED Code ICD Code Onset Dates Problem Status W/U Status Risk Notes Problem Chronic cystitis (09501595) Chronic cystitis (N30.20) Active confirmed Problem 145972504 History of kidney stones (Z87.442) Active confirmed Problem 964293430 Recurrent UTI (N39.0) Active confirmed Problem 96665726 Kidney stones (N20.0) Active confirmed Problem 857171867 History of recurrent UTI (urinary tract infection) (Z87.440) Active confirmed Problem 343608917 Neurogenic bladder (N31.9) Active confirmed Plan Of Treatment Pending Test Test Name Order Date UA Without Micro-Auto, Machine - [id number] 11/20/2022 Abdomen [id number] 10/23/2022 Future Test Test Name Order Date Renal w/bladder-[id number] 03/22/2023 Insurance Providers Payer Name Payer Address Payer Phone Subscriber Number Group Number Insured Name Patient Relationship to Insured Coverage Start Date Coverage End Date [employer] Medicare Replacement [address] [address] [place] [address] [id number] Gian Silva Self - patient is the insured Medical (General) History Medical History History ICD Code hypertension h/o spinal cord injury h/o kidney stones hx skin cancer IBS neurogenic bladder peripheral artery disease quadriplegia recurrent UTIs Surgical History Surgery Date(Month/Year) hx of ileostomy cervical fusion cholecystectomy ankle surgery kidney stone surgery Hospitalization History Reason Date(Month/Year) surgeries
--- OUTSIDE RECORDS SUMMARY | 2024-10-30 12:44 | XMS_ITS | Patient Health Record ---
Author Organization [facility] Address [address] [place] [address] Care Team Providers Care Analyst Market Intelligence Name Role Phone Sly Montejo DO Primary Care Provider Unavail able DEA HURST Unavailable [phone] ASUNCION CASTILLO Unavailable [phone] Allergies Allergen (clinical drug ingredient) Drug/Non Drug Allergy documented on EMR Reaction Allergy Type Onset Date Status metronidazole metroNIDAZOLE allergy Drug Allergy Active Reason For Referral No Information Medications Medication SIG (Take, Route, Frequency, Duration) Notes Start Date End Date Status Vitamin C *[facility]* Active Methenamine Hippurate *[facility]* Active Metaxalone 800 MG 1 tablet Ac tive Midodrine HCl 5 MG 1 tablet Orally Active Azithromycin 250 MG as directed Orally Not-Taking Multivitamin *Pick strength-form from [facility] for [facility]* Active Zinc *Pick strength-form from [facility] for [facility]* Active Baclofen *Pick strength-form from [facility] for [facility]* Active Linzess 145 MCG 1 capsule at least 30 minutes before the first meal of the day on an empty stomach Orally Once a day Active oxyBUTYnin *Reorder from [facility] for eRx and Interaction Alerts* Active Vitamin D3 *Pick strength-form from [facility] for [facility]* Active hydroCHLOROthiazide 12.5 MG as directed Orally Once a day Active oxyBUTYnin Chloride 5 MG as directed Orally Active Cetirizine HCl *Pick strength-form from [facility] for e[facility]* Active Problems Problem Type SNOMED Code ICD Code Onset Dates Problem Status W/U Status Risk Notes Problem Calculus in urethra (92997445) Calculus in urethra (N21.1) Active confirmed Problem 928670845 Neurogenic bladd er (N31.9) Active confirmed Problem Suprapubic urinary catheter in situ (finding) (328258300) Presence of suprapubic catheter (Z93.59) Active confirmed Problem Kidney stone (74909074) Right nephrolithiasis (N20.0) Active confirmed Problem 228413036 History of recurrent UTI (urinary tract infection) (Z87.440) Active confirmed Problem 902771957 History of kidne y stones (Z87.442) Active confirmed Problem 57075562 Chronic cystitis (N30.20) Active confirmed Problem 20472456 Kidney stones (N20.0) Active confirmed Problem 644061034 Recurrent UTI (N39.0) Active confirmed Problem History of urinary tract infection (9173497136089 ) History of UTI (Z87.440) Active confirmed Vital Signs Heart Rate 83 /min 11/05/2023 Temperature 97.1 degrees Fahrenheit 11/05/2023 Blood pressure diastolic 93 mm Hg 11/05/2023 Height-cm 180.34 cm 11/05/2023 Weight-kg 90.72 kg 11/05/2023 Height 71 in 11/05/2023 Blood pressure systolic 132 mm Hg 11/05/2023 Weight 200 lbs 11/05/2023 BMI 27.89 kg/m2 11/05/2023 Encounters Encounter Location Date Provider Diagnosis [facility], [facility] [address] [place] [address] 11/05/2023 ASUNCION CASTILLO Renal cyst N28.1 ; R ight nephrolithiasis N20.0 ; Urethral discharge in male R36.9 ; Neurogenic bladder N31.9 ; Presence of suprapubic catheter Z93.59 and History of recurrent UTI (urinary tract infection) Z87.440 Assessments Encounter Date Diagnosis (ICD Code) Assessment Notes Treatment Notes Treatment Clinical Notes Section Notes 11/05/2023 Renal cyst (ICD-10 - N28.1) 11/05/2023 Right nephrolithiasis (ICD-10 - N20.0) 11/05/2023 Urethral discharge in male (ICD-10 - R36.9) 11/05/2023 Neurogenic bladder (ICD-10 - N31.9) 11/05/2023 Presence of suprapubic catheter (ICD-10 - Z93.59) 11/05/2023 History of recurrent UTI (urinary tract infection) (ICD-10 - Z87.440) 11/05/2023 Other KUB this AM shows stable large R nephrolithasis, there is mention of dilated bowel with concern for ileus or obstruction, but this is at site of his ileostomy. DARLING reveals bilateral renal cysts, no hydronephrosis. I have independently reviewed imaging, along with radiologic report. I reviewed images and discussed findings with patient in the exam room. Patient doing well today other than some urethral DC that started after long course of abx. I will treat with Fluconazole. Continue monthly SP tube changes at home. He will RTC in 6 months with KUB and DARLING. All questions that were asked were answered. Patient satisfied with plan of care. 05/13/2024 59-yo male with neurogenic bladder, SPtube placement, recurrent UTIs, and kidney stones. Plan: - Continue monthly SP tube changes at home. Plan Of Treatment Pending Test Test Name Order Date UA Without Micro-Auto [id number] 11/20/2022 Abdomen [id number] 10/23/2022 Future Test Test Name Order Date US Renal w/bladder-[id number] 03/22/2023 X ray : Kidneys, Ureters and Bladder ([facility]U B) 10/29/2023 Renal Ultrasound DARLING [id number] 10/29/2023 93888 KUB, X-Ray: Abdomen, Kidney, Urete r, bladder 04/19/2024 Renal Ultrasound DARLING 11602 04/19/2024 Insurance Providers Payer Name Payer Address Payer Phone Subscriber Number Group Number Insured Name Patient Relationship to Insured Coverage Start Date Coverage End Date [employer] Medicare Replacement [address] [address] [place], [place] [id number] Gian Silva Self - patient is the insured Medical (General) History Medical History History ICD Code hypertension h/o spinal cord injury h/o kidney stones hx skin cancer IBS neurogenic bladder peripheral artery disease quadriplegia recurrent UTIs Surgical History Surgery Date(Month/Year) kidney stone surgery ankle surgery cholecystectomy cervical fusion hx of ileostomy Hospitalization History Reason Date(Month/Year) surgeries
--- OUTSIDE RECORDS SUMMARY | 2024-10-30 12:45 | XMS_ITS ---
Author Organization [facility] Address [address] [place] [address] Care Team Providers Care Registered Vascular Technologist (Rvt) Name Role Phone Sly Montejo DO Primary Care Provider Unavail able DEA HURST Unavailable [phone] REASON FOR VISIT Scheduling DARLING/KUB Encounters Encounter Location Date Provider Diagnosis [facility] [address] [facility] [address] 10/28/2023 DEA HURST Plan Of Treatment No Information Progress Notes * Gian SILVADOB: [birth year] (58 yo M)Acc No.[id number]:10/28/2023 Patient:?SILVAGian OREILLY :1965???Age:58 Y???Sex:Male Address:[address] [place] [address] [place] [address] * true * Date:? Generated for Kathia shepard/Manav/eTransmitting on:?10/30/2024 12:44 PM CDT
--- OUTSIDE RECORDS SUMMARY | 2024-10-30 12:45 | XMS_ITS | CCD ---
Author Name Interface, [id number] Address [address] [place] [address] [facility] Address [address] [place] [address] Care Team Providers Care Saddle And Side Wire Stitcher Name Role Phone Abhinav Rivas Unavailable Unavailable Allergies and Adverse Reactions Reason for Visit Medications Problems Social History
--- OUTSIDE RECORDS SUMMARY | 2024-10-30 12:45 | XMS_ITS | CCD ---
Author Name Interface, [id number] lity Address [address] [place] [address] [facility] Address [address] [place] [address] Care Team Providers Care Batch Plant Operator Name Role Phone Abhinav Rivas Unavailable Unavailable Allergies and Adverse Reactions Reason for Visit Medications Problems Social History
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
[2024-10-30 13:41] VITALS: BP 93/52; PULSE 91; RESP 19; TEMP 36.4; O2SAT 97
[2024-10-30 13:42] VITALS: BP 94/58; PULSE 71; RESP 16; TEMP 36.2
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
[2024-10-30 15:58] VITALS: BP 94/58; PULSE 71; RESP 16; TEMP 36.2; O2SAT 98
[2024-10-30] MEDS: piperacillin-tazobactam 3.375 GM in sodium chloride 0.9% (plus) 50 ML IV ×2 (15:59→19:54)
[2024-10-30] MEDS: enoxaparin 40 mg/0.4 mL Syringe SUBCUT (15:59)
[2024-10-30 16:00] VITALS: BP 94/58; PULSE 71; RESP 16; TEMP 36.2
[2024-10-30] MEDS: pantoprazole 40 mg SDV IVP (16:00)
[2024-10-30 18:16] VITALS: BMI 24.8
[2024-10-30] MEDS: DAPTOMYCIN IV (18:29)
[2024-10-30] MEDS: baclofen 10 mg Tablet 20 MG PO (18:29)
[2024-10-30] MEDS: SODIUM CHLORIDE 0.9% IV (18:29)
[2024-10-30] MEDS: midodrine 5 mg TABLET 10 MG PO (18:29)
[2024-10-30 20:00] VITALS: BP 98/61; PULSE 79; RESP 18; TEMP 36.9; O2SAT 92
[2024-10-31] VITALS (8 sets, daily range): BP systolic 80–134; BP diastolic 55–80; PULSE 63–97; RESP 17–20; TEMP 36.4–37.1; O2SAT 95–100
[2024-10-31] MEDS: HYDROcodone-acetaminophen 5-325 mg Tablet 1 TAB PO (02:29)
[2024-10-31 03:51] LABS: Basophils % 0.1 %; Eosinophils # 0.2 10^3/uL (0.0-0.8); Eosinophils % 2.2 %; Lymphocytes % 34.4 %; Mean Corpuscular HGB Conc 31.2 g/dL (30-55); Mean Corpuscular Volume 86.6 fl (82-101); Mean Platelet Volume 10.3 fL (7.4-10.4); Monocytes # 0.4 10^3/uL (0.2-0.9); Monocytes % 4.6 %; Neutrophils # 5.01 10^3/uL (1.8-7.7); Neutrophils % 57.8 %; Nucleated Red Blood Cells % 0 %; Platelet Count 318 10^3/cmm (157-399); Red Blood Count 3.81 10^6/uL (3.85-5.65); Red Cell Distribution Width 16.1 % (12.1-15.1); White Blood Count 8.67 10^3/uL (3.29-11.43)
[2024-10-31 04:12] LABS: Alanine Aminotransferase 19 U/L (0-41); Albumin Level 2.6 g/dL (3.5-5.2); Alkaline Phosphatase 71 U/L (40-130); Anion Gap 10.7 (5-19); Aspartate Amino Transferase 19 U/L (0-40); Blood Urea Nitrogen 10 mg/dL (8-23); Calcium 7.3 mg/dL (8.5-10.5); Carbon Dioxide 25 mmol/L (22-29); Chloride 105 mmol/L (98-107); Creatinine Clr Calc Pharmacy 287.0311; Globulin 3.2 g/dL (1.3-4.6); Glomerular Filtration Rate 305.8 mL/min (90-130); Glucose 116 mg/dL (65-115); Osmolality Calculated 284 mOsm/kg (285-295); Potassium 3.7 mmol/L (3.5-5.1); Sodium 137 mmol/L (136-145); Total Bilirubin 0.2 mg/dL (0.15-1.2); Total Protein 5.8 g/dL (6.6-8.7)
[2024-10-31] MEDS: piperacillin-tazobactam 3.375 GM in sodium chloride 0.9% (plus) 50 ML IV ×3 (04:14→20:24)
[2024-10-31 04:20] LABS: Creatine Phosphokinase 103 U/L (39-308)
--- NOTE | 2024-10-31 10:11 | PM.PN ---
Subjective Subjective: Patient showing good progression, no significant events overnight. Vitals/I&O/Wt Last Vital Signs Temp 97.5 F L 10/31/24 07:43 Pulse 82 10/31/24 07:43 Resp 19 H 10/31/24 07:43 BP 119/79 10/31/24 07:43 Pulse Ox 98 10/31/24 07:43 O2 Del Method Room Air 10/31/24 07:43 10/30/24 10/31/24 10/31/24 22:59 06:59 14:59 Intake Total 390 / 390 50 / 440 50 / 50 Output Total 850 / 850 Balance -460 / -460 50 / -410 50 / 50 Weight last 48 hrs Weight 178 lb 2 oz Physical Exam : OTHER: At the level of the perineum 6x 4 x 2 cm wound with a cephalad 2 cm undermining was noted. The wound is healthy, base Tuberosity is visible at the base. Data 10/31/24 03:13 10/31/24 03:13 A&P Assessment and plan (1) Necrotizing fasciitis: Plan Wound VAC was placed today to perineal wound. I used high density white foam over the bone to protect the bone and prevent further complications, I was able to cover this with black foam and the VAC dressing on top, the settings were modified for a pressure of 100 mmHg due to the presence of exposed bone at the base of the wound. Next wound VAC change on Friday. Patient and family member have requested wound care evaluation, we will talk with wound care team on Friday. Wound measurements are 6 cm x 4 cm x 2 cm with a 2 cm undermining on the cephalad portion of the wound. PDMP PDMP Reviewed: Not Reviewed Attestations Medical Necessity Statement*: Per medical team Coding Level of Care Code Acute Code for [facility] Fwd Diagnoses Necrotizing fasciitis M72.6
[2024-10-31] MEDS: baclofen 10 mg Tablet 20 MG PO ×2 (10:14→17:50)
[2024-10-31] MEDS: midodrine 5 mg TABLET 10 MG PO ×2 (10:14→17:51)
[2024-10-31] MEDS: ascorbic acid 500 mg Tablet 1000 MG PO (10:15)
[2024-10-31] MEDS: cholecalciferol (vitamin D3) 5,000 unit Tablet 5000 UNIT PO (10:15)
[2024-10-31] MEDS: methylPREDNISolone sod succ 125 mg/2 mL INJ IVP (12:08)
[2024-10-31] MEDS: pantoprazole 40 mg SDV IVP (14:28)
[2024-10-31] MEDS: morphine IR 15 mg Tablet PO (14:28)
[2024-10-31] MEDS: enoxaparin 40 mg/0.4 mL Syringe SUBCUT (14:28)
--- NOTE | 2024-10-31 15:28 | P.PN_ITS ---
Subjective 2 Subjective: Patient was seen this morning, he is alert oriented x 3, following all commands, denies any fevers, no chills, no nausea, vomiting Vitals/I&O/Wt Last Vital Signs Temp 97.7 F 10/31/24 13:00 Pulse 63 10/31/24 13:00 Resp 20 H 10/31/24 13:00 BP 127/64 10/31/24 14:42 Pulse Ox 100 10/31/24 13:00 O2 Del Method Room Air 10/31/24 13:00 10/31/24 10/31/24 10/31/24 06:59 14:59 22:59 Intake Total 50 / 440 290 / 290 Balance 50 / -410 290 / 290 Weight last 48 hrs Weight 80.796 kg Physical Exam 2 Const: COMMON NORMALS: no acute distress and patient oriented x3 Resp: COMMON NORMALS: normal respiratory effort, No retractions, No use of accessory muscles and clear to auscultation bilaterally AUSCULTATION: clear to auscultation bilaterally Cardio: COMMON NORMALS: regular rate, regular rhythm, S1 normal heart sound present and S2 normal heart sound present RATE: regular rate RHYTHM: r egular rhythm HEART SOUNDS: S1 normal heart sound present and S2 normal heart sound present GI: COMMON NORMALS: Normal to inspection, nondistended, normoactive bowel sounds present and non-tender Extremity: COMMON NORMALS: no pedal edema Neuro: COMMON NORMALS: patient oriented x3 Psych: COMMON NORMALS: mental status grossly normal Skin: NARRATIVE SKIN EXAM: He has multiple areas of maculopapular rash, nonblanching, nonpruritic Data 10/31/24 03:13 10/31/24 03:13 A&P Assessment and plan (1) Suprapubic catheter: (2) MRSA infection: (3) Necrotizing fasciitis: (4) Spastic quadriplegia: (5) H/O spinal cord injury: Plan Necrotizing fasciitis of the perineum - Status post excision and debridement of necrotizing soft tissue infection of the perineum, to the level of bone - Manage on daptomycin, Zosyn - Wound cultures growing MRSA - Plan - Continue wound care, wet-to-dry, status post wound VAC placement - Will consult general surgery - Continue daptomycin - Continue Zosyn - Will likely need a PICC line in place - IV antibiotics for 6 weeks -Has a rash, maculopapular, nonpruritic, on arms, legs, he tells me that it was present for some period of time, we will give her 1 dose of steroids -Switch back to patient's oral morphine - Full code - Lovenox for DVT prophylaxis PDMP PDMP Reviewed: Not Reviewed Attestations 2 Medical Necessity Statement*: Patient requires hospitalization for necrotizing fasciitis of the perineum Diagnoses Suprapubic catheter Z93.59 MRSA infection A49.02 Necrotizing fasciitis M72.6 Spastic quadriplegia G82.50 H/O spinal cord injury Z87.828
[2024-10-31] MEDS: SODIUM CHLORIDE 0.9% IV (17:50)
[2024-10-31] MEDS: DAPTOMYCIN IV (17:50)
--- NOTE | 2024-10-31 18:57 | PC.NURSE ---
Central line dressing change completed to right IJ.
[2024-11-01] VITALS (7 sets, daily range): BP systolic 107–159; BP diastolic 58–80; PULSE 81–98; RESP 16–19; TEMP 36.5–37.2; O2SAT 96–97; BMI 24.8
[2024-11-01] MEDS: morphine IR 15 mg Tablet PO (02:48)
[2024-11-01] MEDS: piperacillin-tazobactam 3.375 GM in sodium chloride 0.9% (plus) 50 ML IV ×3 (02:52→19:49)
[2024-11-01 03:36] LABS: Basophils % 0.1 %; Hematocrit 33.2 % (37-53); Lymphocytes # 1.6 10^3/uL (0.8-4.8); Lymphocytes % 15.4 %; Mean Corpuscular HGB Conc 31.6 g/dL (30-55); Mean Corpuscular Hemoglobin 26.8 pg (27-33); Mean Corpuscular Volume 84.7 fl (82-101); Mean Platelet Volume 10.3 fL (7.4-10.4); Monocytes # 0.3 10^3/uL (0.2-0.9); Monocytes % 2.9 %; Neutrophils % 80.1 %; Nucleated Red Blood Cells % 0 %; Platelet Count 380 10^3/cmm (157-399); Red Blood Count 3.92 10^6/uL (3.85-5.65); White Blood Count 10.24 10^3/uL (3.29-11.43)
[2024-11-01 03:51] LABS: Creatine Phosphokinase 47 U/L (39-308)
[2024-11-01 04:03] LABS: Alanine Aminotransferase 16 U/L (0-41); Albumin Level 2.9 g/dL (3.5-5.2); Alkaline Phosphatase 69 U/L (40-130); Anion Gap 14.8 (5-19); Aspartate Amino Transferase 13 U/L (0-40); Blood Urea Nitrogen 15 mg/dL (8-23); Calcium 7.8 mg/dL (8.5-10.5); Carbon Dioxide 24 mmol/L (22-29); Chloride 103 mmol/L (98-107); Creatinine Clr Calc Pharmacy 215.2733; Globulin 3.3 g/dL (1.3-4.6); Glomerular Filtration Rate 219.4 mL/min (90-130); Glucose 157 mg/dL (65-115); Osmolality Calculated 290 mOsm/kg (285-295); Potassium 3.8 mmol/L (3.5-5.1); Sodium 138 mmol/L (136-145); Total Bilirubin 0.2 mg/dL (0.15-1.2); Total Protein 6.2 g/dL (6.6-8.7)
--- NOTE | 2024-11-01 06:51 | PM.PN ---
Subjective Subjective: Good progression over the last 24 hours, minimal drainage from the wound VAC. Otherwise doing well. Vitals/I&O/Wt Last Vital Signs Temp 98.4 F 11/01/24 05:32 Pulse 81 11/01/24 05:32 Resp 18 11/01/24 05:32 BP 145/58 11/01/24 05:32 Pulse Ox 97 11/01/24 05:32 O2 Del Method Room Air 10/31/24 15:50 10/31/24 10/31/24 11/01/24 14:59 22:59 06:59 Intake Total 290 / 290 390 / 680 770 / 1450 Output Total 850 / 850 600 / 1450 Balance 290 / 290 -460 / -170 170 / 0 Weight last 48 hrs Weight 178 lb 2 oz Weight 178 lb 2 oz Physical Exam Narrative: Patient is doing well, surgical site is covered with a VAC that is holding good seal. Data 11/01/24 02:38 11/01/24 02:38 A&P Assessment and plan (1) Abscess of perineum: (2) Necrotizing fasciitis: Plan Patient is showing very good progression over the last 24 hours, wound is now covered with a wound VAC. The plan is to transition to the outpatient setting with a portable VAC. Patient will have PICC line placement for long-term antibiotics and additional management per medical team. Will plan to get wound care service involved as patient has been requesting their involvement due to the previous management of sacral wound with a wound VAC. PDMP PDMP Reviewed: Not Reviewed Attestations Medical Necessity Statement*: Per medical Coding Level of Care Code Acute Code for [facility] Diagnoses Abscess of perineum L02.215 Necrotizing fasciitis M72.6
[2024-11-01] MEDS: baclofen 10 mg Tablet 20 MG PO ×2 (08:49→17:57)
[2024-11-01] MEDS: midodrine 5 mg TABLET 10 MG PO ×2 (08:49→17:58)
[2024-11-01] MEDS: cholecalciferol (vitamin D3) 5,000 unit Tablet 5000 UNIT PO (08:49)
[2024-11-01] MEDS: ascorbic acid 500 mg Tablet 1000 MG PO (08:49)
--- NOTE | 2024-11-01 08:56 | PC.CHAP ---
Pastoral Care Encounter/Spiritual Assessment Type of Contact [] Declined collections director visit [] Patient/Family/Request visit [] Outpatient visit [] Follow-up visit [] Physician referral [] Code/Alert [x] Routine visit [] Staff referral [] Actively dying [] Patient sleeping [] Family support [] [] Out of room [] Palliative care [] [] Receiving care in room [] Pre-surgical visit [] Trauma [] Long length of stay [] ICU visit [] Other: Relational/Emotional Strength [] Patient feels connected with others/family/visitors/staff [] Distress [] Loneliness/isolation [] Abandonment Spirituality of Patient [] Person of Patrica [] Attends Moravian of their [place] [] Believes in Prayer [] Reads Bible or Christian materials [] There are Spiritual issues to be addressed Cemetery Warden Interventions [x] Prayer [] Active listening [] Non-anxious presence [] Spiritual/emotional support [] Crisis/trauma care [] Spiritual counseling [] Bereavement support [] Provided bereavement packet [] Provided Bible/devotional materials [] Provided toy/stuffed animal, coloring book to patient or family member [] Provided Communion [] Anointing/[place] [] Salvation [] Completed spiritual assessment [] Other: Impact on Illness or Injury [] Angry [] Fearful [] Anxious [] Often cries [] Exhaustion [] Unable to work [] Unable to attend mandaen [] Unable to walk/stand [] Unable to read [] Unable to drive [] Unable to eat/drink [] Unable to sleep [] Unable to be with family [] Patient intubated [] Other: Summary precaution Time spent with patient
--- NOTE | 2024-11-01 10:30 | PC.SOCIAL ---
IMM Updated Updated pt on IMM. No questions voiced. Provided pt a copy. Initialed, dated, & timed a copy & placed in chart.
[2024-11-01] MEDS: LINZESS 145 MCG 1 EACH PO (11:25)
[2024-11-01] MEDS: pantoprazole 40 mg SDV IVP (13:51)
[2024-11-01] MEDS: enoxaparin 40 mg/0.4 mL Syringe SUBCUT (13:51)
--- NOTE | 2024-11-01 16:17 | PM.PN ---
Subjective Subjective: Patient was seen this morning, he is alert oriented x 3, following all commands, patient's father is at bedside, he tells me that he does not want to go to [facility], he tells me that he wants to go home, get home health care, home IV antibiotics Home wound care he already has had the services in the past, Vitals/I&O/Wt Last Vital Signs Temp 98.4 F 11/01/24 08:00 Pulse 92 11/01/24 08:00 Resp 19 H 11/01/24 08:00 BP 159/80 11/01/24 08:00 Pulse Ox 97 11/01/24 08:00 O2 Del Method Room Air 11/01/24 08:00 11/01/24 11/01/24 11/01/24 06:59 14:59 22:59 Intake Total 770 / 1450 170 / 170 50 / 220 Output Total 600 / 1450 Balance 170 / 0 170 / 170 50 / 220 Weight last 48 hrs Weight 80.796 kg Weight 80.796 kg Physical Exam Const: COMMON NORMALS: no acute distress and patient oriented x3 Resp: COMMON NORMALS: normal respiratory effort, No retractions, No use of accessory muscles and clear to auscultation bilaterally AUSCULTATION: clear to auscultation bilaterally Cardio: COMMON NORMALS: regular rate, regular rhythm, S1 normal heart sound present and S2 normal heart sound present RATE: regular rate RHYTHM: regular rhythm HEART SOUNDS: S1 normal heart sound present and S2 normal heart sound present GI: COMMON NORMALS: Normal to inspection, nondistended, normoactive bowel sounds present and non-tender Extremity: COMMON NORMALS: no pedal edema Neuro: COMMON NORMALS: patient oriented x3 Psych: COMMON NORMALS: mental status grossly normal Skin: NARRATIVE SKIN EXAM: Maculopapular rash, scattered throughout arm, Data 11/01/24 02:38 11/01/24 02:38 A&P Assessment and plan (1) Suprapubic catheter: (2) MRSA infection: (3) Necrotizing fasciitis: (4) Spastic quadriplegia: (5) H/O spinal cord injury: Plan Necrotizing fasciitis of the perineum - Status post excision and debridement of necrotizing soft tissue infection of the perineum, to the level of bone - Manage on daptomycin, Zosyn - Wound cultures growing MRSA - Plan - Continue wound care, wet-to-dry, status post wound VAC placement - Will consult general surgery - Continue daptomycin, will need daptomycin 861 mg IV every 24 hours start date 10/27/2024 - Continue Zosyn, will need ertapenem 1 g IV every 24 hours start date 11-14 -Order placed for PICC line - IV antibiotics for 6 weeks -Has a rash, maculopapular, nonpruritic, on arms, legs, he tells me that it was present for some period of time, we will give her 1 dose of steroids, denies any pruritus today -Switch back to patient's oral morphine - Full code - Lovenox for DVT prophylaxis PDMP PDMP Reviewed: Not Reviewed Attestations Medical Necessity Statement*: Patient requires hospitalization for necrotizing fasciitis of the perineum Diagnoses Suprapubic catheter Z93.59 MRSA infection A49.02 Necrotizing fasciitis M72.6 Spastic quadriplegia G82.50 H/O spinal cord injury Z87.828
[2024-11-01] MEDS: SODIUM CHLORIDE 0.9% IV (17:57)
[2024-11-01] MEDS: DAPTOMYCIN IV (17:57)
[2024-11-01] MEDS: guaiFENesin 600 mg Tablet PO (22:58)
[2024-11-02] VITALS (9 sets, daily range): BP systolic 131–156; BP diastolic 74–88; PULSE 59–84; RESP 16–20; TEMP 36.3–37; O2SAT 95–98; BMI 24.8
[2024-11-02] MEDS: acetaminophen 325 mg Tablet 650 MG PO (03:16)
[2024-11-02] MEDS: piperacillin-tazobactam 3.375 GM in sodium chloride 0.9% (plus) 50 ML IV ×3 (03:45→20:49)
[2024-11-02 05:53] LABS: Basophils % 0.2 %; Eosinophils # 0.1 10^3/uL (0.0-0.8); Eosinophils % 0.4 %; Hematocrit 33.3 % (37-53); Lymphocytes # 4.2 10^3/uL (0.8-4.8); Lymphocytes % 31.4 %; Mean Corpuscular HGB Conc 31.2 g/dL (30-55); Mean Corpuscular Hemoglobin 26.6 pg (27-33); Mean Corpuscular Volume 85.2 fl (82-101); Mean Platelet Volume 9.9 fL (7.4-10.4); Monocytes # 1.1 10^3/uL (0.2-0.9); Monocytes % 8.5 %; Neutrophils # 7.61 10^3/uL (1.8-7.7); Nucleated Red Blood Cells % 0 %; Platelet Count 352 10^3/cmm (157-399); Red Blood Count 3.91 10^6/uL (3.85-5.65); Red Cell Distribution Width 16.5 % (12.1-15.1); White Blood Count 13.39 10^3/uL (3.29-11.43)
[2024-11-02 06:15] LABS: Alanine Aminotransferase 27 U/L (0-41); Albumin Level 3.1 g/dL (3.5-5.2); Alkaline Phosphatase 72 U/L (40-130); Anion Gap 15.3 (5-19); Aspartate Amino Transferase 27 U/L (0-40); Blood Urea Nitrogen 13 mg/dL (8-23); Calcium 7.6 mg/dL (8.5-10.5); Carbon Dioxide 23 mmol/L (22-29); Chloride 105 mmol/L (98-107); Globulin 3.9 g/dL (1.3-4.6); Glomerular Filtration Rate 219.4 mL/min (90-130); Glucose 98 mg/dL (65-115); Osmolality Calculated 290 mOsm/kg (285-295); Potassium 3.3 mmol/L (3.5-5.1); Sodium 140 mmol/L (136-145); Total Bilirubin 0.2 mg/dL (0.15-1.2)
[2024-11-02 06:17] LABS: Creatine Phosphokinase 55 U/L (39-308)
[2024-11-02 06:26] LABS: Slide Review Slide Review Perform
[2024-11-02] MEDS: morphine IR 15 mg Tablet PO ×2 (06:54→20:48)
[2024-11-02] MEDS: LINZESS 145 MCG 1 EACH PO (06:55)
[2024-11-02] MEDS: midodrine 5 mg TABLET 10 MG PO ×2 (08:38→17:20)
[2024-11-02] MEDS: cholecalciferol (vitamin D3) 5,000 unit Tablet 5000 UNIT PO (08:39)
[2024-11-02] MEDS: pantoprazole DR 40 mg Tablet PO (08:39)
[2024-11-02] MEDS: baclofen 10 mg Tablet 20 MG PO ×2 (08:39→17:20)
[2024-11-02] MEDS: ascorbic acid 500 mg Tablet 1000 MG PO (08:39)
--- NOTE | 2024-11-02 08:57 | P.PN_ITS ---
Subjective 2 Subjective: Doing well, no significant issues. Vitals/I&O/Wt Last Vital Signs Temp 97.4 F L 11/02/24 08:00 Pulse 84 11/02/24 08:00 Resp 20 H 11/02/24 08:00 BP 135/81 11/02/24 08:00 Pulse Ox 97 11/02/24 08:00 O2 Del Method Room Air 11/02/24 08:00 11/01/24 11/02/24 11/02/24 22:59 06:59 14:59 Intake Total 150 / 320 1290 / 1610 290 / 290 Output Total 450 / 450 750 / 1200 400 / 400 Balance -300 / -130 540 / 410 -110 / -110 Weight last 48 hrs Weight 178 lb Weight 178 lb 2 oz Physical Exam 2 : OTHER: wound VAC is in place in the perineum, no leakage Data 11/02/24 05:34 11/02/24 05:34 A&P Assessment and plan (1) Abscess of perineum: (2) Necrotizing fasciitis: Plan Patient showing good progression. Will plan for wound VAC change tomorrow. We have started the process to obtain a portable wound VAC. After that the patient will follow-up in the wound care clinic for wound management and wound VAC changes. PDMP PDMP Reviewed: Not Reviewed Attestations 2 Medical Necessity Statement*: Per medical team Coding Level of Care Code Acute Code for [facility] Diagnoses Abscess of perineum L02.215 Necrotizing fasciitis M72.6
--- NOTE | 2024-11-02 13:36 | XR_ITS ---
WS: [id number] Exam: XR chest 1V portable [id number] Date/Time of Exam: 11/02/2024 2:43 PM Reason For Exam: Post PICC insertion Comparison 10/27/2024. A left-sided PICC line is noted and probably ends in the LEFT subclavian vein. A RIGHT IJ catheter ends in the midportion of the SVC. The lungs are fully inflated and clear. Heart size is normal. No pleural effusion. Levoscoliosis of the T-spine. XR/XR chest 1V portable [id number] IMPRESSION: 1. Left-sided PICC line probably ending in the LEFT subclavian vein. 2. RIGHT IJ catheter ending in the midportion of the SVC. 3. No acute process noted.
[2024-11-02] MEDS: enoxaparin 40 mg/0.4 mL Syringe SUBCUT (15:04)
--- NOTE | 2024-11-02 15:15 | PICC.NOTE ---
Attempted PICC placement to left basilic vein. Referred to vascular access nurse for PICC placement due to need for IV antibiotics x 6 weeks. Risks and benefits discussed and informed consent obtained from pt. This patient is known to vascular access nurse. Previous attempts of right sided PICC unsuccessful with catheter stopping a clavicle and looping. Unable to pass to SVC. Left arm assessed this visit with left basilic vein measuring 4.2 mm, straight, and apparent best choice for placement. Left brachial veins small and unsuitable for use. Using sterile technique and MST, left basilic vein accessed x 1 stick. Mid-arm circumference measured 10 cm from left AC 35 cm. Catheter unable to pass to SVC, stopping at clavicle area. Multiple repositioning techniques used in atttempt to get catheter to pass to SVC without success. CXR confirms tip around clavicle area. Catheter removed. Midline placed. Trimmed cath 11 cm with 0 cm external length noted. Line secured with stat-lock. Insertion site covered with Biopatch and TSM. Report given to bedside nurse, Ileana and charge nurse Janna. Dr. Mott also updated.
--- NOTE | 2024-11-02 15:46 | P.PN_ITS ---
Subjective 2 Subjective: Patient was seen this morning, he is alert oriented x 3, following all commands, denies any fevers, no chills, no cough, Vitals/I&O/Wt Last Vital Signs Temp 97.4 F L 11/02/24 11:07 Pulse 78 11/02/24 11:07 Resp 18 11/02/24 11:07 BP 152/87 11/02/24 11:07 Pulse Ox 97 11/02/24 11:07 O2 Del Method Room Air 11/02/24 11:07 11/02/24 11/02/24 11/02/24 06:59 14:59 22:59 Intake Total 1290 / 1610 650 / 650 Output Total 750 / 1200 1999 / 1999 Balance 540 / 410 -1350 / -1350 Weight last 48 hrs Weight 80.739 kg Weight 80.796 kg Physical Exam 2 Const: COMMON NORMALS: no acute distress and patient oriented x3 Resp: COMMON NORMALS: normal respiratory effort, No retractions, No use of accessory muscles and clear to auscultation bilaterally AUSCULTATION: clear to auscultation bilaterally Cardio: COMMON NORMALS: regular rate, regular rhythm, S1 normal heart sound present and S2 normal heart sound present RATE: regular rate RHYTHM: r egular rhythm HEART SOUNDS: S1 normal heart sound present and S2 normal heart sound present GI: COMMON NORMALS: Normal to inspection, nondistended, normoactive bowel sounds present and non-tender Extremity: COMMON NORMALS: no pedal edema Neuro: COMMON NORMALS: patient oriented x3 Psych: COMMON NORMALS: mental status grossly normal Data 11/02/24 05:34 11/02/24 05:34 A&P Assessment and plan (1) Suprapubic catheter: (2) MRSA infection: (3) Necrotizing fasciitis: (4) Spastic quadriplegia: (5) H/O spinal cord injury: Plan Necrotizing fasciitis of the perineum - Status post excision and debridement of necrotizing soft tissue infection of the perineum, to the level of bone - Manage on daptomycin, Zosyn - Wound cultures growing MRSA Plan - Continue wound care, wet-to-dry, status post wound VAC placement - Will consult general surgery - Continue daptomycin, will need daptomycin 861 mg IV every 24 hours start date 10/27/2024 - Continue Zosyn, will need ertapenem 1 g IV every 24 hours start date 4-20 -Order placed for midline, will require replacement in 2 weeks -Discussed the possibility of PICC line however in the past it has been difficult to place a PICC line -Discussed the possibility of port placement however patient has a history of recurrent infections, increased risk of port infection, patient would prefer midline and replacement of midline once needed as outpatient - IV antibiotics for 6 weeks - Rash improved -Switch back to patient's oral morphine - Full code - Lovenox for DVT prophylaxis PDMP PDMP Reviewed: Not Reviewed Attestations 2 Medical Necessity Statement*: Patient requires hospitalization for necrotizing fasciitis of the perineum Diagnoses Suprapubic catheter Z93.59 MRSA infection A49.02 Necrotizing fasciitis M72.6 Spastic quadriplegia G82.50 H/O spinal cord injury Z87.828
[2024-11-02] MEDS: DAPTOMYCIN IV (17:12)
[2024-11-02] MEDS: SODIUM CHLORIDE 0.9% IV (17:12)
[2024-11-02] MEDS: zolpidem 5 mg Tablet PO (20:47)
[2024-11-02] MEDS: guaiFENesin 600 mg Tablet PO (22:49)
[2024-11-03] VITALS (7 sets, daily range): BP systolic 115–166; BP diastolic 57–91; PULSE 64–86; RESP 15–18; TEMP 36.4–37.1; O2SAT 95–98
[2024-11-03] MEDS: piperacillin-tazobactam 3.375 GM in sodium chloride 0.9% (plus) 50 ML IV ×2 (04:04→12:31)
[2024-11-03 05:46] LABS: Basophils # 0.1 10^3/uL (0.0-0.1); Basophils % 0.5 %; Eosinophils # 0.2 10^3/uL (0.0-0.8); Eosinophils % 2.1 %; Hematocrit 37.2 % (37-53); Lymphocytes # 3.7 10^3/uL (0.8-4.8); Lymphocytes % 31.9 %; Mean Corpuscular HGB Conc 30.1 g/dL (30-55); Mean Corpuscular Hemoglobin 26.4 pg (27-33); Mean Corpuscular Volume 87.7 fl (82-101); Mean Platelet Volume 9.4 fL (7.4-10.4); Monocytes # 0.8 10^3/uL (0.2-0.9); Monocytes % 7.3 %; Neutrophils # 6.23 10^3/uL (1.8-7.7); Neutrophils % 54.5 %; Nucleated Red Blood Cells % 0 %; Platelet Count 361 10^3/cmm (157-399); Red Blood Count 4.24 10^6/uL (3.85-5.65); Red Cell Distribution Width 16.8 % (12.1-15.1); White Blood Count 11.44 10^3/uL (3.29-11.43)
[2024-11-03 06:07] LABS: Anion Gap 14.4 (5-19); Blood Urea Nitrogen 10 mg/dL (8-23); Calcium 8.3 mg/dL (8.5-10.5); Carbon Dioxide 25 mmol/L (22-29); Chloride 102 mmol/L (98-107); Creatinine Clr Calc Pharmacy 286.9467; Glomerular Filtration Rate 305.8 mL/min (90-130); Glucose 93 mg/dL (65-115); Osmolality Calculated 285 mOsm/kg (285-295); Potassium 3.4 mmol/L (3.5-5.1); Sodium 138 mmol/L (136-145)
[2024-11-03] MEDS: LINZESS 145 MCG 1 EACH PO (06:50)
[2024-11-03] MEDS: cholecalciferol (vitamin D3) 5,000 unit Tablet 5000 UNIT PO (08:06)
[2024-11-03] MEDS: potassium chloride ER 20 mEq Tablet PO (08:06)
[2024-11-03] MEDS: midodrine 5 mg TABLET 10 MG PO (08:06)
[2024-11-03] MEDS: pantoprazole DR 40 mg Tablet PO (08:06)
[2024-11-03] MEDS: morphine IR 15 mg Tablet PO ×2 (08:07→16:14)
[2024-11-03] MEDS: baclofen 10 mg Tablet 20 MG PO ×2 (08:07→16:54)
[2024-11-03] MEDS: ascorbic acid 500 mg Tablet 1000 MG PO (08:07)
[2024-11-03] MEDS: enoxaparin 40 mg/0.4 mL Syringe SUBCUT (12:31)
--- NOTE | 2024-11-03 12:59 | PC.SOCIAL ---
IMM Updated Updated pt on IMM. No questions voiced. Provided pt a copy. Initialed, dated, & timed copy in chart.
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
--- NOTE | 2024-11-03 15:00 | PM.PN ---
Subjective Subjective: Patient doing very well, no significant issues overnight. Pending wound VAC to arrive before discharge Vitals/I&O/Wt Last Vital Signs Temp 97.5 F L 11/03/24 11:19 Pulse 64 11/03/24 11:19 Resp 16 11/03/24 11:19 BP 166/72 11/03/24 11:19 Pulse Ox 98 11/03/24 11:19 O2 Del Method Room Air 11/03/24 11:19 11/03/24 11/03/24 11/03/24 06:59 14:59 22:59 Intake Total 800 / 1890 410 / 410 Output Total 900 / 3850 Balance -100 / -1960 410 / 410 Weight last 48 hrs Weight 178 lb Weight 178 lb Physical Exam : OTHER: Perineal wound was evaluated, appears to be healing well, there is some granulation tissue in the edges and in the upper portion, in the lower portion there is exposed bone. No purulence no necrosis Data 11/03/24 05:23 11/03/24 05:23 A&P Assessment and plan (1) MRSA infection: (2) Abscess of perineum: (3) Necrotizing fasciitis: Plan patient showing adequate progression. Wound VAC was changed today, use white foam for the base and then cover with black foam and dressing. Patient will follow-up with wound care center on Mondays and for wound VAC changes. Wound VAC is delivered today he is cleared for discharge from the surgical standpoint. Follow-up with me will be in 3 weeks PDMP PDMP Reviewed: Not Reviewed Attestations Medical Necessity Statement*: Per medical team Coding Level of Care Code Acute Code for [facility] Fwd Diagnoses MRSA infection A49.02 Abscess of perineum L02.215 Necrotizing fasciitis M72.6
--- NOTE | 2024-11-03 15:23 | PC.NURSE ---
D/C pending pt receiving Daptomycin. Awaiting pharmacy to mix and send up.
[2024-11-03] MEDS: DAPTOMYCIN IV (15:35)
[2024-11-03] MEDS: SODIUM CHLORIDE 0.9% IV (15:35)
== END 2024-11-03 17:27 | disposition home health service (06) | DRG 558 ==
PROVIDERS: Admitting Provider Family Medicine; PCP Family Medicine; Visit Provider Family Medicine
DX: M72.6 Necrotizing fasciitis (principal); G82.20 Paraplegia, unspecified; L02.215 Cutaneous abscess of perineum; B95.62 Methicillin resistant Staphylococcus aureus infection as the cause of diseases classified elsewhere; Z93.6 Other artificial openings of urinary tract status; V86.95XS Unspecified occupant of 3- or 4- wheeled all-terrain vehicle (ATV) injured in nontraffic accident, sequela; S14.106S Unspecified injury at C6 level of cervical spinal cord, sequela; K58.9 Irritable bowel syndrome, unspecified; Z87.440 Personal history of urinary (tract) infections
CPT/HCPCS: 36415; 36569; 36592; 71045; 80048; 80053; 82550; 85025; 94664; 96372; C1751; J0878; J1650; J2470; J2543; J2919; J9999

== ENCOUNTER 2024-11-11 14:17 | Outpatient (CLI) | payer MEDICARE, OTHER, SELFPAY ==
[2024-11-11 14:28] LABS: Basophils # 0.1 10^3/uL (0.0-0.1); Basophils % 0.5 %; Eosinophils # 0.2 10^3/uL (0.0-0.8); Eosinophils % 2.5 %; Hematocrit 37.6 % (37-53); Lymphocytes # 2.4 10^3/uL (0.8-4.8); Lymphocytes % 24.7 %; Mean Corpuscular HGB Conc 32.2 g/dL (30-55); Mean Corpuscular Hemoglobin 27.3 pg (27-33); Mean Corpuscular Volume 84.9 fl (82-101); Mean Platelet Volume 10.4 fL (7.4-10.4); Monocytes # 0.5 10^3/uL (0.2-0.9); Monocytes % 5.4 %; Neutrophils # 6.37 10^3/uL (1.8-7.7); Neutrophils % 66.3 %; Nucleated Red Blood Cells % 0 %; Platelet Count 402 10^3/cmm (157-399); Red Blood Count 4.43 10^6/uL (3.85-5.65); White Blood Count 9.62 10^3/uL (3.29-11.43)
[2024-11-11 14:44] LABS: Alanine Aminotransferase 52 U/L (0-41); Albumin Level 3.9 g/dL (3.5-5.2); Alkaline Phosphatase 115 U/L (40-130); Aspartate Amino Transferase 28 U/L (0-40); Blood Urea Nitrogen 20 mg/dL (8-23); C Reactive Protein 9.3 mg/L (0.0-4.9); Calcium 8.9 mg/dL (8.5-10.5); Carbon Dioxide 20 mmol/L (22-29); Chloride 100 mmol/L (98-107); Creatine Phosphokinase 51 U/L (39-308); Globulin 4.4 g/dL (1.3-4.6); Glomerular Filtration Rate 219.4 mL/min (90-130); Glucose 124 mg/dL (65-115); Osmolality Calculated 286 mOsm/kg (285-295); Sodium 136 mmol/L (136-145); Total Bilirubin 0.3 mg/dL (0.15-1.2); Total Protein 8.3 g/dL (6.6-8.7)
== END 2024-11-11 14:18 | disposition home or self-care (01) ==
PROVIDERS: PCP Family Medicine; Visit Provider Family Medicine
DX: A49.02 Methicillin resistant Staphylococcus aureus infection, unspecified site (principal); Z93.59 Other cystostomy status
CPT/HCPCS: 80053; 82550; 85025; 86140

== ENCOUNTER 2024-11-16 14:29 | Outpatient (CLI) | payer MEDICARE, OTHER, SELFPAY ==
[2024-11-16 14:41] LABS: Basophils % 0.4 %; Eosinophils # 0.3 10^3/uL (0.0-0.8); Eosinophils % 2.7 %; Lymphocytes # 2.2 10^3/uL (0.8-4.8); Lymphocytes % 19.5 %; Mean Corpuscular HGB Conc 31.9 g/dL (30-55); Mean Corpuscular Hemoglobin 26.7 pg (27-33); Mean Corpuscular Volume 83.5 fl (82-101); Mean Platelet Volume 10.7 fL (7.4-10.4); Monocytes % 8.6 %; Neutrophils # 7.71 10^3/uL (1.8-7.7); Neutrophils % 68.5 %; Nucleated Red Blood Cells % 0 %; Platelet Count 341 10^3/cmm (157-399); Red Blood Count 4.31 10^6/uL (3.85-5.65); Red Cell Distribution Width 16.2 % (12.1-15.1); White Blood Count 11.24 10^3/uL (3.29-11.43)
[2024-11-16 14:57] LABS: Alanine Aminotransferase 22 U/L (0-41); Albumin Level 3.8 g/dL (3.5-5.2); Alkaline Phosphatase 105 U/L (40-130); Aspartate Amino Transferase 16 U/L (0-40); Blood Urea Nitrogen 21 mg/dL (8-23); C Reactive Protein 29.5 mg/L (0.0-4.9); Calcium 8.9 mg/dL (8.5-10.5); Carbon Dioxide 20 mmol/L (22-29); Chloride 103 mmol/L (98-107); Creatine Phosphokinase 52 U/L (39-308); Globulin 4.1 g/dL (1.3-4.6); Glomerular Filtration Rate 219.4 mL/min (90-130); Glucose 95 mg/dL (65-115); Osmolality Calculated 287 mOsm/kg (285-295); Sodium 137 mmol/L (136-145); Total Bilirubin 0.3 mg/dL (0.15-1.2); Total Protein 7.9 g/dL (6.6-8.7)
[2024-11-16 15:00] LABS: Anion Gap 18.2 (5-19); Potassium 4.2 mmol/L (3.5-5.1)
== END 2024-11-16 14:30 | disposition home or self-care (01) ==
PROVIDERS: PCP Family Medicine; Visit Provider Thoracic Surgery (Cardiothoracic Vascular Surgery)
DX: A49.02 Methicillin resistant Staphylococcus aureus infection, unspecified site (principal); Z93.59 Other cystostomy status
CPT/HCPCS: 80053; 82248; 82550; 85025; 86140

== ENCOUNTER → 2024-11-19 10:55 | Outpatient (BNVA) | payer MEDICARE, OTHER, SELFPAY | PROVIDERS: PCP Family Medicine; Visit Provider Thoracic Surgery (Cardiothoracic Vascular Surgery) | DX: I96 Gangrene, not elsewhere classified (principal); L89.894 Pressure ulcer of other site, stage 4 | CPT/HCPCS: 11042; 97605 ==

== ENCOUNTER 2024-11-23 16:36 | Outpatient (CLI) | payer MEDICARE, OTHER, SELFPAY ==
[2024-11-23 16:51] LABS: Basophils # 0.1 10^3/uL (0.0-0.1); Basophils % 0.5 %; Eosinophils # 0.4 10^3/uL (0.0-0.8); Eosinophils % 4.3 %; Hematocrit 35.6 % (37-53); Lymphocytes # 2.6 10^3/uL (0.8-4.8); Lymphocytes % 27.7 %; Mean Corpuscular HGB Conc 32.9 g/dL (30-55); Mean Corpuscular Hemoglobin 27.4 pg (27-33); Mean Corpuscular Volume 83.4 fl (82-101); Mean Platelet Volume 10.6 fL (7.4-10.4); Monocytes % 10.5 %; Neutrophils # 5.31 10^3/uL (1.8-7.7); Neutrophils % 56.6 %; Nucleated Red Blood Cells % 0 %; Platelet Count 356 10^3/cmm (157-399); Red Blood Count 4.27 10^6/uL (3.85-5.65); Red Cell Distribution Width 15.4 % (12.1-15.1); White Blood Count 9.39 10^3/uL (3.29-11.43)
[2024-11-23 18:17] LABS: Alanine Aminotransferase 20 U/L (0-41); Albumin Level 3.9 g/dL (3.5-5.2); Alkaline Phosphatase 113 U/L (40-130); Anion Gap 19.2 (5-19); Aspartate Amino Transferase 18 U/L (0-40); Blood Urea Nitrogen 18 mg/dL (8-23); C Reactive Protein 26.1 mg/L (0.0-4.9); Carbon Dioxide 18 mmol/L (22-29); Chloride 98 mmol/L (98-107); Creatine Phosphokinase 54 U/L (39-308); Globulin 4.2 g/dL (1.3-4.6); Glomerular Filtration Rate 219.4 mL/min (90-130); Glucose 110 mg/dL (65-115); Osmolality Calculated 275 mOsm/kg (285-295); Potassium 4.2 mmol/L (3.5-5.1); Sodium 131 mmol/L (136-145); Total Bilirubin 0.3 mg/dL (0.15-1.2); Total Protein 8.1 g/dL (6.6-8.7)
== END 2024-11-23 16:37 | disposition home or self-care (01) ==
LOC: LAB 16:41
PROVIDERS: PCP Family Medicine; Visit Provider Thoracic Surgery (Cardiothoracic Vascular Surgery)
DX: A49.02 Methicillin resistant Staphylococcus aureus infection, unspecified site (principal); Z93.59 Other cystostomy status
CPT/HCPCS: 80053; 82550; 85025; 86140

== ENCOUNTER 2024-11-30 10:31 | Outpatient (CLI) | payer OTHER, MEDICARE, SELFPAY ==
[2024-11-30 10:59] LABS: Basophils # 0.1 10^3/uL (0.0-0.1); Basophils % 0.7 %; Eosinophils # 0.4 10^3/uL (0.0-0.8); Eosinophils % 5.2 %; Hematocrit 34.6 % (37-53); Lymphocytes # 2.6 10^3/uL (0.8-4.8); Lymphocytes % 30.7 %; Mean Corpuscular HGB Conc 31.5 g/dL (30-55); Mean Corpuscular Hemoglobin 26.5 pg (27-33); Mean Corpuscular Volume 84.2 fl (82-101); Mean Platelet Volume 10.7 fL (7.4-10.4); Monocytes # 0.7 10^3/uL (0.2-0.9); Monocytes % 7.7 %; Neutrophils # 4.68 10^3/uL (1.8-7.7); Neutrophils % 55.3 %; Nucleated Red Blood Cells % 0 %; Platelet Count 351 10^3/cmm (157-399); Red Blood Count 4.11 10^6/uL (3.85-5.65); White Blood Count 8.46 10^3/uL (3.29-11.43)
[2024-11-30 11:51] LABS: Alanine Aminotransferase 27 U/L (0-41); Albumin Level 3.7 g/dL (3.5-5.2); Alkaline Phosphatase 114 U/L (40-130); Aspartate Amino Transferase 19 U/L (0-40); C Reactive Protein 26.9 mg/L (0.0-4.9); Globulin 3.6 g/dL (1.3-4.6); Glomerular Filtration Rate 219.4 mL/min (90-130); Total Bilirubin 0.2 mg/dL (0.15-1.2); Total Protein 7.3 g/dL (6.6-8.7)
== END 2024-11-30 10:32 | disposition home or self-care (01) ==
PROVIDERS: PCP Family Medicine; Visit Provider Student in an Organized Health Care Education/Training Program
DX: B95.62 Methicillin resistant Staphylococcus aureus infection as the cause of diseases classified elsewhere (principal)
CPT/HCPCS: 80076; 82565; 85025; 86140

== ENCOUNTER 2024-12-07 10:24 | Outpatient (CLI) | payer OTHER, MEDICARE, SELFPAY ==
[2024-12-07 10:43] LABS: Basophils % 0.4 %; Eosinophils # 0.3 10^3/uL (0.0-0.8); Eosinophils % 2.7 %; Hematocrit 32.4 % (37-53); Lymphocytes # 2.6 10^3/uL (0.8-4.8); Lymphocytes % 25.4 %; Mean Corpuscular HGB Conc 32.4 g/dL (30-55); Mean Corpuscular Hemoglobin 26.4 pg (27-33); Mean Corpuscular Volume 81.4 fl (82-101); Mean Platelet Volume 10.6 fL (7.4-10.4); Monocytes # 0.9 10^3/uL (0.2-0.9); Monocytes % 8.5 %; Neutrophils # 6.39 10^3/uL (1.8-7.7); Neutrophils % 62.7 %; Nucleated Red Blood Cells % 0 %; Platelet Count 347 10^3/cmm (157-399); Red Blood Count 3.98 10^6/uL (3.85-5.65); Red Cell Distribution Width 14.7 % (12.1-15.1)
[2024-12-07 11:06] LABS: Alanine Aminotransferase 24 U/L (0-41); Albumin Level 3.5 g/dL (3.5-5.2); Alkaline Phosphatase 113 U/L (40-130); Aspartate Amino Transferase 16 U/L (0-40); Globulin 3.4 g/dL (1.3-4.6); Glomerular Filtration Rate 219.4 mL/min (90-130); Total Bilirubin 0.4 mg/dL (0.15-1.2); Total Protein 6.9 g/dL (6.6-8.7)
== END 2024-12-07 10:25 | disposition home or self-care (01) ==
PROVIDERS: PCP Family Medicine; Visit Provider Student in an Organized Health Care Education/Training Program
DX: B95.62 Methicillin resistant Staphylococcus aureus infection as the cause of diseases classified elsewhere (principal)
CPT/HCPCS: 80076; 82565; 85025

== ENCOUNTER 2024-12-14 12:48 | Outpatient (CLI) | payer OTHER, MEDICARE, SELFPAY ==
[2024-12-14 13:21] LABS: Basophils # 0.1 10^3/uL (0.0-0.1); Basophils % 0.5 %; Eosinophils # 0.2 10^3/uL (0.0-0.8); Eosinophils % 1.5 %; Hematocrit 31.3 % (37-53); Lymphocytes # 3.8 10^3/uL (0.8-4.8); Lymphocytes % 30.3 %; Mean Corpuscular HGB Conc 32.3 g/dL (30-55); Mean Corpuscular Hemoglobin 25.9 pg (27-33); Mean Corpuscular Volume 80.3 fl (82-101); Mean Platelet Volume 10.6 fL (7.4-10.4); Monocytes # 1.2 10^3/uL (0.2-0.9); Monocytes % 9.9 %; Neutrophils # 7.25 10^3/uL (1.8-7.7); Neutrophils % 57.6 %; Nucleated Red Blood Cells % 0 %; Platelet Count 411 10^3/cmm (157-399); Red Cell Distribution Width 14.6 % (12.1-15.1); White Blood Count 12.58 10^3/uL (3.29-11.43)
[2024-12-14 13:41] LABS: Alanine Aminotransferase 24 U/L (0-41); Albumin Level 3.5 g/dL (3.5-5.2); Alkaline Phosphatase 107 U/L (40-130); Blood Urea Nitrogen 20 mg/dL (8-23); C Reactive Protein 84.2 mg/L (0.0-4.9); Calcium 8.6 mg/dL (8.5-10.5); Carbon Dioxide 22 mmol/L (22-29); Chloride 97 mmol/L (98-107); Creatine Phosphokinase 45 U/L (39-308); Globulin 4.3 g/dL (1.3-4.6); Glomerular Filtration Rate 169.6 mL/min (90-130); Glucose 83 mg/dL (65-115); Osmolality Calculated 276 mOsm/kg (285-295); Sodium 132 mmol/L (136-145); Total Bilirubin 0.4 mg/dL (0.15-1.2); Total Protein 7.8 g/dL (6.6-8.7)
[2024-12-14 13:45] LABS: Aspartate Amino Transferase 26 U/L (0-40)
== END 2024-12-14 12:49 | disposition home or self-care (01) ==
PROVIDERS: PCP Family Medicine; Visit Provider Thoracic Surgery (Cardiothoracic Vascular Surgery)
DX: A49.02 Methicillin resistant Staphylococcus aureus infection, unspecified site (principal); Z93.59 Other cystostomy status
CPT/HCPCS: 80053; 82550; 85025; 86140

== ENCOUNTER → 2024-12-17 11:59 | Outpatient (BNVA) | payer OTHER, MEDICARE, SELFPAY | PROVIDERS: PCP Family Medicine; Visit Provider Thoracic Surgery (Cardiothoracic Vascular Surgery) | DX: L89.329 Pressure ulcer of left buttock, unspecified stage (principal) | CPT/HCPCS: 87070; 87176; 87186; 87205 ==

== ENCOUNTER 2024-12-31 12:09 | Oncology outpatient (recurring) (ONCR) | payer OTHER, MEDICARE, SELFPAY ==
[2024-12-31] MEDS: iohexol 350 mg/mL 500 mL Btl (per mL) IV (12:27)
--- NOTE | 2024-12-31 12:30 | CT_ITS ---
WS: [id number] CT ABDOMEN AND PELVIS WITH CONTRAST HISTORY: L89.329 - Pressure ulcer of left buttock, unspecified stage TECHNIQUE: Imaging performed of the abdomen and pelvis with IV contrast. Single phase imaging of the abdomen. Coronal and sagittal reformats are submitted. All CT scans at [facility] use at least one of these dose optimization techniques: automated exposure control; mA and/or kV adjustment per patient size (includes targeted exams where dose is matched to clinical indication); or iterative reconstruction. IV CONTRAST: Omnipaque 350; 100 mL IV. Oral contrast: No DLP: 575.53 mGy.cm COMPARISON: 10/27/2024 Lower thorax: Subsegmental atelectasis at the lung bases. Heart is normal size. No hiatal hernia. Liver/biliary system: Normal size with no intrahepatic dilatation. Gallbladder: Status post cholecystectomy. Pancreas: Normal size pancreas and pancreatic duct. No adjacent inflammation. Spleen: Normal size spleen. No mass or infarct. Adrenal glands: Normal. Right kidney: Nonobstructing central renal calcification measuring 16 mm. Cortical cysts. Left kidney: Normal. Aorta: Mild atherosclerosis with no aneurysm. IVC filter. Lymphadenopathy: None. Free fluid: None. GI tract: No obstruction. LEFT lower quadrant ostomy site. Abdominal wall: Unremarkable abdominal wall. No hernia. Pelvis: Suprapubic catheter. Urinary bladder is not distended. There is a large mild decubitus ulcer centered over the LEFT pelvis with the tract extending to the LEFT ischial tuberosity. Thick walled collection with no apparent new abscess. Depth of the ulcer is 8.4 cm with wall thickening measuring up to 2.6 cm. The soft tissue tag extends to the LEFT ischial tu berosity. There is increased sclerotic change within the LEFT ischial tuberosity which is new since 10/27/2024 and may represent treated osteomyelitis. There is still erosion and cortical destruction at the portion of the issue tuberosity closest to the ulcerated track. There are a few adjacent foci of air which may be residual abscess. The residual collection measures 2.4 x 2.0 cm. Bones: Diffuse osteopenia. CT/CT abdomen pelvis w con* [id number] IMPRESSION: 1. Large decubitus ulcer within the LEFT posterior pelvis. There has been sign ificant improvement since 10/27/2024. 2. There does appear to be a residual abscess measuring 2.4 x 2.0 cm closely a ssociated with the LEFT ischial tuberosity. 3. Increasing sclerosis within the LEFT ischial tuberosity suggesting healing osteomyelitis. Near the persistent ulcer there is continued lucency and ulcerat ion suggest ongoing osteomyelitis at the site of the abscess. 4. No renal obstruction. 5. LEFT lower quadrant ostomy site. 6. Prior cholecystectomy. 7. IVC filter.
== END 2025-01-24 23:59 | disposition home or self-care (01) ==
LOC: RAD 12:12 → ONCMED 01-03 10:05
PROVIDERS: PCP Family Medicine; Visit Provider Thoracic Surgery (Cardiothoracic Vascular Surgery)
DX: L89.329 Pressure ulcer of left buttock, unspecified stage (principal); R93.89 Abnormal findings on diagnostic imaging of other specified body structures; Z98.890 Other specified postprocedural states; Z90.49 Acquired absence of other specified parts of digestive tract; Z96.89 Presence of other specified functional implants; J98.11 Atelectasis; N28.89 Other specified disorders of kidney and ureter; N28.1 Cyst of kidney, acquired; I70.0 Atherosclerosis of aorta; M85.80 Other specified disorders of bone density and structure, unspecified site
CPT/HCPCS: 11042; 74177; 97597; 97605; A6237; A6250

== ENCOUNTER 2025-01-11 08:21 | Inpatient (IN) | payer OTHER, MEDICARE, SELFPAY ==
[2025-01-11] VITALS (19 sets, daily range): BP systolic 94–127; BP diastolic 62–81; PULSE 60–89; RESP 15–18; TEMP 36–37.1; O2SAT 92–99; BMI 24.4
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
--- NOTE | 2025-01-11 09:03 | CT_ITS ---
WS: [id number] CT pelvis TECHNIQUE: Contrast-enhanced CT of the pelvis with coronal and sagittal reformatted images. CLINICAL INFORMATION: Decubiti with pelvic abscess COMPARISON: 12/31/2024 DLP: 16.[address] scans at [facility] use at least one of these dose optimization techniques: automated exposure control; mA and/or kV adjustment per patient size (includes targeted exams where dose is matched to clinical indication); or iterative reconstruction. FINDINGS: LEFT lower quadrant ostomy. Suprapubic catheter. Contrast within the bladder. Osteopenia. Again seen is the LEFT decubitus ulcer with large soft tissue defect. This extends down to the ischial tuberosity with evidence of underlying osteomyelitis stable since 12/31/2024. This is not significantly changed. Previously described abscess in the deep aspect of the ulcer tract appears improved. Wound appears to have been possibly debrided since the prior examination. Small amount of residual fluid/abscess along the deep aspect of the ulcer tract laterally CT/CT pelvis w con* [id number] IMPRESSION: 1. Stable appearing LEFT decubitus ulcer with large soft tissue defect which e xtends down to the ischial tuberosity. 2. Stable appearing sclerosis in the ischial tuberosity compatible with histor y of osteomyelitis. 3. Previously described abscess along the deep aspect of the ulcer tract appea rs improved vertebrae compared to previous. Small amount of residual fluid late rally along the ulcer tract. No drainable abscess or fluid collection today. 4. Persistent soft tissue thickening along the ulcer tract is unchanged.
[2025-01-11 09:27] LABS: Basophils # 0.1 10^3/uL (0.0-0.1); Basophils % 0.3 %; Eosinophils # 0.2 10^3/uL (0.0-0.8); Eosinophils % 0.9 %; Hematocrit 32.9 % (37-53); Lymphocytes # 2.4 10^3/uL (0.8-4.8); Lymphocytes % 14.7 %; Mean Corpuscular HGB Conc 31.9 g/dL (30-55); Mean Corpuscular Hemoglobin 24.6 pg (27-33); Mean Platelet Volume 10.8 fL (7.4-10.4); Monocytes # 1.5 10^3/uL (0.2-0.9); Neutrophils % 74.7 %; Nucleated Red Blood Cells % 0 %; Platelet Count 464 10^3/cmm (157-399); Red Blood Count 4.27 10^6/uL (3.85-5.65); Red Cell Distribution Width 15.5 % (12.1-15.1); White Blood Count 16.48 10^3/uL (3.29-11.43)
[2025-01-11 09:49] LABS: Alanine Aminotransferase 23 U/L (0-41); Albumin Level 3.9 g/dL (3.5-5.2); Alkaline Phosphatase 171 U/L (40-130); Anion Gap 18.5 (5-19); Aspartate Amino Transferase 14 U/L (0-40); Blood Urea Nitrogen 16 mg/dL (8-23); Calcium 9.3 mg/dL (8.5-10.5); Carbon Dioxide 20 mmol/L (22-29); Chloride 95 mmol/L (98-107); Creatinine Clr Calc Pharmacy 284.9319; Globulin 4.8 g/dL (1.3-4.6); Glomerular Filtration Rate 305.8 mL/min (90-130); Glucose 108 mg/dL (65-115); Osmolality Calculated 270 mOsm/kg (285-295); Potassium 4.5 mmol/L (3.5-5.1); Sodium 129 mmol/L (136-145); Total Bilirubin 0.4 mg/dL (0.15-1.2); Total Protein 8.7 g/dL (6.6-8.7)
--- NOTE | 2025-01-11 10:23 | PC.NURSE ---
Patient Rounding Patient resting in bed with eyes closed. No signs of distress noted.
[2025-01-11] MEDS: linezolid premix 600 MG/300 ML PREMIX 300 MG IV (11:51)
[2025-01-11] MEDS: iohexol 350 mg/mL 500 mL Btl (per mL) IV (11:54)
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
[2025-01-11] MEDS: sodium chloride 0.9% 1,000 ML 30 ML IV (14:28)
[2025-01-11] MEDS: fentaNYL 50 mcg/mL INJ 2mL IVP (14:37)
[2025-01-11] MEDS: piperacillin-tazobactam 3.375 GM in sodium chloride 0.9% (plus) 50 ML IV ×2 (16:04→22:57)
--- NOTE | 2025-01-11 16:45 | PM.OP ---
Operative Report Date of procedure: January 11, 2025 Pre-op diagnosis: Decubitus ulcer of the perineum with associated abscess Post-op diagnosis: Same Post-op findings: Abscess had completely drained there is no significant necrosis of the tissue, wound tracks down all the way down to the bone Procedure done: Debridement washout and wound VAC placement of left perineal wound measuring 8 x 5 x 5 cm Specimens removed/disposition: None Surgeon: Chay Stinson MD Head Banquet Waiter/Waitress: ALHAJI OR STaff Estimated blood loss: 5 Brief History: This is a 59-year-old male who presented to the hospital for concerns of possible abscess formation in his known chronic perineal wound. After discussion of risk benefits with side to proceed to the OR for exploration debridement and washout Procedure: Patient was brought into the OR, he was placed in a supine position anesthesia was given. The patient was changed to a lithotomy position. The perineum was prepped and draped in the usual sterile fashion. Significant drainage was noted around the wound. Timeout was conducted. I then proceeded explore the wound I did not identify any significant abscess cavity, I think probably majority of the fluid had already drained outside of the body. 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 Therefore I decided to proceed with wound VAC placement. The measurement of the wound at the end was 8 x 5 x 5 cm. The use of black sponge covered with regular wound VAC dressing. The settings of the bag were low continues at 100 mmHg. Patient tolerated well the procedure was transferred to the PACU in stable condition. All counts were correct at the end of the procedure.
--- NOTE | 2025-01-11 17:06 | SUR.OPER ---
01/11/25 at 1500- Spoke with Ernestine at [facility] for wound vac placement. Confirmation # [id number]
--- NOTE | 2025-01-11 17:16 | ANE.PACU2 ---
Inpatient post-anesthesia follow up: Airway intact: Yes Vital signs: Temperature 98.0 F Pulse Rate 82 Respiratory Rate 20 Blood Pressure 115/68 Pulse Oximetry 97 Oxygen Delivery Me thod Room Air Oxygen Flow Rate Fraction of Inspir ed Oxygen Hydration adequate: Yes Nausea and vomiting: No Pain level: 1 Mental status: Baseline
[2025-01-11] MEDS: morphine 4 mg/mL SDV 1 mL 2 MG IVP ×2 (18:03→22:00)
[2025-01-11] MEDS: enoxaparin 40 mg/0.4 mL Syringe SUBCUT (20:06)
[2025-01-11 20:31] LABS: Glucose Point of Care 131 mg/dL (70-110)
[2025-01-11] MEDS: oxymetazoline 0.05% Nasal Spray 15 mL 2 SPRAY NOSTRIL-B (22:58)
[2025-01-12] VITALS (7 sets, daily range): BP systolic 87–115; BP diastolic 58–75; PULSE 81–104; RESP 16–20; TEMP 36.7; O2SAT 95–97
[2025-01-12] MEDS: morphine 4 mg/mL SDV 1 mL 2 MG IVP ×2 (02:47→10:41)
[2025-01-12 05:55] LABS: Basophils % 0.3 %; Eosinophils # 0.2 10^3/uL (0.0-0.8); Eosinophils % 1.3 %; Hematocrit 31.3 % (37-53); Lymphocytes # 1.6 10^3/uL (0.8-4.8); Lymphocytes % 13.1 %; Mean Corpuscular HGB Conc 31.3 g/dL (30-55); Mean Corpuscular Hemoglobin 24.3 pg (27-33); Mean Corpuscular Volume 77.7 fl (82-101); Mean Platelet Volume 9.7 fL (7.4-10.4); Monocytes # 1.1 10^3/uL (0.2-0.9); Monocytes % 9.2 %; Neutrophils % 75.6 %; Nucleated Red Blood Cells % 0 %; Platelet Count 394 10^3/cmm (157-399); Red Blood Count 4.03 10^6/uL (3.85-5.65); Red Cell Distribution Width 15.2 % (12.1-15.1)
[2025-01-12 06:14] LABS: Alanine Aminotransferase 18 U/L (0-41); Albumin Level 3.3 g/dL (3.5-5.2); Alkaline Phosphatase 149 U/L (40-130); Anion Gap 16.9 (5-19); Aspartate Amino Transferase 12 U/L (0-40); Blood Urea Nitrogen 12 mg/dL (8-23); Calcium 8.6 mg/dL (8.5-10.5); Carbon Dioxide 22 mmol/L (22-29); Chloride 100 mmol/L (98-107); Creatinine Clr Calc Pharmacy 206.6422; Globulin 4.2 g/dL (1.3-4.6); Glomerular Filtration Rate 219.4 mL/min (90-130); Glucose 139 mg/dL (65-115); Osmolality Calculated 282 mOsm/kg (285-295); Potassium 3.9 mmol/L (3.5-5.1); Sodium 135 mmol/L (136-145); Total Bilirubin 0.2 mg/dL (0.15-1.2); Total Protein 7.5 g/dL (6.6-8.7)
[2025-01-12 06:27] LABS: Glucose Point of Care 145 mg/dL (70-110)
[2025-01-12 07:13] LABS: Bilirubin Urine Negative (Negative); Blood Urine 3+ (Negative); Glucose Urine UA Negative (Normal); Ketones Urine Negative (Negative); Leukocyte Esterase Urine 2+ (Negative); Nitrate Urine Positive (Negative); Protein Urine 1+ (Negative); Specific Gravity, Urine 1.029 (1.005-1.030); Urine Appearance Cloudy (CLEAR); Urine Color Yellow (Yellow)
[2025-01-12 07:18] LABS: Add Urine Microscopic? YES; Bacteria Urine 3+ /hpf; Hyaline Casts Urine 10.73 /lpf; RBC Urine 51-100 /hpf (0-2); Squamous Epithelial Cell Urine 0-5 /hpf (0-5); WBC Urine >100 /hpf (0-5)
[2025-01-12] MEDS: piperacillin-tazobactam 3.375 GM in sodium chloride 0.9% (plus) 50 ML IV (07:21)
[2025-01-12 07:32] LABS: UA Slide Review UA Slide Review Perf
[2025-01-12 07:33] LABS: Add Urine Culture? Yes
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
[2025-01-12] MEDS: midodrine 5 mg TABLET 10 MG PO (08:47)
[2025-01-12] MEDS: baclofen 10 mg Tablet 20 MG PO (08:47)
--- NOTE | 2025-01-12 09:11 | PC.NURSE ---
sent a webex message to [facility] to set an appointment with Dr Barksdale for a hospital follow up. was informed that PCP is booked out until February 15 but that clinic is putting patient on a call in list so that if there is an opening they will call him and see him sooner.
--- NOTE | 2025-01-12 10:39 | PC.CHAP ---
Pastoral Care Encounter/Spiritual Assessment Type of Contact [] Declined bisque placer visit [] Patient/Family/Request visit [] Outpatient visit [] Follow-up visit [] Physician referral [] Code/Alert [x] Routine visit [] Staff referral [] Actively dying [] Patient sleeping [] Family support [] [] Out of room [] Palliative care [] [] Receiving care in room [] Pre-surgical visit [] Trauma [] Long length of stay [] ICU visit [] Other: Relational/Emotional Strength [x] Patient feels connected with others/family/visitors/staff [] Distress [] Loneliness/isolation [] Abandonment Spirituality of Patient [x] Person of Patrica [] Attends Episcopalian of their Patrica [x] Believes in Prayer [] Reads Bible or Taoist materials [] There are Spiritual issues to be addressed Radiation Oncologist Interventions [x] Prayer [x] Active listening [x] Non-anxious presence [x] Spiritual/emotional support [] Crisis/trauma care [] Spiritual counseling [] Bereavement support [] Provided bereavement packet [] Provided Bible/devotional materials [] Provided toy/stuffed animal, coloring book to patient or family member [] Provided Communion [] Anointing/[place] [] Salvation [x] Completed spiritual assessment [] Other: Impact on Illness or Injury [] Angry [] Fearful [] Anxious [] Often cries [] Exhaustion [] Unable to work [] Unable to attend taoism [] Unable to walk/stand [] Unable to read [] Unable to drive [] Unable to eat/drink [] Unable to sleep [] Unable to be with family [] Patient intubated [] Other: Summary Time spent with patient 5 min
== END 2025-01-12 14:23 | disposition home health service (06) | DRG 579 ==
LOC: ER 08:50 → MEDSURG 12:46
PROVIDERS: Surgery; Admitting Provider Internal Medicine; Emergency Provider Family Medicine; PCP Family Medicine; Visit Provider Internal Medicine
PROC: 0JD70ZZ Extraction of Back Subcutaneous Tissue and Fascia, Open Approach (ICD-10-PCS; principal; 2025-01-11 14:35)
DX: L89.154 Pressure ulcer of sacral region, stage 4 (principal); G82.52 Quadriplegia, C1-C4 incomplete; L02.215 Cutaneous abscess of perineum; E87.1 Hypo-osmolality and hyponatremia; S14.104S Unspecified injury at C4 level of cervical spinal cord, sequela; V86.95XS Unspecified occupant of 3- or 4- wheeled all-terrain vehicle (ATV) injured in nontraffic accident, sequela; R73.03 Prediabetes; I73.89 Other specified peripheral vascular diseases; I10 Essential (primary) hypertension; Z96.0 Presence of urogenital implants; R33.9 Retention of urine, unspecified; G89.29 Other chronic pain; K58.9 Irritable bowel syndrome, unspecified; D64.9 Anemia, unspecified; Z99.3 Dependence on wheelchair; Z79.891 Long term (current) use of opiate analgesic; Z93.2 Ileostomy status; Z98.1 Arthrodesis status; Z87.891 Personal history of nicotine dependence; Z87.440 Personal history of urinary (tract) infections; Z87.442 Personal history of urinary calculi; Z85.828 Personal history of other malignant neoplasm of skin; Z95.828 Presence of other vascular implants and grafts
CPT/HCPCS: 36415; 36416; 72193; 80053; 81001; 82962; 85025; 87040; 87077; 87086; 87186; 96365; 96372; 99285; J1650; J2020; J2250; J2270; J2543; J2704; J3010; J7030; J9999

== ENCOUNTER → 2025-02-04 11:15 | Outpatient (BNVA) | payer MEDICARE, SELFPAY | PROVIDERS: PCP Family Medicine; Visit Provider Thoracic Surgery (Cardiothoracic Vascular Surgery) | DX: I96 Gangrene, not elsewhere classified (principal); L89.894 Pressure ulcer of other site, stage 4 | CPT/HCPCS: 97597; 97598; A6237 ==

== ENCOUNTER → 2025-02-11 10:15 | Outpatient (BNVA) | payer MEDICARE, SELFPAY | PROVIDERS: PCP Family Medicine; Visit Provider Thoracic Surgery (Cardiothoracic Vascular Surgery) | DX: L89.324 Pressure ulcer of left buttock, stage 4 (principal) | CPT/HCPCS: 11044; 87070; 87176; 87205 ==

== ENCOUNTER → 2025-02-18 11:24 | Outpatient (BNVA) | payer MEDICARE, SELFPAY | PROVIDERS: PCP Family Medicine; Visit Provider Thoracic Surgery (Cardiothoracic Vascular Surgery) | DX: I96 Gangrene, not elsewhere classified (principal); L89.894 Pressure ulcer of other site, stage 4 | CPT/HCPCS: 11044; 87070; 87077; 87176; 87186; 87205 ==

== ENCOUNTER 2025-03-02 10:23 | Outpatient (CLI) | payer OTHER, MEDICARE, SELFPAY ==
[2025-03-02 11:50] LABS: Hematocrit 33.5 % (37-53); Hemoglobin 10.10 g/dL (11.27-16.99); Mean Corpuscular HGB Conc 30.1 g/dL (30-55); Mean Corpuscular Hemoglobin 22.3 pg (27-33); Mean Corpuscular Volume 74.0 fl (82-101); Nucleated Red Blood Cells % 0 %; Platelet Count 527 10^3/cmm (157-399); Red Blood Count 4.53 10^6/uL (3.85-5.65); White Blood Count 10.11 10^3/uL (3.29-11.43)
[2025-03-02 12:12] LABS: Alanine Aminotransferase 29 U/L (0-41); Albumin Level 3.9 g/dL (3.5-5.2); Alkaline Phosphatase 177 U/L (40-130); Anion Gap 16.0 (5-19); Aspartate Amino Transferase 19 U/L (0-40); Blood Urea Nitrogen 19 mg/dL (8-23); Calcium 9.3 mg/dL (8.5-10.5); Carbon Dioxide 24 mmol/L (22-29); Chloride 97 mmol/L (98-107); Globulin 4.7 g/dL (1.3-4.6); Glucose 106 mg/dL (65-115); Osmolality Calculated 277 mOsm/kg (285-295); Potassium 5.0 mmol/L (3.5-5.1); Sodium 132 mmol/L (136-145); Total Protein 8.6 g/dL (6.6-8.7)
== END 2025-03-02 10:24 | disposition home or self-care (01) ==
LOC: LAB 10:26
PROVIDERS: PCP Family Medicine; Visit Provider Thoracic Surgery (Cardiothoracic Vascular Surgery)
DX: L02.215 Cutaneous abscess of perineum (principal)
CPT/HCPCS: 36415; 80053; 85025; 86140

== ENCOUNTER → 2025-03-11 11:15 | Outpatient (BNVA) | payer MEDICARE, SELFPAY | PROVIDERS: PCP Family Medicine; Visit Provider Thoracic Surgery (Cardiothoracic Vascular Surgery) | DX: I96 Gangrene, not elsewhere classified (principal); L89.894 Pressure ulcer of other site, stage 4 | CPT/HCPCS: 97597; 97598; 97605; A6237; A6250 ==

== ENCOUNTER → 2025-03-18 11:13 | Outpatient (BNVA) | payer OTHER, MEDICARE, SELFPAY | PROVIDERS: PCP Family Medicine; Visit Provider Thoracic Surgery (Cardiothoracic Vascular Surgery) | DX: I96 Gangrene, not elsewhere classified (principal); L89.894 Pressure ulcer of other site, stage 4 | CPT/HCPCS: 97597; 97598 ==

== ENCOUNTER → 2025-03-22 15:38 | Outpatient (BNVA) | payer OTHER, MEDICARE, SELFPAY | PROVIDERS: PCP Family Medicine; Visit Provider Thoracic Surgery (Cardiothoracic Vascular Surgery) | DX: L89.324 Pressure ulcer of left buttock, stage 4 (principal) | CPT/HCPCS: 87070; 87077; 87176; 87186; 87205 ==

== ENCOUNTER 2025-04-15 12:37 | Outpatient (CLI) | payer OTHER, MEDICARE, SELFPAY ==
[2025-04-15 12:53] LABS: Glucose Urine UA Negative (Normal); Nitrate Urine Negative (Negative); Specific Gravity, Urine 1.006 (1.005-1.030)
[2025-04-15 12:55] LABS: Add Urine Microscopic? YES
[2025-04-15 13:09] LABS: UA Slide Review UA Slide Review Perf
== END 2025-04-15 12:38 | disposition home or self-care (01) ==
LOC: LAB 12:39
PROVIDERS: PCP Family Medicine; Visit Provider Family Medicine
DX: Z87.440 Personal history of urinary (tract) infections (principal)
CPT/HCPCS: 81001; 87086

== ENCOUNTER 2025-04-22 13:03 | Outpatient (CLI) | payer OTHER, MEDICARE, SELFPAY ==
[2025-04-22 15:02] LABS: Alanine Aminotransferase 23 U/L (0-41); Albumin Level 3.6 g/dL (3.5-5.2); Alkaline Phosphatase 136 U/L (40-130); Anion Gap 14.4 (5-19); Aspartate Amino Transferase 20 U/L (0-40); Blood Urea Nitrogen 15 mg/dL (8-23); Calcium 8.8 mg/dL (8.5-10.5); Carbon Dioxide 27 mmol/L (22-29); Chloride 97 mmol/L (98-107); Globulin 4.2 g/dL (1.3-4.6); Glucose 104 mg/dL (65-115); Osmolality Calculated 279 mOsm/kg (285-295); Potassium 4.4 mmol/L (3.5-5.1); Sodium 134 mmol/L (136-145); Total Protein 7.8 g/dL (6.6-8.7)
== END 2025-04-22 13:04 | disposition home or self-care (01) ==
LOC: LAB 13:04
PROVIDERS: PCP Family Medicine; Visit Provider Student in an Organized Health Care Education/Training Program
DX: M86.60 Other chronic osteomyelitis, unspecified site (principal)
CPT/HCPCS: 36415; 80053; 85651; 86140

== ENCOUNTER 2025-05-06 06:43 | Outpatient (CLI) | payer OTHER, MEDICARE, SELFPAY ==
--- NOTE | 2025-05-06 06:45 | CT_ITS ---
WS: [id number] CT PELVIS WITH CONTRAST HISTORY: pelvic osteomyelitis follow up TECHNIQUE: Contiguous imaging is performed of the pelvis with contrast. Coronal and sagittal reformats are reviewed. All CT scans at [facility] use at least one of these dose optimization techniques: automated exposure control; mA and/or kV adjustment per patient size (includes targeted exams where dose is matched to clinical indication); or iterative reconstruction. DLP: 309.12 mGy.cm COMPARISON: 01/11/2025, 02/20/2024 Contrast: Omnipaque 350; 100 cc. Large open decubitus ulcer tract along the LEFT posterior pelvis extends to the ischial tuberosity. There is less soft tissue enhancement as compared to 01/11/2025. There is a small residual ill-defined fluid collection measuring 3.8 x 1.7 cm posterior to the LEFT acetabulum which represents a significant improvement. No air foci within this collection. There are a few tiny foci of air superficially along the tract which may be external foci of air. There is sclerosis in the healed ischial tuberosity osteomyelitis. Bone remodeling along the inferior pubic rami. There is also increased sclerosis in the posterior acetabulum since the prior study. This also suggest healing of osteomyelitis. Diffuse soft tissue thickening extends around the LEFT femoral head and neck. Similar to the most recent study. IVC filter is in good position. Nonobstructing renal calcification lower pole RIGHT kidney. No free fluid in the pelvis. LEFT lower quadrant ostomy site. Suprapubic catheter in the urinary bladder. CT/CT pelvis w con* [id number] IMPRESSION: 1. Slow improvement in the LEFT decubitus ulcer tract. There is less wall thic kening and enhancement. 2. Previously described soft tissue abscess has improved. There has been a sli ght change in the abscess location which is now just slightly behind the LEFT a cetabulum. This may be a new abscess or change in position with the progressed healing. Abscess now measures 3.8 x 1.7 cm. 3. Healing osteomyelitis at the LEFT ischial tuberosity. 4. New sclerosis involving the posterior LEFT acetabular column. Consistent wi th healing osteomyelitis.
[2025-05-06] MEDS: iohexol 350 mg/mL 500 mL Btl (per mL) IV (06:56)
== END 2025-05-06 06:44 | disposition home or self-care (01) ==
LOC: RAD 06:45
PROVIDERS: PCP Family Medicine; Visit Provider Student in an Organized Health Care Education/Training Program
DX: M86.8X8 Other osteomyelitis, other site (principal); L89.899 Pressure ulcer of other site, unspecified stage; L02.818 Cutaneous abscess of other sites; R93.7 Abnormal findings on diagnostic imaging of other parts of musculoskeletal system
CPT/HCPCS: 72193

== ENCOUNTER 2025-05-13 06:10 | Day surgery (SDC) | payer OTHER, MEDICARE, SELFPAY ==
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
[2025-05-13 06:25] VITALS: BP 102/73; PULSE 96; RESP 16; TEMP 36.1; O2SAT 100
[2025-05-13 06:33] VITALS: BMI 24.4
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
[2025-05-13 07:45] VITALS: BP 142/88; PULSE 98; RESP 20; TEMP 36.3; O2SAT 99
[2025-05-13 08:04] VITALS: BP 83/58; PULSE 80; RESP 18; O2SAT 99
[2025-05-13 08:22] VITALS: BP 94/67; PULSE 77; RESP 18; O2SAT 97
--- NOTE | 2025-05-13 08:47 | ANE.PACU2 ---
Inpatient post-anesthesia follow up: Airway intact: Yes Vital signs: Temperature 97.4 F Pulse Rate 77 Respiratory Rate 18 Blood Pressure 94/67 Pulse Oximetry 97 Oxygen Delivery Me thod Room Air Oxygen Flow Rate 4 Fraction of Inspir ed Oxygen Hydration adequate: Yes Nausea and vomiting: No Pain level: 1 Mental status: Baseline
--- NOTE | 2025-05-13 10:42 | PC.NURSE ---
WOUND VAC DRESSING TAKEN DOWN PER PHYSICIAN REQUEST TO INSERT COLONOSCOPE INTO RECTUM. WET TO DRY DRESSING APPLIED. PER PTS : HOME [facility] TO SEE PT TODAY AND WILL REAPPLY WOUND VAC DRESSING.
== END 2025-05-13 08:47 | disposition home or self-care (01) ==
PROVIDERS: PCP Family Medicine; Visit Provider Surgery
PROC: 0DJD8ZZ Inspection of Lower Intestinal Tract, Via Natural or Artificial Opening Endoscopic (ICD-10-PCS; CPT 44388; principal; 2025-05-13 07:00)
DX: Z12.11 Encounter for screening for malignant neoplasm of colon (principal); D12.0 Benign neoplasm of cecum; R73.03 Prediabetes; Z93.2 Ileostomy status; R73.9 Hyperglycemia, unspecified; I95.9 Hypotension, unspecified; I25.10 Atherosclerotic heart disease of native coronary artery without angina pectoris; Z87.891 Personal history of nicotine dependence; E87.1 Hypo-osmolality and hyponatremia; Z79.891 Long term (current) use of opiate analgesic
CPT/HCPCS: 44389; 88305; J2704; J7030; J9999

== ENCOUNTER → 2025-06-07 16:28 | Outpatient (BNVA) | payer OTHER, MEDICARE, SELFPAY | PROVIDERS: PCP Family Medicine; Visit Provider Thoracic Surgery (Cardiothoracic Vascular Surgery) | DX: L89.154 Pressure ulcer of sacral region, stage 4 (principal) | CPT/HCPCS: 87070; 87176; 87205 ==

== ENCOUNTER 2025-06-14 17:01 | Inpatient (IN) | payer OTHER, MEDICARE, SELFPAY ==
--- OUTSIDE RECORDS SUMMARY | 2020-07-12 10:26 | XMS_ITS | Continuity of Care Document ---
Author Organization [facility] Address [address] [place] [address] Phone Care Team Providers Care Teacher Of The Emotionally Disturbed Name Role Phone Conversion, [employer] Unavailable Unavailab le Allergies, Adverse Reactions, Alerts Substance Reaction Status Criticality MONTELUKAST SODIUM Resolved No Inform ation No Known Drug Allergies Resolved No I nformation No Known Drug Allergies Resolved No I nformation MONTELUKAST SODIUM Resolved No Inform ation Medications Medication Instructions Dosage Effective Dates (start - stop) Status Comments doxycycline hyclate 100 mg capsule TAKE 1 CAPSULE EVERY 12 HOURS DAILY. No Longer Active NULL oxybutynin chloride 5 mg tablet TAKE 1 TABLET 3 times daily PRN bladder spasms Before Meals MDD:3 TDD:3 No Longer Active NULL acetaminophen 300 mg-codeine 30 mg tablet No Longer Active NULL cyclobenzaprine 5 mg tablet No Longer Active NULL trazodone 100 mg tablet No Longer Active NULL Allergy Relief (fluticasone) 50 mcg/actuation nasal spray,suspension No Longer Active NULL oxycodone 5 mg tablet No Longer Active NULL nitrofurantoin macrocrystal 100 mg capsule 1BID - TAKE ONE CAPSULE BY MOUTH TWICE DAILY No Longer Active NULL dicyclomine 20 mg tablet No Longer Active NULL fluconazole 200 mg tablet No Longer Active NULL prednisone 10 mg tablet No Longer Active NULL levofloxacin 750 mg tablet No Longer Active NULL baclofen 20 mg tablet No Longer Active NULL Linzess 145 mcg capsule No Longer Active NULL diazepam 5 mg tablet 2017 No Longer Active NULL midodrine 5 mg tablet No Longer Active NULL Macrodantin 50 mg capsule Macrodantin 50mg Cap 1po daily. No Longer Active NULL Advance Directives Directive Yes / No Effective Date File Name No Information Encounters Encounter Description Practice Location Reason(s) For Visit Diagnoses Date Provider Providers Copied on Encounter [facility], [address], [place], [place], [id number] , tel: [phone] [employer] Conversion N39.0 _Urinary tract infection 0 Conversion [employer]. , [place], [place], [facility], [place]. [facility], [address], [place], [place], [id number] , tel: [phone] [place] No Information 0 Conversion [employer]. , [place], [facility], [place]. [facility], [address], [place], [place], [id number] , tel: [phone] [employer] Conversion N39.41 _Urge incontinence of urine 0 Conversion [employer]. , [place], [facility], [place]. [facility], [address], [place], [place], [id number] , tel: [phone] [place] No Information 0 Conversion [employer]. , [place], [facility], . [facility], [address], [place], [place], [id number] , [place] tel: [phone] [place] Autonomic dysreflexia 1-202 0 Ralph Achal. [address], [place], [place], [id number], [place]. tel:[phone] Referring Provider: Gilbert Harris, [address] [place] [address], [address] . tel:[phone] [facility], [address], [place], [place], [id number] , [place] tel: [phone] [place] No Information 3 0 Conversion [employer]. , [place], [facility], . [facility], [address], [place], [place], [id number] , tel: [phone] [place] Calculus of kidneyNeuromuscul ar dysfunction of bladder, unspecified 0 Ralph Achal. [address], [place], [place], [address] [place] [address], [place]. tel:[phone] Referring Provider: Gilbert Harris, [address] [place] [address], [address] . tel:[phone] [facility], [address], [place], [place], [id number] , [place] tel: [phone] [place] No Information 2-202 0 Conversion [employer]. , [place], [facility], [place]. [facility], [address], [place], [place], [id number] , [place] tel: [phone] [place] Calculus of kidneyAutonomic dysreflexiaPyuria November-0 7-202 0 Ralph Achal. [address], [place], [place], [id number], [place]. tel:[phone] Referring Provider: Gilbert Harris, [address] [place] [address], [address] . tel:[phone] [facility], [address], [place], [place], [id number] , [place] tel: [phone] [employer] Conversion N20.0 _NephrolithiasisR 82.81 _Pyuria May-0 7-202 0 Conversion [employer]. , [place], [address], [place]. [facility], [address], [place], [place], [id number] , [place] tel: [phone] [place] Pyuria Apr-0 8-202 0 Ralph Achal. [address], [place], [place], [id number], [place]. tel:[phone] Referring Provider: Gilbert Harris, [address] [place] [address], [address] . tel:[phone] [facility], [address], [place], [place], [id number] , [place] tel: [phone] [place] Calculus of kidneyUnsp complication of genitourinary prosth dev/grft, init 9 Ralph Achal. [address], [place], [place], [id number], [place]. tel:[phone] Referring Provider: Gilbert Harris, [address] [place] [address], [address] . tel:[phone] [facility], [address], [place], [place], [id number] , [place] tel: [phone] [place] Calculus of kidney 9 Ralph Achal. [address], [place], [place], [id number], [place]. tel:[phone] Referring Provider: Gilbert Harris, [address] [place] [address] [place], [address] . tel:[phone] [facility], [address], [place], [place], [id number] , [place] tel: [phone] [place] Gross hematuriaCalculus of kidney 0201 9 Ralph Achal. [address], [place], [place], [address], [place]. [phone] Referring Provider: Gilbert Harris, [address] [place] [address], [address] . tel:[phone] [facility], [address], [place], [place], [id number] , [place] tel: [phone] [place] Autonomic dysreflexiaGross hematuriaUnsp complication of genitourinary prosth dev/grft, init 201 9 Ralph Achal. [address], [place], [place], [id number], [place]. [phone] Referring Provider: Gilbert Harris, [address] [place] [address], [address] . tel:[phone] [facility], [address], [place], [place], [id number] , [place] tel: [phone] [place] Calculus of kidneyUnsp complication of genitourinary prosth dev/grft, initUrinary tract infection, site not specified 8 Ralph Achal. [address], [place], [place], [id number], [place]. [phone] Referring Provider: Gilbert Harris, [address] [place] [address], [address] . tel:[phone] [facility], [address], [place], [place], [address] , [place] tel: [phone] [place] No Information May- 8 Conversion [employer]. , [place], [facility], [place]. [facility], [address], [place], [place], [id number] , [place] tel: [phone] [employer] Conversion N20.0 _Right nephrolithiasis 8 Conversion [employer]. , [place], [facility], [place]. [facility], [address], [place], [place], [address] , [place] tel: [phone] [employer] Conversion G90.4 _Autonomic zwiwapnfqxpL69.4 _Autonomic tmmkbbkwpwmK40.0 _Gross hematuria 4 Conversion [employer]. , [place], [facility], [place]. [facility], [address], [place], [place], [id number] , [place] tel: [phone] [employer] Conversion R10.9 _Abdominal pain of multiple olindF78.4 _Cauda equina syndrome with neurogenic habfjaxA29.89 _Edema of penis [address] [place] [address], [address], [id number], [place]. tel:[phone] [facility], [address], [place], [place], [id number] , [place] tel: [phone] [employer] Conversion No Information 2 Conversion [employer]. , [place], [facility], [place]. [facility], [address], [place], [place], [address] , [place] tel: [phone] [employer] Conversion No Information 6 Conversion [employer]. , [place], [facility], [place]. [facility], [address], [place], [place], [address] , [place] tel: [phone] [employer] Conversion Z00.00 _Encounter for preventive health examination Mumtaz-0 1-190 0 Conversion [employer] , [place], [address], [place]. Family History Family Member Type Diagnosis Age At Onset Family Problem (finding) Tobacco Use Family Problem (finding) myocardial infarction Family Problem (finding) Malignant Neoplasm Of T he Prostate Gland Family Problem (finding) Marital History - Curre ntly Payers Payer name Insurance type Covered libertarian ID Authoriza tion(s) No Information Social History Type Description Quantity Date Captured Comments Sex Male Smoking Status No Information Chief Complaint And Reason For Visit No Information Reason For Referral Reason For Referral No Information History Of Present Illness Encounter Date Complaint History Of Prese nt Illness No Information Functional Status Date Functional Assessmen t No Information Instructions Date Instruction Additional Infor mation No Information Assessments Type Assessment Date No Information Patient Care Teams Name Effective Dates (start - stop) Status Members No Information
[2025-06-14] VITALS (11 sets, daily range): BP systolic 70–113; BP diastolic 42–71; PULSE 60–101; RESP 14–28; TEMP 37.8; O2SAT 95–98; BMI 23.7
--- NOTE | 2025-06-14 17:10 | ECG_ITS ---
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 Measurements Intervals [place] Rate: 79 P: 80 SC: 143 QRS: 63 QRSD: 74 T: 66 QT: 355 QTc: 407 Interpretive Statements SINUS RHYTHM POSSIBLE LEFT ATRIAL ENLARGEMENT [-0.1mV P-WAVE IN V1/V2] Compared to ECG 10/27/2024 11:15:36 ST (T wave) deviation no longer present Electronically Signed On 06-15-2025 07:40:20 HUM[employer]OURCES COMMUNICATIONS MANAGER by Toro Douglas M.D. [email or web address]
--- NOTE | 2025-06-14 17:10 | XRR_ITS ---
PROCEDURE INFORMATION: Exam: XR Chest Exam date and time: 06/14/2025 5:23 PM Age: 60 years old Clinical indication: Other: Weakness TECHNIQUE: Imaging protocol: Radiologic exam of the chest. Views: 1 view. COMPARISON: CR XR chest 1V portable [id number] 11/02/2024 2:14 PM FINDINGS: Lungs: Unremarkable. No consolidation. Pleural spaces: Unremarkable. No pleural effusion. No pneumothorax. Heart/Mediastinum: Unremarkable. No cardiomegaly. Bones/joints: Unremarkable. XR/XR chest 1V portable [id number] IMPRESSION: No acute findings.
--- NOTE | 2025-06-14 17:33 | W.ED.WEAKNES ---
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 06/14/25 17:38 Neut % (Auto) 77.3 % 06/14/25 17:38 Lymph % (Auto) 11.8 % 06/14/25 17:38 [place] % (Auto) 10.1 % 06/14/25 17:38 Eos % (Auto) 0.1 % 06/14/25 17:38 Baso % (Auto) 0.1 % 06/14/25 17:38 Neut # (Auto) 9.74 10^3/uL (1.8-7.7) H 06/14/25 17:38 Lymph # (Auto) 1.5 10^3/uL (0.8-4.8) 06/14/25 17:38 [place] # (Auto) 1.3 10^3/uL (0.2-0.9) H 06/14/25 17:38 Eos # (Auto) 0.0 10^3/uL (0.0-0.8) 06/14/25 17:38 Baso # (Auto) 0.0 10^3/uL (0.0-0.1) 06/14/25 17:38 Nucleated RBC % (auto) 0 % 06/14/25 17:38 Nucleated RBCs # 0.0 /100WBC 06/14/25 17:38 Sodium 131 mmol/L (136-145) L 06/14/25 17:38 Potassium 4.0 mmol/L (3.5-5.1) 06/14/25 17:38 Chloride 95 mmol/L (98-107) L 06/14/25 17:38 Carbon Dioxide 20 mmol/L (22-29) L 06/14/25 17:38 Anion Gap 20.0 (5-19) H 06/14/25 17:38 BUN 21 mg/dL (8-23) 06/14/25 17:38 Creatinine 0.5 mg/dL (0.7-1.2) L 06/14/25 17:38 GFR Calculation 169.0 mL/min (90-130) H 06/14/25 17:38 Glucose 108 mg/dL (65-115) 06/14/25 17:38 Calculated Osmolality 276 mOsm/kg (285-295) L 06/14/25 17:38 Lactic Acid 1.1 mmol/L (0.5-2.2) 06/14/25 17:38 Calcium 8.3 mg/dL (8.5-10.5) L 06/14/25 17:38 Total Bilirubin 0.4 mg/dL (0.15-1.2) 06/14/25 17:38 AST 25 U/L (0-40) 06/14/25 17:38 ALT 27 U/L (0-41) 06/14/25 17:38 Alkaline Phosphatase 134 U/L (40-130) H 06/14/25 17:38 Troponin T Baseline 28 ng/L (0-15) H 06/14/25 17:38 Troponin T 120 Minute 18.13 ng/L (0-15) H 06/14/25 19:18 Delta Troponin T -9.87 ABS# (0-10) L 06/14/25 19:18 C-Reactive Protein 149.0 mg/L (0.0-4.9) H 06/14/25 17:38 Total Protein 7.5 g/dL (6.6-8.7) 06/14/25 17:38 Albumin 3.2 g/dL (3.5-5.2) L 06/14/25 17:38 Globulin 4.3 g/dL (1.3-4.6) 06/14/25 17:38 Procalcitonin 2.87 ng/mL (0-0.5) H 06/14/25 17:38 Urine Color Dark yellow (Yellow) A 06/14/25 18:00 Urine Appearance Turbid (CLEAR) A 06/14/25 18:00 Urine pH 7.5 (5-7) 06/14/25 18:00 Ur Specific [place] 1.019 (1.005-1.030) 06/14/25 18:00 Urine Protein 2+ (Negative) A 06/14/25 18:00 Urine Glucose (UA) Negative (Normal) 06/14/25 18:00 Urine Ketones Trace (Negative) 06/14/25 18:00 Urine Blood 3+ (Negative) A 06/14/25 18:00 Urine Nitrate Positive (Negative) A 06/14/25 18:00 Urine Bilirubin Negative (Negative) 06/14/25 18:00 Urine Urobilinogen 1.0 mg/dL (Negative) 06/14/25 18:00 Ur Leukocyte Esterase 3+ (Negative) A 06/14/25 18:00 Urine RBC >100 /hpf (0-2) H 06/14/25 18:00 Urine WBC >100 /hpf (0-5) H 06/14/25 18:00 Ur Squamous Epith Cells 0-5 /hpf (0-5) 06/14/25 18:00 Calcium Oxalate Crystal 5-10 /hpf H 06/14/25 18:00 Amorphous Sediment 2+ /hpf 06/14/25 18:00 Urine Bacteria 4+ /hpf (NONE) H 06/14/25 18:00 Hyaline Casts 18.61 /lpf 06/14/25 18:00 Discharge Plan Discharge Patient Disposition: Admitted As Inpatient Admit Provider: Rai Gutiérrez Clinical Impression: Septic shock Condition: Critical Coding Level of Care Code ED Squaring Machine Operator for Jair Medina
[2025-06-14] MEDS: acetaminophen 1,000 MG/100 ML PIGGYBACK 400 MG IV (17:40)
[2025-06-14] MEDS: linezolid premix 600 MG/300 ML PREMIX 300 MG IV (17:40)
[2025-06-14 17:53] LABS: Hematocrit 33.6 % (37-53); Hemoglobin 10.20 g/dL (11.27-16.99); Mean Corpuscular HGB Conc 30.4 g/dL (30-55); Mean Corpuscular Hemoglobin 20.5 pg (27-33); Mean Corpuscular Volume 67.5 fl (82-101); Nucleated Red Blood Cells % 0 %; Platelet Count 323 10^3/cmm (157-399); Red Blood Count 4.98 10^6/uL (3.85-5.65); White Blood Count 12.59 10^3/uL (3.29-11.43)
[2025-06-14 18:14] LABS: Troponin(5th) Baseline 28 ng/L (0-15)
[2025-06-14 18:15] LABS: Glucose Urine UA Negative (Normal); Nitrate Urine Positive (Negative); Specific Gravity, Urine 1.019 (1.005-1.030)
[2025-06-14 18:17] LABS: Alanine Aminotransferase 27 U/L (0-41); Albumin Level 3.2 g/dL (3.5-5.2); Alkaline Phosphatase 134 U/L (40-130); Anion Gap 20.0 (5-19); Aspartate Amino Transferase 25 U/L (0-40); Blood Urea Nitrogen 21 mg/dL (8-23); Calcium 8.3 mg/dL (8.5-10.5); Carbon Dioxide 20 mmol/L (22-29); Chloride 95 mmol/L (98-107); Globulin 4.3 g/dL (1.3-4.6); Glucose 108 mg/dL (65-115); Osmolality Calculated 276 mOsm/kg (285-295); Potassium 4.0 mmol/L (3.5-5.1); Sodium 131 mmol/L (136-145); Total Protein 7.5 g/dL (6.6-8.7)
[2025-06-14 18:18] LABS: Lactic Sepsis W/Reflex 1.1 mmol/L (0.5-2.2)
--- NOTE | 2025-06-14 18:18 | PC.NURSE ---
pt refusing covid swab due to having it done at an [facility] clinic yesterday. provider notified.
[2025-06-14 18:23] LABS: Procalcitonin 2.87 ng/mL (0-0.5)
[2025-06-14 18:35] LABS: UA Slide Review UA Slide Review Perf
--- NOTE | 2025-06-14 19:10 | ECG_ITS ---
[facility] Test Date: 2025-06-14 Pat Name: Gian Silva Department: Room: Gender: Male Technical Customer Support Specialist: : [id number] Requested By: Jaja Harkins Order Number: [id number] Fish MD: Toro Douglas M.D. Measurements Intervals [place] Rate: 86 P: 79 [place]: 158 QRS: 54 QRSD: 74 T: 43 QT: 360 QTc: 433 Interpretive Statements SINUS RHYTHM POSSIBLE LEFT ATRIAL ENLARGEMENT [-0.1mV P-WAVE IN V1/V2] Compared to ECG 06/14/2025 17:25:30 No significant changes Electronically Signed On 06-15-2025 09:53:11 SPIKE DRIVER by Toro Douglas M.D. [email or web address]
--- NOTE | 2025-06-14 19:37 | CTR_ITS ---
PROCEDURE INFORMATION: Exam: CT Pelvis With Contrast, Skeleton Exam date and time: 06/14/2025 8:41 PM Age: 60 years old Clinical indication: Pelvic pain; Additional info: HX om TECHNIQUE: Imaging protocol: Computed tomography of the pelvis with contrast. Exam focused on the skeleton. Radiation optimization: All CT scans at this facility use at least one of these dose optimization techniques: automated exposure control; mA and/or kV adjustment per patient size (includes targeted exams where dose is matched to clinical indication); or iterative reconstruction. Contrast material: OMNI 350; Contrast volume: 100 ml; Contrast route: INTRAVENOUS (IV); COMPARISON: CT pelvis w con* [id number] 05/06/2025 7:26 AM RADIATION DOSE METRICS: Total DLP (mGy-cm): 567.22 FINDINGS: Kidneys and ureters: Bilateral renal cysts. Right kidney lower pole 2.4 cm staghorn type calculus. Intestine: Severe constipation. Vasculature: Inferior vena cava filter. Reproductive: Prostate gland enlarged please correlate clinically. Urinary bladder: Suprapubic Dejesus catheter in the urinary bladder. Diffuse urinary bladder wall thickening, please correlate for cystitis. Bones/joints: Severe osteoarthritis of the hips bilaterally. Soft tissues: Bilateral large decubitus ulcers extending to the regions of the pubic pubic rami bilaterally with apparent bony destruction, [id number], similar to prior exam, findings may reflect underlying osteomyelitis, MRI could further characterize this. CT/CT pelvis w con* [id number] IMPRESSION: 1. Bilateral large decubitus ulcers extending to the regions of the pubic pubic rami bilaterally with apparent bony destruction, [id number], similar to prior exam, findings may reflect underlying osteomyelitis, MRI could further characterize this. 2. Severe osteoarthritis of the hips bilaterally. 3. Bilateral renal cysts. 4. Inferior vena cava filter. 5. Right kidney lower pole 2.4 cm staghorn type calculus. 6. Severe constipation. 7. Suprapubic Dejesus catheter in the urinary bladder. 8. Diffuse urinary bladder wall thickening, please correlate for cystitis. 9. Prostate gland enlarged please correlate clinically. COMMENTS: 1. For patients with an IVC filter, recommend assessment for a management plan for the patient's IVC filter. If there is no established management plan, recommend referral to an interventional clinician on a nonemergent basis for evaluation. 2. Consistent with the [employer]'s Incidental Findings Committee white paper (J Am Vincent Radiol 2018): Any incidental renal lesion less than 1 cm or classified as too small to characterize, or any incidental cystic renal lesion characterized as simple-appearing, is likely benign. No follow-up imaging is recommended for these lesions per consensus recommendations based on imaging criteria.
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
[2025-06-14 19:52] LABS: Troponin 5 2HR 18.13 ng/L (0-15)
[2025-06-14] MEDS: cefTRIAXone 2,000 mg SDV 2000 MG IVP (20:58)
[2025-06-14] MEDS: iohexol 350 mg/mL 500 mL Btl (per mL) IV (21:00)
[2025-06-14] MEDS: norepinephrine 4 MG/250 ML BAG 30 MG IV (21:34)
--- NOTE | 2025-06-14 22:55 | PC.NURSE ---
LEVO STOPPED AT 2255 DUE TO BP BEING 162/85.
--- NOTE | 2025-06-14 23:08 | PC.NURSE ---
LEVO STARTED BACK UP AT 2305 DUE TO BP BEING 87/43.
--- NOTE | 2025-06-14 23:10 | ECG_ITS ---
[facility] Test Date: 2025-06-15 Pat Name: Gian Silva Department: Room: [facility] Gender: Male Do All Operator: : 1965 Requested By: Jaja Harkins Order Number: [id number] Abe MD: Toro Douglas M.D. Measurements Intervals [place] Rate: 77 P: 83 UT: 152 QRS: 67 QRSD: 84 T: 61 QT: 386 QTc: 438 Interpretive Statements SINUS RHYTHM POSSIBLE LEFT ATRIAL ENLARGEMENT [-0.1mV P-WAVE IN V1/V2] POSSIBLE RIGHT VENTRICULAR CONDUCTION DELAY [RSR (QR) IN V1/V2] Compared to ECG 06/14/2025 19:42:54 No significant changes Electronically Signed On 06-15-2025 09:52:26 MANAGER EQUITY by Toro Douglas M.D. [email or web address] [id number]
[2025-06-15] VITALS (98 sets, daily range): BP systolic 79–177; BP diastolic 45–110; PULSE 61–145; RESP 15–34; TEMP 36.3–37.1; O2SAT 94–100
[2025-06-15 00:19] LABS: Troponin 5 6HR 22.98 ng/L (0-15)
[2025-06-15 00:23] LABS: Troponin 5 6HR Delta -5.02 ng/L (0-12)
--- NOTE | 2025-06-15 00:58 | XRR_ITS ---
PROCEDURE INFORMATION: Exam: XR Chest Exam date and time: 06/15/2025 2:20 AM Age: 60 years old Clinical indication: Device placement; Other: Ij central line; Additional info: Verify placement of right ij central line TECHNIQUE: Imaging protocol: Radiologic exam of the chest. Views: 1 view. COMPARISON: CR (CHEST, ) 06/14/2025 5:23 PM FINDINGS: Tubes, catheters and devices: Right IJ catheter terminates at the cavoatrial junction. Lungs: Unremarkable. No consolidation. Pleural spaces: Unremarkable. No pleural effusion. No pneumothorax. Heart/Mediastinum: Unremarkable. No cardiomegaly. Bones/joints: Unremarkable. XR/XR chest 1V portable [id number] IMPRESSION: Right IJ catheter terminates at the cavoatrial junction.
--- OUTSIDE RECORDS SUMMARY | 2025-06-15 05:13 | XMS_ITS | CCD ---
Author Name Interface, [id number] lity Address [place] [address] Organization [facility] Address [address] [address] Care Team Providers Care Injection Molding Machine Offbearer Name Role Phone Rob MIR, Abhinav Unavailable Unavailable Allergies and Adverse Reactions Medication/Group Name Reaction Severity Date No known allergies Reason for Visit Medications Date Name Route Dose Frequency Instructions Start Date End Date Status Fill Status Indication 11/24 Baclofen Oral PO 1.0 TABLE T(S) TID 2014 active 11/24 Midodrine Oral PO 1.0 TABLE T(S) daily as directed 2014 active 11/24 Tramadol Oral PO 1.0 TABLE T(S) PRN 2014 active 11/24 Cephalexin Oral PO 1.0 CAPSU LE(S) BID 2014 active Problems Diagnosis Status Date of Diagnosis Resolution Date Constipation (finding) Active Rectal hemorrhage (disorder) Active Social History Date Name Value 11/24/2020 Sex Male
--- OUTSIDE RECORDS SUMMARY | 2025-06-15 05:14 | XMS_ITS | CCD ---
Author Name Interface, [id number] lity Address [place] [address] Organization [facility] Address [place] [address] Care Team Providers Care Package Car Driver Name Role Phone Rob MIR, Abhinav Unavailable [...]
--- OUTSIDE RECORDS SUMMARY | 2025-06-15 05:14 | XMS_ITS | CCD ---
Author Name Interface, [id number] lity Address [address] [place] [address] Organization [facility] Address [address] [address] Care Team Providers Care Almond Blancher Hand Name Role Phone Rob MIR, Abhinav Unavailable [...]
--- OUTSIDE RECORDS SUMMARY | 2025-06-15 05:14 | XMS_ITS | CCD ---
Author Name Interface, [id number] lity Address [place] [address] Organization [facility] Address [address] [address] Care Team Providers Care Phosphoric Acid Supervisor Name Role Phone Rob MIR, Abhinav Unavailable [...]
--- OUTSIDE RECORDS SUMMARY | 2025-06-15 05:14 | XMS_ITS | CCD ---
Author Name Interface, [id number] lity Address [place] [address] Organization [facility] Address [address] [place] [address] Care Team Providers Care Act Tutor Name Role Phone Rob MIR, Abhinav Unavailable [...]
--- OUTSIDE RECORDS SUMMARY | 2025-06-15 05:15 | XMS_ITS | CCD ---
Author Name Interface, [id number] lity Address [place] [address] Organization [facility] Address [address] [place] [address] Care Team Providers Care Wrapper Counter Name Role Phone Rob MIR, Abhinav Unavailable [...]
--- OUTSIDE RECORDS SUMMARY | 2025-06-15 05:15 | XMS_ITS | CCD ---
Author Name Interface, [id number] lity Address [place] [address] Organization [facility] Address [address] [place] [address] Care Team Providers Care Theoretical Physicist Name Role Phone Rob MIR, Abhinav Unavailable [...]
--- OUTSIDE RECORDS SUMMARY | 2025-06-15 05:15 | XMS_ITS | CCD ---
Author Name Interface, [id number] lity Address [place] [address] Organization [facility] Address [address] [address] Care Team Providers Care Payroll Director Name Role Phone Rob MIR, Abhinav Unavailable [...]
[2025-06-15 05:24] LABS: Hematocrit 29.6 % (37-53); Hemoglobin 8.90 g/dL (11.27-16.99); Mean Corpuscular HGB Conc 30.1 g/dL (30-55); Mean Corpuscular Hemoglobin 21.4 pg (27-33); Mean Corpuscular Volume 71.3 fl (82-101); Nucleated Red Blood Cells % 0 %; Platelet Count 251 10^3/cmm (157-399); Red Blood Count 4.15 10^6/uL (3.85-5.65); White Blood Count 9.20 10^3/uL (3.29-11.43)
[2025-06-15 05:34] LABS: Sodium 136 mmol/L (136-145)
[2025-06-15] MEDS: linezolid premix 600 MG/300 ML PREMIX 300 MG IV ×2 (05:34→18:05)
--- NOTE | 2025-06-15 11:33 | P.PN_ITS ---
Subjective 2 Subjective: Patient seen this morning on the medical floor. He is a 60-year-old male who was admitted last night because of suspected chronic wound infection. Currently, he is getting general surgery consult, and the right care of the wound accordingly. He reports feeling better today. No new complaints. Vitals/I&O/Wt Last Vital Signs Temp 98.8 F 06/15/25 07:30 Pulse 89 06/15/25 08:30 Resp 29 H 06/15/25 08:30 BP 112/82 06/15/25 08:30 Pulse Ox 99 06/15/25 08:30 O2 Del Method Room Air 06/15/25 07:30 06/14/25 06/15/25 06/15/25 22:59 06:59 14:59 Intake Total 142 / 142 1848.125 / 1990.125 424.563 / 424.563 Output Total 1100 / 1100 550 / 550 Balance 142 / 142 748.125 / 890.125 -125.437 / -125.437 Weight last 48 hrs Weight 80.286 kg Weight 80.286 kg Weight 77.111 kg Physical Exam 2 Narrative: General: Awake and alert. Cooperative. Chest/Resp: Normal respiratory chest movts; no obvious respiratory distress. CVS: Regular heart rate and rhythm. GI: Non-distended; No obvious organomegaly. Extremities: No obvious pitting pedal edema. Skin: No obvious new rashes or new skin lesions. Further exam deferred. Data 06/15/25 05:05 06/15/25 05:05 Micro: Microbiology 06/14/25 18:04 Blood Culture - Preliminary Blood SPECIMEN COLLECTED 06/14/25 17:38 Blood Culture - Preliminary Blood SPECIMEN COLLECTED A&P Assessment and plan 1. Sepsis without septic shock: Resolving. 2. Infected decubitus ulcer: Otherwise stable. 3. Spastic quadriplegia: Stable. 4. Suprapubic catheter: Stable chronic problem. 5. Chronic hyponatremia: Currently stable. Plan: Currently stable percent. Continue ongoing IV antibiotics. Wean off Levophed drip as tolerated. Defer to general surgery for further evaluation and treatment of the apparent reported necrotic wound that may need some debridement. Further plans to be adjusted for the patient levels. PDMP PDMP Reviewed: Not Reviewed Attestations 2 Medical Necessity Statement*: Patient admitted for apparent severe clinical condition, as outlined in the Assessment & Plan section above. Patient will need up to 2 more midnight stay, estimated, at least, to adequately and appropriately treat and optimally control above-named clinical conditions,. Coding Level of Care Code Acute Code for g Fwd Diagnoses Sepsis without septic shock A41.9 Infected decubitus ulcer L89.90; L08.9 Spastic quadriplegia G82.50 Suprapubic catheter Z93.59 Chronic hyponatremia E87.1
--- NOTE | 2025-06-15 18:28 | PC.NURSE ---
Shift Summary: Uneventful shift. Rested in bed throughout the day. Frequently turned. Wound care orders received. Was able to titrate off of levophed after midodrine started.
--- NOTE | 2025-06-15 20:10 | PC.NURSE ---
Advised Dr. Gutiérrez patient did not have AM labs drawn today, 06/15, and no orders currently on the chart for 06/[address] Gutirérez advised he would review patient's chart.
[2025-06-15] MEDS: cefTRIAXone 2,000 mg SDV 2000 MG IVP (20:56)
[2025-06-15] MEDS: ondansetron 2 mg/ML SDV 2 mL 4 MG IVP (22:57)
[2025-06-16] VITALS (32 sets, daily range): BP systolic 93–154; BP diastolic 59–93; PULSE 57–95; RESP 16–27; TEMP 36.2–37.2; O2SAT 93–99
[2025-06-16] MEDS: HYDROcodone-acetaminophen 5-325 mg Tablet 1 TAB PO ×3 (00:35→23:45)
[2025-06-16] MEDS: linezolid premix 600 MG/300 ML PREMIX 300 MG IV ×2 (05:25→17:42)
--- NOTE | 2025-06-16 10:00 | P.PN_ITS ---
Subjective 2 Subjective: Patient seen in the company of family today. He reports feeling much better. He has no new complaints. He reports that he is awaiting surgical consultation for potential debridement of his decubitus wounds. Vitals/I&O/Wt Last Vital Signs Temp 97.6 F 06/16/25 04:00 Pulse 78 06/16/25 06:00 Resp 20 H 06/16/25 04:15 BP 112/70 06/16/25 04:15 Pulse Ox 96 06/16/25 04:15 O2 Del Method Room Air 06/16/25 04:00 06/15/25 06/16/25 06/16/25 22:59 06:59 14:59 Intake Total 6118.625 / 7943.188 1300 / 9243.188 300 / 300 Output Total 450 / 2300 Balance 5668.625 / 5643.188 1300 / 6943.188 300 / 300 Weight last 48 hrs Weight 80.286 kg Weight 80.286 kg Weight 80.286 kg Weight 77.111 kg Physical Exam 2 Narrative: General: Awake and alert. Cooperative. Chest/Resp: Normal respiratory chest movts; no obvious respiratory distress. CVS: Regular heart rate and rhythm. GI: Non-distended; No obvious organomegaly. Extremities: No obvious pitting pedal edema. Skin: No obvious new rashes or new skin lesions. Examination of the decubitus area deferred at this time. Data 06/15/25 05:05 06/15/25 05:05 Micro: Microbiology 06/14/25 18:04 Blood Culture - Preliminary Blood NEGATIVE TO DATE 06/14/25 17:38 Blood Culture - Preliminary Blood NEGATIVE TO DATE A&P Assessment and plan 1. Infected decubitus ulcer: 2. Sepsis without septic shock: Suspected, but resolved, nevertheless. 3. Chronic hyponatremia: Plan: Otherwise currently stable patient. Awaiting further review by general surgery. In the meantime, continue all ongoing treatment plans. Patient can be moved to to the regular floor, while we continue to manage other concomitant symptoms empirically. Anticipate discharge tomorrow. PDMP PDMP Reviewed: Not Reviewed Attestations 2 Medical Necessity Statement*: Patient admitted for apparent severe clinical condition, as outlined in the Assessment & Plan section above. Patient will need up to 1 more midnight stay, estimated, at least, to adequately and appropriately treat and optimally control above-named clinical conditions,. Coding Level of Care Code Acute Code for [facility] Fwd Diagnoses Infected decubitus ulcer L89.90; L08.9 Sepsis without septic shock A41.9 Chronic hyponatremia E87.1
--- NOTE | 2025-06-16 17:38 | PC.NURSE ---
Patient being moved to room 273 awaiting room to be cleaned, report given to charge nurse. Plan to leave patient on icu bed due to skin breakdown. Patient aware npo for surgical decubi debridment in am scheduled for [address] Kelly.
[2025-06-16] MEDS: cefTRIAXone 2,000 mg SDV 2000 MG IVP (21:36)
[2025-06-17] VITALS (19 sets, daily range): BP systolic 91–133; BP diastolic 56–88; PULSE 63–88; RESP 12–24; TEMP 36.1–37.2; O2SAT 97–100
[2025-06-17] MEDS: linezolid premix 600 MG/300 ML PREMIX 300 MG IV ×2 (05:58→17:04)
[2025-06-17] MEDS: HYDROcodone-acetaminophen 5-325 mg Tablet 1 TAB PO ×4 (05:58→20:57)
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
--- NOTE | 2025-06-17 09:29 | P.OP_ITS ---
Operative Report Date of procedure: June 17, 2025 Pre-op diagnosis: Sacral ducubitus ulcer Post-op diagnosis: same Procedure done: Incision and debridement of decubitus ulcer with placecment of wound vac Surgeon: Pratik Kelly DO Engineering Production Liaison: none Estimated blood loss: 15 mls Complications: none
--- NOTE | 2025-06-17 10:00 | ANE.PACU2 ---
Inpatient post-anesthesia follow up: Airway intact: Yes Vital signs: Temperature 97.4 F Pulse Rate 73 Respiratory Rate 22 Blood Pressure 118/73 Pulse Oximetry 98 Oxygen Delivery Me thod Room Air Oxygen Flow Rate Fraction of Inspir ed Oxygen Hydration adequate: Yes Nausea and vomiting: No Pain level: 1 Mental status: Baseline
--- NOTE | 2025-06-17 10:18 | PC.NURSE ---
1000 - Patient taken to room 273 vs - T 97.3, BP 101/67, HR 72, RR 18, 02 sat 99% RA.
--- NOTE | 2025-06-17 12:18 | PC.SOCIAL ---
IMM Updated Updated pt & his on IMM. No question voiced for Cm. Provided pt a copy. Initialed, dated, & timed a copy & placed in chart.
--- NOTE | 2025-06-17 12:21 | P.PN_ITS ---
Subjective 2 Subjective: Patient is again seen this afternoon on the medical floor.. He later had a wound debridement by the general surgeon, and which went very uneventful. He denied any complaint in the morning. Vitals/I&O/Wt Last Vital Signs Temp 97.3 F L 06/17/25 11:15 Pulse 87 06/17/25 11:15 Resp 16 06/17/25 11:15 BP 103/71 06/17/25 11:15 Pulse Ox 100 06/17/25 11:15 O2 Del Method Room Air 06/17/25 11:15 06/16/25 06/17/25 06/17/25 22:59 06:59 14:59 Intake Total 1420 / 3470 2320 / 2320 Output Total 400 / 400 2315 / 2315 Balance 1020 / 3070 5 / 5 Weight last 48 hrs Weight 80.286 kg Weight 80.286 kg Physical Exam 2 Narrative: General: Awake and alert. Cooperative. Chest/Resp: Normal respiratory chest movts; no obvious respiratory distress. GI: Non-distended; No obvious organomegaly. Extremities: No obvious pitting pedal edema. Skin: No obvious new rashes or new skin lesions. Decubitus area exam deferred. Data 06/15/25 05:05 06/15/25 05:05 Micro: Microbiology 06/14/25 18:00 Urine Culture - Preliminary Urine,Clean Catch Gram Negative Rods 06/14/25 22:43 Wound Culture - Preliminary Leg - #1 A&P Assessment and plan 1. Infected decubitus ulcer: Plan: Currently stable patient. Awaiting further advice from general surgery continue wound VAC. Otherwise, continue ongoing current antibiotics. Anticipate discharge as soon as cleared by surgery. PDMP PDMP Reviewed: Not Reviewed Attestations 2 Medical Necessity Statement*: See above Coding Level of Care Code Acute Code for [facility] Fwd Diagnoses Infected decubitus ulcer L89.90; L08.9
--- NOTE | 2025-06-17 15:47 | W.PM.BPONFUL ---
Pathology: [NOne] Implant(s): [NA] Anesthesia: [General] Complications: [None] Brief history/preop diagnosis: [Sacral decubitus ulcer] Full operative report: [Patient was brought back to the operating room and general anesthesia was induced patient was then placed in the prone position facedown on the operating room table. All bony prominences were padded prior to beginning the procedure. The decubitus ulcers were identified and prepped and draped in usual sterile fashion. Timeout was completed verifying correct patient procedure site positioning and implants needed prior to the beginning of the procedure. Using a 15 blade scalpel the decubitus ulcer on the right gluteal area was identified and small area of necrotic tissue was excised using the 15 blade scalpel then once this was unroofed and identified a tunnel and the entire size of the wound was approximately 5 x 6 cm. There was several areas of necrotic tissue that were identified and they were sharply debrided using 15 blade scalpel and hemostasis was achieved using electrocautery and there also was a small area of posterior ischial tuberosity that was identified but no signs of active infection or purulent drainage or necrosis were noted at the site. Once this entire area was fully debrided and healthy tissue was apparent with good blood supply throughout this wound we then evaluated the decubitus ulcer on the left gluteal area as well and this had healthy granulation tissue with no necrotic appearing tissue the wound measured approximate 9 x 6 cm and given the depth and undermining of these wounds we elected to place a wound VAC over these areas and placed a 225 mmHg suction using a medium size paige piece of foam which provided good coverage and patient tolerated procedure well and was taken to the postoperative care unit in stable condition.] Condition: [Stable] Dispostion: [Stable back to the ICU]
[2025-06-18 01:00] VITALS: BP 147/88; PULSE 67; RESP 18; TEMP 36.5; O2SAT 96
[2025-06-18] MEDS: HYDROcodone-acetaminophen 5-325 mg Tablet 1 TAB PO ×3 (04:32→19:36)
[2025-06-18] MEDS: linezolid premix 600 MG/300 ML PREMIX 300 MG IV ×2 (04:46→17:31)
[2025-06-18 05:32] VITALS: BP 131/75; PULSE 69; RESP 17; TEMP 36.7; O2SAT 97
[2025-06-18 07:51] VITALS: BP 115/78; PULSE 69; RESP 16; TEMP 37; O2SAT 97
[2025-06-18 12:00] VITALS: BP 120/68; PULSE 68; RESP 14; TEMP 36.6; O2SAT 98
--- NOTE | 2025-06-18 13:37 | PM.PN ---
Subjective Subjective: Patient is seen again this morning on the medical floor. He reports remarkable discomfort with the wound VAC. Currently, he is awaiting further evaluation and advice from general surgery. No other new complaints there is significant mentioned by the nursing staff. Vitals/I&O/Wt Last Vital Signs Temp 97.8 F 06/18/25 12:00 Pulse 68 06/18/25 12:00 Resp 14 06/18/25 12:00 BP 120/68 06/18/25 12:00 Pulse Ox 98 06/18/25 12:00 O2 Del Method Room Air 06/18/25 12:00 06/17/25 06/18/25 06/18/25 22:59 06:59 14:59 Intake Total 1245.417 / 3865.417 1079.583 / 4945.000 660 / 660 Output Total 1000 / 3315 550 / 3865 2200 / 2200 Balance 245.417 / 550.417 529.583 / 1080.000 -1540 / -1540 Weight last 48 hrs Weight 80.286 kg Weight 80.286 kg Physical Exam Narrative: General: Awake and alert. Cooperative. Chest/Resp: Normal respiratory chest movts; no obvious respiratory distress. Extremities: No obvious pitting pedal edema. Skin: No obvious new rashes or new skin lesions. Data 06/15/25 05:05 06/15/25 05:05 Micro: Microbiology 06/14/25 22:43 Wound Culture - Preliminary Leg - #1 Coag positive Staphylococcus 06/14/25 18:00 Urine Culture - Preliminary Urine,Clean Catch Gram Negative Rods A&P Assessment and plan 1. Infected decubitus ulcer: 2. Chronic hyponatremia: 3. Spastic quadriplegia: 4. Chronic suprapubic catheter: Plan: Otherwise currently stable patient; Amairani, from a medical standpoint. I am just waiting for further advice, if any, from general surgery. Otherwise, patient informs me that the surgeon said he was going to review the wound VAC about 48 hours after the placement; I am not sure what he meant by that. Case mgt is working on getting patient wound VAC delivered at his home. If this is all resolved, patient will be discharged. PDMP PDMP Reviewed: Not Reviewed Attestations Medical Necessity Statement*: See above. Coding Level of Care Code Acute Code for [facility] Fwd Diagnoses Infected decubitus ulcer L89.90; L08.9 Chronic hyponatremia E87.1 Spastic quadriplegia G82.50 Chronic suprapubic catheter Z93.59
[2025-06-18 16:00] VITALS: BP 152/84; PULSE 78; RESP 16; TEMP 36.8; O2SAT 98
--- NOTE | 2025-06-18 17:00 | P.PN_ITS ---
Subjective 2 Subjective: Postop day 1 from incision and debridement with wound VAC placement. Overall he is done well overnight with no complaints no issues. Him and his stated that the placement of the tubing was slightly bothers some when he sits up completely but overall no complaints and pain is well-controlled. Afebrile. Tolerating general diet. No acute events overnight. Vitals/I&O/Wt Last Vital Signs Temp 98.3 F 06/18/25 16:00 Pulse 78 06/18/25 16:00 Resp 16 06/18/25 16:00 BP 152/84 06/18/25 16:00 Pulse Ox 98 06/18/25 16:00 O2 Del Method Room Air 06/18/25 16:00 06/18/25 06/18/25 06/18/25 06:59 14:59 22:59 Intake Total 1079.583 / 4945.000 2019 Output Total 550 / 3865 3400 / 3400 Balance 529.583 / 1080.000 -1380 / -1380 Weight last 48 hrs Weight 177 lb Weight 177 lb Physical Exam 2 Narrative: General: Awake and alert. Cooperative. Chest/Resp: Normal respiratory chest movts; no obvious respiratory distress. Extremities: No obvious pitting pedal edema. Skin: No obvious new rashes or new skin lesions. Data 06/15/25 05:05 06/15/25 05:05 Micro: Microbiology 06/14/25 22:43 Wound Culture - Final Leg - #1 Methicillin Resis Staph Aureus 06/14/25 18:00 Urine Culture - Final Urine,Clean Catch Pseudomonas aeruginosa A&P Assessment and plan 1. Infected decubitus ulcer: Will plan to change wound VAC tomorrow and redo the tubing so it tracks to his hip area so it does not cause any discomfort or irritation. Continue IV antibiotics per hospitalist team. Will likely be stable for discharge in the next 24 to 48 hours from my standpoint. Continue supportive care per hospitalist team 2. Chronic hyponatremia: 3. Spastic quadriplegia: 4. Chronic suprapubic catheter: Plan: Otherwise currently stable patient; Amairani, from a medical standpoint. I am just waiting for further advice, if any, from general surgery. Otherwise, patient informs me that the surgeon said he was going to review the wound VAC about 48 hours after the placement; I am not sure what he meant by that. Case mgt is working on getting patient wound VAC delivered at his home. If this is all resolved, patient will be discharged. PDMP PDMP Reviewed: Not Reviewed Attestations 2 Medical Necessity Statement*: Patient in the hospital for wound VAC placement and debridement and antibiotic treatment discharge per hospitalist team Coding Level of Care Code Acute Code for [facility] Fwd Diagnoses Infected decubitus ulcer L89.90; L08.9 Chronic hyponatremia E87.1 Spastic quadriplegia G82.50 Chronic suprapubic catheter Z93.59
[2025-06-18 19:34] VITALS: BP 120/73; PULSE 62; RESP 17; TEMP 36.6; O2SAT 97
[2025-06-19] VITALS: BP 147/87; PULSE 70; RESP 16; TEMP 36.7; O2SAT 97
[2025-06-19] MEDS: linezolid premix 600 MG/300 ML PREMIX 300 MG IV (04:52)
[2025-06-19 05:23] VITALS: BP 143/80; PULSE 60; RESP 16; TEMP 36.8; O2SAT 97
[2025-06-19 07:40] VITALS: BP 146/96; PULSE 54; RESP 17; TEMP 36.4; O2SAT 97
--- NOTE | 2025-06-19 08:59 | P.PN_ITS ---
Subjective 2 Subjective: Patient seen again this morning while getting up./Helped with breakfast. He denies any new complaints. Currently, we are awaiting further surgery. But relates that his surgeon has already cleared patient for discharge. Otherwise, we are also waiting for delivery for the wound VAC to the house. Vitals/I&O/Wt Last Vital Signs Temp 97.6 F 06/19/25 07:40 Pulse 54 L 06/19/25 07:40 Resp 17 06/19/25 07:40 BP 146/96 06/19/25 07:40 Pulse Ox 97 06/19/25 07:40 O2 Del Method Room Air 06/19/25 07:40 06/18/25 06/19/25 06/19/25 22:59 06:59 14:59 Intake Total 1334.583 / 3354.583 1279.167 / 4633.750 Output Total 750 / 4150 Balance 584.583 / -102.911 8859.167 / 483.750 Weight last 48 hrs Weight 80.286 kg Weight 80.286 kg Physical Exam 2 Narrative: General: Awake and alert. Cooperative. Neuro: Old neurological deficits in the extremities stable and intact. Chest/Resp: Normal respiratory chest movts; no obvious respiratory distress. CVS: Regular heart rate and rhythm. Extremities: No obvious pitting pedal edema. Skin: Decubitus ulcer exam deferred. Data 06/15/25 05:05 06/15/25 05:05 Micro: Microbiology 06/14/25 22:43 Wound Culture - Final Leg - #1 Methicillin Resis Staph Aureus 06/14/25 18:00 Urine Culture - Final Urine,Clean Catch Pseudomonas aeruginosa A&P Assessment and plan 1. Chronic hyponatremia: 2. Infected decubitus ulcer: 3. Presence of ileostomy: 4. Chronic suprapubic catheter: 5. Spastic quadriplegia: Plan: Stable patient. To be discharged home as soon as the wound VAC is delivered. Case management is working on this. Otherwise, we will proceed with further advice, if any, from the general surgeon. PDMP PDMP Reviewed: Not Reviewed Attestations 2 Medical Necessity Statement*: N/A. Coding Level of Care Code Acute Code for [facility] Diagnoses Chronic hyponatremia E87.1 Infected decubitus ulcer L89.90; L08.9 Presence of ileostomy Z93.2 Chronic suprapubic catheter Z93.59 Spastic quadriplegia G82.50
[2025-06-19] MEDS: HYDROcodone-acetaminophen 5-325 mg Tablet 1 TAB PO ×3 (09:21→21:29)
[2025-06-19 11:42] VITALS: BP 106/68; PULSE 67; RESP 18; TEMP 36.4; O2SAT 98
--- NOTE | 2025-06-19 13:38 | P.PN_ITS ---
Subjective 2 Subjective: Postop day 2 from incision and debridement with wound VAC placement. Overall he is done well overnight with no complaints no issues. Him and his stated that the placement of the tubing was slightly bothers some when he sits up completely but overall no complaints and pain is well-controlled. Afebrile. Tolerating general diet. No acute events overnight. Vitals/I&O/Wt Last Vital Signs Temp 97.6 F 06/19/25 11:42 Pulse 67 06/19/25 11:42 Resp 18 06/19/25 11:42 BP 106/68 06/19/25 11:42 Pulse Ox 98 06/19/25 11:42 O2 Del Method Room Air 06/19/25 11:42 06/18/25 06/19/25 06/19/25 22:59 06:59 14:59 Intake Total 1334.583 / 3354.583 1279.167 / 4633.750 1739.583 / 1739.583 Output Total 750 / 4150 2650 / 2650 Balance 584.583 / -298.853 8560.167 / 483.750 -910.417 / -910.417 Weight last 48 hrs Weight 177 lb Weight 177 lb Physical Exam 2 Narrative: General: Awake and alert. Cooperative. Neuro: Old neurological deficits in the extremities stable and intact. Chest/Resp: Normal respiratory chest movts; no obvious respiratory distress. CVS: Regular heart rate and rhythm. Extremities: No obvious pitting pedal edema. Skin: Decubitus ulcer exam deferred. Data 06/15/25 05:05 06/15/25 05:05 Micro: Microbiology 06/14/25 22:43 Wound Culture - Final Leg - #1 Methicillin Resis Staph Aureus 06/14/25 18:00 Urine Culture - Final Urine,Clean Catch Pseudomonas aeruginosa A&P Assessment and plan 1. Infected decubitus ulcer: Will plan to change wound VAC tomorrow and redo the tubing so it tracks to his hip area so it does not cause any discomfort or irritation. Continue IV antibiotics per hospitalist team. Will likely be stable for discharge in the next 24 to 48 hours from my standpoint. Continue supportive care per hospitalist team 2. Chronic hyponatremia: 3. Spastic quadriplegia: 4. Chronic suprapubic catheter: Plan: Otherwise currently stable patient; [place], from a medical standpoint. I am just waiting for further advice, if any, from general surgery. Otherwise, patient informs me that the surgeon said he was going to review the wound VAC about 48 hours after the placement; I am not sure what he meant by that. Case mgt is working on getting patient wound VAC delivered at his home. If this is all resolved, patient will be discharged. PDMP PDMP Reviewed: Not Reviewed Attestations 2 Medical Necessity Statement*: Awaiting approval of home wound VAC therapy Coding Level of Care Code Acute Code for [facility] Diagnoses Infected decubitus ulcer L89.90; L08.9 Chronic hyponatremia E87.1 Spastic quadriplegia G82.50 Chronic suprapubic catheter Z93.59
[2025-06-19 16:00] VITALS: BP 125/78; PULSE 81; RESP 17; TEMP 36.5; O2SAT 96
[2025-06-19 20:00] VITALS: BP 162/80; PULSE 55; RESP 18; TEMP 36.7; O2SAT 99
[2025-06-20] VITALS (8 sets, daily range): BP systolic 103–191; BP diastolic 70–85; PULSE 55–108; RESP 16–18; TEMP 36.3–36.9; O2SAT 98–99
[2025-06-20] MEDS: HYDROcodone-acetaminophen 5-325 mg Tablet 1 TAB PO ×3 (01:40→09:30)
[2025-06-20 09:54] LABS: Hematocrit 34.7 % (37-53); Hemoglobin 10.60 g/dL (11.27-16.99); Mean Corpuscular HGB Conc 30.5 g/dL (30-55); Mean Corpuscular Hemoglobin 21.4 pg (27-33); Mean Corpuscular Volume 70.0 fl (82-101); Nucleated Red Blood Cells % 0 %; Platelet Count 432 10^3/cmm (157-399); Red Blood Count 4.96 10^6/uL (3.85-5.65); White Blood Count 8.43 10^3/uL (3.29-11.43)
[2025-06-20 10:13] LABS: Alanine Aminotransferase 40 U/L (0-41); Albumin Level 3.1 g/dL (3.5-5.2); Alkaline Phosphatase 98 U/L (40-130); Anion Gap 14.4 (5-19); Aspartate Amino Transferase 32 U/L (0-40); Blood Urea Nitrogen 11 mg/dL (8-23); Calcium 8.7 mg/dL (8.5-10.5); Carbon Dioxide 28 mmol/L (22-29); Chloride 100 mmol/L (98-107); Globulin 4.1 g/dL (1.3-4.6); Glucose 122 mg/dL (65-115); Osmolality Calculated 289 mOsm/kg (285-295); Potassium 3.4 mmol/L (3.5-5.1); Sodium 139 mmol/L (136-145); Total Protein 7.2 g/dL (6.6-8.7)
--- NOTE | 2025-06-20 10:17 | PC.SOCIAL ---
IMM Update pg 2 of IMM updated and reviewed w/ patient. Copy provided and copy dated, initialed and placed in chart.
[2025-06-20 10:20] LABS: Procalcitonin 0.18 ng/mL (0-0.5)
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
--- NOTE | 2025-06-20 14:29 | XRR_ITS ---
PROCEDURE INFORMATION: Exam: XR Chest Exam date and time: 06/20/2025 4:30 PM Age: 60 years old Clinical indication: Device placement; Picc; Additional info: Post picc insertion, bhanu attempting in 273. Will call if i get it. More than TECHNIQUE: Imaging protocol: Radiologic exam of the chest. Views: 1 view. COMPARISON: CR (CHEST, ) 06/15/2025 2:20 AM FINDINGS: Rotated patient. Tubes, catheters and devices: Right IJ central venous catheter remains present with the tip projecting near the cavoatrial junction. Left-sided PICC is present with tip projected near the expected location of the SVC. Lungs: Somewhat prominent vasculature. Mild pulmonary edema is not excluded. Pleural spaces: Small volume pleural fluid may be present.No conspicuous pneumothorax. Heart/Mediastinum: Unremarkable. No cardiomegaly. Bones/joints: Unremarkable. XR/XR chest 1V portable [id number] IMPRESSION: Satisfactorily positioned left-sided PICC.
--- NOTE | 2025-06-20 14:34 | P.PN_ITS ---
Subjective 2 Subjective: Patient was seen in the morning, denies any fevers, chills, nausea, vomiting, no complaints Vitals/I&O/Wt Last Vital Signs Temp 97.3 F L 06/20/25 11:30 Pulse 92 06/20/25 11:30 Resp 18 06/20/25 11:30 BP 109/70 06/20/25 11:30 Pulse Ox 98 06/20/25 11:30 O2 Del Method Room Air 06/20/25 11:30 06/19/25 06/20/25 06/20/25 22:59 06:59 14:59 Intake Total 650 / 2389.583 720 / 720 Output Total 300 / 2950 660 / 3610 600 / 600 Balance 350 / -560.417 -660 / -1220.417 120 / 120 Weight last 48 hrs Weight 70.902 kg Weight 80.286 kg Physical Exam 2 Const: COMMON NORMALS: no acute distress and patient oriented x3 Eye: COMMON NORMALS: Equal, round and reactive pupils present PUPIL: Yes Equal, round and reactive pupils present Resp: COMMON NORMALS: normal respiratory effort, No retractions, No use of accessory muscles and clear to auscultation bilaterally AUSCULTATION: clear to auscultation bilaterally Cardio: COMMON NORMALS: regular rate, regular rhythm, S1 normal heart sound present and S2 normal heart sound present RATE: regular rate RHYTHM: r egular rhythm HEART SOUNDS: S1 normal heart sound present and S2 normal heart sound present GI: COMMON NORMALS: Normal to inspection, nondistended, normoactive bowel sounds present and non-tender OTHER: Suprapubic catheter in place Colostomy bag in place Extremity: COMMON NORMALS: no pedal edema Neuro: COMMON NORMALS: patient oriented x3 Psych: COMMON NORMALS: mental status grossly normal Data 06/20/25 09:35 06/20/25 09:35 Micro: Microbiology 06/14/25 18:04 Blood Culture - Final Blood NO GROWTH AFTER 5 DAYS 06/14/25 17:38 Blood Culture - Final Blood NO GROWTH AFTER 5 DAYS A&P Assessment and plan 1. Chronic hyponatremia: 2. Infected decubitus ulcer: 3. Presence of ileostomy: 4. Chronic suprapubic catheter: 5. Spastic quadriplegia: 6. Acute osteomyelitis: Plan: Acute osteomyelitis - Right decubitus wound with tunneling down to the level of bone, bone exposure -Status post debridement, wound VAC placement by general surgery Dr. Kelly - CT scan and clinical findings concerning for right ischial osteomyelitis - Bone cultures showing MRSA in the wound clinic CT/CT pelvis w con* [id number] IMPRESSION: 1. Bilateral large decubitus ulcers extending to the regions of the pubic pubic rami bilaterally with apparent bony destruction, [id number], similar to prior exam, findings may reflect underlying osteomyelitis, MRI could further characterize this. 2. Severe osteoarthritis of the hips bilaterally. 3. Bilateral renal cysts. 4. Inferior vena cava filter. 5. Right kidney lower pole 2.4 cm staghorn type calculus. 6. Severe constipation. 7. Suprapubic Dejesus catheter in the urinary bladder. 8. Diffuse urinary bladder wall thickening, please correlate for cystitis. 9. Prostate gland enlarged please correlate clinically. -ESR 76, Blood - Consult infectious disease - Plans on daptomycin for 6 weeks - Wound VAC in place History of left decubitus wound -History of necrotizing fasciitis of the perineum -History of chronic osteomyelitis of left ischial tuberosity - Status post IV antibiotics in the past, requiring wound VAC Suprapubic catheter - Chronic colonization with Pseudomonas - Monitor History of spastic quadriplegia History of spinal cord injury Lovenox for DVT prophylaxis History of IVC filter PDMP PDMP Reviewed: Last Reviewed 06/20/25 14:43 by Gerhard Mott MD Attestations 2 Medical Necessity Statement*: Patient requires hospitalization for acute osteomyelitis right ischial bone requires IV antibiotics, daptomycin Diagnoses Chronic hyponatremia E87.1 Infected decubitus ulcer L89.90; L08.9 Presence of ileostomy Z93.2 Chronic suprapubic catheter Z93.59 Spastic quadriplegia G82.50 Acute osteomyelitis M86.10
--- NOTE | 2025-06-20 16:09 | PICC.NOTE ---
Single lumen PICC placed to left basilic vein. Referred to vascular access nurse for PICC placement due to osteomyelitis and need for IV antibiotics x 6 weeks. Pt well known to vascular access nurse. Pt with history of failed attempts of PICC placement for both right and left arms, resulting in midline placements. Risks and benefits discussed and informed consent obtained from patient. Discussed with patient that attempt would be made for left PICC, but if unable to pass axilla, a midline would be placed. Pt verbalized understanding. Left arm assessed with left basilic vein measuring 3.7 mm, straight, and apparent best choice for placement. Using sterile technique and MST, left basilic vein accessed x 1 stick. Mid-arm circumference measured 10 cm from left AC 31 cm. Trimmed cath 46 cm with 0 cm external length noted. CXR shows tip in SVC, in satisfactory position for use per radiologist. Line secured with stat-lock. Insertion site covered with Biopatch and TSM. Report given to bedside nurse, LALY Tariq.
[2025-06-20] MEDS: mupirocin oint 22 gm 1 APPLIC NOSTRIL-B (16:58)
[2025-06-20] MEDS: DAPTOmycin 500 MG in sodium chloride 0.9% (100 ml) 100 ML 100 MG IV (17:08)
[2025-06-21 03:38] VITALS: BP 102/78; PULSE 100; RESP 18; TEMP 36.6; O2SAT 97
[2025-06-21] MEDS: mupirocin oint 22 gm 1 APPLIC NOSTRIL-B ×2 (05:23→18:31)
[2025-06-21 05:33] LABS: Hematocrit 34.3 % (37-53); Hemoglobin 10.40 g/dL (11.27-16.99); Mean Corpuscular HGB Conc 30.3 g/dL (30-55); Mean Corpuscular Hemoglobin 21.8 pg (27-33); Mean Corpuscular Volume 71.9 fl (82-101); Nucleated Red Blood Cells % 0 %; Platelet Count 428 10^3/cmm (157-399); Red Blood Count 4.77 10^6/uL (3.85-5.65); White Blood Count 9.71 10^3/uL (3.29-11.43)
[2025-06-21 05:54] LABS: Alanine Aminotransferase 41 U/L (0-41); Albumin Level 3.1 g/dL (3.5-5.2); Alkaline Phosphatase 110 U/L (40-130); Aspartate Amino Transferase 33 U/L (0-40); Blood Urea Nitrogen 16 mg/dL (8-23); Calcium 8.8 mg/dL (8.5-10.5); Carbon Dioxide 27 mmol/L (22-29); Chloride 103 mmol/L (98-107); Globulin 3.7 g/dL (1.3-4.6); Glucose 93 mg/dL (65-115); Osmolality Calculated 291 mOsm/kg (285-295); Sodium 140 mmol/L (136-145); Total Protein 6.8 g/dL (6.6-8.7)
[2025-06-21 05:55] LABS: Anion Gap 14.6 (5-19); Potassium 4.6 mmol/L (3.5-5.1)
[2025-06-21 07:45] VITALS: BP 110/69; PULSE 72; RESP 17; TEMP 36.3; O2SAT 97
[2025-06-21 11:48] VITALS: BP 117/77; PULSE 82; RESP 17; TEMP 36.4; O2SAT 98
[2025-06-21] MEDS: chlorhexidine gluconate 4% Btl 118 mL 1 APPLIC TOPICAL (11:55)
--- NOTE | 2025-06-21 15:56 | P.PN_ITS ---
Subjective 2 Subjective: Patient was seen this morning, currently alert oriented x 3, following commands, he is frustrated about trying to obtain a wound VAC, he spent over 30 minutes to an hour with [facility] last night trying to get his wound VAC approved Vitals/I&O/Wt Last Vital Signs Temp 97.5 F L 06/21/25 11:48 Pulse 82 06/21/25 11:48 Resp 17 06/21/25 11:48 BP 117/77 06/21/25 11:48 Pulse Ox 98 06/21/25 11:48 O2 Del Method Room Air 06/21/25 11:48 06/21/25 06/21/25 06/21/25 06:59 14:59 22:59 Intake Total 720 / 720 Output Total 350 / 1800 Balance -350 / -620 720 / 720 Weight last 48 hrs Weight 70.42 kg Weight 70.902 kg Physical Exam 2 Const: COMMON NORMALS: no acute distress and patient oriented x3 Eye: COMMON NORMALS: Equal, round and reactive pupils present PUPIL: Yes Equal, round and reactive pupils present Resp: COMMON NORMALS: normal respiratory effort, No retractions, No use of accessory muscles and clear to auscultation bilaterally AUSCULTATION: clear to auscultation bilaterally Cardio: COMMON NORMALS: regular rate, regular rhythm, S1 normal heart sound present and S2 normal heart sound present RATE: regular rate RHYTHM: r egular rhythm HEART SOUNDS: S1 normal heart sound present and S2 normal heart sound present GI: COMMON NORMALS: Normal to inspection, nondistended, normoactive bowel sounds present and non-tender Extremity: COMMON NORMALS: no pedal edema Neuro: COMMON NORMALS: patient oriented x3 Psych: COMMON NORMALS: mental status grossly normal Data 06/21/25 05:21 06/21/25 05:21 A&P Assessment and plan 1. Chronic hyponatremia: 2. Infected decubitus ulcer: 3. Presence of ileostomy: 4. Chronic suprapubic catheter: 5. Spastic quadriplegia: 6. Acute osteomyelitis: Plan: Acute osteomyelitis - Right decubitus wound with tunneling down to the level of bone, bone exposure -Status post debridement, wound VAC placement by general surgery Dr. Kelly - CT scan and clinical findings concerning for right ischial osteomyelitis - Bone cultures showing MRSA in the wound clinic CT/CT pelvis w con* [id number] IMPRESSION: 1. Bilateral large decubitus ulcers extending to the regions of the pubic pubic rami bilaterally with apparent bony destruction, [id number], similar to prior exam, findings may reflect underlying osteomyelitis, MRI could further characterize this. 2. Severe osteoarthritis of the hips bilaterally. 3. Bilateral renal cysts. 4. Inferior vena cava filter. 5. Right kidney lower pole 2.4 cm staghorn type calculus. 6. Severe constipation. 7. Suprapubic Dejesus catheter in the urinary bladder. 8. Diffuse urinary bladder wall thickening, please correlate for cystitis. 9. Prostate gland enlarged please correlate clinically. -ESR 76, Blood - Consult infectious disease - Plans on daptomycin for 6 weeks - Wound VAC in place History of left decubitus wound -History of necrotizing fasciitis of the perineum -History of chronic osteomyelitis of left ischial tuberosity - Status post IV antibiotics in the past, requiring wound VAC Suprapubic catheter - Chronic colonization with Pseudomonas - Monitor History of spastic quadriplegia History of spinal cord injury Lovenox for DVT prophylaxis History of IVC filter PDMP PDMP Reviewed: Last Reviewed 06/20/25 14:43 by Gerhard Mott MD Attestations 2 Medical Necessity Statement*: Patient requires hospitalization for acute osteomyelitis Diagnoses Chronic hyponatremia E87.1 Infected decubitus ulcer L89.90; L08.9 Presence of ileostomy Z93.2 Chronic suprapubic catheter Z93.59 Spastic quadriplegia G82.50 Acute osteomyelitis M86.10
[2025-06-21 16:00] VITALS: BP 114/73; PULSE 81; RESP 17; TEMP 36.3; O2SAT 97
[2025-06-21] MEDS: DAPTOmycin 500 MG in sodium chloride 0.9% (100 ml) 100 ML 100 MG IV (18:31)
[2025-06-21 20:00] VITALS: BP 101/64; PULSE 95; RESP 20; O2SAT 99
[2025-06-21 22:54] VITALS: RESP 20
[2025-06-22] VITALS: BP 108/68; PULSE 93; RESP 18; TEMP 36.6; O2SAT 100
[2025-06-22 06:00] VITALS: BMI 21.6
[2025-06-22] MEDS: mupirocin oint 22 gm 1 APPLIC NOSTRIL-B (06:14)
[2025-06-22 07:35] VITALS: BP 111/75; PULSE 97; RESP 16; TEMP 36.3; O2SAT 97
[2025-06-22] MEDS: chlorhexidine gluconate 4% Btl 118 mL 1 APPLIC TOPICAL (10:56)
[2025-06-22 11:14] VITALS: BP 92/61; PULSE 80; RESP 17; TEMP 36.6; O2SAT 96
--- NOTE | 2025-06-22 11:43 | PM.PN ---
Subjective Subjective: ID progress note Patient planned to be discharged today HE has revceived a PICC line and daptomycin home infusions have been arranged along with HH and wound vac Medications: Reviewed: Yes Vitals/I&O/Wt Last Vital Signs Temp 97.8 F 06/22/25 11:14 Pulse 80 06/22/25 11:14 Resp 17 06/22/25 11:14 BP 92/61 06/22/25 11:14 Pulse Ox 96 06/22/25 11:14 O2 Del Method Room Air 06/22/25 11:14 06/21/25 06/22/25 06/22/25 22:59 06:59 14:59 Intake Total 660 / 1380 240 / 1620 600 / 600 Output Total 1200 / 1200 800 / 800 Balance -540 / 180 240 / 420 -200 / -200 Weight last 48 hrs Weight 70.42 kg Weight 70.42 kg Physical Exam Narrative: General: No acute distress, AO x3 HEENT: PERRLA, pupils bilaterally equal and reactive, pallors not present Chest: Normal vesicular breath sounds, no added sounds, equal good air entry bilaterally CVS: S1-S2 regular, no murmurs, no tachycardia, no gallops, no rubs Abdomen: Soft, nontender, no organomegaly, bowel sounds present Neuro: known paraplegia Extremities: wound vac in place, not removed for exam Data 06/21/25 05:21 06/21/25 05:21 A&P Assessment and plan 1. Acute osteomyelitis: 2. Chronic osteomyelitis: 3. Chronic suprapubic catheter: Plan: 60-year-old male with a past medical history of chronic left gluteal wound with associated ischial osteomyelitis, followed as an outpatient by infectious disease. Currently admitted to the hospital with a newer right decubitus wound that developed over the past month and has progressed to deep tunneling with exposure of the underlying ischium. The right ischial osteomyelitis is a new finding. Clinically with underlying bone exposure, findings compatible with osteomyelitis of the right ischium in addition to previously known left ischial osteomyelitis Bone cultures taken at wound care with MRSA. Additionally OR cultures taken on this current admission from I&D with MRSA. Blood culture remains negative to date Given relatively new development of osteomyelitis over the right ischium, would warrant IV antibiotic treatment at this time. Discontinue p.o. linezolid. Oral linezolid would not be a feasible long-term option over a 6-week. Given risk of bone marrow suppression. Additionally previous patient has previously not tolerated prolonged course of linezolid well alongside his SSRIs. He has known allergy to vancomycin in the past. Given the above, start treatment with IV daptomycin 8 mg/kg IV every 24 hours Obtain baseline CPK. Recommend 6 weeks of IV daptomycin at discharge. Disposition planning is ongoing. Weekly labs including CBC, CPK, CRP, LFT, creatinine while on the above antibiotics. Continue wound VAC as recommended by general surgery and wound care clinic as wound closure would be one of the caraballo factors determining healing Chronic urinary colonization with Pseudomonas aeruginosa. No signs or symptoms of UTI at this present time. He can resume chronic Methenamine suppression for the same. Once he completes his course of IV daptomycin, will attempt MRSA decolonization. Will follow 06/22/25: Patient is planned to be discharged home today on iv daptomycin. Home health has been arranged along with wound vac. Weekly labs as above to be faxed to ID clinic. MRSA decolonization discussed with patient and regimen explained. f/up ID clinic Decemeber 18. PDMP PDMP Reviewed: Not Reviewed Attestations Medical Necessity Statement*: per admitting Coding Level of Care Code Acute Code for [facility] Fwd Diagnoses Acute osteomyelitis M86.10 Chronic osteomyelitis M86.60 Chronic suprapubic catheter Z93.59
--- NOTE | 2025-06-22 11:54 | PC.SOCIAL ---
IMM Update pg 2 of IMM Updated and reviewed w/ patient. Copy provided and copy dated, initialed and placed in chart.
[2025-06-22] MEDS: DAPTOmycin 500 MG in sodium chloride 0.9% (100 ml) 100 ML 100 MG IV (13:48)
[2025-06-22 15:37] VITALS: BP 92/61; PULSE 80; RESP 17; TEMP 36.6; O2SAT 96
--- NOTE | 2025-06-23 11:30 | PM.DCS ---
Discharge Providers Date of Admission: 06/14/25 19:34 Date of Discharge: June 23, 2025 Attending Provider at Admission: Rai Gutiérrez DO Attending Provider at Discharge: Gerhard Mott MD Primary Care Provider: Preeti Barksdale MD Diagnoses at Discharge Discharge Diagnosis 1. Acute osteomyelitis: 2. Chronic osteomyelitis: 3. Chronic suprapubic catheter: Reason for Visit Reason for Visit: Possible Septic Hospital Course Hospital Course This is a 60-year-old male with a past medical history of paraplegia, colostomy, suprapubic catheter, history of left chronic ischial tuberosity osteomyelitis Patient presented to [facility] for decubitus wound, for acute osteomyelitis - Patient underwent debridement of right ischial area -Acute osteomyelitis - Right decubitus wound with tunneling down to the level of bone, bone exposure -Status post debridement, wound VAC placement by general surgery Dr. Kelly - CT scan and clinical findings concerning for right ischial osteomyelitis - Bone cultures showing MRSA in the wound clinic CT/CT pelvis w con* [id number] IMPRESSION: 1. Bilateral large decubitus ulcers extending to the regions of the pubic pubic rami bilaterally with apparent bony destruction, [id number], similar to prior exam, findings may reflect underlying osteomyelitis, MRI could further characterize this. 2. Severe osteoarthritis of the hips bilaterally. 3. Bilateral renal cysts. 4. Inferior vena cava filter. 5. Right kidney lower pole 2.4 cm staghorn type calculus. 6. Severe constipation. 7. Suprapubic Dejesus catheter in the urinary bladder. 8. Diffuse urinary bladder wall thickening, please correlate for cystitis. 9. Prostate gland enlarged please correlate clinically. -ESR 76, - Patient received IV antibiotics - Discharged on 6 weeks of daptomycin - Discharge with wound VAC - Follow-up with wound care - Follow-up with infectious disease - Follow-up with general surgery History of left decubitus wound -History of necrotizing fasciitis of the perineum -History of chronic osteomyelitis of left ischial tuberosity - Status post IV antibiotics in the past, requiring wound VAC Suprapubic catheter - Chronic colonization with Pseudomonas Physical Exam Const: COMMON NORMALS: no acute distress and patient oriented x3 Resp: COMMON NORMALS: normal respiratory effort, No retractions, No use of accessory muscles and clear to auscultation bilaterally AUSCULTATION: clear to auscultation bilaterally Cardio: COMMON NORMALS: regular rate, regular rhythm, S1 normal heart sound present and S2 normal heart sound present RATE: regular rate RHYTHM: regular rhythm HEART SOUNDS: S1 normal heart sound present and S2 normal heart sound present GI: COMMON NORMALS: Normal to inspection, nondistended, normoactive bowel sounds present and non-tender Extremity: COMMON NORMALS: no pedal edema Neuro: COMMON NORMALS: patient oriented x3 Psych: COMMON NORMALS: mental status grossly normal Discharge Data Studies Completed and Pending Completed Studies During Hospitalization Category Date Time Status CT pelvis w con* [id number] Stat Cat Scan 06/14/25 19:37 Completed CXRP [XR chest 1V portable [id number]] Routine Exams 06/20/25 14:29 Completed XR chest 1V portable [id number] Stat Exams 06/14/25 17:10 Completed XR chest 1V portable [id number] Stat Exams 06/15/25 00:58 Completed Radiology Impressions Pelvis CT 06/14/25 19:37 IMPRESSION: 1. Bilateral large decubitus ulcers extending to the regions of the pubic pubic rami bilaterally with apparent bony destruction, [id number], similar to prior exam, findings may reflect underlying osteomyelitis, MRI could further characterize this. 2. Severe osteoarthritis of the hips bilaterally. 3. Bilateral renal cysts. 4. Inferior vena cava filter. 5. Right kidney lower pole 2.4 cm staghorn type calculus. 6. Severe constipation. 7. Suprapubic Dejesus catheter in the urinary bladder. 8. Diffuse urinary bladder wall thickening, please correlate for cystitis. 9. Prostate gland enlarged please correlate clinically. COMMENTS: 1. For patients with an IVC filter, recommend assessment for a management plan for the patient's IVC filter. If there is no established management plan, recommend referral to an interventional clinician on a nonemergent basis for evaluation. 2. Consistent with the [employer]'s Incidental Findings Committee white paper (J Am Vincent Radiol 2018): Any incidental renal lesion less than 1 cm or classified as too small to characterize, or any incidental cystic renal lesion characterized as simple-appearing, is likely benign. No follow-up imaging is recommended for these lesions per consensus recommendations based on imaging criteria. Chest X-Ray 06/20/25 14:29 IMPRESSION: Satisfactorily positioned left-sided PICC. Laboratory Results WBC 9.71 10^3/uL (3.29-11.43) 06/21/25 05:21 RBC 4.77 10^6/uL (3.85-5.65) 06/21/25 05:21 Hgb 10.40 g/dL (11.27-16.99) L 06/21/25 05:21 Hct 34.3 % (37-53) L 06/21/25 05:21 MCV 71.9 fl (82-101) L 06/21/25 05:21 MCH 21.8 pg (27-33) L 06/21/25 05:21 MCHC 30.3 g/dL (30-55) 06/21/25 05:21 RDW 19.8 % (12.1-15.1) H 06/21/25 05:21 Plt Count 428 10^3/cmm (157-399) H 06/21/25 05:21 MPV 9.4 fL (7.4-10.4) 06/21/25 05:21 Neut % (Auto) 57.9 % 06/21/25 05:21 Lymph % (Auto) 32.3 % 06/21/25 05:21 [place] % (Auto) 7.7 % 06/21/25 05:21 Eos % (Auto) 1.3 % 06/21/25 05:21 Baso % (Auto) 0.4 % 06/21/25 05:21 Neut # (Auto) 5.61 10^3/uL (1.8-7.7) 06/21/25 05:21 Lymph # (Auto) 3.1 10^3/uL (0.8-4.8) 06/21/25 05:21 [place] # (Auto) 0.8 10^3/uL (0.2-0.9) 06/21/25 05:21 Eos # (Auto) 0.1 10^3/uL (0.0-0.8) 06/21/25 05:21 Baso # (Auto) 0.0 10^3/uL (0.0-0.1) 06/21/25 05:21 Nucleated RBC % (auto) 0 % 06/21/25 05:21 Nucleated RBCs # 0.0 /100WBC 06/21/25 05:21 ESR 76 mm/hr (0-10) H 06/20/25 09:35 Sodium 140 mmol/L (136-145) 06/21/25 05:21 Potassium 4.6 mmol/L (3.5-5.1) 06/21/25 05:21 Chloride 103 mmol/L (98-107) 06/21/25 05:21 Carbon Dioxide 27 mmol/L (22-29) 06/21/25 05:21 Anion Gap 14.6 (5-19) 06/21/25 05:21 BUN 16 mg/dL (8-23) 06/21/25 05:21 Creatinine 0.3 mg/dL (0.7-1.2) L 06/21/25 05:21 GFR Calculation 304.8 mL/min (90-130) H 06/21/25 05:21 Glucose 93 mg/dL (65-115) 06/21/25 05:21 POC Glucose 117 mg/dL (70-110) H 06/15/25 17:10 Calculated Osmolality 291 mOsm/kg (285-295) 06/21/25 05:21 Lactic Acid 1.1 mmol/L (0.5-2.2) 06/14/25 17:38 Calcium 8.8 mg/dL (8.5-10.5) 06/21/25 05:21 Total Bilirubin 0.2 mg/dL (0.15-1.2) 06/21/25 05:21 AST 33 U/L (0-40) 06/21/25 05:21 ALT 41 U/L (0-41) 06/21/25 05:21 Alkaline Phosphatase 110 U/L (40-130) 06/21/25 05:21 Creatine Kinase 34 U/L (39-308) L 06/21/25 05:21 Troponin T Baseline 28 ng/L (0-15) H 06/14/25 17:38 Troponin T 120 Minute 18.13 ng/L (0-15) H 06/14/25 19:18 Delta Troponin T -9.87 ABS# (0-10) L 06/14/25 19:18 Troponin T Hi Sens 6Hr 22.98 ng/L (0-15) H 06/14/25 23:47 Troponin T Hi Sens 6Hr Delta -5.02 ng/L (0-12) L 06/14/25 23:47 C-Reactive Protein 11.7 mg/L (0.0-4.9) H 06/20/25 09:35 Total Protein 6.8 g/dL (6.6-8.7) 06/21/25 05:21 Albumin 3.1 g/dL (3.5-5.2) L 06/21/25 05:21 Globulin 3.7 g/dL (1.3-4.6) 06/21/25 05:21 Procalcitonin 0.18 ng/mL (0-0.5) 06/20/25 09:35 Urine Color Dark yellow (Yellow) A 06/14/25 18:00 Urine Appearance Turbid (CLEAR) A 06/14/25 18:00 Urine pH 7.5 (5-7) 06/14/25 18:00 Ur Specific [place] 1.019 (1.005-1.030) 06/14/25 18:00 Urine Protein 2+ (Negative) A 06/14/25 18:00 Urine Glucose (UA) Negative (Normal) 06/14/25 18:00 Urine Ketones Trace (Negative) 06/14/25 18:00 Urine Blood 3+ (Negative) A 06/14/25 18:00 Urine Nitrate Positive (Negative) A 06/14/25 18:00 Urine Bilirubin Negative (Negative) 06/14/25 18:00 Urine Urobilinogen 1.0 mg/dL (Negative) 06/14/25 18:00 Ur Leukocyte Esterase 3+ (Negative) A 06/14/25 18:00 Urine RBC >100 /hpf (0-2) H 06/14/25 18:00 Urine WBC >100 /hpf (0-5) H 06/14/25 18:00 Ur Squamous Epith Cells 0-5 /hpf (0-5) 06/14/25 18:00 Calcium Oxalate Crystal 5-10 /hpf H 06/14/25 18:00 Amorphous Sediment 2+ /hpf 06/14/25 18:00 Urine Bacteria 4+ /hpf (NONE) H 06/14/25 18:00 Hyaline Casts 18.61 /lpf 06/14/25 18:00 Vitals Last Vital Signs Temp 97.8 F 06/22/25 15:37 Pulse 80 06/22/25 15:37 Resp 17 06/22/25 15:37 BP 92/61 06/22/25 15:37 Pulse Ox 96 06/22/25 15:37 O2 Del Method Room Air 06/22/25 11:14 Discharge Plan Discharge Patient Disposition: Home Health Service Condition: Stable Prescriptions: New methenamine hippurate 1 gram tablet 1 g PO BID 30 Days Qty: 60 1RF ascorbic acid (vitamin C) 500 mg tablet 500 mg PO BID Qty: 60 0RF mupirocin [Centany] 2 % ointment 1 applic topical BID 5 Days Qty: 22 5RF Rx Instructions: apply to nares with q tip,both armpits and groin folds twice daily for 5 days. repeat every month chlorhexidine gluconate [Antiseptic Skin Clnsr(chlorhe)] 4 % liquid 1 applic topical DAILY 5 Days Qty: 473 0RF Rx Instructions: bathe with hibiclens soap daily x 5 days, repeat monthly Continued metaxalone 800 mg tablet 800 mg PO .qpm 90 Days Qty: 90 1RF Complete MV Adult 50 Plus 0.4 mg-300 mcg- 250 mcg tablet 1 tab PO DAILY Qty: 90 1RF triamcinolone acetonide [Nasacort Allergy] 55 mcg aerosol,spray 2 spray intranasal DAILY Qty: 16.9 0RF Rx Instructions: administer into each nostril promethazine-DM 6.25-15 mg/5 mL syrup 7.5 ml PO Q6H PRN (Reason: cough) Qty: 118 0RF oxybutynin chloride 5 mg tablet 5 mg PO TID PRN (Reason: Bladder Spasms) Qty: 90 1RF midodrine 10 mg tablet 10 mg PO TID Qty: 270 3RF morphine 30 mg tablet 15 mg PO BID 30 Days Qty: 30 0RF potassium chloride 20 mEq tablet extended release 20 meq PO BID Qty: 60 2RF baclofen 20 mg tablet 40 mg PO BID Linzess 145 mcg capsule 145 mcg PO QPM diphenhydramine HCl [Benadryl Allergy] 25 mg Tablet 25 - 50 mg PO Q6H PRN (Reason: allergies or sleep) ascorbic acid (vitamin C) [Vitamin C] 1,000 mg Tablet 1 g PO DAILY zinc acetate 25 mg (zinc) Capsule 25 mg PO DAILY cholecalciferol (vitamin D3) [Vitamin D3] 125 mcg (5,000 unit) Tablet 125 mcg PO DAILY Discontinued ibuprofen 800 mg tablet 800 mg PO BID PRN (Reason: pain) Qty: 60 3RF sulfamethoxazole-trimethoprim [Bactrim DS] 800-160 mg tablet 1 tab PO BID Qty: 20 0RF levofloxacin 750 mg tablet 750 mg PO DAILY 7 Days Qty: 7 0RF Rx Instructions: tell him to use this OR his bactrim No Action (DME) Remove Mid Line IV after completion of IV antibiotics See Rx Instructions .Route .MEDSUPPLY Qty: 1 0RF Rx Instructions: Please call [facility]) at [phone]. fax number [phone] (DME) Ease Air Pressure Cushion for his wheelchair See Rx Instructions .Route .MEDSUPPLY Qty: 1 0RF Rx Instructions: As directed Discharge Order = DC NOW: Discharge Order (Routine); Ordered 06/22/25 Ordered By: Gerhard Mott Other Ambulatory Orders: DME: Wound Vac (Order) Location: None Selected Ordered By: Gerhard Mott Miscellaneous Procedure (Order) Location: None Selected Ordered By: Gerhard Mott Referrals: Infectious Disease Group [facility] [Provider Group, Infectious Disease] - 07/14/25 11:30 am Wound Care [Provider Group, Wound Care] - 06/28/25 3:00 pm Referral Note: [facility] ([facility]) [Outside] Preeti Barksdale MD [Primary Care Provider, [facility]] - 06/28/25 9:30 am Referral Note: Discharge Diet: Cardiac Discharge Activity: Resume usual activity Patient Instructions: Urinary Tract Infection in Men (DC), Sepsis (DC), Acute Wound Care (DC), Debridement (DC), Opioid Safety, Post Anesthesia Care, Patient Portal & Janice Instructions, Decubitus Ulcers Activity Restrictions/Additional Instructions: - Daptomycin 500 mg IV push every 24 hours, for total of 6 weeks - PICC line placed, can be removed after patient completes IV antibiotics - Follow-up with Dr. Izquierdo - Continue wound care Discharge Attestations Time Spent in Discharge Care*: greater than 30 min Quality Metrics Clinical Quality Measures [ No reported AMI, CVA or VTE this stay] Coding Level of Care Code 17337 Total time (in minutes) for Discharge: 45 Diagnoses Acute osteomyelitis M86.10 Chronic osteomyelitis M86.60 Chronic suprapubic catheter Z93.59
== END 2025-06-22 15:38 | disposition home health service (06) | DRG 853 ==
LOC: ER 22:34 → ICU 23:07 → MEDSURG 06-16 18:29
PROVIDERS: Family Medicine; Student in an Organized Health Care Education/Training Program; Surgery; Admitting Provider Internal Medicine; Emergency Provider Emergency Medicine; PCP Family Medicine; Visit Provider Family Medicine
PROC: 0JB70ZZ Excision of Back Subcutaneous Tissue and Fascia, Open Approach (ICD-10-PCS; principal; 2025-06-17 08:10)
PROC: 0JB70ZZ Excision of Back Subcutaneous Tissue and Fascia, Open Approach (ICD-10-PCS; 2025-06-17 08:10)
DX: A41.9 Sepsis, unspecified organism (principal); G82.50 Quadriplegia, unspecified; I96 Gangrene, not elsewhere classified; N39.0 Urinary tract infection, site not specified; E87.1 Hypo-osmolality and hyponatremia; L02.818 Cutaneous abscess of other sites; M86.68 Other chronic osteomyelitis, other site; L89.159 Pressure ulcer of sacral region, unspecified stage; N32.81 Overactive bladder; B95.62 Methicillin resistant Staphylococcus aureus infection as the cause of diseases classified elsewhere; Z66 Do not resuscitate; I95.1 Orthostatic hypotension; G89.29 Other chronic pain; D50.9 Iron deficiency anemia, unspecified; K58.9 Irritable bowel syndrome, unspecified; K57.90 Diverticulosis of intestine, part unspecified, without perforation or abscess without bleeding; B96.5 Pseudomonas (aeruginosa) (mallei) (pseudomallei) as the cause of diseases classified elsewhere; Z79.899 Other long term (current) drug therapy; Z99.3 Dependence on wheelchair; Z88.3 Allergy status to other anti-infective agents; Z88.8 Allergy status to other drugs, medicaments and biological substances; R73.03 Prediabetes; Z93.2 Ileostomy status; Z87.442 Personal history of urinary calculi; Z85.828 Personal history of other malignant neoplasm of skin; Z90.49 Acquired absence of other specified parts of digestive tract; Z87.891 Personal history of nicotine dependence
CPT/HCPCS: 36415; 36416; 36573; 36592; 71045; 72193; 80053; 81001; 82550; 82962; 83605; 84145; 84295; 84484; 85025; 85651; 86140; 87040; 87070; 87077; 87086; 87186; 93005; 96372; J0131; J0696; J0878; J1100; J1650; J2020; J2185; J2405; J2704; J3010; J7030; J7040; J9999

== ENCOUNTER → 2025-06-28 16:41 | Outpatient (BNVA) | payer OTHER, MEDICARE, SELFPAY | PROVIDERS: PCP Family Medicine; Visit Provider Thoracic Surgery (Cardiothoracic Vascular Surgery) | DX: M86.10 Other acute osteomyelitis, unspecified site (principal); A41.9 Sepsis, unspecified organism; L89.90 Pressure ulcer of unspecified site, unspecified stage; L08.9 Local infection of the skin and subcutaneous tissue, unspecified | CPT/HCPCS: 87070 ==

== ENCOUNTER 2025-07-01 16:21 | Outpatient (CLI) | payer OTHER, MEDICARE, SELFPAY ==
[2025-07-01 16:35] LABS: Hematocrit 31.0 % (37-53); Hemoglobin 9.60 g/dL (11.27-16.99); Mean Corpuscular HGB Conc 31.0 g/dL (30-55); Mean Corpuscular Hemoglobin 22.0 pg (27-33); Mean Corpuscular Volume 71.1 fl (82-101); Nucleated Red Blood Cells % 0 %; Platelet Count 433 10^3/cmm (157-399); Red Blood Count 4.36 10^6/uL (3.85-5.65); White Blood Count 17.60 10^3/uL (3.29-11.43)
[2025-07-01 17:30] LABS: Alanine Aminotransferase 23 U/L (0-41); Albumin Level 3.4 g/dL (3.5-5.2); Alkaline Phosphatase 134 U/L (40-130); Aspartate Amino Transferase 19 U/L (0-40); Globulin 4.7 g/dL (1.3-4.6); Total Protein 8.1 g/dL (6.6-8.7)
== END 2025-07-01 16:22 | disposition home or self-care (01) ==
LOC: LAB 16:22
PROVIDERS: PCP Family Medicine; Visit Provider Student in an Organized Health Care Education/Training Program
DX: L02.91 Cutaneous abscess, unspecified (principal); A41.9 Sepsis, unspecified organism; E87.1 Hypo-osmolality and hyponatremia
CPT/HCPCS: 80076; 82550; 82565; 85025; 86140

== ENCOUNTER 2025-07-08 14:37 | Outpatient (CLI) | payer OTHER, MEDICARE, SELFPAY ==
[2025-07-08 15:42] LABS: Hematocrit 31.1 % (37-53); Hemoglobin 9.40 g/dL (11.27-16.99); Mean Corpuscular HGB Conc 30.2 g/dL (30-55); Mean Corpuscular Hemoglobin 22.0 pg (27-33); Mean Corpuscular Volume 72.8 fl (82-101); Nucleated Red Blood Cells % 0 %; Platelet Count 617 10^3/cmm (157-399); Red Blood Count 4.27 10^6/uL (3.85-5.65); White Blood Count 12.03 10^3/uL (3.29-11.43)
[2025-07-08 16:07] LABS: Alanine Aminotransferase 20 U/L (0-41); Albumin Level 3.5 g/dL (3.5-5.2); Alkaline Phosphatase 121 U/L (40-130); Aspartate Amino Transferase 16 U/L (0-40); Globulin 4.4 g/dL (1.3-4.6); Total Protein 7.9 g/dL (6.6-8.7)
[2025-07-08 18:09] LABS: C.Diff PCR (Lab) NEGATIVE (Negative)
== END 2025-07-08 14:38 | disposition home or self-care (01) ==
LOC: LAB 14:41
PROVIDERS: PCP Family Medicine; Visit Provider Student in an Organized Health Care Education/Training Program
DX: L89.324 Pressure ulcer of left buttock, stage 4 (principal)
CPT/HCPCS: 80076; 82550; 82565; 85025; 86140; 87045; 87427; 87449; 87493

== ENCOUNTER 2025-07-11 11:11 | Outpatient (CLI) | payer OTHER, MEDICARE, SELFPAY ==
[2025-07-11 11:34] LABS: Hematocrit 31.8 % (37-53); Hemoglobin 9.30 g/dL (11.27-16.99); Mean Corpuscular HGB Conc 29.2 g/dL (30-55); Mean Corpuscular Hemoglobin 21.5 pg (27-33); Mean Corpuscular Volume 73.6 fl (82-101); Nucleated Red Blood Cells % 0 %; Platelet Count 617 10^3/cmm (157-399); Red Blood Count 4.32 10^6/uL (3.85-5.65); White Blood Count 11.54 10^3/uL (3.29-11.43)
[2025-07-11 11:57] LABS: Alanine Aminotransferase 20 U/L (0-41); Albumin Level 3.5 g/dL (3.5-5.2); Alkaline Phosphatase 112 U/L (40-130); Aspartate Amino Transferase 20 U/L (0-40); Globulin 4.1 g/dL (1.3-4.6); Total Protein 7.6 g/dL (6.6-8.7)
== END 2025-07-11 11:12 | disposition home or self-care (01) ==
LOC: LAB 11:12
PROVIDERS: PCP Family Medicine; Visit Provider Student in an Organized Health Care Education/Training Program
DX: L89.324 Pressure ulcer of left buttock, stage 4 (principal)
CPT/HCPCS: 80076; 82550; 82565; 85025; 86140

== ENCOUNTER 2025-07-15 13:44 | Outpatient (CLI) | payer OTHER, MEDICARE, SELFPAY ==
[2025-07-15 14:03] LABS: Hematocrit 32.4 % (37-53); Hemoglobin 9.60 g/dL (11.27-16.99); Mean Corpuscular HGB Conc 29.6 g/dL (30-55); Mean Corpuscular Hemoglobin 21.8 pg (27-33); Mean Corpuscular Volume 73.5 fl (82-101); Nucleated Red Blood Cells % 0 %; Platelet Count 619 10^3/cmm (157-399); Red Blood Count 4.41 10^6/uL (3.85-5.65); White Blood Count 12.37 10^3/uL (3.29-11.43)
[2025-07-15 14:26] LABS: Alanine Aminotransferase 21 U/L (0-41); Albumin Level 3.4 g/dL (3.5-5.2); Alkaline Phosphatase 123 U/L (40-130); Aspartate Amino Transferase 25 U/L (0-40); Globulin 4.5 g/dL (1.3-4.6); Total Protein 7.9 g/dL (6.6-8.7)
== END 2025-07-15 13:45 | disposition home or self-care (01) ==
PROVIDERS: PCP Family Medicine; Visit Provider Family Medicine
DX: L89.324 Pressure ulcer of left buttock, stage 4 (principal); A41.9 Sepsis, unspecified organism
CPT/HCPCS: 80076; 82550; 82565; 85025; 86140

== ENCOUNTER 2025-07-18 16:26 | Outpatient (CLI) | payer OTHER, MEDICARE, SELFPAY ==
[2025-07-18 16:56] LABS: Hematocrit 32.7 % (37-53); Hemoglobin 9.80 g/dL (11.27-16.99); Mean Corpuscular HGB Conc 30.0 g/dL (30-55); Mean Corpuscular Hemoglobin 21.8 pg (27-33); Mean Corpuscular Volume 72.8 fl (82-101); Nucleated Red Blood Cells % 0 %; Platelet Count 558 10^3/cmm (157-399); Red Blood Count 4.49 10^6/uL (3.85-5.65); White Blood Count 11.42 10^3/uL (3.29-11.43)
[2025-07-18 17:37] LABS: Alanine Aminotransferase 19 U/L (0-41); Albumin Level 3.6 g/dL (3.5-5.2); Alkaline Phosphatase 125 U/L (40-130); Aspartate Amino Transferase 16 U/L (0-40); Globulin 4.4 g/dL (1.3-4.6); Total Protein 8.0 g/dL (6.6-8.7)
== END 2025-07-18 16:27 | disposition home or self-care (01) ==
LOC: LAB 16:29
PROVIDERS: PCP Family Medicine; Visit Provider Student in an Organized Health Care Education/Training Program
DX: L02.91 Cutaneous abscess, unspecified (principal); E87.1 Hypo-osmolality and hyponatremia; A41.9 Sepsis, unspecified organism
CPT/HCPCS: 80076; 82550; 82565; 85025; 86140

== ENCOUNTER 2025-07-25 13:53 | Outpatient (CLI) | payer OTHER, MEDICARE, SELFPAY ==
[2025-07-25 14:15] LABS: Hematocrit 33.1 % (37-53); Hemoglobin 9.80 g/dL (11.27-16.99); Mean Corpuscular HGB Conc 29.6 g/dL (30-55); Mean Corpuscular Hemoglobin 21.7 pg (27-33); Mean Corpuscular Volume 73.2 fl (82-101); Nucleated Red Blood Cells % 0 %; Platelet Count 444 10^3/cmm (157-399); Red Blood Count 4.52 10^6/uL (3.85-5.65); White Blood Count 12.91 10^3/uL (3.29-11.43)
[2025-07-25 14:37] LABS: Alanine Aminotransferase 14 U/L (0-41); Albumin Level 3.6 g/dL (3.5-5.2); Alkaline Phosphatase 130 U/L (40-130); Aspartate Amino Transferase 16 U/L (0-40); Globulin 4.2 g/dL (1.3-4.6); Total Protein 7.8 g/dL (6.6-8.7)
== END 2025-07-25 13:54 | disposition home or self-care (01) ==
LOC: LAB 13:55
PROVIDERS: PCP Family Medicine; Visit Provider Family Medicine
DX: N18.32 Chronic kidney disease, stage 3b (principal)
CPT/HCPCS: 80076; 82550; 82565; 85025; 86140